=== PATIENT | female | born 1980 | race Caucasian/White ===

== ENCOUNTER → 2018-03-12 | Outpatient (CLI) | payer MEDICARE, MEDICAID ==
[~2018-03-12] MED LIST: ABILIFY; ACET-2222 PO; AGM875T PO; ALPR.5T PO; ALPR1T PO; ALPR1TAB21; ALPR1TAB72 PO; ALPR2TAB37 PO; ARPZ10T PO; AZIT-21 PO; BSP5T PO; BUSP10TA95 PO; BUTA-234; CARI250T PO; CEPH-38 PO; CEPH250C PO; CHANTIX; CHL25T PO; CLIN-62 PO; CLIN300C3 PO; CPR500T PO; DESV50TA PO; DIAZ-345 PO; DOXY-233 PO; DULO60CA6; DZPM2T PO; FLUO20CA25 PO; FLUO20CA42 PO; GBPN100C; GUAI120L27 PO; HYDR-34 PO; HYDR-3456 PO; HYDR-707 PO; HYDR-757 PO; HYDR118S10 PO; HYDR1TAB PO; HYDR1TAB75 PO; IBUP800T26 PO; LEVO500T69 PO; LNZ600T PO; METFORMIN; MTF500T PO; NAPR-243 PO; NEOM10DR9 OT; OXYC-465 PO; PREG25CA; PROZAC; PROZASIN; PROZASIN PO; REMERON; SULF-109 PO; SULF1TAB38 PO; TRAZ150T42; TRAZ150T42 PO; ZIPR60CA6; ZLP10T PO; ZLP5T PO; [UNRECOGNIZED DRUG - CODE] PO; [UNRECOGNIZED DRUG - OTHER]; [UNRECOGNIZED DRUG - OTHER] PO
--- NOTE | 2018-03-12 11:21 | Diagnostic Imaging Report ---
PROCEDURE: US Hepatic (Liver). TECHNIQUE: Multiple real-time grayscale images were obtained over the right upper quadrant in various projections. INDICATION: Hepatitis C. The liver is at the upper limits of normal in size at 18 cm. There is a circumscribed hyperechoic mass in the left lobe of the liver measuring 2.2 cm in diameter, This may represent a hemangioma. A dedicated CT abdomen utilizing hemangioma protocol would be useful however. No other liver masses are seen. Gallbladder is without stones or sludge. No wall thickening or biliary ductal dilatation is seen. The pancreas is poorly visualized due to bowel gas. Right kidney is unremarkable. IMPRESSION: Hyperechoic mass in the left lobe of the liver, suggestive of a hemangioma. CT abdomen utilizing hemangioma protocol would be useful for further evaluation. No other significant abnormality is detected. Dictated by: Dictated on workstation # [id number]
== END ==
LOC: RAD 09:26
PROVIDERS: ATTEND Pediatrics
DX: B18.2 Chronic viral hepatitis C (principal)
CPT/HCPCS: 76705

== ENCOUNTER → 2018-03-20 | Outpatient (CLI) | payer MEDICARE, MEDICAID ==
[~2018-03-20] MED LIST changes: +IOHEXOL 350 MG/ML 100 ML (OMNIPAQUE 350) VIAL IV ONE; +NS 250 ML (IVPB) BAG IV ONE
--- NOTE | 2018-03-20 09:51 | Diagnostic Imaging Report ---
PROCEDURE: CT abdomen with contrast only. TECHNIQUE: Multiple contiguous axial images were obtained through the abdomen after the administration of intravenous contrast. INDICATION: Liver mass. COMPARISON: Correlation is made with recent ultrasound from 03/12/[address] prior CT from 11/19/2008. FINDINGS: The lung bases are clear. The arterial phase images demonstrate a circumscribed low-density in left lobe of the liver measuring approximately 19 mm in size. This is better seen on the portal venous phase. No definite peripheral nodular enhancement is seen although delayed images do suggest some slight filling in of the lesion and is less well seen. No other liver masses are identified. The gallbladder is unremarkable. The pancreas and spleen are unremarkable. No adrenal mass is detected. Kidneys are unremarkable. Aorta is non-aneurysmal. No central retroperitoneal or mesenteric lymphadenopathy is identified. Bowel loops are normal caliber. There is no ascites. IMPRESSION: Circumscribed liver mass correlating with the ultrasound abnormality. CT enhancement characteristics are not classic for cavernous hemangioma however this remains a possibility, particularly with its hyperechoic appearance on ultrasound. Continued short interval followup with either CT or ultrasound is recommended with repeat study in approximately three months to confirm stability. Consideration could be given to performance of an MRI of the abdomen with and without contrast for further characterization as well. Dictated by: Dictated on workstation # [id number]
== END ==
LOC: RAD 07:36
PROVIDERS: ATTEND Pediatrics
DX: R16.0 Hepatomegaly, not elsewhere classified (principal)
CPT/HCPCS: 74160

== ENCOUNTER 2018-07-10 05:40 | Outpatient (CLI) | payer MEDICARE, MEDICAID ==
[~2018-07-10] VITALS: Ht 162.6 cm; Wt 86.2 kg
[~2018-07-10 05:40] MED LIST changes: -IOHEXOL 350 MG/ML 100 ML (OMNIPAQUE 350) VIAL IV ONE; -NS 250 ML (IVPB) BAG IV ONE
== END 2018-07-10 09:58 | disposition home or self-care (01) ==
LOC: PREOP 05:40
PROVIDERS: ATTEND Surgery
DX: Z01.818 Encounter for other preprocedural examination (principal)

== ENCOUNTER → 2018-07-11 | Outpatient (CLI) | payer MEDICARE, MEDICAID ==
--- NOTE | 2018-07-11 10:38 | Diagnostic Imaging Report ---
PROCEDURE: US Hepatic (Liver). TECHNIQUE: Multiple real-time grayscale images were obtained over the right upper quadrant in various projections. INDICATION: Liver mass noted on MRI. COMPARISON: Correlation is made with MRI abdomen study from 04/01/2018. FINDINGS: The liver is 18 cm in size. The left lobe liver lesion is again noted which is hyperechoic measuring 1.9 x 2.0 x 1.6 cm. This is fairly stable when compared with prior imaging. No new liver mass is detected. Gallbladder is without stones or sludge. No wall thickening or biliary ductal dilatation is seen. The pancreas and right kidney are unremarkable. There is no ascites. IMPRESSION: Stable hyperechoic mass in left lobe of the liver when compared with prior imaging. Continued followup is recommended to confirm stability. Dictated by: Dictated on workstation # [id number]
== END ==
LOC: RAD 08:48
PROVIDERS: ATTEND Pediatrics
DX: R16.0 Hepatomegaly, not elsewhere classified (principal)
CPT/HCPCS: 76705

== ENCOUNTER 2018-07-17 09:00 | Day surgery (SDC) | payer MEDICARE, MEDICAID ==
[~2018-07-17] VITALS: Ht 162.6 cm; Wt 86.2 kg
--- OUTSIDE RECORDS SUMMARY | 2018-07-17 09:09 | XMS REPORT ---
Author Author Soo Cai Organization [facility] Address [address] [place], [place] [address] Care Team Providers Care Coffee Grinder Name Role Phone Soo Cai PCP Unavailable Allergies and Adverse Reactions Name Reaction Notes PENICILLINS Betadine Plan of Treatment Not available. Medications Active Name Start Date Estimated Completion Date SIG Comments Zofran (as hydrochloride) 8 mg oral tablet 10/19/2016 10/24/2016 Take 1/2 - 1 tablet po q 8 hrs, PRN nausea and vomiting Problem List Not available. Vital Signs Date Time BP-Sys(mm[Hg] BP-Zoe(mm[Hg]) HR(bpm) RR(rpm) Temp WT HT HC BMI BSA BMI Percentile O2 Sat(%) 10/19/2016 4:57:00 PM 139 mmHg 77 mmHg 93 bpm 18 rpm 98.4 F 151 lbs 64 in 25.92 kg/m2 1.76 m2 98 % Social History Name Description Comments Tobacco Current every day smoker History of Procedures Not available. Results Summary Not available. History Of Immunizations Not available. History of Past Illness Name Date of Onset Comments Amputation of leg; left; below the knee Vomiting, unspecified Oct 19 2016 5:02PM Diarrhea, unspecified Oct 19 2016 5:02PM Payers Insurance Name Company Name Plan Name Plan Number Policy Number Policy Group Number Start Date Medicare RHC Medicare RHC [id number] [facility] Comm [id number] N/A Medicare Part A Medicare - Lab/Xray [id number] N/A History of Encounters Visit Date Visit Type Provider 10/19/2016 Office visit Soo Cai APRN
--- OUTSIDE RECORDS SUMMARY | 2018-07-17 09:09 | XMS REPORT ---
Author Author YAJAIRA HERNANDEZ Organization [facility] Address [address] [place] [address] Care Team Providers Care Radio Television Technical Director Name Role Phone YAJAIRA HERNANDEZ Unavailable PROBLEMS Type Condition ICD9-CM Code [id number] Code Onset Dates Condition Status SNOMED Code Problem Amphetamine and other psychostimulant dependence, unspecified abuse 304.40 Active Problem Lower limb amputation, below knee Z89.519 Active 001793120 Problem Hepatitis C antibody positive in blood R76.8 Active 994304790 Problem Chronic hepatitis C without hepatic coma B18.2 Active 989012845 Problem Hepatic hemangioma D18.03 Active 95620000 Problem Generalized anxiety disorder F41.1 Active 27711371 Problem Attention deficit disorder (ADD) in adult F98.8 Active 831437704 Problem Hep C w/o coma, chronic B18.2 Active 467770142 Problem History of left below knee amputation Z89.512 Active 893448813 ALLERGIES Substance Reaction Event Type Date Status Penicillin V Potassium as a child Drug Allergy May, Active Betadine blisters Drug Allergy May, Active ENCOUNTERS Encounter Location Date Diagnosis [facility] [id number] [address]2382- 9465 May, History of left below knee amputation Z89.512 and Tendon cysts M67.80 [facility] [address] [id number] [address] May, [facility] [id number] [facility] [place] [address] 37723- 3156 May, [facility] [address] [facility] [place] [address] 01611- 8207 May, History of left below knee amputation Z89.512 [facility] [id number] [place] [address] 80835- 2249 Apr, Chronic hepatitis C without hepatic coma B18.2 ; Hepatic hemangioma D18.03 and Encounter for immunization Z23 [facility] [id number] [place] [address] 50088- 3715 Apr, Liver mass R16.0 [facility] [id number] [place] [address] 83242- 8646 Mar, Liver mass R16.0 [facility] [address] [address] Mar, [facility] [id number] [place] [address] 54940- 9847 Mar, Generalized anxiety disorder F41.1 ; Lower limb amputation, below knee Z89.519 and Hep C w/o coma, chronic B18.2 [facility] [id number] [facility] [place] [address] 69727- 0680 Mar, Liver mass R16.0 [facility] [id number] [place] [address] 87591- 6957 Feb, Hep C w/o coma, chronic B18.2 and Weight gain R63.5 [facility] [id number] [place] [address] [id number] Feb, Hepatitis C antibody positive in blood R76.8 [facility] [id number] [place] [address] 21660- 1518 Jan, Hep C w/o coma, chronic B18.2 [facility] [id number] [place] [address] 72863- 5381 Jan, [facility] [id number] [place] [address] 19718- 8246 Jan, Hep C w/o coma, chronic B18.2 [facility] [id number] [place] [address] 43973- 9575 Jan, Chronic hepatitis C without hepatic coma B18.2 [facility] [address] [place] [address] 8[address] Jan, [facility] [id number] [place] [address] [id number] Jan, Hepatitis C antibody positive in blood R76.8 [facility] [id number] [place] [address] 42614- 5802 December, Chronic hepatitis C without hepatic coma B18.2 and Encounter for immunization Z23 [place] [id number] [facility] [place] [address] 63710- 4879 December, [facility] [id number] [place] [address] [id number] December, Hepatitis C antibody positive in blood R76.8 [place] [id number] [place] [address] 07269- 3995 December, Hepatitis C antibody positive in blood R76.8 [place] [id number] [place] [address] 39678- 4422 December, [facility] [address] [place] [address] [id number] December, History of left below knee amputation Z89.512 ; Other acute postprocedural pain G89.18 and Other complications of amputation stump T87.89 [place] [address] [facility] [place] [address] 27071- 0407 Nov, Generalized anxiety disorder F41.1 and Attention deficit disorder (ADD) in adult F98.8 [place] [address] [facility] [place] [address] 74788- 4766 Nov, History of hepatitis C Z86.19 ; History of methamphetamine abuse Z87.898 ; Lower limb amputation, below knee Z89.519 and Encounter to establish care Z76.89 [place] [address] [facility] [place] [address] 69828- 1244 Nov, [place] [id number] [place] [address] 59226- 9743 Nov, [facility] [id number] [phone] Jun, [facility] [address] [id number] [place] [address] Jun, [facility] [place] [facility] [address] [id number] [place] [address]- 2256 May, [facility] [place] [facility] [address] [id number] [place] [address] 9666 May, [facility] [address] [place] [place] [id number] Apr, [facility] [address] [id number] [place] [address] 4675 Apr, [facility] [address] [place] [id number] Mar, [facility] [place] [facility] [address] [id number] [place] [address] 3272 Mar, [facility] [place] [facility] [address] [id number] [place] [address] 9614 Mar, [facility] [address] [place] [id number] Mar, [facility] [place] [facility] [address] [id number] [place] [address]- 0871 Jan, [facility] [place] [facility] [address] [id number] [place] [address]- 1546 Oct, [facility] [place] [facility] [address] [id number] [place] [address]- 8065 Oct, [facility] [place] [facility] [address] [id number] [place] [address]- 8067 Sep, [facility] [place] [facility] [address] [id number] [place] [address]- 2142 Sep, [facility] [place] [facility] [address] [id number] [place] [address]- 3986 Aug, [facility] [place] [facility] [address] [id number] [place] [address]- 7687 Aug, [facility] [address] [id number] [address] 5786 Aug, [facility] [address] [address] 2969 Aug, [facility] [address], [place] [address] 9666 Jul, [facility] [address] [facility] [place] [address] 88342- 7645 Jul, [facility] [address] [address] 7417 Jun, [facility] [address] [facility] [place] [address] 09237- 6670 Jun, [facility] [address] [address] 74[address] Jun, [facility] [address], [place] [address] 7607 May, IMMUNIZATIONS No Known Immunizations SOCIAL HISTORY Never Assessed REASON FOR VISIT Injection / amputation f/u-HARVEY kim, pt states she is her for a cortizone injection and a pneumonia injection PLAN OF CARE Activity Details Follow Up prn Reason: VITAL SIGNS Height 64 in 2018-05-29 Weight 193.0 lbs 2018-05-29 Temperature 97.7 degrees Fahrenheit 2018-05-29 Heart Rate 66 bpm 2018-05-29 Respiratory Rate 18 2018-05-29 Oximetry on room air:97 % 2018-05-29 BMI 33.12 kg/m2 2018-05-29 Blood pressure systolic 110 mmHg 2018-05-29 Blood pressure diastolic 80 mmHg 2018-05-29 MEDICATIONS No Known Medications RESULTS No Results PROCEDURES Procedure Date Ordered Result Body Site [facility] VISIT ESTABLISHED PATIENT May 29, 2018 INSTRUCTIONS MEDICATIONS ADMINISTERED No Known Medications MEDICAL (GENERAL) HISTORY Type Description Date Medical History Hep C Medical History Left BKA Medical History Dermatophytosis of the body Medical History Bipolar disorder, unspecified Medical History Anxiety state, unspecified Medical History Cellulitis and abscess of leg, except foot Medical History Pain in soft tissues of limb Surgical History BKA 2013 Surgical History 1999 Surgical History 2001 Surgical History Total hysterectomy 2007 Hospitalization History Debridments 2012 Hospitalization History C-sections Hospitalization History Amputation 2014
--- OUTSIDE RECORDS SUMMARY | 2018-07-17 09:09 | XMS REPORT ---
Author Author ASHISH SEGOVIA Organization [facility] Address [address] [place] [address] Care Team Providers Care Whipped Topping Mixer Name Role Phone ASHISH SEGOVIA Unavailable PROBLEMS Type Condition ICD9-CM Code EYX26-GE Code Onset Dates Condition Status SNOMED Code Problem Amphetamine and other psychostimulant dependence, unspecified abuse 304.40 Active Problem Lower limb amputation, below knee Z89.519 Active 133954501 Problem Hepatitis C antibody positive in blood R76.8 Active 783998517 Problem Chronic hepatitis C without hepatic coma B18.2 Active 451040007 Problem Hepatic hemangioma D18.03 Active 59080766 Problem Generalized anxiety disorder F41.1 Active 18689257 Problem Attention deficit disorder (ADD) in adult F98.8 Active 557622031 Problem Hep C w/o coma, chronic B18.2 Active 041632159 Problem History of left below knee amputation Z89.512 Active 263359518 ALLERGIES No Information ENCOUNTERS Encounter Location Date Diagnosis [facility] [address] [place] [address] 71809- 8989 May, [facility] [id number] [place] [address] 36067- 0846 Apr, Chronic hepatitis C without hepatic coma B18.2 ; Hepatic hemangioma D18.03 and Encounter for immunization Z23 [facility] [address] [place] [address] 71066- 7296 Apr, Liver mass R16.0 [facility] [id number] [place] [address] 07156- 6724 Mar, Liver mass R16.0 [facility] [id number] [place] [address] 65738- 4151 Mar, [facility] [address] [place] [address]- 2490 Mar, Generalized anxiety disorder F41.1 ; Lower limb amputation, below knee Z89.519 and Hep C w/o coma, chronic B18.2 [facility] [address] [address]- 6098 Mar, Liver mass R16.0 [facility] [address] [address]41- [address]3 Feb, Hep C w/o coma, chronic B18.2 and Weight gain R63.5 [facility] [address] [id number] Feb, Hepatitis C antibody positive in blood R76.8 [facility] [address] 07297- 2799 Jan, Hep C w/o coma, chronic B18.2 [facility] [address] [address]08- 5381 Jan, [facility] [address] 98789- 3199 Jan, Hep C w/o coma, chronic B18.2 [facility] [address] 01986- 1701 Jan, Chronic hepatitis C without hepatic coma B18.2 [facility] [id number] [place] [address] 63185- 3603 Jan, [facility] [id number] [place] [address] [id number] Jan, Hepatitis C antibody positive in blood R76.8 [facility] [address] 35722- 7059 December, Chronic hepatitis C without hepatic coma B18.2 and Encounter for immunization Z23 [facility] [id number] [place] [address] 32005- 0836 December, [facility] [address] [id number] December, Hepatitis C antibody positive in blood R76.8 [facility] [address], [place] [address]- 0692 December, Hepatitis C antibody positive in blood R76.8 [facility] [address] [address] December, [facility] [id number] [place] [address] [id number] December, History of left below knee amputation Z89.512 ; Other acute postprocedural pain G89.18 and Other complications of amputation stump T87.89 [facility] [id number] [place] [address] 62855- 6367 Nov, Generalized anxiety disorder F41.1 and Attention deficit disorder (ADD) in adult F98.8 [facility] [address] [place] [address] 54654- 3598 Nov, History of hepatitis C Z86.19 ; History of methamphetamine abuse Z87.898 ; Lower limb amputation, below knee Z89.519 and Encounter to establish care Z76.89 [facility] [address] [place] [address] 05564- 4433 14 Nov, 2014 [facility] [address] [place] [address] 80502- 1333 13 Nov, 2014 [facility] [address] [id number] [id number] Jun, [facility] [address] [place] [address] 49801- 6114 Jun, [facility] [address] [place] [address] 08866- 2279 May, [facility] [address] [place] [address] 26538870- 5691 May, [facility] [address] [place] [id number] Apr, [facility] [id number] [place] [address], [place] [address]- 44[address] Apr, [facility] [address], [place] [id number] Mar, [facility] [place] [facility] [address] [id number] [place] [address]- 4277 Mar, [facility] [place] [facility] [address] [id number] [place] [address]- 7370 Mar, [facility] [address] [id number] Mar, [facility] [place] [facility] [address] [id number] [place] [address]- 3163 Jan, [facility] [place] [facility] [address] [id number] [place] [address]- 3987 Oct, [facility] [place] [facility] [address] [id number] [place] [address]- 9060 Oct, [facility] [place] [facility] [address] [id number] [place] [address]- 0352 Sep, [facility] [place] [facility] [address] [id number] [place] [address]- 7438 Sep, [facility] [place] [facility] [address] [id number] [place] [address]- 4410 Aug, [facility] [place] [facility] [address] [id number] [place] [address]- 9986 Aug, [facility] [place] [facility] [address] [id number] [place] [address]- 3301 Aug, [facility] [place] [facility] [address] [id number] [place] [address]- 6886 Aug, [facility] [place] [facility] [address] [id number] [place] [address]- 1058 Jul, [facility] [place] [facility] [address] [id number] [place] [address]- 1412 Jul, [facility] [place] [facility] [address] [id number] [place] [address]- 5721 Jun, [facility] [address] [facility] [id number] [place] [address]- 2546 Jun, [facility] [address] [facility] [id number] [place] [address]- 2546 Jun, [facility] [address] [facility] [id number] [place] [address]- 7756 May, IMMUNIZATIONS No Known Immunizations SOCIAL HISTORY Never Assessed REASON FOR VISIT Deferred order PLAN OF CARE VITAL SIGNS MEDICATIONS Unknown Medications RESULTS No Results PROCEDURES No Known procedures INSTRUCTIONS MEDICATIONS ADMINISTERED No Known Medications MEDICAL [...] Surgical History 2001 Surgical History Total hysterectomy 2006 Hospitalization History Debridments 2012 Hospitalization History C-sections Hospitalization History Amputation 2014
--- OUTSIDE RECORDS SUMMARY | 2018-07-17 09:09 | XMS REPORT ---
Author Author ASHISH SEGOVIA Organization [facility] Address [address] [place] [address] Care Team Providers Care Regional Agronomist Name Role Phone ASHISH SEGOVIA Unavailable PROBLEMS Type Condition ICD9-CM Code UIF10-CU Code Onset Dates Condition Status SNOMED Code Problem Amphetamine and other psychostimulant dependence, unspecified abuse 304.40 Active Problem Lower limb amputation, below knee Z89.519 Active 322561437 Problem Hepatitis C antibody positive in blood R76.8 Active 991079730 Problem Chronic hepatitis C without hepatic coma B18.2 Active 058522981 Problem Hepatic hemangioma D18.03 Active 84526288 Problem Generalized anxiety disorder F41.1 Active 62869551 Problem Attention deficit disorder (ADD) in adult F98.8 Active 041808105 Problem Hep C w/o coma, chronic B18.2 Active 377371294 Problem History of left below knee amputation Z89.512 Active 322472128 ALLERGIES Substance Reaction Event Type Date Status Penicillin V Potassium as a child Drug Allergy Apr, Active Betadine blisters Drug Allergy Apr, Active ENCOUNTERS Encounter Location Date Diagnosis [facility] [id number] [place] [address] 71226- 2305 May, [facility] [id number] [place] [address] 14712- 1286 May, History of left below knee amputation Z89.512 [facility] [id number] [place] [address] 68146- 9743 Apr, Chronic hepatitis C without hepatic coma B18.2 ; Hepatic hemangioma D18.03 and Encounter for immunization Z23 [facility] [address] [place] [address] 86241- 7840 Apr, Liver mass R16.0 [facility] [address] [place] [address]- 5481 Mar, Liver mass R16.0 [facility] [id number] [place] [address] 59917- 2907 Mar, [facility] [id number] [place] [address] 38461- 5793 Mar, Generalized anxiety disorder F41.1 ; Lower limb amputation, below knee Z89.519 and Hep C w/o coma, chronic B18.2 [facility] [id number] [place] [address] 20008- 6320 Mar, Liver mass R16.0 [facility] [id number] [place] [address] 49448- 5389 Feb, Hep C w/o coma, chronic B18.2 and Weight gain R63.5 [facility] [id number] [place] [address] [phone] Feb, Hepatitis C antibody positive in blood R76.8 [facility] [id number] [place] [address] 55225- 7001 Jan, Hep C w/o coma, chronic B18.2 [facility] [id number] [place] [address] 01669- 7662 Jan, [facility] [id number] [place] [address] 80651- 6617 Jan, Hep C w/o coma, chronic B18.2 [facility] [id number] [place] [address] 40024- 9537 Jan, Chronic hepatitis C without hepatic coma B18.2 [facility] [id number] [place] [address] 50333- 5614 Jan, [facility] [id number] [place] [address] [phone] Jan, Hepatitis C antibody positive in blood R76.8 [facility] [id number] [place] [address] 49813- 2866 December, Chronic hepatitis C without hepatic coma B18.2 and Encounter for immunization Z23 [place] [id number] [place] [address] 28745- 4199 December, [facility] [address] [place] [address] [phone] December, Hepatitis C antibody positive in blood R76.8 [place] [id number] [place] [address] 71265- 7960 December, Hepatitis C antibody positive in blood R76.8 [place] [id number] [place] [address] 16457- 4225 December, [place] [id number] [place] [address] [phone] December, History of left below knee amputation Z89.512 ; Other acute postprocedural pain G89.18 and Other complications of amputation stump T87.89 [place] [id number] [place] [address] 52523- 1611 Nov, Generalized anxiety disorder F41.1 and Attention deficit disorder (ADD) in adult F98.8 [place] [id number] [place] [address] 51593- 8923 Nov, History of hepatitis C Z86.19 ; History of methamphetamine abuse Z87.898 ; Lower limb amputation, below knee Z89.519 and Encounter to establish care Z76.89 [place] [id number] [place] [address] 17836- 8324 14 Nov, 2014 [place] [id number] [place] [address] 58832- 5657 Nov, [facility] [address] [place] [address] [phone] Jun, [place] [id number] [place] [address] 91423- 6541 Jun, [place] [id number] [place] [address] 67881- 8169 May, [facility] [address] [id number] [place] [address]- 3776 May, [facility] [address] [id number] Apr, [facility] [place] [facility] [address] [id number] [place] [address]- 5336 Apr, [facility] [address] [id number] Mar, [facility] [place] [facility] [address] [id number] [place] [address]- 6296 Mar, [facility] [place] [facility] [address] [id number] [place] [address]- 3256 Mar, [facility] [address] [id number] Mar, [facility] [place] [facility] [address] [id number] [address]- 3866 Jan, [facility] [place] [facility] [address] [id number] [place] [address]- 3547 Oct, [facility] [place] [facility] [address] [id number] [place] [address]- 6978 Oct, [facility] [place] [facility] [address] [id number] [place] [address] 18[address] Sep, [facility] [place] [facility] [address] [id number] [place] [address]- 2380 Sep, [facility] [place] [facility] [address] [id number] [place] [address]- 0995 Aug, [facility] [place] [facility] [address] [id number] [place] [address]- 5463 Aug, [facility] [place] [facility] [address] [id number] [place] [address]- 7796 Aug, [facility] [place] [facility] [address] [id number] [place] [address]- 1470 Aug, [facility] [place] [facility] [address] [id number] [place] [address]- 2546 Jul, [facility] [address] [facility] [id number] [place] [address]- 2546 Jul, [facility] [address] [facility] [id number] [place] [address]- 2546 Jun, [facility] [address] [facility] [id number] [place] [address]- 2546 Jun, [facility] [address] [facility] [id number] [place] [address] 55808- 2546 Jun, [facility] [address] [facility] [id number] [place] [address]- 2546 May, IMMUNIZATIONS Vaccine Route Administration Date Status FLULAVAL QUAD 0.5ML (6 MO & UP) 2018 IM Intramuscular Apr 28, 2018 Administered SOCIAL HISTORY Never Assessed REASON FOR VISIT Hep C week 12, pt would like a flu shot. pt would like to get a script for a shower chair and a handle for bath tub. Pt states she has a bump on the outside of her lft amputee leg that keeps geeting bigger. Cshepherd, Pt states she has only one pill left. PLAN OF CARE Activity Details Follow Up 3 Months for labs Reason: VITAL SIGNS Height 64 in 2018-04-28 Weight 190.7 lbs 2018-04-28 Temperature 96.8 degrees Fahrenheit 2018-04-28 Heart Rate 67 bpm 2018-04-28 Respiratory Rate 18 2018-04-28 Oximetry 97 % 2018-04-28 BMI 32.73 kg/m2 2018-04-28 Blood pressure systolic 118 mmHg 2018-04-28 Blood pressure diastolic 62 mmHg 2018-04-28 MEDICATIONS Medication Instructions Dosage Frequency Start Date End Date Duration Status Epclusa 400-100 MG Orally Once a day (12 weeks total regimen) 1 tablet Jan, 4 weeks Active RESULTS No Results PROCEDURES Procedure Date Ordered Result Body Site LAB NOT BILLED BY [facility] Apr 28, 2018 [facility] VISIT ESTABLISHED PATIENT Apr 28, 2018 FLULAVAL QUAD 0.5ML (6 MO AND UP) 2018 Apr 28, 2018 VENIPUNCT, ROUTINE* Apr 28, 2018 SINGLE IMMUNIZATION ADMIN Apr 28, 2018 INSTRUCTIONS MEDICATIONS ADMINISTERED No Known Medications [...]
--- OUTSIDE RECORDS SUMMARY | 2018-07-17 09:09 | XMS REPORT ---
Author Author ASHISH SEGOVIA Organization [facility] Address [address] [place] [address] Care Team Providers Care Seismograph Helper Name Role Phone ASHISH SEGOVIA Unavailable PROBLEMS Type Condition ICD9-CM Code SOL40-QS Code Onset Dates Condition Status SNOMED Code Problem Hepatitis C antibody positive in blood R76.8 Active 073917757 Problem Hep C w/o coma, chronic B18.2 Active 998153434 Problem History of left below knee amputation Z89.512 Active 177411990 Problem Lower limb amputation, below knee Z89.519 Active 043308202 Problem Amphetamine and other psychostimulant dependence, unspecified abuse 304.40 Active Problem Attention deficit disorder (ADD) in adult F98.8 Active 792513284 Problem Generalized anxiety disorder F41.1 Active 90608468 ALLERGIES No Information ENCOUNTERS Encounter Location Date Diagnosis [facility] [address] 81150- 0871 May, [facility] [address] 48664- 2819 Apr, [facility] [id number] [place] [address] 59672- 8240 Apr, Liver mass R16.0 [facility] [address] 04735- 6253 Mar, Liver mass R16.0 [facility] [id number] [place] [address] 44863- 5552 Mar, [facility] [address] 84435- 1567 Mar, Generalized anxiety disorder F41.1 ; Lower limb amputation, below knee Z89.519 and Hep C w/o coma, chronic B18.2 [facility] [id number] [place] [address] 02960- 5331 Mar, Liver mass R16.0 [facility] [id number] [place] [address] 66514- 1136 Feb, Hep C w/o coma, chronic B18.2 and Weight gain R63.5 [facility] [id number] [place] [address] [id number] Feb, Hepatitis C antibody positive in blood R76.8 [facility] [id number] [place] [address] 92945- 7602 Jan, Hep C w/o coma, chronic B18.2 [facility] [id number] [place] [address] 93912- 6429 Jan, [facility] [id number] [place] [address] 46813- 8197 Jan, Hep C w/o coma, chronic B18.2 [facility] [id number] [place] [address] 67555- 5268 Jan, Chronic hepatitis C without hepatic coma B18.2 [facility] [id number] [place] [address] 08826- 8204 Jan, [facility] [address] [place] [address] [id number] Jan, Hepatitis C antibody positive in blood R76.8 [facility] [id number] [place] [address] 54318- 1327 December, Chronic hepatitis C without hepatic coma B18.2 and Encounter for immunization Z23 [facility] [id number] [place] [address] 36689- 5900 December, [facility] [id number] [place] [address] [id number] December, Hepatitis C antibody positive in blood R76.8 [facility] [id number] [place] [address] 54298- 5798 December, Hepatitis C antibody positive in blood R76.8 [facility] [id number] [address]- 2224 December, [facility] [address] [id number] [id number] December, History of left below knee amputation Z89.512 ; Other acute postprocedural pain G89.18 and Other complications of amputation stump T87.89 [facility] [address] [address]- 3949 Nov, Generalized anxiety disorder F41.1 and Attention deficit disorder (ADD) in adult F98.8 [place] [address] [place] [address] 53471- 6169 Nov, History of hepatitis C Z86.19 ; History of methamphetamine abuse Z87.898 ; Lower limb amputation, below knee Z89.519 and Encounter to establish care Z76.89 [facility] [address], [place] [address]- 0817 14 Nov, 2014 [facility] [id number] [address]- 1777 13 Nov, 2014 [facility] [address] [id number] [place] [id number] Jun, [facility] [id number] [address]- 0168 Jun, [facility] [address] [id number] [address]- 9376 May, [facility] [address] [id number], [place] [address]- 7181 May, [facility] [address] [place] [id number] Apr, [facility] [address], [place] [address]- 1487 Apr, [facility] [address] [place] [id number] Mar, [facility] [address] [place] [address]- 5317 Mar, [facility] [address] [id number] [place] [address]- 2080 Mar, [facility] [address] [id number] Mar, [facility] [place] [facility] [address] [id number] [place] [address]- 4602 Jan, [facility] [place] [facility] [address] [id number] [place] [address]- 3524 Oct, [facility] [place] [facility] [address] [id number] [place] [address]- 3569 Oct, [facility] [place] [facility] [address] [id number] [place] [address]- 9842 Sep, [facility] [place] [facility] [address] [id number] [place] [address]- 7390 Sep, [facility] [place] [facility] [address] [id number] [place] [address]- 1947 Aug, [facility] [place] [facility] [address] [id number] [place] [address]- 6695 Aug, [facility] [place] [facility] [address] [id number] [place] [address]- 3136 Aug, [facility] [place] [facility] [address] [id number] [place] [address]- 9816 Aug, [facility] [place] [facility] [address] [id number] [place] [address]- 9323 Jul, [facility] [place] [facility] [address] [id number] [place] [address]- 8104 Jul, [facility] [place] [facility] [address] [id number] [place] [address]- 0368 Jun, [facility] [place] [facility] [address] [id number] [place] [address]- 9826 Jun, [facility] [place] [facility] [address] [facility] [id number] [place] [address]- 4756 Jun, [facility] [address] [facility] [id number] [place] [address]- 4625 May, IMMUNIZATIONS No Known Immunizations SOCIAL HISTORY Never Assessed REASON FOR VISIT Liver Mass / MRI Order PLAN OF CARE VITAL SIGNS MEDICATIONS Unknown Medications RESULTS Name Result Date Reference Range MRI : Abdomen w/o & w/ Contrast 2018-04-01 PROCEDURES No Known procedures INSTRUCTIONS MEDICATIONS ADMINISTERED [...]
--- OUTSIDE RECORDS SUMMARY | 2018-07-17 09:09 | XMS REPORT ---
Author Author Soo Cai Organization [facility] Address [address] [place], [place] [address] Care Team Providers Care Practicing Md Anesthesiologist Name Role Phone Soo Cai PCP Unavailable Allergies and Adverse Reactions Name Reaction Notes PENICILLINS Betadine Plan of Treatment Not available. Medications Name Start Date Expiration Date SIG Comments Zofran (as hydrochloride) 8 [...] Number Start Date Medicare RHC Medicare RHC [id number] N/A [facility] [id number] N/A Medicare Part A Medicare - Lab/Xray [id number] N/A History of Encounters Visit Date Visit Type Provider 10/19/2016 Office visit Soo Cai APRN
--- OUTSIDE RECORDS SUMMARY | 2018-07-17 09:10 | XMS REPORT ---
Author Author SABA HAZEL Organization [facility] Address [address] [place] [address] Care Team Providers Care Custom Ski Maker Name Role Phone SABA HAZEL Unavailable PROBLEMS Type Condition ICD9-CM Code LCG55-EP Code Onset Dates Condition Status SNOMED Code Problem Hepatitis C antibody positive in blood R76.8 Active 341905529 Problem Hep C w/o coma, chronic B18.2 Active 451912945 Problem History of left below knee amputation Z89.512 Active 581569456 Problem Lower limb amputation, below knee Z89.519 Active 635338195 Problem Amphetamine and other psychostimulant dependence, unspecified abuse 304.40 Active Problem Attention deficit disorder (ADD) in adult F98.8 Active 530464376 Problem Generalized anxiety disorder F41.1 Active 62240139 ALLERGIES No Information ENCOUNTERS Encounter Location Date Diagnosis [facility] [address] [address]- [address]11 May, [facility] [address] 69513- 8606 Apr, [facility] [id number] [place] [address] 41626- 4748 Apr, Liver mass R16.0 [facility] [id number] [place] [address] 68229- 3010 Mar, Liver mass R16.0 [facility] [id number] [place] [address] 62201- 4228 Mar, [facility] [address] 29283- 7676 Mar, Generalized anxiety disorder F41.1 ; Lower limb amputation, below knee Z89.519 and Hep C w/o coma, chronic B18.2 [facility] [address] [place] [address] 36704- 7179 Mar, Liver mass R16.0 [facility] [id number] [place] [address] 48550- 5068 Feb, Hep C w/o coma, chronic B18.2 and Weight gain R63.5 [facility] [id number] [place] [address] [id number] Feb, Hepatitis C antibody positive in blood R76.8 [facility] [id number] [place] [address] 68861- 6245 Jan, Hep C w/o coma, chronic B18.2 [facility] [id number] [place] [address] 05031- 9397 Jan, [facility] [id number] [place] [address] 95972- 2495 Jan, Hep C w/o coma, chronic B18.2 [facility] [id number] [place] [address] 22249- 5339 Jan, Chronic hepatitis C without hepatic coma B18.2 [facility] [id number] [place] [address] 85165- 8838 Jan, [facility] [address] [place] [address] [id number] Jan, Hepatitis C antibody positive in blood R76.8 [facility] [id number] [place] [address] 31034- 8303 December, Chronic hepatitis C without hepatic coma B18.2 and Encounter for immunization Z23 [facility] [id number] [place] [address] 91522- 0493 December, [facility] [id number] [place] [address] [id number] December, Hepatitis C antibody positive in blood R76.8 [facility] [id number] [place] [address] 26288- 2320 December, Hepatitis C antibody positive in blood R76.8 [facility] [address] [id number] [address]- 3013 December, [facility] [address] [id number] [id number] December, History of left below knee amputation Z89.512 ; Other acute postprocedural pain G89.18 and Other complications of amputation stump T87.89 [facility] [address] [address]- 6821 Nov, Generalized anxiety disorder F41.1 and Attention deficit disorder (ADD) in adult F98.8 [place] [address] [address]- 1661 Nov, History of hepatitis C Z86.19 ; History of methamphetamine abuse Z87.898 ; Lower limb amputation, below knee Z89.519 and Encounter to establish care Z76.89 [facility] [address] [address]- 4660 14 Nov, 2014 [facility] [address] [id number] [address]- 5198 Nov, [facility] [address] [id number] [id number] Jun, [facility] [address] [id number] [address]- 8734 Jun, [facility] [id number] 6345 May, [facility] [id number] 4725 May, [facility] [address] [place] [id number] Apr, [facility] [address] [id number] [address]- 7036 Apr, [facility] [address] [place] [id number] Mar, [facility] [address] [address]- 1502 Mar, [facility] [address] [facility] [id number] [place] [address]- 7801 Mar, [facility] [address] [id number] Mar, [facility] [place] [facility] [address] [facility] [id number] [place] [address]- 7051 Jan, [facility] [place] [facility] [address] [id number] [place] [address]- 5698 Oct, [facility] [place] [facility] [address] [id number] [place] [address]- 5989 Oct, [facility] [place] [facility] [address] [id number] [place] [address]- 8938 Sep, [facility] [place] [facility] [address] [id number] [place] [address]- 0451 Sep, [facility] [place] [facility] [address] [id number] [place] [address]- 4494 Aug, [facility] [place] [facility] [address] [id number] [place] [address]- 5012 Aug, [facility] [place] [facility] [address] [id number] [place] [address] Aug, [facility] [place] [facility] [address] [id number] [place] [address] Aug, [facility] [place] [facility] [address] [id number] [place] [address] Jul, [facility] [place] [facility] [address] [id number] [place] [address] Jul, [facility] [place] [facility] [address] [facility] [id number] [place] [address] Jun, [facility] [place] [facility] [address] [id number] [place] [address] Jun, [facility] [place] [facility] [address] [facility] [id number] [place] [address] Jun, [facility] [address] [facility] [id number] [place] [address] May, IMMUNIZATIONS No Known Immunizations SOCIAL HISTORY Never Assessed REASON FOR VISIT Requests return call PLAN OF CARE VITAL SIGNS MEDICATIONS Unknown [...]
--- OUTSIDE RECORDS SUMMARY | 2018-07-17 09:10 | XMS REPORT ---
Author Author HAZELSABA Elaine Organization [facility] Address [address] [place] [address] Care Team Providers Care Television Engineering Teacher Name Role Phone SABA HAZEL Unavailable PROBLEMS Type Condition ICD9-CM Code ONJ93-MI Code Onset Dates Condition Status SNOMED Code Problem Hepatitis C antibody positive in blood R76.8 Active 513859315 Problem Hep C w/o coma, chronic B18.2 Active 878939412 Problem History of left below knee amputation Z89.512 Active 067359098 Problem Lower limb amputation, below knee Z89.519 Active 540713966 Problem Amphetamine and other psychostimulant dependence, unspecified abuse 304.40 Active Problem Attention deficit disorder (ADD) in adult F98.8 Active 388587157 Problem Generalized anxiety disorder F41.1 Active 38221823 ALLERGIES Substance Reaction Event Type Date Status Penicillin V Potassium as a child Drug Allergy Mar, Active Betadine blisters Drug Allergy Mar, Active ENCOUNTERS Encounter Location Date Diagnosis [facility] [id number] [place] [address] 09091- 6565 May, [facility] [address] [address] Apr, [facility] [id number] [place] [address] 19766- 3258 Apr, Liver mass R16.0 [facility] [address], [place] [address] 2282 Mar, Liver mass R16.0 [facility] [id number] [place] [address] 24054- 7608 Mar, [facility] [address] [place] [address] 25111- 8872 Mar, Generalized anxiety disorder F41.1 ; Lower limb amputation, below knee Z89.519 and Hep C w/o coma, chronic B18.2 [facility] [address] [address]07- 9459 Mar, Liver mass R16.0 [facility] [id number] [place] [address] 06628- 6649 Feb, Hep C w/o coma, chronic B18.2 and Weight gain R63.5 [facility] [address] [id number] Feb, Hepatitis C antibody positive in blood R76.8 [facility] [address] [address]- 9107 Jan, Hep C w/o coma, chronic B18.2 [facility] [address] 16531- 5878 Jan, [facility] [address] 70373- 0790 Jan, Hep C w/o coma, chronic B18.2 [facility] [address] 91435- 5154 Jan, Chronic hepatitis C without hepatic coma B18.2 [facility] [id number] [place] [address] 88078- 7477 Jan, [facility] [id number] [place] [address] [id number] Jan, Hepatitis C antibody positive in blood R76.8 [facility] [id number] [place] [address] 06389- 9784 December, Chronic hepatitis C without hepatic coma B18.2 and Encounter for immunization Z23 [facility] [id number] [place] [address] 64347- 2127 December, [facility] [id number] [place] [address] [id number] December, Hepatitis C antibody positive in blood R76.8 [facility] [address] [id number] [address]- 5252 December, Hepatitis C antibody positive in blood R76.8 [facility] [address] [address] 2351 December, [facility] [address] [id number] [id number] December, History of left below knee amputation Z89.512 ; Other acute postprocedural pain G89.18 and Other complications of amputation stump T87.89 [facility] [address], [place] [address]- 9025 Nov, Generalized anxiety disorder F41.1 and Attention deficit disorder (ADD) in adult F98.8 [facility] [address] [address]- 4720 Nov, History of hepatitis C Z86.19 ; History of methamphetamine abuse Z87.898 ; Lower limb amputation, below knee Z89.519 and Encounter to establish care Z76.89 [facility] [address], [place] [address]- 6000 14 Nov, 2014 [facility] [address], [place] [address]- 9550 Nov, [facility] [address] [id number] [place] [id number] Jun, [facility] [address], [place] [address]- 7511 Jun, [facility] [address], [place] [address]- 1377 May, [facility] [address] [address]- 0960 May, [facility] [address] [place] [id number] Apr, [facility] [address], [place] [address]- 0801 Apr, [facility] [address] [id number] Mar, [facility] [place] [facility] [address] [id number] [place] [address]- 9451 Mar, [facility] [place] [facility] [address] [id number] [place] [address]- 6935 Mar, [facility] [address] [id number] Mar, [facility] [place] [facility] [address] [id number] [place] [address]- 6633 Jan, [facility] [place] [facility] [address] [id number] [place] [address]- 2222 Oct, [facility] [place] [facility] [address] [id number] [place] [address]- 6692 Oct, [facility] [place] [facility] [address] [id number] [place] [address]- 4858 Sep, [facility] [place] [facility] [address] [id number] [place] [address]- 0461 Sep, [facility] [place] [facility] [address] [id number] [place] [address]- 6903 Aug, [facility] [place] [facility] [address] [id number] [place] [address]- 4323 Aug, [facility] [place] [facility] [address] [id number], [place] [address]- 4394 Aug, [facility] [place] [facility] [address] [id number] [place] [address]- 7558 Aug, [facility] [place] [facility] [address] [id number] [place] [address]- 8106 Jul, [facility] [place] [facility] [address] [id number] [place] [address]- 8226 Jul, [facility] [place] [facility] [address] [id number] [place] [address]- 4812 Jun, [facility] [place] [facility] [address] [id number] [place] [address]- 3966 Jun, [facility] [address] [facility] [id number] [place] [address]- 5097 Jun, [facility] [address] [facility] [id number] [place] [address]- 7506 May, IMMUNIZATIONS No Known Immunizations SOCIAL HISTORY Never Assessed REASON FOR VISIT Anxiety fu -- ajit kimball PLAN OF CARE Activity Details Follow Up 6 Months, prn Reason:CHM/anxiety VITAL SIGNS Height 64 in 2018-03-20 Weight 190.0 lbs 2018-03-20 Temperature 97.4 degrees Fahrenheit 2018-03-20 Heart Rate 82 bpm 2018-03-20 Respiratory Rate 20 2018-03-20 BMI 32.61 kg/m2 2018-03-20 Blood pressure systolic 136 mmHg 2018-03-20 Blood pressure diastolic 86 mmHg 2018-03-20 MEDICATIONS Medication Instructions Dosage Frequency Start Date End Date Duration Status Epclusa 400-100 MG Orally Once a day (12 weeks total regimen) 1 tablet Jan, 4 weeks Active RESULTS No Results PROCEDURES Procedure Date Ordered Result Body Site [facility] VISIT ESTABLISHED PATIENT Mar 20, 2018 INSTRUCTIONS MEDICATIONS ADMINISTERED No Known Medications MEDICAL (GENERAL) HISTORY Type Description Date Medical History Hep C Medical History Left BKA Medical History Dermatophytosis of the body Medical History Bipolar disorder, unspecified Medical History Anxiety state, unspecified Medical History Cellulitis and abscess of leg, except foot Medical History Pain in soft tissues of limb Surgical History BKA 2014 Surgical History 1999 Surgical History 2001 Surgical History Total hysterectomy 2006 Hospitalization History Debridments 2012 Hospitalization History C-sections Hospitalization History Amputation 2014
--- OUTSIDE RECORDS SUMMARY | 2018-07-17 09:10 | XMS REPORT ---
Author Author ASHISH SEGOVIA Organization [facility] Address [address] [place] [address] Care Team Providers Care Phlebotomy Support Tech Name Role Phone ASHISH SEGOVIA Unavailable PROBLEMS Type Condition ICD9-CM Code HYS10-LC Code Onset Dates Condition Status SNOMED Code Problem Hepatitis C antibody positive in blood R76.8 Active 973207223 Problem Hep C w/o coma, chronic B18.2 Active 770545590 Problem History of left below knee amputation Z89.512 Active 210153847 Problem Lower limb amputation, below knee Z89.519 Active 085573664 Problem Amphetamine and other psychostimulant dependence, unspecified abuse 304.40 Active Problem Attention deficit disorder (ADD) in adult F98.8 Active 078283826 Problem Generalized anxiety disorder F41.1 Active 63320274 ALLERGIES No Information ENCOUNTERS Encounter Location Date Diagnosis [facility] [id number] [place] [address] 46819- 4435 Apr, [facility] [id number] [place] [address] 64214- 7997 Apr, Liver mass R16.0 [facility] [address] [place] [address] 56845- 4073 Mar, Liver mass R16.0 [facility] [id number] [place] [address] 30588- 1307 Mar, [facility] [id number] [place] [address] 70038- 8725 Mar, Generalized anxiety disorder F41.1 ; Lower limb amputation, below knee Z89.519 and Hep C w/o coma, chronic B18.2 [facility] [id number] [place] [address] 62282- 8112 Mar, Liver mass R16.0 [facility] [id number] [place] [address] 62941- 1370 Feb, Hep C w/o coma, chronic B18.2 and Weight gain R63.5 [facility] [id number] [place] [address] [id number] Feb, Hepatitis C antibody positive in blood R76.8 [facility] [id number] [place] [address] 93962- 8153 Jan, Hep C w/o coma, chronic B18.2 [facility] [id number] [place] [address] 46628- 7101 Jan, [facility] [id number] [place] [address] 66363- 9181 Jan, Hep C w/o coma, chronic B18.2 [facility] [id number] [place] [address] 48093- 9238 Jan, Chronic hepatitis C without hepatic coma B18.2 [facility] [id number] [place] [address] 63148- 0403 Jan, [facility] [id number] [place] [address] [id number] Jan, Hepatitis C antibody positive in blood R76.8 [facility] [id number] [place] [address] 66394- 3348 December, Chronic hepatitis C without hepatic coma B18.2 and Encounter for immunization Z23 [facility] [address] [place] [address] 33204- 9990 December, [facility] [address] [place] [address] [phone] December, Hepatitis C antibody positive in blood R76.8 [facility] [id number] [place] [address] 81068- 8512 December, Hepatitis C antibody positive in blood R76.8 [facility] [id number] [place] [address] 04833- 8676 December, [facility] [address] [facility] [id number] [id number] December, History of left below knee amputation Z89.512 ; Other acute postprocedural pain G89.18 and Other complications of amputation stump T87.89 [facility] [address], [place] [address]- 8630 Nov, Generalized anxiety disorder F41.1 and Attention deficit disorder (ADD) in adult F98.8 [facility] [address] [address]- 6036 Nov, 2018 History of hepatitis C Z86.19 ; History of methamphetamine abuse Z87.898 ; Lower limb amputation, below knee Z89.519 and Encounter to establish care Z76.89 [facility] [address] [address]- 2069 14 Nov, 2014 [facility] [address] [address]- 1571 13 Nov, 2014 [facility] [address] [facility] [id number] [id number] Jun, [facility] [address] [address]- 8499 Jun, [facility] [address] [id number] 1171 May, [facility] [address] 7161 May, [facility] [address] [place] [place] [id number] Apr, [facility] [address], [place] [address]- 9419 Apr, [facility] [address] [place] [place] [id number] Mar, [facility] [address], [place] [address]- 5646 Mar, [facility] [id number] [place] [address]- 9931 Mar, [facility] [address] [id number] Mar, [facility] [address] [id number] [place] [address]- 1411 Jan, [facility] [place] [facility] [address] [facility] [id number] [place] [address]- 4150 Oct, [facility] [place] [facility] [address] [id number] [place] [address]- 6152 Oct, [facility] [place] [facility] [address] [id number] [place] [address]- 6229 Sep, [facility] [place] [facility] [address] [facility] [id number] [place] [address]- 9809 Sep, [facility] [place] [facility] [address] [id number] [place] [address]- 2677 Aug, [facility] [place] [facility] [address] [id number] [place] [address]- 5999 Aug, [facility] [place] [facility] [address] [id number] [place] [address]- 7250 Aug, [facility] [place] [facility] [address] [facility] [id number] [place] [address]- 8281 Aug, [facility] [place] [facility] [address] [id number] [place] [address]- 8637 Jul, [facility] [place] [facility] [address] [id number] [place] [address]- 8627 Jul, [facility] [place] [facility] [address] [id number] [place] [address]- 0327 Jun, [facility] [place] [facility] [address] [facility] [id number] [place] [address]- 6226 Jun, [facility] [place] [facility] [address] [id number] [place] [address]- 8577 Jun, [facility] [place] [facility] [address] [facility] [id number] [place] [address] [address] May, IMMUNIZATIONS No Known Immunizations SOCIAL HISTORY [...]
--- OUTSIDE RECORDS SUMMARY | 2018-07-17 09:10 | XMS REPORT ---
Author Author HAZELSABA Elaine Organization [facility] Address [address] [place] [address] Care Team Providers Care Bench Worker Binding Name Role Phone SABA HAZEL Unavailable PROBLEMS Type Condition ICD9-CM Code VDS99-KU Code Onset Dates Condition Status SNOMED Code Problem Hepatitis C antibody positive in blood R76.8 Active 783152855 Problem Hep C w/o coma, chronic B18.2 Active 514322443 Problem History of left below knee amputation Z89.512 Active 695007517 Problem Lower limb amputation, below knee Z89.519 Active 544627957 Problem Amphetamine and other psychostimulant dependence, unspecified abuse 304.40 Active Problem Attention deficit disorder (ADD) in adult F98.8 Active 682921775 Problem Generalized anxiety disorder F41.1 Active 74173967 ALLERGIES No Information ENCOUNTERS Encounter Location Date Diagnosis [facility] [id number] [place] [address] 62422- 0337 Apr, [facility] [address] [address]- 5080 Mar, Liver mass R16.0 [facility] [id number] [place] [address] 13252- 5051 Mar, [facility] [id number] [place] [address] 49966- 4262 Mar, Generalized anxiety disorder F41.1 ; Lower limb amputation, below knee Z89.519 and Hep C w/o coma, chronic B18.2 [facility] [id number] [place] [address] 78330- 7582 Mar, Liver mass R16.0 [facility] [address] [place] [address] 04116- 6411 Feb, Hep C w/o coma, chronic B18.2 and Weight gain R63.5 [facility] [address] [place] [address] [id number] Feb, Hepatitis C antibody positive in blood R76.8 [facility] [id number] [place] [address] 74701- 8266 Jan, Hep C w/o coma, chronic B18.2 [facility] [id number] [place] [address] 74309- 6978 Jan, [facility] [id number] [place] [address] 79827- 7231 Jan, Hep C w/o coma, chronic B18.2 [facility] [id number] [place] [address] 27224- 1366 Jan, Chronic hepatitis C without hepatic coma B18.2 [facility] [id number] [place] [address] 94797- 2366 Jan, [facility] [id number] [place] [address] [id number] Jan, Hepatitis C antibody positive in blood R76.8 [facility] [id number] [place] [address] 02185- 0984 December, Chronic hepatitis C without hepatic coma B18.2 and Encounter for immunization Z23 [facility] [id number] [place] [address] 73055- 3974 December, [id number] [place] [address] [phone] December, Hepatitis C antibody positive in blood R76.8 [facility] [id number] [place] [address] 47292- 1504 December, Hepatitis C antibody positive in blood R76.8 [facility] [id number] [place] [address] 84510- 3135 December, [address] [place] [address] [phone] December, History of left below knee amputation Z89.512 ; Other acute postprocedural pain G89.18 and Other complications of amputation stump T87.89 [facility] [address], [place] [address]- 7462 Nov, Generalized anxiety disorder F41.1 and Attention deficit disorder (ADD) in adult F98.8 [facility] [address] [place] [address] 17143- 2592 Nov, 2018 History of hepatitis C Z86.19 ; History of methamphetamine abuse Z87.898 ; Lower limb amputation, below knee Z89.519 and Encounter to establish care Z76.89 [facility] [address] [place] [address] 33054- 0543 14 Nov, 2014 [facility] [address]005[address], [place] [address]- 2787 13 Nov, [id number] [place] [address] [id number] Jun, [facility] [address] [id number], [place] [address]- 2696 Jun, [facility] [address], [place] [address]- 4395 May, [facility] [address] [address] 6199 May, [facility] [address] [place] [id number] Apr, [facility] [address] [id number] 3387 Apr, [facility] [address] [place] [id number] Mar, [facility] [address], [place] [address]- 2816 Mar, [facility] [address] [id number], [place] [address]- 6694 Mar, [facility] [address] [place] [id number] Mar, [facility] [address] [facility] [id number] [address]- 8720 Jan, [facility] [address] [facility] [id number] [place] [address]262 Oct, [facility] [address] [facility] [id number] [address]- 4777 Oct, [facility] [address] [id number], [place] [address]- 5564 Sep, [facility] [address] [id number] [place] 2671 Sep, [facility] [address] [facility] [id number]- 3311 Aug, [facility] [address] [facility] [id number] [place] [address]- 7361 Aug, [facility] [address] [facility] [id number][place] [address]- 4980 Aug, [facility] [address] [facility] [id number], [place] [address]- 4398 Aug, [facility] [address] [facility] [id number][place] [address]- 9151 Jul, [facility] [address] [facility] [id number]- 9066 Jul, [facility] [address] [facility] [id number], [place] [address]- 9409 Jun, [facility] [address] [facility] [id number], [place] [address]- 5004 Jun, [facility] [address] [facility] [id number], [place] [address]- 6756 Jun, [facility] [address] [facility] [id number]- 6618 May, IMMUNIZATIONS No Known Immunizations SOCIAL HISTORY Never Assessed REASON FOR VISIT [facility] PLAN OF CARE VITAL SIGNS MEDICATIONS Unknown Medications RESULTS Name Result Date Reference Range URINE DRUG SCREEN (IN HOUSE) 2018-02-04 Lot # [id number] Exp date 09/2019 Control positive COCAINE neg AMPH neg MTD neg THC neg OPIATE neg BENZO neg PCP neg BAR neg OXY neg MAMP neg BUP neg MDMA neg TCA neg PROCEDURES Procedure Date Ordered Result Body Site DRUG TEST PRSMV DIR OPT OBS February 04, 2018 INSTRUCTIONS MEDICATIONS ADMINISTERED No Known Medications [...]
--- OUTSIDE RECORDS SUMMARY | 2018-07-17 09:10 | XMS REPORT ---
Author Author JOSÉ MANUEL MCKEON Organization [facility] Address [address] [place] [address] Care Team Providers Care Transport Technician Name Role Phone JOSÉ MANUEL MCKEON Unavailable PROBLEMS Type Condition ICD9-CM Code CBF20-ZQ Code Onset Dates Condition Status SNOMED Code Problem Hepatitis C antibody positive in blood R76.8 Active 261326232 Problem Hep C w/o coma, chronic B18.2 Active 696673267 Problem History of left below knee amputation Z89.512 Active 195425198 Problem Lower limb amputation, below knee Z89.519 Active 650585989 Problem Amphetamine and other psychostimulant dependence, unspecified abuse 304.40 Active Problem Attention deficit disorder (ADD) in adult F98.8 Active 510966034 Problem Generalized anxiety disorder F41.1 Active 55492353 ALLERGIES Substance Reaction Event Type Date Status Penicillin V Potassium as a child Drug Allergy December, Active Betadine blisters Drug Allergy December, Active ENCOUNTERS Encounter Location Date Diagnosis [facility] [address] [place] [address] 97078- 3158 May, [facility] [id number] [place] [address] 78946- 5118 Apr, [facility] [id number] [place] [address] 68544- 8822 Apr, Liver mass R16.0 [facility] [id number] [place] [address] 96283- 9527 Mar, Liver mass R16.0 [facility] [id number] [place] [address] 86133- 8753 Mar, [facility] [id number] [place] [address] 83882- 7038 Mar, Generalized anxiety disorder F41.1 ; Lower limb amputation, below knee Z89.519 and Hep C w/o coma, chronic B18.2 [facility] [id number] [place] [address] 61307- 5579 Mar, Liver mass R16.0 [facility] [id number] [place] [address] 63778- 9639 Feb, Hep C w/o coma, chronic B18.2 and Weight gain R63.5 [facility] [id number] [place] [address] [id number] Feb, Hepatitis C antibody positive in blood R76.8 [facility] [id number] [place] [address] 11247- 5835 Jan, Hep C w/o coma, chronic B18.2 [facility] [id number] [place] [address] 56449- 4408 Jan, [facility] [id number] [place] [address] 15150- 9620 Jan, Hep C w/o coma, chronic B18.2 [facility] [id number] [place] [address] 68629- 9120 Jan, Chronic hepatitis C without hepatic coma B18.2 [facility] [id number] [place] [address] 62157- 1475 Jan, [facility] [id number] [place] [address] [id number] Jan, Hepatitis C antibody positive in blood R76.8 [facility] [id number] [place] [address] 42697- 9553 December, Chronic hepatitis C without hepatic coma B18.2 and Encounter for immunization Z23 [facility] [address] [place] [address] 09859- 7615 December, [facility] [id number] [place] [address] [id number] December, Hepatitis C antibody positive in blood R76.8 [facility] [address] [id number], [place] [address]- 0337 December, Hepatitis C antibody positive in blood R76.8 [facility] [address] [id number], [place] [address]- 9796 December, [facility] [address] [id number] [id number] December, History of left below knee amputation Z89.512 ; Other acute postprocedural pain G89.18 and Other complications of amputation stump T87.89 [facility] [address], [place] [address]- 6368 Nov, Generalized anxiety disorder F41.1 and Attention deficit disorder (ADD) in adult F98.8 [facility] [address] [address]- 0457 Nov, History of hepatitis C Z86.19 ; History of methamphetamine abuse Z87.898 ; Lower limb amputation, below knee Z89.519 and Encounter to establish care Z76.89 [facility] [address]65[address], [place] [address] 1994 14 Nov, 2014 [facility] [address] [address]- 3629 13 Nov, 2014 [facility] [address] [id number] [id number] Jun, [facility] [address], [place] [address]- 3174 Jun, [facility] [address], [place] [address]- 8335 May, [facility] [address] [place] [address] 00349- 9722 May, [facility] [address] [place] [id number] Apr, [facility] [address], [place] [address]- 2338 Apr, [facility] [address] [id number] Mar, [facility] [place] [facility] [address] [id number] [place] [address]- 4025 Mar, [facility] [place] [facility] [address] [id number] [place] [address]- 9836 Mar, [facility] [address] [place] [id number] Mar, [facility] [place] [facility] [address] [id number] [place] [address]- 4552 Jan, [facility] [place] [facility] [address] [id number] [place] [address]- 9114 Oct, [facility] [place] [facility] [address] [id number] [place] [address]- 2800 Oct, [facility] [place] [facility] [address] [id number] [place] [address]- 4338 Sep, [facility] [place] [facility] [address] [id number] [place] [address]- 5362 Sep, [facility] [place] [facility] [address] [id number] [place] [address]- 8455 Aug, [facility] [place] [facility] [address] [id number] [place] [address]- 1431 Aug, [facility] [place] [facility] [address] [id number] [place] [address]- 1495 Aug, [facility] [place] [facility] [address] [id number] [place] [address]- 4195 Aug, [facility] [place] [facility] [address] [id number] [place] [address]- 8636 Jul, [facility] [place] [facility] [address] [id number] [place] [address]- 0236 Jul, [facility] [place] [facility] [address] [id number] [address]- 8998 Jun, [facility] [address] [facility] [id number] [place] [address]- 9246 Jun, [facility] [address] [facility] [id number], [place] [address]- 9508 Jun, [facility] [address] [facility] [id number], [place] [address]- 7719 May, IMMUNIZATIONS No Known Immunizations SOCIAL HISTORY Never Assessed REASON FOR VISIT requesting referal for prosthesis, just recently moved to [place] and will transition care Kennedy URIARTE PLAN OF CARE Activity Details Follow Up prn Reason: VITAL SIGNS Height 64 in 2017-12-03 Weight 186.2 lbs 2017-12-03 Temperature 97.7 degrees Fahrenheit 2017-12-03 Heart Rate 72 bpm 2017-12-03 Respiratory Rate 18 2017-12-03 BMI 31.96 kg/m2 2017-12-03 Blood pressure systolic 118 mmHg 2017-12-03 Blood pressure diastolic 78 mmHg 2017-12-03 MEDICATIONS Unknown Medications RESULTS No Results PROCEDURES [...]
--- OUTSIDE RECORDS SUMMARY | 2018-07-17 09:10 | XMS REPORT ---
Author Author ASHISH SEGOVIA Organization [facility] Address [address] [place] [address] Care Team Providers Care Back Maker Name Role Phone ASHISH SEGOVIA Unavailable PROBLEMS Type Condition ICD9-CM Code KVN16-WP Code Onset Dates Condition Status SNOMED Code Problem Hepatitis C antibody positive in blood R76.8 Active 415407733 Problem Hep C w/o coma, chronic B18.2 Active 298754909 Problem History of left below knee amputation Z89.512 Active 604300132 Problem Lower limb amputation, below knee Z89.519 Active 405036253 Problem Amphetamine and other psychostimulant dependence, unspecified abuse 304.40 Active Problem Attention deficit disorder (ADD) in adult F98.8 Active 450487043 Problem Generalized anxiety disorder F41.1 Active 89461502 ALLERGIES No Information ENCOUNTERS Encounter Location Date Diagnosis [facility] [id number] [place] [address] 44373- 0322 Apr, [facility] [id number] [place] [address] 61848- 2810 Apr, Liver mass R16.0 [facility] [address] [place] [address] 68114- 1418 Mar, Liver mass R16.0 [facility] [id number] [place] [address] 46373- 0340 Mar, [facility] [id number] [place] [address] 01940- 9386 Mar, Generalized anxiety disorder F41.1 ; Lower limb amputation, below knee Z89.519 and Hep C w/o coma, chronic B18.2 [facility] [id number] [place] [address] 87511- 2920 Mar, Liver mass R16.0 [facility] [id number] [place] [address] 50250- 5062 Feb, Hep C w/o coma, chronic B18.2 and Weight gain R63.5 [facility] [id number] [place] [address] [id number] Feb, Hepatitis C antibody positive in blood R76.8 [facility] [id number] [place] [address] 94716- 6767 Jan, Hep C w/o coma, chronic B18.2 [facility] [id number] [place] [address] 08857- 2760 Jan, [facility] [id number] [place] [address] 07646- 8175 Jan, Hep C w/o coma, chronic B18.2 [facility] [id number] [place] [address] 26470- 1150 Jan, Chronic hepatitis C without hepatic coma B18.2 [facility] [id number] [place] [address] 35332- 8280 Jan, [facility] [id number] [place] [address] [id number] Jan, Hepatitis C antibody positive in blood R76.8 [facility] [id number] [place] [address] 93795- 4405 December, Chronic hepatitis C without hepatic coma B18.2 and Encounter for immunization Z23 [facility] [address] [place] [address] 33052- 2171 December, [facility] [address] [place] [address] [id number] December, Hepatitis C antibody positive in blood R76.8 [facility] [id number] [place] [address] 83455- 9796 December, Hepatitis C antibody positive in blood R76.8 [facility] [id number] [place] [address] 07049- 5036 December, [facility] [address] [facility] [id number] [id number] December, History of left below knee amputation Z89.512 ; Other acute postprocedural pain G89.18 and Other complications of amputation stump T87.89 [facility] [address], [place] [address]- 7413 Nov, Generalized anxiety disorder F41.1 and Attention deficit disorder (ADD) in adult F98.8 [facility] [address], [place] [address]- 2912 Nov, 2018 History of hepatitis C Z86.19 ; History of methamphetamine abuse Z87.898 ; Lower limb amputation, below knee Z89.519 and Encounter to establish care Z76.89 [facility] [address], [place] [address]- 9450 14 Nov, 2014 [facility] [address], [place] [address]- 5328 13 Nov, 2014 [facility] [address] [facility] [id number] [id number] Jun, [facility] [address], [place] [address]- 0372 Jun, [facility] [id number]- 2018 May, [facility] [address] 0852 May, [facility] [address] [place] [id number] Apr, [facility] [address], [place] [address]- 6737 Apr, [facility] [address] [place] [id number] Mar, [facility] [address], [place] [address]- 1811 Mar, [facility] [id number] [place] [address]- 6491 Mar, [facility] [address] [id number] Mar, [facility] [address] [id number] [place] [address]- 5597 Jan, [facility] [place] [facility] [address] [facility] [id number] [place] [address]- 1805 Oct, [facility] [place] [facility] [address] [id number] [place] [address]- 8466 Oct, [facility] [place] [facility] [address] [id number] [place] [address]- 9713 Sep, [facility] [place] [facility] [address] [facility] [id number] [place] [address]- 4884 Sep, [facility] [place] [facility] [address] [id number] [place] [address]- 2130 Aug, [facility] [place] [facility] [address] [id number] [place] [address]- 8158 Aug, [facility] [place] [facility] [address] [id number] [place] [address]- 9897 Aug, [facility] [place] [facility] [address] [facility] [id number] [place] [address]- 8380 Aug, [facility] [place] [facility] [address] [id number] [place] [address]- 1591 Jul, [facility] [place] [facility] [address] [id number] [place] [address]- 9048 Jul, [facility] [place] [facility] [address] [id number] [place] [address]- 6153 Jun, [facility] [place] [facility] [address] [facility] [id number] [place] [address]- 2626 Jun, [facility] [place] [facility] [address] [id number] [place] [address]- 0867 Jun, [facility] [place] [facility] [address] [facility] [id number] [place] [address]- 3668 May, IMMUNIZATIONS No Known Immunizations SOCIAL HISTORY Never Assessed REASON FOR VISIT CT order changed PLAN OF CARE VITAL SIGNS MEDICATIONS Unknown Medications RESULTS Name Result Date Reference Range CT Scan : Abdomen w/ Contrast 2018-03-20 PROCEDURES No Known procedures INSTRUCTIONS MEDICATIONS ADMINISTERED [...]
--- OUTSIDE RECORDS SUMMARY | 2018-07-17 09:11 | XMS REPORT ---
Author Author ASHISH SEGOVIA Organization [facility] Address [address] [place] [address] Care Team Providers Care Steam Blocker Name Role Phone ASHISH SEGOVIA Unavailable PROBLEMS Type Condition ICD9-CM Code EEG36-OZ Code Onset Dates Condition Status SNOMED Code Problem Hepatitis C antibody positive in blood R76.8 Active 414468357 Problem Hep C w/o coma, chronic B18.2 Active 400344192 Problem History of left below knee amputation Z89.512 Active 310438813 Problem Lower limb amputation, below knee Z89.519 Active 981890880 Problem Amphetamine and other psychostimulant dependence, unspecified abuse 304.40 Active Problem Attention deficit disorder (ADD) in adult F98.8 Active 767985344 Problem Generalized anxiety disorder F41.1 Active 74297365 ALLERGIES Substance Reaction Event Type Date Status Penicillin V Potassium as a child Drug Allergy Feb, Active Betadine blisters Drug Allergy Feb, Active ENCOUNTERS Encounter Location Date Diagnosis [facility] [address] [place] [address] 44462- 5272 Apr, [facility] [address] [place] [address] 33700- 9199 Apr, Liver mass R16.0 [facility] [address] [place] [address] 45387- 7885 Mar, Liver mass R16.0 [facility] [address] [place] [address] 68768- 0370 Mar, [facility] [id number] [place] [address] 46395- 8696 Mar, Generalized anxiety disorder F41.1 ; Lower limb amputation, below knee Z89.519 and Hep C w/o coma, chronic B18.2 [facility] [id number] [place] [address] 97662- 1196 Mar, Liver mass R16.0 [facility] [id number] [place] [address] 56779- 2727 Feb, Hep C w/o coma, chronic B18.2 and Weight gain R63.5 [facility] [id number] [place] [address] [id number] Feb, Hepatitis C antibody positive in blood R76.8 [facility] [id number] [place] [address] 13394- 9366 Jan, Hep C w/o coma, chronic B18.2 [facility] [id number] [place] [address] 62861- 8151 Jan, [facility] [id number] [place] [address] 04508- 9274 Jan, Hep C w/o coma, chronic B18.2 [facility] [address] [place] [address] 94969- 6349 Jan, Chronic hepatitis C without hepatic coma B18.2 [facility] [address] [place] [address] 05014- 8824 Jan, [facility] [address] [place] [address] [id number] Jan, Hepatitis C antibody positive in blood R76.8 [facility] [address] [place] [address] 91570- 2520 December, Chronic hepatitis C without hepatic coma B18.2 and Encounter for immunization Z23 [facility] [address] [place] [address] 34131- 5498 December, [facility] [address] [place] [address] [id number] December, Hepatitis C antibody positive in blood R76.8 [facility] [address] [place] [address] 97729- 9071 December, Hepatitis C antibody positive in blood R76.8 [facility] [id number] 1402 December, [facility] [address] [id number] [id number] December, History of left below knee amputation Z89.512 ; Other acute postprocedural pain G89.18 and Other complications of amputation stump T87.89 [facility] [address]- 5761 Nov, Generalized anxiety disorder F41.1 and Attention deficit disorder (ADD) in adult F98.8 [facility] [address] [place] [address] 28506- 2881 Nov, History of hepatitis C Z86.19 ; History of methamphetamine abuse Z87.898 ; Lower limb amputation, below knee Z89.519 and Encounter to establish care Z76.89 [facility] [address], [place] [address]- 4110 14 Nov, 2014 [facility] [address] [address]- 8822 13 Nov, 2014 [facility] [id number] [id number] Jun, [facility] [id number] [address] 8011 Jun, [facility] [address], [place] [address]- 6216 May, [facility] [id number], [place] [address]- 7196 May, [facility] [address] [place] [id number] Apr, [facility] [address], [place] [address]- 6946 Apr, [facility] [address] [place] [id number] Mar, [facility] [address], [place] [address]- 5037 Mar, [facility] [address] [id number] [place] [address]- 6524 Mar, [facility] [address] [place] [id number] Mar, [facility] [place] [facility] [address] [id number] [place] [address]- 3292 Jan, [facility] [place] [facility] [address] [id number] [place] [address]- 4846 Oct, [facility] [place] [facility] [address] [id number] [place] [address]- 9404 Oct, [facility] [place] [facility] [address] [id number] [place] [address]- 1497 Sep, [facility] [place] [facility] [address] [id number] [place] [address]- 9059 Sep, [facility] [place] [facility] [address] [id number] [place] [address]- 9351 Aug, [facility] [place] [facility] [address] [id number] [place] [address]- 9897 Aug, [facility] [place] [facility] [address] [id number] [place] [address]- 2421 Aug, [facility] [place] [facility] [address] [id number] [place] [address]- 1690 Aug, [facility] [place] [facility] [address] [id number], [place] [address]- 8723 Jul, [facility] [place] [facility] [address] [id number] [place] [address]- 8304 Jul, [facility] [place] [facility] [address] [id number] [place] [address]- 9316 Jun, [facility] [place] [facility] [address] [id number] [place] [address]- 5661 Jun, [facility] [place] [facility] [address] [facility] [id number] [place] [address]- 2546 Jun, [facility] [address] [facility] [id number] [place] [address]- 2546 May, IMMUNIZATIONS No Known Immunizations SOCIAL HISTORY Never Assessed REASON FOR VISIT Hep C week 4---Bogdan, request thyroid checked if having lab drawn PLAN OF CARE Activity Details Follow Up as scheduled Reason: VITAL SIGNS Height 64 in 2018-03-03 Weight 190 lbs 2018-03-03 Temperature 98.2 degrees Fahrenheit 2018-03-03 Heart Rate 70 bpm 2018-03-03 Respiratory Rate 20 2018-03-03 BMI 32.61 kg/m2 2018-03-03 Blood pressure systolic 112 mmHg 2018-03-03 Blood pressure diastolic 70 mmHg 2018-03-03 MEDICATIONS Medication Instructions Dosage Frequency Start Date End Date Duration Status Epclusa 400-100 MG Orally Once a day (12 weeks total regimen) 1 tablet Jan, 4 weeks Active RESULTS No Results PROCEDURES Procedure Date Ordered Result Body Site LAB NOT BILLED BY [facility] March 03, 2018 [facility] VISIT ESTABLISHED PATIENT March 03, 2018 INSTRUCTIONS MEDICATIONS ADMINISTERED No Known Medications [...] 2012 Hospitalization History C-sections Hospitalization History Amputation 2013
--- OUTSIDE RECORDS SUMMARY | 2018-07-17 09:11 | XMS REPORT ---
Author Author ASHISH SEGOVIA Organization [facility] Address [address] [place] [address] Care Team Providers Care Per Diem Registered Nurse Name Role Phone ASHISH SEGOVIA Unavailable PROBLEMS Type Condition ICD9-CM Code ETB88-TC Code Onset Dates Condition Status SNOMED Code Problem Hepatitis C antibody positive in blood R76.8 Active 490818501 Problem Hep C w/o coma, chronic B18.2 Active 965386116 Problem History of left below knee amputation Z89.512 Active 430695441 Problem Lower limb amputation, below knee Z89.519 Active 773140573 Problem Amphetamine and other psychostimulant dependence, unspecified abuse 304.40 Active Problem Attention deficit disorder (ADD) in adult F98.8 Active 888835016 Problem Generalized anxiety disorder F41.1 Active 34979820 ALLERGIES No Information ENCOUNTERS Encounter Location Date Diagnosis [facility] [id number] [place] [address] 86714- 2883 Apr, [facility] [address] 8[address]70- 4718 Mar, Liver mass R16.0 [facility] [id number] [place] [address] 62193- 2810 Mar, [facility] [address] 21646- 3219 Mar, Generalized anxiety disorder F41.1 ; Lower limb amputation, below knee Z89.519 and Hep C w/o coma, chronic B18.2 [facility] [id number] [place] [address] 20602- 8084 Mar, Liver mass R16.0 [facility] [id number] [place] [address] 32206- 8979 Feb, Hep C w/o coma, chronic B18.2 and Weight gain R63.5 [facility] [address] [place] [address] [id number] Feb, Hepatitis C antibody positive in blood R76.8 [facility] [id number] [place] [address] 19057- 3228 Jan, Hep C w/o coma, chronic B18.2 [facility] [id number] [place] [address] 76786- 4942 Jan, [facility] [id number] [place] [address] 88882- 4269 Jan, Hep C w/o coma, chronic B18.2 [facility] [id number] [place] [address] 81291- 5017 Jan, Chronic hepatitis C without hepatic coma B18.2 [facility] [id number] [place] [address] 07538- 2532 Jan, [facility] [id number] [place] [address] [phone] Jan, Hepatitis C antibody positive in blood R76.8 [facility] [id number] [place] [address] 92427- 4971 December, Chronic hepatitis C without hepatic coma B18.2 and Encounter for immunization Z23 [facility] [address] [place] [address] 26731- 7899 December, [address] [place] [address] [id number] December, Hepatitis C antibody positive in blood R76.8 [facility] [id number] [place] [address] 87721- 2021 December, Hepatitis C antibody positive in blood R76.8 [facility] [address] [place] [address] [id number]- 7175 December, [address] [place] [address] [id number] December, History of left below knee amputation Z89.512 ; Other acute postprocedural pain G89.18 and Other complications of amputation stump T87.89 [facility] [address] [place] [address] 31892- 6620 Nov, Generalized anxiety disorder F41.1 and Attention deficit disorder (ADD) in adult F98.8 [facility] [address] [place] [address] 54034- 2213 Nov, 2018 History of hepatitis C Z86.19 ; History of methamphetamine abuse Z87.898 ; Lower limb amputation, below knee Z89.519 and Encounter to establish care Z76.89 [facility] [address] [place] [address] 27779- 7571 14 Nov, 2014 [facility] [address] [place] [address] 14804- 5476 13 Nov, 2014 [id number] [place] [address] [id number] Jun, [facility] [address] [address]- 2395 Jun, [facility] [address] [place] [address] 22932- 3199 May, [facility] [address], [place] [address]- 3350 May, [facility] [address] [place] [id number] Apr, [facility] [address] [address]- 9150 Apr, [facility] [address] [place] [id number] Mar, [facility] [address], [place] [address]- 0026 Mar, [facility] [address], [place] [address]- 3907 Mar, [facility] [address] [place] [id number] Mar, [facility] [address] [id number] [address]- 8325 Jan, [facility] [address] [id number] [place] [address]- 3877 Oct, [facility] [address] [id number] [place] [address]- 9541 Oct, [facility] [address] [id number] [place] [address]- 4984 Sep, [facility] [address] [id number] [place] [address]- 4308 Sep, [facility] [address] [id number] [place] [address]- 4663 Aug, [facility] [address] [id number] [place] [address]- 8843 Aug, [facility] [address] [id number], [place] [address]- 3874 Aug, [facility] [address] [id number], [place] [address]- 4391 Aug, [facility] [address] [id number], [place] [address]- 8422 Jul, [facility] [address] [id number], [place] [address]- 7655 Jul, [facility] [address] [id number], [place] [address]- 8354 Jun, [facility] [address] [id number], [place] [address]- 0290 Jun, [facility] [address] [id number], [place] [address]- 0132 Jun, [facility] [address] [id number][place] 7808 May, IMMUNIZATIONS No Known Immunizations SOCIAL HISTORY Never Assessed REASON FOR VISIT Hep C meds approved PLAN OF CARE VITAL SIGNS MEDICATIONS Medication Instructions Dosage Frequency Start Date End Date Duration Status Epclusa 400-100 MG Orally Once a day (12 weeks total regimen) 1 tablet Jan, 4 weeks Active RESULTS No Results PROCEDURES No Known procedures [...]
--- OUTSIDE RECORDS SUMMARY | 2018-07-17 09:11 | XMS REPORT ---
Author Author ASHISH SEGOVIA Organization [facility] Address [address] [place] [address] Care Team Providers Care Estimation Manager Name Role Phone ASHISH SEGOVIA Unavailable PROBLEMS Type Condition ICD9-CM Code OZK38-DQ Code Onset Dates Condition Status SNOMED Code Problem Hepatitis C antibody positive in blood R76.8 Active 691629337 Problem Hep C w/o coma, chronic B18.2 Active 221042819 Problem History of left below knee amputation Z89.512 Active 524680840 Problem Lower limb amputation, below knee Z89.519 Active 150693127 Problem Amphetamine and other psychostimulant dependence, unspecified abuse 304.40 Active Problem Attention deficit disorder (ADD) in adult F98.8 Active 602549879 Problem Generalized anxiety disorder F41.1 Active 63577890 ALLERGIES No Information ENCOUNTERS Encounter Location Date Diagnosis [facility] [id number] [place] [address] 75855- 6892 Apr, [facility] [address] [address]97- 5980 Mar, Liver mass R16.0 [facility] [id number] [place] [address] 17033- 8007 Mar, [facility] [address] 02065- 9201 Mar, Generalized anxiety disorder F41.1 ; Lower limb amputation, below knee Z89.519 and Hep C w/o coma, chronic B18.2 [facility] [id number] [place] [address] 96523- 3089 Mar, Liver mass R16.0 [facility] [id number] [place] [address] 00208- 3256 Feb, Hep C w/o coma, chronic B18.2 and Weight gain R63.5 [facility] [address] [place] [address] [id number] Feb, Hepatitis C antibody positive in blood R76.8 [facility] [id number] [place] [address] 27625- 8552 Jan, Hep C w/o coma, chronic B18.2 [facility] [id number] [place] [address] 43753- 7272 Jan, [facility] [id number] [place] [address] 74044- 1157 Jan, Hep C w/o coma, chronic B18.2 [facility] [id number] [place] [address] 37619- 6203 Jan, Chronic hepatitis C without hepatic coma B18.2 [facility] [id number] [place] [address] 32757- 6769 Jan, [facility] [id number] [place] [address] [phone] Jan, Hepatitis C antibody positive in blood R76.8 [facility] [id number] [place] [address] 65625- 5396 December, Chronic hepatitis C without hepatic coma B18.2 and Encounter for immunization Z23 [facility] [address] [place] [address] 47710- 8055 December, [address] [place] [address] [id number] December, Hepatitis C antibody positive in blood R76.8 [facility] [id number] [place] [address] 19419- 1853 December, Hepatitis C antibody positive in blood R76.8 [facility] [address] [place] [address] [id number]- 6372 December, [address] [place] [address] [phone] December, History of left below knee amputation Z89.512 ; Other acute postprocedural pain G89.18 and Other complications of amputation stump T87.89 [facility] [address] [place] [address] 33957- 0688 Nov, Generalized anxiety disorder F41.1 and Attention deficit disorder (ADD) in adult F98.8 [facility] [address] [place] [address] 78774- 1851 Nov, 2018 History of hepatitis C Z86.19 ; History of methamphetamine abuse Z87.898 ; Lower limb amputation, below knee Z89.519 and Encounter to establish care Z76.89 [facility] [address] [place] [address] 35559- 9637 14 Nov, 2014 [facility] [address] [place] [address] 63787- 3510 13 Nov, 2014 [address] [id number] [place] [address] [id number] Jun, [facility] [address] [address]- 9651 Jun, [facility] [address] [place] [address] 55915- 8511 May, [facility] [address] [address]- 5953 May, [facility] [address] [place] [id number] Apr, [facility] [address] [address]- 7785 Apr, [facility] [address] [place] [phone] Mar, [facility] [address], [place] [address]- 2846 Mar, [facility] [address], [place] [address]- 7313 Mar, [facility] [address] [place] [id number] Mar, [facility] [address] [facility] [id number] [address]- 7333 Jan, [facility] [address] [facility] [id number] [address]- 9009 Oct, [facility] [address] [facility] [id number], [place] [address]- 9641 Oct, [facility] [address] [facility] [id number], [place] [address]- 0096 Sep, [facility] [address] [facility] [id number] [place] 1129 Sep, [facility] [address] [facility] [id number][place] [address]- 2062 Aug, [facility] [address] [facility] [id number] [address]- 5253 Aug, [facility] [address] [id number] [address]- 2979 Aug, [facility] [address] [facility] [id number][place] [address]- 7031 Aug, [facility] [address] [id number] [address]- 2644 Jul, [facility] [address] [id number] [address]- 5168 Jul, [facility] [address] [id number] [address]- 6675 Jun, [facility] [address] [facility] [id number], [place] [address]- 1014 Jun, [facility] [address] [facility] [id number][place]- 0852 Jun, [facility] [address] [facility] [id number] [address] [address]24 May, IMMUNIZATIONS No Known Immunizations SOCIAL HISTORY Never Assessed REASON FOR VISIT Hep C med application PLAN OF CARE VITAL SIGNS MEDICATIONS Unknown [...]
--- OUTSIDE RECORDS SUMMARY | 2018-07-17 09:11 | XMS REPORT ---
Author Author ASHISH SEGOVIA Organization [facility] Address [address] [place] [address] Care Team Providers Care Information Technology Architect Name Role Phone ASHISH SEGOVIA Unavailable PROBLEMS Type Condition ICD9-CM Code EUJ55-PG Code Onset Dates Condition Status SNOMED Code Problem Hepatitis C antibody positive in blood R76.8 Active 853889247 Problem Hep C w/o coma, chronic B18.2 Active 598520045 Problem History of left below knee amputation Z89.512 Active 137502641 Problem Lower limb amputation, below knee Z89.519 Active 193201368 Problem Amphetamine and other psychostimulant dependence, unspecified abuse 304.40 Active Problem Attention deficit disorder (ADD) in adult F98.8 Active 776840986 Problem Generalized anxiety disorder F41.1 Active 47264307 ALLERGIES No Information ENCOUNTERS Encounter Location Date Diagnosis [facility] [id number] [place] [address] 36762- 2631 Apr, [facility] [id number] [place] [address] 06734- 6916 Apr, Liver mass R16.0 [facility] [address] [place] [address] 27765- 2236 Mar, Liver mass R16.0 [facility] [id number] [place] [address] 56007- 1793 Mar, [facility] [id number] [place] [address] 12513- 8175 Mar, Generalized anxiety disorder F41.1 ; Lower limb amputation, below knee Z89.519 and Hep C w/o coma, chronic B18.2 [facility] [id number] [place] [address] 40260- 4140 Mar, Liver mass R16.0 [facility] [id number] [place] [address] 37493- 1468 Feb, Hep C w/o coma, chronic B18.2 and Weight gain R63.5 [facility] [id number] [place] [address] [phone] Feb, Hepatitis C antibody positive in blood R76.8 [facility] [id number] [place] [address] 38205- 1582 Jan, Hep C w/o coma, chronic B18.2 [facility] [id number] [place] [address] 93401- 8775 Jan, [facility] [id number] [place] [address] 22986- 5425 Jan, Hep C w/o coma, chronic B18.2 [facility] [id number] [place] [address] 89978- 5627 Jan, Chronic hepatitis C without hepatic coma B18.2 [facility] [id number] [place] [address] 22645- 3594 Jan, [facility] [id number] [place] [address] [phone] Jan, Hepatitis C antibody positive in blood R76.8 [facility] [id number] [place] [address] 31966- 0407 December, Chronic hepatitis C without hepatic coma B18.2 and Encounter for immunization Z23 [facility] [address] [place] [address] 25271- 6083 December, [facility] [address] [place] [address] [id number] December, Hepatitis C antibody positive in blood R76.8 [facility] [id number] [place] [address] 86781- 7365 December, Hepatitis C antibody positive in blood R76.8 [facility] [id number] [place] [address] 02435- 5646 December, [facility] [address] [facility] [id number] [place] [id number] December, History of left below knee amputation Z89.512 ; Other acute postprocedural pain G89.18 and Other complications of amputation stump T87.89 [facility] [address]100[place], [place] [address]- 1430 Nov, Generalized anxiety disorder F41.1 and Attention deficit disorder (ADD) in adult F98.8 [facility] [address]100[place], [place] [address]- 8755 Nov, 2018 History of hepatitis C Z86.19 ; History of methamphetamine abuse Z87.898 ; Lower limb amputation, below knee Z89.519 and Encounter to establish care Z76.89 [facility] [address]100[place], [place] [address]- 3313 14 Nov, 2014 [facility] [address]100[place], [place] [address]- 9665 13 Nov, 2014 [facility] [address] [facility] [id number] [place] [id number] Jun, [facility] [address], [place] [address]- 6315 Jun, [facility] [address] [id number]- 5739 May, [facility] [address] 3431 May, [facility] [address] [place] [id number] Apr, [facility] [address]100[place], [place] [address]- 1941 Apr, [facility] [address] [place] [id number] Mar, [facility] [address], [place] [address]- 2947 Mar, [facility] [id number] [place] [address]- 7682 Mar, [facility] [address] [id number] Mar, [facility] [address] [id number] [place] [address]- 5030 Jan, [facility] [place] [facility] [address] [facility] [id number] [place] [address]- 7758 Oct, [facility] [place] [facility] [address] [id number] [place] [address]- 5891 Oct, [facility] [place] [facility] [address] [id number] [place] [address]- 3117 Sep, [facility] [place] [facility] [address] [facility] [id number] [place] [address]- 0056 Sep, [facility] [place] [facility] [address] [id number] [place] [address]- 8666 Aug, [facility] [place] [facility] [address] [id number] [place] [address]- 6956 Aug, [facility] [place] [facility] [address] [id number] [place] [address]- 2109 Aug, [facility] [place] [facility] [address] [facility] [id number] [place] [address]- 6571 Aug, [facility] [place] [facility] [address] [id number] [place] [address]- 9884 Jul, [facility] [place] [facility] [address] [id number] [place] [address]- 1977 Jul, [facility] [place] [facility] [address] [id number] [place] [address]- 0617 Jun, [facility] [place] [facility] [address] [facility] [id number] [place] [address]- 9123 Jun, [facility] [place] [facility] [address] [id number] [place] [address]- 9151 Jun, [facility] [place] [facility] [address] [facility] [id number] [place] [address]- 1068 May, IMMUNIZATIONS No Known Immunizations SOCIAL HISTORY Never Assessed REASON FOR VISIT Start Hep C meds PLAN OF CARE VITAL SIGNS MEDICATIONS Unknown [...]
--- OUTSIDE RECORDS SUMMARY | 2018-07-17 09:11 | XMS REPORT ---
Author Author ASHISH SEGOVIA Organization [facility] Address [address] [place] [address] Care Team Providers Care School Examiner Name Role Phone ASHISH SEGOVIA Unavailable PROBLEMS Type Condition ICD9-CM Code DGX14-CF Code Onset Dates Condition Status SNOMED Code Problem Hepatitis C antibody positive in blood R76.8 Active 685201204 Problem Hep C w/o coma, chronic B18.2 Active 422603295 Problem History of left below knee amputation Z89.512 Active 172023269 Problem Lower limb amputation, below knee Z89.519 Active 092690639 Problem Amphetamine and other psychostimulant dependence, unspecified abuse 304.40 Active Problem Attention deficit disorder (ADD) in adult F98.8 Active 412263773 Problem Generalized anxiety disorder F41.1 Active 91256158 ALLERGIES Substance Reaction Event Type Date Status Penicillin V Potassium as a child Drug Allergy December, Active Betadine blisters Drug Allergy December, Active ENCOUNTERS Encounter Location Date Diagnosis [facility] [id number] [place] [address] 19764- 9544 Apr, [facility] [address] [address] 0[address] Mar, Liver mass R16.0 [facility] [address] [place] [address] 86817- 2940 Mar, [facility] [address] [place] [address] 49822- 1844 Mar, Generalized anxiety disorder F41.1 ; Lower limb amputation, below knee Z89.519 and Hep C w/o coma, chronic B18.2 [facility] [id number] [address]- 2762 Mar, Liver mass R16.0 [facility] [id number] [place] [address] 71041- 5555 Feb, Hep C w/o coma, chronic B18.2 and Weight gain R63.5 [facility] [id number] [place] [address] [id number] Feb, Hepatitis C antibody positive in blood R76.8 [facility] [id number] [place] [address] 51741- 2948 Jan, Hep C w/o coma, chronic B18.2 [facility] [id number] [place] [address] 76069- 5485 Jan, [place] [id number] [place] [address] 55220- 8046 Jan, Hep C w/o coma, chronic B18.2 [facility] [id number] [place] [address] 61736- 2820 Jan, Chronic hepatitis C without hepatic coma B18.2 [place] [id number] [place] [address] 48860- 8066 Jan, [facility] [id number] [place] [address] [id number] Jan, Hepatitis C antibody positive in blood R76.8 [facility] [id number] [place] [address] 76160- 2377 December, Chronic hepatitis C without hepatic coma B18.2 and Encounter for immunization Z23 [facility] [address] [place] [address] 32369- 3536 December, [facility] [address] [place] [address] [phone] December, Hepatitis C antibody positive in blood R76.8 [facility] [id number] [place] [address] 18493- 8514 December, Hepatitis C antibody positive in blood R76.8 [facility] [id number] [place] [address] 31518- 2819 December, [facility] [address] [facility][1[facility] [id number] [id number] December, History of left below knee amputation Z89.512 ; Other acute postprocedural pain G89.18 and Other complications of amputation stump T87.89 [facility] [address] [address]- 8720 Nov, Generalized anxiety disorder F41.1 and Attention deficit disorder (ADD) in adult F98.8 [facility] [address] [address]- 7153 Nov, History of hepatitis C Z86.19 ; History of methamphetamine abuse Z87.898 ; Lower limb amputation, below knee Z89.519 and Encounter to establish care Z76.89 [facility] [address] [address]- 1766 14 Nov, 2014 [facility] [address] [address]- 6280 13 Nov, 2014 [facility] [address] [id number] [id number] Jun, [facility] [address] [address]- 6229 Jun, [facility] [address] 6[address] May, [facility] [address] [address]- 9152 May, [facility] [address] [id number] Apr, [facility] [address] [id number] [address]- 0921 Apr, [facility] [address] [id number] Mar, [facility] [address] [address]- 0014 Mar, [facility] [address] [address]- 1198 Mar, [facility] [address] [id number] Mar, [facility] [address] [id number] [place] [address]- 4449 Jan, [facility] [place] [facility] [address] [id number] [place] [address]- 1998 Oct, [facility] [place] [facility] [address] [id number] [place] [address]- 0056 Oct, [facility] [place] [facility] [address] [id number] [place] [address]- 8699 Sep, [facility] [place] [facility] [address] [id number] [place] [address]- 5513 Sep, [facility] [place] [facility] [address] [facility] [id number] [place] [address]- 4650 Aug, [facility] [place] [facility] [address] [id number] [place] [address]- 9002 Aug, [facility] [place] [facility] [address] [id number] [place] [address]- 6676 Aug, [facility] [place] [facility] [address] [facility] [id number] [place] [address]- 3521 Aug, [facility] [place] [facility] [address] [id number] [place] [address]- 0229 Jul, [facility] [place] [facility] [address] [id number] [place] [address]- 6003 Jul, [facility] [place] [facility] [address] [id number] [place] [address]- 5255 Jun, [facility] [place] [facility] [address] [id number] [place] [address]- 6467 Jun, [facility] [place] [facility] [address] [id number] [place] [address]- 2139 Jun, [facility] [place] [facility] [address] [id number] [place] [id number] [address] May, IMMUNIZATIONS Vaccine Route Administration Date Status PPSV23 (PNEUMOVAX) IM Intramuscular December 26, 2017 Administered SOCIAL HISTORY Never Assessed REASON FOR VISIT Hep C consult, PT states no additional concerns besides weight-[place], G=2, Q-61K, F=0. Will need to consider Mavyret as that is preferred by [facility]. Plan will deny based on staging and they will also uphold the denial upon appeal. Then we can apply for foundation. Mavyret is only meds that has foundation for denied insured patients currently. Pt motivated, good support system. Clean over 1.5 yrs --nael clay PLAN OF CARE Activity Details Follow Up we will call Reason: VITAL SIGNS Height 64 in 2017-12-26 Weight 190.7 lbs 2017-12-26 Temperature 97.8 degrees Fahrenheit 2017-12-26 Heart Rate 68 bpm 2017-12-26 Respiratory Rate 18 2017-12-26 BMI 32.73 kg/m2 2017-12-26 Blood pressure systolic 118 mmHg 2017-12-26 Blood pressure diastolic 78 mmHg 2017-12-26 MEDICATIONS Medication Instructions Dosage Frequency Start Date End Date Duration Status Mavyret 100-40 MG Orally Once a day 3 tablets 24h Jan, Mar, 8 weeks Active RESULTS No Results PROCEDURES Procedure Date Ordered Result Body Site PPSV23 (PNEUMOVAX) December 26, 2017 SINGLE IMMUNIZATION ADMIN December 26, 2017 ADMN PNEUMCOC VAC NO FEE DAY December 26, 2017 INSTRUCTIONS MEDICATIONS ADMINISTERED No Known Medications MEDICAL [...]
--- OUTSIDE RECORDS SUMMARY | 2018-07-17 09:12 | XMS REPORT ---
Author Author HAZELSABA Elaine Organization [facility] Address [address] [place] [address] Care Team Providers Care Tilt Tray Driver Name Role Phone SABA HAZEL Unavailable PROBLEMS Type Condition ICD9-CM Code UNT42-JT Code Onset Dates Condition Status SNOMED Code Problem Hepatitis C antibody positive in blood R76.8 Active 390885375 Problem Hep C w/o coma, chronic B18.2 Active 641024496 Problem History of left below knee amputation Z89.512 Active 994574421 Problem Lower limb amputation, below knee Z89.519 Active 600919788 Problem Amphetamine and other psychostimulant dependence, unspecified abuse 304.40 Active Problem Attention deficit disorder (ADD) in adult F98.8 Active 575487220 Problem Generalized anxiety disorder F41.1 Active 98043192 ALLERGIES No Information ENCOUNTERS Encounter Location Date Diagnosis [facility] [id number] [place] [address] 28345- 3719 Apr, [facility] [address] [address]- 1253 Mar, [facility] [id number] [place] [address] 16377- 8562 Mar, Liver mass R16.0 [facility] [id number] [place] [address] 03367- 0112 Feb, Hep C w/o coma, chronic B18.2 and Weight gain R63.5 [facility] [id number] [place] [address] [id number] Feb, Hepatitis C antibody positive in blood R76.8 [facility] [address] [place] [address] 71128- 4940 Jan, Hep C w/o coma, chronic B18.2 [facility] [address] [address]- 9644 Jan, [facility] [id number] [place] [address] 12780- 6092 Jan, Hep C w/o coma, chronic B18.2 [facility] [id number] [place] [address] 60944- 0916 Jan, Chronic hepatitis C without hepatic coma B18.2 [facility] [id number] [place] [address] 53835- 5663 Jan, [facility] [id number] [place] [address] [id number] Jan, Hepatitis C antibody positive in blood R76.8 [place] [id number] [place] [address] 92942- 3817 December, Chronic hepatitis C without hepatic coma B18.2 and Encounter for immunization Z23 [facility] [id number] [place] [address] 78160- 1074 December, [facility] [id number] [place] [address] [id number] December, Hepatitis C antibody positive in blood R76.8 [facility] [address] [place] [address] 32950- 2526 December, Hepatitis C antibody positive in blood R76.8 [place] [address] [place] [address] 32648- 2154 December, [facility] [id number] [place] [address] [id number] December, History of left below knee amputation Z89.512 ; Other acute postprocedural pain G89.18 and Other complications of amputation stump T87.89 [facility] [address] [place] [address] 56939- 4724 Nov, Generalized anxiety disorder F41.1 and Attention deficit disorder (ADD) in adult F98.8 [place] [id number] [address]- 4595 Nov, 2018 History of hepatitis C Z86.19 ; History of methamphetamine abuse Z87.898 ; Lower limb amputation, below knee Z89.519 and Encounter to establish care Z76.89 [facility] [address] [facility] [id number] [address]- 3151 14 Nov, 2014 [facility] [address] [id number] [address]- 3706 13 Nov, 2014 [address] [id number] [id number] Jun, [facility] [address], [place] [address]- 5850 Jun, [facility] [address]778 May, [facility] [address], [place] [address]- 7654 May, [facility] [address] [id number] Apr, [facility] [address] [id number] 5540 Apr, [facility] [address] [id number] Mar, [facility] [address] [id number], [place] [address]- 6614 Mar, [facility] [id number], [place] [address]- 1241 Mar, [facility] [address] [id number] Mar, [facility] [address] [id number], [place] [address]- 8626 Jan, [facility] [address] [id number], [place] [address]- 5606 Oct, [facility] [address] [id number], [place] [address]- 2188 Oct, [facility] [address] [address]- 5785 Sep, [facility] [address] 7882 Sep, [facility] [address] 3524 Aug, [facility] [address] [place] [address] 34767- 1568 Aug, [facility] [address]- 8335 Aug, [facility] [address]- 4201 Aug, [facility] [address]- 9125 Jul, [facility] [address]- 8600 Jul, [facility] [address] [address]- 2500 Jun, [facility] [address]- 1589 Jun, [facility] [address], [place] [address]- 7688 Jun, [facility] [address]- 8690 May, IMMUNIZATIONS No Known Immunizations SOCIAL HISTORY Never Assessed REASON FOR VISIT Hep C note PLAN OF CARE VITAL SIGNS MEDICATIONS Unknown [...] BKA 2013 Surgical History 1999 Surgical History 2002 Surgical History Total hysterectomy 2007 Hospitalization History Debridments 2013 Hospitalization History C-sections Hospitalization History Amputation 2014
--- OUTSIDE RECORDS SUMMARY | 2018-07-17 09:12 | XMS REPORT ---
Author Author HAZELSABA Elaine Organization [facility] Address [address] [place] [address] Care Team Providers Care Circus Train Supervisor Name Role Phone SABA HAZEL Unavailable PROBLEMS Type Condition ICD9-CM Code ERT72-BA Code Onset Dates Condition Status SNOMED Code Problem Hepatitis C antibody positive in blood R76.8 Active 867793628 Problem Hep C w/o coma, chronic B18.2 Active 123152115 Problem History of left below knee amputation Z89.512 Active 448821232 Problem Lower limb amputation, below knee Z89.519 Active 426809231 Problem Amphetamine and other psychostimulant dependence, unspecified abuse 304.40 Active Problem Attention deficit disorder (ADD) in adult F98.8 Active 782797026 Problem Generalized anxiety disorder F41.1 Active 82156055 ALLERGIES No Information ENCOUNTERS Encounter Location Date Diagnosis [facility] [id number] [place] [address] 09808- 1783 Apr, [facility] [address] 51108- 3695 Mar, [facility] [id number] [place] [address] 03671- 2593 Mar, Generalized anxiety disorder F41.1 ; Lower limb amputation, below knee Z89.519 and Hep C w/o coma, chronic B18.2 [facility] [address] [place] [address] 55920- 2570 Mar, Liver mass R16.0 [facility] [id number] [place] [address] 21361- 2702 Feb, Hep C w/o coma, chronic B18.2 and Weight gain R63.5 [facility] [id number] [place] [address] [id number] Feb, Hepatitis C antibody positive in blood R76.8 [facility] [address] [address]- 2455 Jan, Hep C w/o coma, chronic B18.2 [facility] [id number] [address]- 3361 Jan, [facility] [id number] [place] [address] 16664- 1965 Jan, Hep C w/o coma, chronic B18.2 [facility] [id number] [place] [address] 65435- 0716 Jan, Chronic hepatitis C without hepatic coma B18.2 [facility] [id number] [place] [address] 72705- 9697 Jan, [facility] [address] [place] [address] [id number] Jan, Hepatitis C antibody positive in blood R76.8 [facility] [address] [place] [address] 86958- 8992 December, Chronic hepatitis C without hepatic coma B18.2 and Encounter for immunization Z23 [facility] [address] [place] [address] 25625- 4140 December, [facility] [address] [id number] December, Hepatitis C antibody positive in blood R76.8 [facility] [address] [place] [address] 53036- 2496 December, Hepatitis C antibody positive in blood R76.8 [facility] [address] [place] [address] 59235- 3863 December, [facility] [address] [place] [address] [id number] December, History of left below knee amputation Z89.512 ; Other acute postprocedural pain G89.18 and Other complications of amputation stump T87.89 [place] [address] [address]- 1602 24 Nov, 2017 Generalized anxiety disorder F41.1 and Attention deficit disorder (ADD) in adult F98.8 [facility] [address] [address]- 3497 23 Nov, 2018 History of hepatitis C Z86.19 ; History of methamphetamine abuse Z87.898 ; Lower limb amputation, below knee Z89.519 and Encounter to establish care Z76.89 [facility] [address] [address]- 2341 14 Nov, 2014 [facility] [address] [address]- 7234 13 Nov, [address] [id number] Jun, [facility] [address] [address]- 9557 Jun, [facility] [address] [address]- 1256 May, [facility] [address] [address]- 7922 May, [facility] [address] [place] [id number] Apr, [facility] [address] [id number] [address]- 9930 Apr, [facility] [address] [place] [id number] Mar, [facility] [address] [id number] [address]- 2202 Mar, [facility] [address] [address]- 2173 Mar, [facility] [address] [place] [id number] Mar, [facility] [address] [id number] [address]- 4401 Jan, [facility] [address] [facility] [id number] [address]- 3638 Oct, [facility] [address] [facility] [id number] [place] 4809 Oct, [facility] [address] [facility] [id number] [place] [address]- 2470 Sep, [facility] [address] [facility] [id number] [place] [address]- 4231 Sep, [facility] [address] [facility] [id number] [place] [address]- 6297 Aug, [facility] [address] [address]- 6922 Aug, [facility] [address] [address]- 8062 Aug, [facility] [address]005[address] [address]- 5794 Aug, [facility] [address] [address]- 2505 Jul, [facility] [address] [address]- 6978 Jul, [facility] [address] [id number] [address]- 0767 Jun, [facility] [address] [id number] [address]- 9933 Jun, [facility] [address] [id number]- 1327 Jun, [facility] [address] [address]- 2597 May, IMMUNIZATIONS No Known Immunizations SOCIAL HISTORY Never Assessed REASON FOR VISIT Lab (walk-in) [facility] PLAN OF CARE VITAL SIGNS MEDICATIONS Unknown Medications RESULTS Name Result Date Reference Range URINE DRUG SCREEN (IN HOUSE) 2018-01-06 Lot # [id number] Exp date 06/2018 Control + COCAINE neg AMPH neg MTD neg THC neg OPIATE neg BENZO neg PCP neg BAR neg OXY neg MAMP neg BUP neg MDMA neg TCA neg PROCEDURES Procedure Date Ordered Result Body Site DRUG TEST PRSMV DIR OPT OBS January 06, 2018 INSTRUCTIONS MEDICATIONS ADMINISTERED No Known Medications [...]
--- OUTSIDE RECORDS SUMMARY | 2018-07-17 09:12 | XMS REPORT ---
Author Author ADOLPH KU [facility] Address [address] [place] [address] Care Team Providers Care Dance Master Name Role Phone ADOLPH KU Unavailable PROBLEMS Type Condition ICD9-CM Code TSU94-LS Code Onset Dates Condition Status SNOMED Code Problem Hepatitis C antibody positive in blood R76.8 Active 016014467 Problem Hep C w/o coma, chronic B18.2 Active 644611484 Problem History of left below knee amputation Z89.512 Active 324607232 Problem Lower limb amputation, below knee Z89.519 Active 367487108 Problem Amphetamine and other psychostimulant dependence, unspecified abuse 304.40 Active Problem Attention deficit disorder (ADD) in adult F98.8 Active 707009161 Problem Generalized anxiety disorder F41.1 Active 01710069 ALLERGIES No Information ENCOUNTERS Encounter Location Date Diagnosis [facility] [id number] [place] [address]19- [address]692 Apr, [facility] [id number] [place] [address] 48483- 9396 Mar, [facility] [id number] [place] [address]01- 9085 Feb, Hep C w/o coma, chronic B18.2 [facility] [address] [id number] [id number] Feb, Hepatitis C antibody positive in blood R76.8 [facility] [id number] [place] [address] 79778- 2735 Jan, Hep C w/o coma, chronic B18.2 [facility] [id number] [place] [address] 12085- 7794 Jan, [facility] [address] [place] [address]- 8663 Jan, Hep C w/o coma, chronic B18.2 [place] [address] [address]- 5452 Jan, Chronic hepatitis C without hepatic coma B18.2 [place] [address] 06855- 3900 Jan, [facility] [id number] [place] [address] [id number] Jan, Hepatitis C antibody positive in blood R76.8 [place] [address] [address]44- 4191 December, Chronic hepatitis C without hepatic coma B18.2 and Encounter for immunization Z23 [place] [id number] [place] [address] 16553- 6965 December, [facility] [id number] [place] [address] [id number] December, Hepatitis C antibody positive in blood R76.8 [place] [id number] [place] [address] 42248- 0903 December, Hepatitis C antibody positive in blood R76.8 [place] [id number] [place] [address] 36815- 3060 December, [facility] [address] [place] [address] [id number] December, History of left below knee amputation Z89.512 ; Other acute postprocedural pain G89.18 and Other complications of amputation stump T87.89 [place] [id number] [place] [address] 25256- 2352 Nov, Generalized anxiety disorder F41.1 and Attention deficit disorder (ADD) in adult F98.8 [place] [id number] [place] [address] 46082- 5518 Nov, History of hepatitis C Z86.19 ; History of methamphetamine abuse Z87.898 ; Lower limb amputation, below knee Z89.519 and Encounter to establish care Z76.89 [facility] [address] [id number] [place] [address] Nov, [facility] [address] [id number] [place] [address] 9966 Nov, [facility] [address] [id number] [place] [id number] Jun, [facility] [address] [id number], [place] [address] Jun, [facility] [address] [id number] [place] [address] May, [facility] [address] [id number], [place] [address] 7986 May, [facility] [address] [place] [id number] Apr, [facility] [address] [id number], [place] [address] 5697 Apr, [facility] [address] [place] [id number] Mar, [facility] [address] [id number], [place] [address] Mar, [facility] [address] [facility] [id number], [place] [address]- 5826 Mar, [facility] [address] [place] [id number] Mar, [facility] [address] [id number], [place] [address] Jan, [facility] [address] [id number] [address] Oct, [facility] [address] [id number] [address] Oct, [facility] [address] [id number], [place] [address] Sep, [facility] [address] [id number] [address] Sep, [facility] [address]005[address] Aug, [facility] [address]005[place], [place] [address] Aug, [facility] [address] [address] Aug, [facility] [address]005[place] [address] 2371 Aug, [facility] [address] Jul, [facility] [address]65[place] [address] Jul, [facility] [address]- [address] Jun, [facility] [address]00565100[place], [place] [address] Jun, [facility] [address]00565[place] [address] Jun, [facility] [address] [id number], [place] [address] 7337 May, IMMUNIZATIONS No Known Immunizations SOCIAL HISTORY Never Assessed REASON FOR VISIT intake PLAN OF CARE Activity Details Follow Up prn Reason: F/U VITAL SIGNS MEDICATIONS Unknown Medications RESULTS No Results PROCEDURES Procedure Date Ordered Result Body Site Psych diagnostic evaluation, established patient November 26, 2017 INSTRUCTIONS MEDICATIONS ADMINISTERED No Known [...]
--- OUTSIDE RECORDS SUMMARY | 2018-07-17 09:12 | XMS REPORT ---
Author Author HAZELSABA Elaine Organization [facility] [place] Address [address] [place] [address] Care Team Providers Care School Psychology Specialist Name Role Phone SABA HAZEL Unavailable PROBLEMS Type Condition ICD9-CM Code NDG41-AP Code Onset Dates Condition Status SNOMED Code Problem Hepatitis C antibody positive in blood R76.8 Active 499249374 Problem Hep C w/o coma, chronic B18.2 Active 660027008 Problem History of left below knee amputation Z89.512 Active 024999593 Problem Lower limb amputation, below knee Z89.519 Active 415678829 Problem Amphetamine and other psychostimulant dependence, unspecified abuse 304.40 Active Problem Attention deficit disorder (ADD) in adult F98.8 Active 742633764 Problem Generalized anxiety disorder F41.1 Active 14281577 ALLERGIES Substance Reaction Event Type Date Status Penicillin V Potassium as a child Drug Allergy December, Active Betadine blisters Drug Allergy December, Active ENCOUNTERS Encounter Location Date Diagnosis [facility] [place] [address] [id number], [place] [address] Apr, [facility] [place] [address] [id number], [place] [address] 8999 Mar, [facility] [place] [address] [place] [address] 75094- 9222 Feb, Hep C w/o coma, chronic B18.2 and Weight gain R63.5 [facility] [address] [id number] [id number] Feb, Hepatitis C antibody positive in blood R76.8 [facility] [place] [address] [id number], [place] [address]- 3585 Jan, Hep C w/o coma, chronic B18.2 [facility] [place] [address] [id number], [place] [address]- 7712 Jan, [facility] [place] [id number] [place] [address] 16285- 8635 Jan, Hep C w/o coma, chronic B18.2 [facility] [place] [id number] [place] [address] 52907- 5442 Jan, Chronic hepatitis C without hepatic coma B18.2 [place] [id number] [place] [address] 77886- 7825 Jan, [facility] [id number] [place] [address] [id number] Jan, Hepatitis C antibody positive in blood R76.8 [place] [id number] [place] [address] 74364- 3438 December, Chronic hepatitis C without hepatic coma B18.2 and Encounter for immunization Z23 [place] [id number] [place] [address] 71156- 7620 December, [facility] [id number] [place] [id number] December, Hepatitis C antibody positive in blood R76.8 [place] [id number] [place] [address] 31198- 8635 December, Hepatitis C antibody positive in blood R76.8 [place] [address] [place] [address] 64071- 7156 December, [facility] [id number] [place] [address] [id number] December, History of left below knee amputation Z89.512 ; Other acute postprocedural pain G89.18 and Other complications of amputation stump T87.89 [place] [id number] [place] [address] 14998- 7763 Nov, Generalized anxiety disorder F41.1 and Attention deficit disorder (ADD) in adult F98.8 [place] [id number] [place] [address] 56891- 7403 Nov, History of hepatitis C Z86.19 ; History of methamphetamine abuse Z87.898 ; Lower limb amputation, below knee Z89.519 and Encounter to establish care Z76.89 [facility] [place] [address] [facility] [id number], [place] [address]- 2563 14 Nov, 2014 [facility] [place] [address] [facility] [id number], [place] [address]- 8933 13 Nov, 2014 [place] [facility] [id number] [id number] Jun, [facility] [place] [address] [id number], [place] [address]- 4871 Jun, [facility] [place] [address], [place] [address]- 7382 May, [facility] [place] [address] [id number], [place] [address]- 3932 May, [facility] [address] [place] [id number] Apr, [facility] [place] [address] [id number], [place] [address]- 7371 Apr, [facility] [address] [place] [id number] Mar, [facility] [place] [address] [id number], [place] [address]- 3276 Mar, [facility] [place] [address] [id number], [place] [address]- 5396 Mar, [facility] [address] [place] [id number] Mar, [facility] [place] [address] [facility] [id number], [place] [address]- 3356 Jan, [facility] [place] [address] [facility] [id number], [place] [address]- 4706 Oct, [facility] [place] [address] [facility] [id number], [place] [address]- 3843 Oct, [facility] [place] [address]00565100[place], [place] [address]- 8659 Sep, [facility] [place] [address]00565100[place], [place] [address]- 1195 Sep, [facility] [place] [address]00565100[place], [place] [address]- 2333 Aug, [facility] [place] [address]00565100[place], [place] [address]- 9695 Aug, [facility] [place] [address]005[address]100[place], [place] [address]- 6298 Aug, [facility] [place] [address] [place] [address] 60587- 3853 Aug, [facility] [place] [address]65100[place], [place] [address]- 4855 Jul, [facility] [place] [address], [place] [address]- 1705 Jul, [facility] [place] [address]100[place], [place] [address]- 8237 Jun, [facility] [place] [address]65100[place], [place] [address]- 8021 Jun, [facility] [place] [address], [place] [address]- 5794 Jun, [facility] [place] [address] [id number], [place] [address]- 5333 May, IMMUNIZATIONS No Known Immunizations SOCIAL HISTORY Never Assessed REASON FOR VISIT Discuss lab results---DBennettRN PLAN OF CARE Activity Details Follow Up 3 Months, prn Reason:CHM/ VITAL SIGNS Height 64 in 2017-12-05 Weight 185 lbs 2017-12-05 Temperature 98.2 degrees Fahrenheit 2017-12-05 Heart Rate 70 bpm 2017-12-05 Respiratory Rate 20 2017-12-05 BMI 31.75 kg/m2 2017-12-05 Blood pressure systolic 114 mmHg 2017-12-05 Blood pressure diastolic 80 mmHg 2017-12-05 MEDICATIONS Unknown Medications RESULTS No Results PROCEDURES [...]
--- OUTSIDE RECORDS SUMMARY | 2018-07-17 09:12 | XMS REPORT ---
Author Author HAZELSABA Elaine Organization [facility] Address [address] [place] [address] Care Team Providers Care Pony Ride Attendant Name Role Phone SABA HAZEL Unavailable PROBLEMS Type Condition ICD9-CM Code TPP40-AV Code Onset Dates Condition Status SNOMED Code Problem Hepatitis C antibody positive in blood R76.8 Active 638095900 Problem Hep C w/o coma, chronic B18.2 Active 506047435 Problem History of left below knee amputation Z89.512 Active 854364222 Problem Lower limb amputation, below knee Z89.519 Active 065549477 Problem Amphetamine and other psychostimulant dependence, unspecified abuse 304.40 Active Problem Attention deficit disorder (ADD) in adult F98.8 Active 607138260 Problem Generalized anxiety disorder F41.1 Active 43376939 ALLERGIES No Information ENCOUNTERS Encounter Location Date Diagnosis [facility] [address] [place] [address] 54888- 9233 Apr, [facility] [address] [place] [address] 28687- 7561 Mar, [facility] [address] [place] [address] 80369- 8271 Feb, Hep C w/o coma, chronic B18.2 and Weight gain R63.5 [facility] [address] [facility] [id number] [id number] Feb, Hepatitis C antibody positive in blood R76.8 [facility] [address] [place] [address] 31971- 2972 Jan, Hep C w/o coma, chronic B18.2 [facility] [address]00565100[place] [address]- 8665 Jan, [facility] [address] [place] [address] 63047- 8163 Jan, Hep C w/o coma, chronic B18.2 [place] [id number] [place] [address] 91296- 9772 Jan, Chronic hepatitis C without hepatic coma B18.2 [place] [id number] [place] [address] 67696- 4269 Jan, [facility] [id number] [place] [address] [id number] Jan, Hepatitis C antibody positive in blood R76.8 [place] [id number] [place] [address] 33134- 3773 December, Chronic hepatitis C without hepatic coma B18.2 and Encounter for immunization Z23 [place] [id number] [place] [address] 24687- 6640 December, [facility] [id number] [place] [address] [id number] December, Hepatitis C antibody positive in blood R76.8 [place] [id number] [place] [address] 55551- 0182 December, Hepatitis C antibody positive in blood R76.8 [place] [id number] [place] [address] 13761- 8026 December, [facility] [address] [place] [address] [id number] December, History of left below knee amputation Z89.512 ; Other acute postprocedural pain G89.18 and Other complications of amputation stump T87.89 [place] [address] [place] [address] 82841- 5043 Nov, Generalized anxiety disorder F41.1 and Attention deficit disorder (ADD) in adult F98.8 [place] [address] [place] [address] 31090- 9427 Nov, History of hepatitis C Z86.19 ; History of methamphetamine abuse Z87.898 ; Lower limb amputation, below knee Z89.519 and Encounter to establish care Z76.89 [facility] [address] [id number], [place] [address]- 0245 Nov, [facility] [address] [id number] [address]- 8869 Nov, [facility] [address] [id number] [place] [id number] Jun, [facility] [address] [id number], [place] [address]- 8290 Jun, [facility] [address] [id number], [place] [address]- 0013 May, [facility] [address] [id number] [address]- 3667 May, [facility] [address] [place] [id number] Apr, [facility] [address] [id number], [place] [address]- 4827 Apr, [facility] [address] [place] [id number] Mar, [facility] [address] [id number], [place] [address]- 7059 Mar, [facility] [address] [id number] [address]- 9873 Mar, [facility] [address] [place] [id number] Mar, [facility] [address] [id number], [place] [address]- 7892 Jan, [facility] [address] [id number], [place] [address]- 2857 Oct, [facility] [address] [id number] [address]- 5184 Oct, [facility] [address] [id number] [address]- 9016 Sep, [facility] [address] [id number], [place] [address]- 1926 Sep, [facility] [address]100[place], [place] [address]- 9982 Aug, [facility] [address]100[place], [place] [address]- 5926 Aug, [facility] [address]100[place], [place] [address]- 2607 Aug, [facility] [address] 113[place]- 6930 Aug, [facility] [address]100[place], [place] [address]- 6106 Jul, [facility] [address]100[place], [place] [address]- 8536 Jul, [facility] [address]100[place], [place] [address]- 8175 Jun, [facility] [address]100[place]- 3658 Jun, [facility] [address], [place] [address]- 0709 Jun, [facility] [address] [id number], [place] [address]- 5032 May, IMMUNIZATIONS No Known Immunizations SOCIAL HISTORY Never Assessed REASON FOR VISIT [facility] PLAN OF CARE VITAL SIGNS MEDICATIONS Unknown Medications RESULTS No Results PROCEDURES Procedure Date Ordered Result Body Site ROUTINE VENIPUNCTURE 2017-12-09 N/A DRUG TEST PRSMV DIR OPT OBS December 09, 2017 LAB NOT BILLED BY [facility] December 09, 2017 PROTHROMBIN TIME December 09, 2017 ALANINE AMINO (ALT) (SGPT) December 09, 2017 IMMUNOASSAY,INFECTIOUS AGENT December 09, 2017 INSTRUCTIONS MEDICATIONS ADMINISTERED No Known Medications MEDICAL (GENERAL) HISTORY Type Description Date Medical History Hep C Medical History Left BKA Medical History Dermatophytosis of the body Medical History Bipolar disorder, unspecified Medical History Anxiety state, unspecified Medical History Cellulitis and abscess of leg, except foot Medical History Pain in soft tissues of limb Surgical History BKA 2014 Surgical History 2000 Surgical History 2001 Surgical History Total hysterectomy 2006 Hospitalization History Debridments 2012 Hospitalization History C-sections Hospitalization History Amputation 2014
--- OUTSIDE RECORDS SUMMARY | 2018-07-17 09:12 | XMS REPORT ---
Author Author HAZELSABA Elaine Organization [facility] Address [address] [place] [address] Care Team Providers Care Client Program Manager Name Role Phone SABA HAZEL Unavailable PROBLEMS Type Condition ICD9-CM Code [id number] Code Onset Dates Condition Status SNOMED Code Problem Hepatitis C antibody positive in blood R76.8 Active 653281460 Problem Hep C w/o coma, chronic B18.2 Active 717357601 Problem History of left below knee amputation Z89.512 Active 878416206 Problem Lower limb amputation, below knee Z89.519 Active 672037456 Problem Amphetamine and other psychostimulant dependence, unspecified abuse 304.40 Active Problem Attention deficit disorder (ADD) in adult F98.8 Active 204545414 Problem Generalized anxiety disorder F41.1 Active 11940223 ALLERGIES No Information ENCOUNTERS Encounter Location Date Diagnosis [facility] [id number] [place] [address] 17236- 1766 Apr, [facility] [address] [place] [address] 26419- 5255 Mar, [facility] [address] [place] [address] 00316- 6689 Feb, Hep C w/o coma, chronic B18.2 and Weight gain R63.5 [facility] [address] [facility] [id number] [id number] Feb, Hepatitis C antibody positive in blood R76.8 [facility] [address] [place] [address] 90285- 2947 Jan, Hep C w/o coma, chronic B18.2 [facility] [address], [place] [address] 18[address] Jan, [facility] [address] [place] [address] 64717- 7871 Jan, Hep C w/o coma, chronic B18.2 [facility] [id number] [place] [address] 49512- 8915 Jan, Chronic hepatitis C without hepatic coma B18.2 [facility] [id number] [place] [address] 07732- 7920 Jan, [facility] [id number] [place] [address] [id number] Jan, Hepatitis C antibody positive in blood R76.8 [facility] [id number] [place] [address] 29699- 5038 December, Chronic hepatitis C without hepatic coma B18.2 and Encounter for immunization Z23 [facility] [id number] [place] [address] 22627- 1976 December, [facility] [id number] [place] [address] [phone] December, Hepatitis C antibody positive in blood R76.8 [facility] [id number] [place] [address] 36634- 3899 December, Hepatitis C antibody positive in blood R76.8 [facility] [id number] [place] [address] 48530- 2376 December, [facility] [address] [place] [address] [phone] December, History of left below knee amputation Z89.512 ; Other acute postprocedural pain G89.18 and Other complications of amputation stump T87.89 [facility] [address] [place] [address] 87891- 4329 Nov, Generalized anxiety disorder F41.1 and Attention deficit disorder (ADD) in adult F98.8 [facility] [address] [place] [address] 03292- 3620 Nov, History of hepatitis C Z86.19 ; History of methamphetamine abuse Z87.898 ; Lower limb amputation, below knee Z89.519 and Encounter to establish care Z76.89 [facility] [address] [id number], [place] [address]65 Nov, [facility] [address] [id number], [place] [address]97 Nov, [facility] [address] [id number] [id number] Jun, [facility] [address] [id number], [place] [address] 50[address] Jun, [facility] [address] [id number], [place] [address] 8274 May, [facility] [address] [id number], [place] [address] 8[address] May, [facility] [address] [phone] Apr, [facility] [address] [id number], [place] [address]- 9431 Apr, [facility] [address] [id number] Mar, [facility] [address] [id number], [place] [address]- 2785 Mar, [facility] [address] [id number], [place] [address]- 9865 Mar, [facility] [address] [id number] Mar, [facility] [address] [id number], [place] [address] 0136 Jan, [facility] [address] [id number], [place] [address] 5995 Oct, [facility] [address] [id number], [place] [address]- 4623 Oct, [facility] [address] [id number], [place] [address]- 9866 Sep, [facility] [address] [id number], [place] [address]- 7616 Sep, [facility] [address] [id number], [place] [address] 3862 Aug, [facility] [address] [address] Aug, [facility] [address] [id number], [place] [address]- 6973 Aug, [facility] [address], [place] [address] 0848 Aug, [facility] [address], [place] [address]- 9788 Jul, [facility] [address], [place] [address]- 2542 Jul, [facility] [address] 4838 Jun, [facility] [address] [id number], [place] [address]- 6105 Jun, [facility] [id number], [place] [address]- 4320 Jun, [facility] [id number] 9608 May, IMMUNIZATIONS No Known Immunizations SOCIAL HISTORY Never Assessed REASON FOR VISIT lab results PLAN OF CARE VITAL SIGNS MEDICATIONS Unknown [...]
--- OUTSIDE RECORDS SUMMARY | 2018-07-17 09:13 | XMS REPORT | Continuity of Care Document ---
Author Author [facility] Organization [facility] Address Unknown Phone Unavailable Care Team Providers Care Mine Environmental Engineer Name Role Phone ROSETTE SOSA MD PP Insurance Providers Payer Name Policy Number Subscriber Name Relationship Medicaid [place] [id number] Denise Mitchell Self / Same As Patient Wps Medicare [id number] Denise Mitchell Self / Same As Patient Advance Directives Directive Response Recorded Date Advance Directives N 05/04/13 5:43pm Health Care Power of Head Cager N 05/04/13 5:43pm Organ Donor Y 05/04/13 5:43pm Problems No Known Problems or Medical conditions. Family History History Response Recorded Date/Time Hx Family Cancer Y skin cancer 05/04/13 6 :30am Hx Family Breast Cancer Y aunt 05/04/13 6 :30am Hx Family Lung Cancer Y grandfather 05/04 6:30am Hx Family Cardiac Disorders Y valve disorder 05/04/13 6:30am Hx Family Stroke Y grandmother 05/04/13 6 :30am Hx Family Hypertension Y 05/04/13 6:30am Social History History Response Recorded Date/Time Alcohol Use Rarely Uses 05/04/13 6:30am Recreational Drug Use Y 05/04/13 6:30am Recent Foreign Travel N 05/04/13 6:30am Recent Infectious Disease Exposure N 6:30am Hospitalization with Isolation Denies 09/17 1:04pm Sexually Transmitted Disease N 04/23/13 4 :57pm Allergies, Adverse Reactions, Alerts Allergen Type Severity Reaction Last Updated Penicillins Adverse Reaction Mild 12/01/12 povidone-iodine Allergy Mild 02/24/09 Medications Medication Dose Units Route Sig Qty Days Acetaminophen/Hydrocodone Bitart (Hydrocodone-Apap 7.5-325 Mg Tb) 1 Each PO 60 Hydrocodone Bit/Acetaminophen (Hydrocodon-Acetaminoph 7.5-325) 1 - 2 Tab PO Q4H PRN Hydrocodone Bit/Acetaminophen (Hope 5-325 Tablet) 1 Each PO Q4H PRN 10 Trimethoprim/Sulfamethoxazole (Bactrim Ds) 1 Ea PO BID 30 Levofloxacin (Levaquin 500 Mg) 1 Each PO DAILY 15 Trimethoprim/Sulfamethoxazole (Bactrim Ds) 1 Ea PO BID 20 Immunizations Name Given Type Date of Influenza Vaccine 05/05/13 H influenza, split (incl. purified surface antigen) 05/05/13 A pneumococcal polysaccharide PPV23 05/06/13 A Response Recorded Date/Time Status not known Unknown Results Test Date Result Interp. Ref. Range Acetaminophen Level May 10, 2011 6:35am < 10 UG/ML L 10.0-30.0 Acetaminophen Screen May 10, 2011 5:40am POSITIVE H - Activated Partial Thromboplast Time September 26, 2010 11: 00pm 27 SEC N 24-35 Alanine Aminotransferase (ALT/SGPT) April 23, 2013 5: 50pm 45 U/L N 30-65 Albumin April 23, 2013 5:50pm 3.5 G/ DL N 3.4-5.0 Alkaline Phosphatase April 23, 2013 5:50pm 104 U/L N 50-136 Anti-Nuclear Antibody Screen May 08, 2011 5:30am <1:80 - Aspartate Amino Transf (AST/SGOT) April 23, 2013 5:50pm 19 U/L N 15-37 BUN/Creatinine Ratio April 23, 2013 5:50pm 16 - Band Neutrophils December 01, 2012 5:08pm 1 % - Basophils # (Auto) April 23, 2013 5:50pm 0.1 10^3/uL N 0.0-0.1 Basophils % (Manual) December 01, 2012 5:08pm 0 % - Basophils (%) (Auto) April 23, 2013 5:50pm 1 % N 0-10 Blood Urea Nitrogen April 23, 2013 5:50pm 11 MG/DL N 7-18 C-Reactive Protein April 23, 2013 5:50pm < 0.2 MG/DL L 0.2-0.9 Calcium Level April 23, 2013 5:50pm 8.7 MG/DL N 8.5-10.1 Carbon Dioxide Level April 23, 2013 5:50pm 26 MMOL/L N 21-32 Chloride Level April 23, 2013 5:50pm 104 MMOL/L N 101-110 Creatinine April 23, 2013 5:50pm 0.7 MG/DL N 0.6-1.3 D-Dimer September 05, 2010 7:00pm 1.45 UG /ML H 0.00-0.49 Dohle Bodies September 05, 2010 7:00pm SLIGHT - Eosinophils # (Auto) April 23, 2013 5:50pm 0.3 10^3/uL N 0.0-0.3 Eosinophils % (Manual) December 01, 2012 5:08pm 0 % - Eosinophils (%) (Auto) April 23, 2013 5:50pm 3 % N 0-10 Erythrocyte Sedimentation Rate April 23, 2013 5:50pm 1 MM/HR N 0-20 Follicle Stimulating Hormone May 03, 2009 3:05pm 7.2 MIU/ML - Glucose Level April 23, 2013 5:50pm 81 MG/DL N 74-106 Group A Streptococcus Screen September 21, 2008 10:54pm Negative - HIV (1&2) Antibody December 03, 2012 6:00am NR - Hematocrit April 23, 2013 5:50pm 45 % N 35-52 Hemoglobin April 23, 2013 5:50pm 16.1 G/DL H 11.5-16.0 Hemoglobin A1c December 05, 2010 5:30am 5.5 % N 4.8-6.0 Hepatitis A IgM Antibody December 03, 2012 6:00am NR - Hepatitis B Core IgM Antibody December 03, 2012 6:00am NR - Hepatitis B Surface Antigen December 03, 2012 6:00am NR - Hepatitis C Antibody December 03, 2012 6:00am REACTIVE H - Hepatitis C Genotype December 05, 2012 2:45pm TYPE 3 H - Hepatitis C RNA (PCR) IUs/ml December 05, 2012 2:45pm [id number] H IU/ML - Hepatitis C RNA (PCR) log IUs/ml December 05, 2012 2:45pm 7.24 H LOGIU/ML - Lipase March 10, 2010 11:10pm 256 U/L N 114-286 Luteinizing Hormone May 03, 2009 3:05pm 4.0 MIU/ML - Lymphocytes # (Auto) April 23, 2013 5:50pm 3.3 X 10^3 N 1.0-4.0 Lymphocytes % (Manual) December 01, 2012 5:08pm 25 % - Lymphocytes (%) (Auto) April 23, 2013 5:50pm 33 % N 12-44 Mean Corpuscular Hemoglobin April 23, 2013 5:50pm 31 PG N 25-34 Mean Corpuscular Hemoglobin Concent April 23, 2013 5: 50pm 36 G/DL N 32-36 Mean Corpuscular Volume April 23, 2013 5:50pm 86 FL N 80-99 Mean Platelet Volume April 23, 2013 5:50pm 8.8 FL N 7.4-10.4 Methadone Level December 18, 2010 9:25am NEG - Monocytes # (Auto) April 23, 2013 5:50pm 0.6 X 10^3 N 0.0-1.0 Monocytes % (Manual) December 01, 2012 5:08pm 4 % - Monocytes (%) (Auto) April 23, 2013 5:50pm 6 % N 0-12 Neutrophils # (Auto) April 23, 2013 5:50pm 5.9 X 10^3 N 1.8-7.8 Neutrophils % (Manual) December 01, 2012 5:08pm 70 % - Neutrophils (%) (Auto) April 23, 2013 5:50pm 58 % N 42-75 Opiates Screen December 18, 2010 9:25am NEG - Platelet Count April 23, 2013 5:50pm 358 10^3/uL N 130-400 Potassium Level April 23, 2013 5:50pm 4.1 MMOL/L N 3.6-5.0 Prothromb Time International Ratio September 26, 2010 11: 00pm 0.9 N 0.8-1.4 Prothrombin Time September 26, 2010 11:00pm 12.5 SEC N 12.2-14.7 Reactive Lymphocytes September 05, 2010 7:00pm 2 % - Red Blood Count April 23, 2013 5:50pm 5.19 10^6/uL N 4.35-5.85 Red Cell Distribution Width April 23, 2013 5:50pm 12.4 % N 10.0-14.5 Rheumatoid Factor May 08, 2011 5:30am NEGATIVE - Serum Test, Qualitative April 23, 2013 5:50pm NEGATIVE - Sodium Level April 23, 2013 5:50pm 139 MMOL/L N 135-145 TSH [place] Testing November 18, 2008 5:18pm 0.74 UIU/ML N 0.34-5.60 Total Bilirubin April 23, 2013 5:50pm 0.3 MG/DL N 0.0-1.0 Total Protein April 23, 2013 5:50pm 7.2 G/DL N 6.4-8.2 Toxic Granulation September 05, 2010 7:00pm 1+ - Ur Tricyclic Antidepressants Screen December 01, 2012 5:40pm NEGATIVE - Uric Acid May 08, 2011 5:30am 3.9 MG /DL N 2.6-7.2 Urine Acetaminophen Level December 18, 2010 9:25am NEG - Urine Amorphous Sediment October 08, 2005 12:12am Few gwen urates H - Urine Amphetamines Screen December 01, 2012 5:40pm NEGATIVE - Urine Bacteria December 01, 2012 5:40pm FEW /HPF H - Urine Barbiturates Screen December 01, 2012 5:40pm NEGATIVE - Urine Benzodiazepines Screen December 01, 2012 5:40pm NEGATIVE - Urine Bilirubin December 01, 2012 5:40pm NEGATIVE - Urine Casts December 01, 2012 5:40pm NONE / LPF - Urine Clarity December 01, 2012 5:40pm CLEAR - Urine Cocaine Screen December 01, 2012 5:40pm NEGATIVE - Urine Color December 01, 2012 5:40pm YELLOW - Urine Crystals December 01, 2012 5:40pm NONE /LPF - Urine Culture Indicated December 01, 2012 5:40pm NO - Urine Drug Screen Other December 18, 2010 9:25am NEG - Urine Glucose (UA) December 01, 2012 5:40pm NEGATIVE - Urine Ketones December 01, 2012 5:40pm NEGATIVE - Urine Leukocyte Esterase December 01, 2012 5:40pm NEGATIVE - Urine Marijuana (THC) December 18, 2010 9:25am NEG - Urine Methamphetamines Screen December 01, 2012 5:40pm NEGATIVE - Urine Mucus December 01, 2012 5:40pm NEGATIVE /LPF - Urine Nitrate October 08, 2005 12:12am Negative - Urine Nitrite December 01, 2012 5:40pm NEGATIVE - Urine Opiates Screen December 01, 2012 5:40pm NEGATIVE - Urine Phencyclidine (PCP) Level December 18, 2010 9:25am NEG - Urine Phencyclidine Screen December 01, 2012 5:40pm NEGATIVE - Urine Test January 22, 2011 6:30am NEGATIVE - Urine Propoxyphene Screen December 01, 2012 5:40pm NEGATIVE - Urine Protein December 01, 2012 5:40pm NEGATIVE - Urine RBC December 01, 2012 5:40pm NONE / HPF - Urine Specific Kirby December 01, 2012 5:40pm 1.010 L - Urine Squamous Epithelial Cells December 01, 2012 5:40pm 5-10 /HPF - Urine Urobilinogen December 01, 2012 5:40pm NORMAL MG/DL - Urine WBC December 01, 2012 5:40pm RARE / HPF - Urine Yeast July 27, 2008 9:35pm Large H - Urine pH December 01, 2012 5:40pm 8 - Vancomycin Level Trough December 03, 2012 7:35pm 12 UG/ML L 15-20 White Blood Count April 23, 2013 5:50pm 10.1 10^3/uL N 4.3-11.0 Serum Alcohol May 07, 2011 11:40pm < 5 MG/DL -5 Glucometer May 11, 2011 10:46am 102 MG/DL N 70-110 Urine Creatinine (Tox) December 18, 2010 9:25am 43 MG/DL - Estimat Glomerular Filtration Rate April 23, 2013 5: 50pm > 60 - Urine Oxycodone Screen December 01, 2012 5:40pm NEGATIVE - Blood Morphology Comment December 01, 2012 5:08pm NORMAL - Urine Methadone Screen December 01, 2012 5:40pm NEGATIVE - Urine Ethyl Alcohol Screen December 18, 2010 9:25am NEG - Urine Salicylate Screen December 18, 2010 9:25am NEG - Urine Cannabinoids Screen December 01, 2012 5:40pm NEGATIVE - Urine Buprenorphine December 01, 2012 5:40pm NEGATIVE - Hepatitis C Antibody Index December 03, 2012 6:00am 6.05 H INDEX - Urine RBC (Auto) December 01, 2012 5:40pm NEGATIVE - Procedures Procedure Code Date EXC LES SOFT TISSUE NEC 83.39 09/09/10 OTHER SKIN & SUBQ I D 86.04 09/09/10 INSERT TUNNELED CV CATH 03602 09/27/10 VENOUS CATHETERIZATION NEC 38.93 WINTER BONE 20 SQ CM/< 48126 12/21/10 LOC EXC LES METATAR/TAR 77.68 01/22/11 METATARSAL/TARSAL BIOPSY 77.48 05/10/11 BONE BIOPSY NEC 77.49 05/04/13 Blood Culture 12/01/12 MRSA Screen 05/09/11 Urine Culture 03/10/10 Gram Stain 05/10/11 Encounters Encounter Location Date/Time Departed Emergency Room [facility] 4:46pm Discharged Inpatient [facility] 6:16am Pre-registered Emergency Room [facility] 12/21/10 9:50am
--- OUTSIDE RECORDS SUMMARY | 2018-07-17 09:13 | XMS REPORT ---
Author Author HAZELSABA Elaine Organization [facility] Address [address] [place] [address] Care Team Providers Care Paid Search Specialist Name Role Phone SABA HAZEL Unavailable PROBLEMS Type Condition ICD9-CM Code [id number] Code Onset Dates Condition Status SNOMED Code Problem Hepatitis C antibody positive in blood R76.8 Active 373864303 Problem Hep C w/o coma, chronic B18.2 Active 872619771 Problem History of left below knee amputation Z89.512 Active 131061578 Problem Lower limb amputation, below knee Z89.519 Active 848410643 Problem Amphetamine and other psychostimulant dependence, unspecified abuse 304.40 Active Problem Attention deficit disorder (ADD) in adult F98.8 Active 327993844 Problem Generalized anxiety disorder F41.1 Active 30899297 ALLERGIES Substance Reaction Event Type Date Status Betadine Unknown Drug Allergy Nov, Active Penicillins Unknown Non Drug Allergy Nov, Active ENCOUNTERS Encounter Location Date Diagnosis [facility] [address] [place] [address] 35260- 3012 Apr, [facility] [address] [place] [address] 66627- 1720 Mar, [facility] [address] [place] [address] 54922- 5566 Feb, Hep C w/o coma, chronic B18.2 [facility] [address] [facility] [id number] [id number] Feb, Hepatitis C antibody positive in blood R76.8 [facility] [id number] [place] [address] 76222- 6529 Jan, Hep C w/o coma, chronic B18.2 [facility] [address] [place] [address] 39864- 7615 Jan, [facility] [address] [place] [address] 92704- 9188 Jan, Hep C w/o coma, chronic B18.2 [facility] [id number] [place] [address] 88247- 2687 Jan, Chronic hepatitis C without hepatic coma B18.2 [place] [id number] [place] [address] 63114- 9597 Jan, [facility] [id number] [place] [address] [id number] Jan, Hepatitis C antibody positive in blood R76.8 [place] [id number] [place] [address] 28631- 4433 December, Chronic hepatitis C without hepatic coma B18.2 and Encounter for immunization Z23 [place] [id number] [place] [address] 17441- 6937 December, [facility] [id number] [place] [address] [phone] December, Hepatitis C antibody positive in blood R76.8 [place] [id number] [place] [address] 99565- 6012 December, Hepatitis C antibody positive in blood R76.8 [place] [id number] [place] [address] 03591- 6059 December, [facility] [id number] [place] [address] [id number] December, History of left below knee amputation Z89.512 ; Other acute postprocedural pain G89.18 and Other complications of amputation stump T87.89 [place] [id number] [place] [address] 82423- 9170 Nov, Generalized anxiety disorder F41.1 and Attention deficit disorder (ADD) in adult F98.8 [place] [id number] [place] [address] 46411- 1807 23 Apr, 2018 History of hepatitis C Z86.19 ; History of methamphetamine abuse Z87.898 ; Lower limb amputation, below knee Z89.519 and Encounter to establish care Z76.89 [facility] [address] [facility] [id number] [address] 14 Nov, 2014 [facility] [address] [facility] [id number] [place] [address]- 8872 13 Nov, 2014 [place] [address] [facility] [id number][place] [id number] Jun, [facility] [address] [facility] [id number] [place] [address] 1358 Jun, [facility] [address] [address] 65[address] May, [facility] [address] [address] 6[address] May, [facility] [address] [id number] Apr, [facility] [address] [address]- 6[address] Apr, [facility] [employer] [address], [place] [id number] Mar, [facility] [address] [address]- 6374 Mar, [facility] [address] [id number] [address] 1157 Mar, [facility] [address] [id number] Mar, [facility] [address] [facility] [id number] [place] [address] 2326 Jan, [facility] [address] [facility] [id number] [place] [address]- 8305 Oct, [facility] [address] [facility] [id number] [place] [address]- 6110 Oct, [facility] [address] [facility] [id number] [place] [address] 29[address] Sep, [facility] [address] [id number] [address]- 5652 Sep, [facility] [address] [id number] [address]- 8168 Aug, [facility] [address] [address]- 4897 Aug, [facility] [address] [facility] [id number] [place] [address]- 5932 Aug, [facility] [address] [facility] [id number] [place] [address]- 1678 Aug, [facility] [address] [address]- 2280 Jul, [facility] [address] [address]- 5386 Jul, [facility] [address] [address]- 5649 Jun, [facility] [address] [address]- 8693 Jun, [facility] [address] [address]- 6105 Jun, [facility] [address] [id number] [address]- 6319 May, IMMUNIZATIONS No Known Immunizations SOCIAL HISTORY Never Assessed REASON FOR VISIT Establish Care. KALANI Loving PLAN OF CARE Activity Details Follow Up 3mos Reason:Lab f/u VITAL SIGNS Height 64 in 2017-11-25 Weight 185.8 lbs 2017-11-25 Temperature 97.9 degrees Fahrenheit 2017-11-25 Heart Rate 81 bpm 2017-11-25 Respiratory Rate 20 2017-11-25 Oximetry 98 % 2017-11-25 BMI 31.89 kg/m2 2017-11-25 Blood pressure systolic 128 mmHg 2017-11-25 Blood pressure diastolic 76 mmHg 2017-11-25 MEDICATIONS Unknown Medications RESULTS No Results PROCEDURES Procedure Date Ordered Result Body Site [facility] November 25, 2017 VENIPUNCT, ROUTINE* November 25, 2017 INSTRUCTIONS MEDICATIONS ADMINISTERED No Known Medications [...]
--- OUTSIDE RECORDS SUMMARY | 2018-07-17 09:14 | XMS REPORT | Continuity of Care Document ---
Author Author [facility] Organization [facility] Address Unknown Phone Unavailable Care Team Providers Care Service Representative Name Role Phone NO, LOCAL PHYSICIAN PP Unavailable Insurance Providers Payer Name Policy Number Subscriber Name Relationship Medicaid [place] [id number] Denise Ceja 01 Self / Same As Patient Wps Medicare [id number] Denise Ceja Self / Same As Patient Advance Directives Directive Response Recorded Date Advance Directives N 12/01/12 7:45pm Health Care Power of Sericulture Teacher N 12/01/12 7:45pm Organ Donor Y 12/01/12 7:45pm Problems No Known Problems or Medical conditions. Family History History Response Recorded Date/Time Hx Family Cancer Y skin cancer 12/01/12 7 :45pm Hx Family Breast Cancer Y aunt 12/01/12 7 :45pm Hx Family Lung Cancer Y grandfather 12/01 7:45pm Social History History Response Recorded Date/Time Alcohol Use Denies Use 12/01/12 7:45pm Recreational Drug Use Y HX OF IV DRUG USE 12/01/12 7:45pm Recent Foreign Travel N 12/01/12 7:45pm Recent Infectious Disease Exposure N 7:45pm Hospitalization with Isolation Denies 10/15 4:31pm Allergies, Adverse Reactions, Alerts Allergen Type Severity Reaction Last Updated Penicillins Adverse Reaction Mild 12/01/12 povidone-iodine Allergy Mild 02/24/09 Medications Medication Dose Units Route Sig Qty Days Trimethoprim/Sulfamethoxazole (Bactrim Ds) 1 Ea PO BID 30 Levofloxacin (Levaquin 500 Mg) 1 Each PO DAILY 15 Trimethoprim/Sulfamethoxazole (Bactrim Ds) 1 Ea PO BID 20 Cephalexin Monohydrate (Keflex) 1 Each PO TID 7 Alprazolam 2 Mg PO QID [Prozasin] 40 Mg PO HS Desvenlafaxine Succinate (Pristiq) 50 Mg PO DAILY Acetaminophen/Hydrocodone Bitart (Vicodin Es 7.5 Mg/325 Mg) 1 Tab PO QID PRN Immunizations Name Given Type Date of Influenza Vaccine 05/05/11 H pneumococcal polysaccharide PPV23 12/02/12 A pneumococcal polysaccharide PPV23 12/02/12 A Response Recorded Date/Time Status not known Unknown Results Test Date Result Interp. Ref. Range Acetaminophen Level May 10, 2011 6:35am < 10 UG/ML L 10.0-30.0 Acetaminophen Screen May 10, 2011 5:40am POSITIVE H - Activated Partial Thromboplast Time September 26, 2010 11: 00pm 27 SEC N 24-35 Alanine Aminotransferase (ALT/SGPT) December 02, 2012 7:45am 867 U/L H 30-65 Albumin December 02, 2012 7:45am 2.8 G/DL L 3.4-5.0 Alkaline Phosphatase December 02, 2012 7:45am 156 U/L H 50-136 Anti-Nuclear Antibody Screen May 08, 2011 5:30am <1:80 - Aspartate Amino Transf (AST/SGOT) December 02, 2012 7:45am 626 U/L H 15-37 BUN/Creatinine Ratio December 02, 2012 7:45am 15 - Band Neutrophils December 01, 2012 5:08pm 1 % - Basophils # (Auto) December 01, 2012 5:08pm 0.0 10^3/uL N 0.0-0.1 Basophils % (Manual) December 01, 2012 5:08pm 0 % - Basophils (%) (Auto) December 01, 2012 5:08pm 0 % N 0-10 Blood Urea Nitrogen December 02, 2012 7:45am 15 MG/DL N 7-18 C-Reactive Protein December 02, 2012 7:45am 3.3 MG/DL H 0.2-0.9 Calcium Level December 02, 2012 7:45am 7.9 MG/DL L 8.5-10.1 Carbon Dioxide Level December 02, 2012 7:45am 27 MMOL/L N 21-32 Chloride Level December 02, 2012 7:45am 107 MMOL/L N 101-110 Creatinine December 02, 2012 7:45am 1.0 MG/ DL N 0.6-1.3 D-Dimer September 05, 2010 7:00pm 1.45 UG /ML H 0.00-0.49 Dohle Bodies September 05, 2010 7:00pm SLIGHT - Eosinophils # (Auto) December 01, 2012 5:08pm 0.2 10^3/uL N 0.0-0.3 Eosinophils % (Manual) December 01, 2012 5:08pm 0 % - Eosinophils (%) (Auto) December 01, 2012 5:08pm 1 % N 0-10 Erythrocyte Sedimentation Rate December 03, 2012 6:00am 6 MM/HR N 0-20 Follicle Stimulating Hormone May 03, 2009 3:05pm 7.2 MIU/ML - Glucose Level December 02, 2012 7:45am 132 MG/DL H 74-106 Group A Streptococcus Screen September 21, 2008 10:54pm Negative - HIV (1&2) Antibody December 03, 2012 6:00am NR - Hematocrit December 03, 2012 6:00am 37 % N 35-52 Hemoglobin December 03, 2012 6:00am 13.2 G/ DL N 11.5-16.0 Hemoglobin A1c December 05, 2010 5:30am 5.5 % N 4.8-6.0 Hepatitis A IgM Antibody December 03, 2012 6:00am NR - Hepatitis B Core IgM Antibody December 03, 2012 6:00am NR - Hepatitis B Surface Antigen December 03, 2012 6:00am NR - Hepatitis C Antibody December 03, 2012 6:00am REACTIVE H - Lipase March 10, 2010 11:10pm 256 U/L N 114-286 Luteinizing Hormone May 03, 2009 3:05pm 4.0 MIU/ML - Lymphocytes # (Auto) December 01, 2012 5:08pm 2.2 X 10^3 N 1.0-4.0 Lymphocytes % (Manual) December 01, 2012 5:08pm 25 % - Lymphocytes (%) (Auto) December 01, 2012 5:08pm 15 % N 12-44 Mean Corpuscular Hemoglobin December 03, 2012 6:00am 31 PG N 25-34 Mean Corpuscular Hemoglobin Concent December 03, 2012 6:00am 36 G/DL N 32-36 Mean Corpuscular Volume December 03, 2012 6:00am 86 FL N 80-99 Mean Platelet Volume December 03, 2012 6:00am 10.1 FL N 7.4-10.4 Methadone Level December 18, 2010 9:25am NEG - Monocytes # (Auto) December 01, 2012 5:08pm 0.8 X 10^3 N 0.0-1.0 Monocytes % (Manual) December 01, 2012 5:08pm 4 % - Monocytes (%) (Auto) December 01, 2012 5:08pm 6 % N 0-12 Neutrophils # (Auto) December 01, 2012 5:08pm 11.4 X 10^3 H 1.8-7.8 Neutrophils % (Manual) December 01, 2012 5:08pm 70 % - Neutrophils (%) (Auto) December 01, 2012 5:08pm 78 % H 42-75 Opiates Screen December 18, 2010 9:25am NEG - Platelet Count December 03, 2012 6:00am 262 10^3/uL N 130-400 Potassium Level December 02, 2012 7:45am 4.0 MMOL/L N 3.6-5.0 Prothromb Time International Ratio September 26, 2010 11: 00pm 0.9 N 0.8-1.4 Prothrombin Time September 26, 2010 11:00pm 12.5 SEC N 12.2-14.7 Reactive Lymphocytes September 05, 2010 7:00pm 2 % - Red Blood Count December 03, 2012 6:00am 4.30 10^6/uL L 4.35-5.85 Red Cell Distribution Width December 03, 2012 6:00am 12.8 % N 10.0-14.5 Rheumatoid Factor May 08, 2011 5:30am NEGATIVE - Sodium Level December 02, 2012 7:45am 141 MMOL/L N 135-145 TSH Basco Testing November 18, 2008 5:18pm 0.74 UIU/ML N 0.34-5.60 Total Bilirubin December 02, 2012 7:45am 0.6 MG/DL N 0.0-1.0 Total Protein December 02, 2012 7:45am 6.1 G/DL L 6.4-8.2 Toxic Granulation September 05, 2010 7:00pm [...] 5:40pm NONE / HPF - Urine Specific [place] December 01, 2012 5:40pm 1.010 L - [...] 12 UG/ML L 15-20 White Blood Count December 03, 2012 6:00am 11.5 10^3/uL H 4.3-11.0 Serum Alcohol May 07, 2011 11:40pm < 5 MG/DL -5 Glucometer May 11, 2011 10:46am 102 MG/DL N 70-110 Urine Creatinine (Tox) December 18, 2010 9:25am 43 MG/DL - Estimat Glomerular Filtration Rate December 01, 2012 5:08pm > 60 - Urine Oxycodone Screen December [...] D 86.04 09/09/10 INSERT TUNNELED CV CATH [id number] 09/27/10 VENOUS CATHETERIZATION NEC 38.93 WINTER BONE 20 SQ CM/< [id number] 12/21/10 LOC EXC LES METATAR/TAR 77.68 01/22/11 METATARSAL/TARSAL BIOPSY 77.48 05/10/11 Blood Culture 12/01/12 MRSA Screen 05/09/11 Urine Culture 03/10/10 Gram Stain 05/10/11 Encounters Encounter Location Date/Time Discharged Inpatient [facility] 7:06pm Departed Emergency Room [facility] 01/14 2:50pm Pre-registered Emergency Room [facility] 12/21/10 9:50am
--- OUTSIDE RECORDS SUMMARY | 2018-07-17 09:14 | XMS REPORT | Continuity of Care Document ---
Author Author [facility] Organization [facility] Address Unknown Phone Unavailable Care Team Providers Care Hand Hide Stretcher Name Role Phone ROSETTE SOSA MD PP Insurance Providers Payer Name Policy Number Subscriber Name Relationship Medicaid [place] [id number] Denise Mitchell Self / Same As Patient Wps Medicare [id number] Denise Mitchell Self / Same As Patient Advance Directives Directive Response Recorded Date Advance Directives N 04/23/13 4:57pm Health Care Power of Printing Mechanist N 04/23/13 4:57pm Organ Donor Y 04/23/13 4:57pm Problems No Known Problems or Medical conditions. Family History History Response Recorded Date/Time Hx Family Cancer Y skin cancer 12/01/12 7 :45pm Hx Family Breast Cancer Y aunt 12/01/12 7 :45pm Hx Family Lung Cancer Y grandfather 12/01 7:45pm Hx Family Cardiac Disorders Y valve disorder 12/01/12 7:45pm Hx Family Stroke Y grandmother 12/01/12 7 :45pm Hx Family Hypertension Y 12/01/12 7:45pm Social History History Response Recorded Date/Time Alcohol Use Denies Use 04/23/13 4:57pm Recreational Drug Use Y HX OF IV DRUG USE 04/23/13 4:57pm Recent Foreign Travel N 04/23/13 4:57pm Recent Infectious Disease Exposure N 4:57pm Hospitalization with Isolation Denies 4:57pm Sexually Transmitted Disease N 04/23/13 4 :57pm Allergies, Adverse Reactions, Alerts Allergen Type Severity Reaction Last Updated Penicillins Adverse Reaction Mild 12/01/12 povidone-iodine Allergy Mild 02/24/09 Medications Medication Dose Units Route Sig Qty Days Hydrocodone Bit/Acetaminophen ([place] 5-325 Tablet) 1 Each PO Q4H PRN 10 Hydrocodone Bit/Acetaminophen (Hydrocodon-Acetaminoph 7.5-325) 1 - 2 Tab PO Q4H PRN Trimethoprim/Sulfamethoxazole (Bactrim Ds) 1 Ea PO BID 30 Levofloxacin (Levaquin 500 Mg) 1 Each PO DAILY 15 Trimethoprim/Sulfamethoxazole (Bactrim Ds) 1 Ea PO BID 20 Immunizations Name Given Type Date of Influenza Vaccine 05/05/11 H Response Recorded Date/Time Status not known Unknown [...] RNA (PCR) IUs/ml December 05, 2012 2:45pm [id number] H IU/ML - Hepatitis C RNA (PCR) [...] 2012 7:45am 141 MMOL/L N 135-145 TSH Export Testing November 18, 2008 5:18pm 0.74 UIU/ML [...] 5:40pm NONE / HPF - Urine Specific [place] December 01, 2012 5:40pm 1.010 L - [...] D 86.04 09/09/10 INSERT TUNNELED CV CATH [id number] 09/27/10 VENOUS CATHETERIZATION NEC 38.93 WINTER BONE 20 SQ CM/< [id number] 12/21/10 LOC EXC LES METATAR/TAR 77.68 01/22/11 METATARSAL/TARSAL BIOPSY 77.48 05/10/11 Blood Culture 12/01/12 MRSA Screen 05/09/11 Urine Culture 03/10/10 Gram Stain 05/10/11 Encounters Encounter Location Date/Time Registered Emergency Room [facility] 04/23/13 4:46pm Discharged Inpatient [facility] 7:06pm Departed Emergency Room [facility] 01/14 2:50pm Pre-registered Emergency Room [facility] 12/21/10 9:50am
--- OUTSIDE RECORDS SUMMARY | 2018-07-17 09:15 | XMS REPORT | Continuity of Care Document ---
Author Author [facility] Address Unknown Phone Unavailable Allergies Active Description Code Type Severity Reaction Onset Reported/Identified Relationship to Patient Clinical Status Yes PENICILLIN Drug Allergy N/A Pt unsure of reaction Yes povidone-iodine [id number] Drug Allergy Mild N/A 02/24/2009 Yes Penicillins [id number] Drug Allergy Mild N/A 12/01/2012 Yes Penicillins Drug Allergy N/A N/A 03/23/2014 Yes Betadine Drug Allergy N/A N/A 06/16/2014 Yes povidone-iodine [id number] Drug Allergy Mild BLISTERS 07/10/2018 Medications Medication Packaging Start Date Stop Date Route Dosage Sig NEURONTIN 11 09/01/2015 ORAL [id number] MUCINEX 11 09/01/2015 ORAL [id number] Problems Date Dx Coded Attending Type Code Diagnosis Diagnosed By 04/09/2008 CORBIN MITCHELL MD 250.00 DIABETES II CONTROLLED 04/09/2008 CORBIN MITCHELL MD 296.90 UNSPECIFIED EPISODIC MOOD DISORDER 04/09/2008 JULIO HENLEY DDS 250.00 DIABETES II CONTROLLED 04/09/2008 JULIO HENLEY DDS 296.90 UNSPECIFIED EPISODIC MOOD DISORDER 04/09/2008 FLOR MCDONALD PHD 250.00 DIABETES II CONTROLLED 04/09/2008 FLOR MCDONALD PHD 296.90 UNSPECIFIED EPISODIC MOOD DISORDER 04/09/2008 TREMAINE DOUGLAS APRN 250.00 DIABETES II CONTROLLED 04/09/2008 TREMAINE DOUGLAS APRN 296.90 UNSPECIFIED EPISODIC MOOD DISORDER 04/09/2008 TREMAINE DOUGLAS APRN 250.00 DIABETES II CONTROLLED 04/09/2008 TREMAINE DOUGLAS APRN 296.90 UNSPECIFIED EPISODIC MOOD DISORDER 04/09/2008 TREMAINE DOUGLAS APRN 250.00 DIABETES II CONTROLLED 04/09/2008 TREMAINE DOUGLAS APRN 296.90 UNSPECIFIED EPISODIC MOOD DISORDER 04/09/2008 SHERIN REYEZ DO 250.00 DIABETES II CONTROLLED 04/09/2008 SHERIN REYEZ DO 296.90 UNSPECIFIED EPISODIC MOOD DISORDER 05/10/2008 CORBIN MITCHELL MD 780.52 INSOMNIA UNSPECIFIED 05/10/2008 CORBIN MITCHELL MD V58.69 MEDICATION HIGH RISK 05/10/2008 WHITE DDS, JULIO Skinner 780.52 INSOMNIA UNSPECIFIED 05/10/2008 WHITE DDS, JULIO Skinner V58.69 MEDICATION HIGH RISK 05/10/2008 TAMARA PHD, FLOR Skinner 780.52 INSOMNIA UNSPECIFIED 05/10/2008 TAMARA PHD, FLOR Skinner V58.69 MEDICATION HIGH RISK 05/10/2008 TREMAINE DOUGLAS APRN T 780.52 INSOMNIA UNSPECIFIED 05/10/2008 TREMAINE DOUGLAS APRN V58.69 MEDICATION HIGH RISK 05/10/2008 TREMAINE DOUGLAS APRN 780.52 INSOMNIA UNSPECIFIED 05/10/2008 TREMAINE DOUGLAS APRN V58.69 MEDICATION HIGH RISK 05/10/2008 TREMAINE DOUGLAS APRN 780.52 INSOMNIA UNSPECIFIED 05/10/2008 TREMAINE DOUGLAS APRN V58.69 MEDICATION HIGH RISK 05/10/2008 SHERIN REYEZ DO 780.52 INSOMNIA UNSPECIFIED 05/10/2008 SHERIN REYEZ DO V58.69 MEDICATION HIGH RISK 06/01/2008 CORBIN MITCHELL MD 300.21 AN PANIC DIS W AGORA 06/01/2008 JULIO HENLEY DDS 300.21 AN PANIC DIS W AGORA 06/01/2008 TAMARA QUIROZ, FLOR Skinner 300.21 AN PANIC DIS W AGORA 06/01/2008 TREMAINE DOUGLAS APRN 300.21 AN PANIC DIS W AGORA 06/01/2008 TREMAINE DOUGLAS APRN 300.21 AN PANIC DIS W AGORA 06/01/2008 TREMAINE DOUGLAS APRN 300.21 AN PANIC DIS W AGORA 06/01/2008 SHERIN REYEZ DO 300.21 AN PANIC DIS W AGORA 06/09/2008 CORBIN MITCHELL MD 307.47 SI DYSSOMNIA NOS 06/09/2008 CORBIN MITCHELL MD 316 PF PSYCHIC FACTORS MED COND 06/09/2008 CORBIN MITCHELL MD 346.90 MIGRAINE UNSPECIFIED WITHOUT INTRACTABLE MIGRAINE 06/09/2008 JULIO HENLEY DDS 307.47 SI DYSSOMNIA NOS 06/09/2008 JULIO HENLEY DDS 316 PF PSYCHIC FACTORS MED COND 06/09/2008 JULIO HENLEY DDS 346.90 MIGRAINE UNSPECIFIED WITHOUT INTRACTABLE MIGRAINE 06/09/2008 FLOR MCDONALD PHD 307.47 SI DYSSOMNIA NOS 06/09/2008 FLOR MCDONALD PHD 316 PF PSYCHIC FACTORS MED COND 06/09/2008 FLOR MCDONALD PHD 346.90 MIGRAINE UNSPECIFIED WITHOUT INTRACTABLE MIGRAINE 06/09/2008 TREMAINE DOUGLAS APRN 307.47 SI DYSSOMNIA NOS 06/09/2008 TREMAINE DOUGLAS APRN 316 PF PSYCHIC FACTORS MED COND 06/09/2008 TREMAINE DOUGLAS APRN 346.90 MIGRAINE UNSPECIFIED WITHOUT INTRACTABLE MIGRAINE 06/09/2008 TREMAINE DOUGLAS APRN 307.47 SI DYSSOMNIA NOS 06/09/2008 TREMAINE DOUGLAS APRN 316 PF PSYCHIC FACTORS MED COND 06/09/2008 TREMAINE DOUGLAS APRN 346.90 MIGRAINE UNSPECIFIED WITHOUT INTRACTABLE MIGRAINE 06/09/2008 TREMAINE DOUGLAS APRN 307.47 SI DYSSOMNIA NOS 06/09/2008 TREMAINE DOUGLAS APRN 316 PF PSYCHIC FACTORS MED COND 06/09/2008 TREMAINE DOUGLAS APRN 346.90 MIGRAINE UNSPECIFIED WITHOUT INTRACTABLE MIGRAINE 06/09/2008 MANJU REYEZ DOA K 307.47 SI DYSSOMNIA NOS 06/09/2008 AISSATOU NORRIS SHERIN K 316 PF PSYCHIC FACTORS MED COND 06/09/2008 MANJU REYEZ DOA K 346.90 MIGRAINE UNSPECIFIED WITHOUT INTRACTABLE MIGRAINE 01/22/2011 Ot 707.14 01/22/2011 Ot 730.17 12/05/2012 TREMAINE MATA DO Ot 070.51 ACUTE HEPATITIS C WITHOUT MENTION OF HEP 12/05/2012 TREMAINE MATA DO Ot 305.63 COCAINE ABUSE-IN REMISS 12/05/2012 TREMAINE MATA DO Ot 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-REMISS 12/05/2012 TREMAINE MATA DO Ot 682.6 CELLULITIS OF LEG 12/05/2012 TREMAINE MATA DO Ot 682.7 CELLULITIS OF FOOT 12/05/2012 TREMAINE MATA DO Ot 730.17 CHR OSTEOMYELIT-ANKLE 12/05/2012 TREMAINE MATA DO Ot V03.82 PROPHYLACTIC VACC AGAINST STREPTOCOCCUS 04/23/2013 PETE RM APRN Ot 250.00 DIAB ABHISHEK WO COMPL, TYPE II OR UNSPEC TY 04/23/2013 RM, PETER J SHIP WIRER Ot 729.5 PAIN IN LIMB 04/23/2013 PETE RM SHIP WIRER Ot V58.69 OTH MED,LT,CURRENT USE 05/06/2013 ROSETTE SOSA MD Ot 304.22 COCAINE DEPEND-EPISODIC 05/06/2013 ROSETTE SOSA MD Ot 304.42 AMPHETAMIN DEPEND-EPISOD 05/06/2013 ROSETTE SOSA MD Ot 730.27 OSTEOMYELITIS NOS-ANKLE 05/06/2013 ROSETTE SOSA MD Ot V04.81 ND FOR PROPHYLACTIC VACCIN AND INOCULATI 08/26/2013 TAMARA PHD, FLOR Skinner 296.80 MO BIPOLAR NOS 08/26/2013 TAMARA PHD, FLOR Skinner 300.00 AN ANXIETY UNSPEC 08/26/2013 FLOR MCDONALD PHD 304.40 AMPHETAMINE DEPENDENCE 08/26/2013 TREMAINE DOUGLAS APRN T 296.80 MO BIPOLAR NOS 08/26/2013 TREMAINE DOUGLAS APRN T 300.00 AN ANXIETY UNSPEC 08/26/2013 TREMAINE DOUGLAS APRN 304.40 AMPHETAMINE DEPENDENCE 08/26/2013 TREMAINE DOUGLAS APRN T 296.80 MO BIPOLAR NOS 08/26/2013 STELLA RAINES TERMAINE T 300.00 AN ANXIETY UNSPEC 08/26/2013 TREMAINE DOUGLAS APRN T 304.40 AMPHETAMINE DEPENDENCE 08/26/2013 STELLA RAINES TREMAINE T 296.80 MO BIPOLAR NOS 08/26/2013 STELLA RAINES TREMAINE T 300.00 AN ANXIETY UNSPEC 08/26/2013 STELLA RAINES TREMAINE T 304.40 AMPHETAMINE DEPENDENCE 08/26/2013 REYEZ DO SHERIN K 296.80 MO BIPOLAR NOS 08/26/2013 AISSATOU NORRIS SHERIN K 300.00 AN ANXIETY UNSPEC 08/26/2013 AISSATOU NORRIS SHERIN K 304.40 AMPHETAMINE DEPENDENCE 09/02/2013 ROSETTE SOSA MD Ot 304.43 AMPHETAMIN DEPEND-REMISS 09/02/2013 ROSETTE SOSA MD Ot 730.27 OSTEOMYELITIS NOS-ANKLE 09/12/2013 DAGO PEREZ MD Ot 729.5 PAIN IN LIMB 09/12/2013 DAGO PEREZ MD Ot V49.75 BELOW KNEE AMPUTATION STATUS 09/18/2013 FAHEEM MANZANO DO Ot 338.18 OTHER ACUTE POSTOPERATIVE PAIN 09/18/2013 FAHEEM MANZANO DO Ot 997.62 AMPUT STUMP COMP,INFECT CHRONIC 09/18/2013 FAHEEM MANZANO DO Ot V58.69 OT MED,LT,CURRENT USE 10/23/2013 PETE RM APRN Ot 079.99 VIRAL INFECTION NOS 10/23/2013 PETE RM APRN Ot 786.2 COUGH 03/23/2014 TREMAINE DOUGLAS APRN 682.6 CELLULITIS AND ABSCESS OF LEG EXCEPT FOOT 03/23/2014 TREMAINE DOUGLAS APRN V49.76 ABOVE KNEE AMPUTATION STATUS 03/23/2014 TREMAINE DOUGLAS APRN 682.6 CELLULITIS AND ABSCESS OF LEG EXCEPT FOOT 03/23/2014 TREMAINE DOUGLAS APRN V49.76 ABOVE KNEE AMPUTATION STATUS 03/23/2014 TREMAINE DOULGAS APRN 682.6 CELLULITIS AND ABSCESS OF LEG EXCEPT FOOT 03/23/2014 TREMAINE DOUGLAS APRN V49.76 ABOVE KNEE AMPUTATION STATUS 03/23/2014 SHERIN REYEZ DO 682.6 CELLULITIS AND ABSCESS OF LEG EXCEPT FOOT 03/23/2014 SHERIN REYEZ DO V49.76 ABOVE KNEE AMPUTATION STATUS 03/30/2014 TREMAINE DOUGLAS APRN 110.5 DERMATOPHYTOSIS OF THE BODY 03/30/2014 TREMAINE DOUGLAS APRN 110.5 DERMATOPHYTOSIS OF THE BODY 03/30/2014 SHERIN REYEZ DO 110.5 DERMATOPHYTOSIS OF THE BODY 06/16/2014 SHERIN REYEZ DO 729.5 PAIN IN LIMB 06/16/2014 SHERIN REYEZ DO 789.02 ABDOMINAL PAIN LEFT UPPER QUADRANT 06/16/2014 SHERIN REYEZ DO V04.81 FLU SHOT 01/13/2015 REVEAL ROSETTE BUSCH Ot 730.20 08/23/2015 AGUSTIN OLIVO DO M62.838 OTHER MUSCLE SPASM 08/23/2015 AGUSTIN OLIVO DO M79.605 PAIN IN LEFT LEG 03/03/2018 REVEAL ROSETTE BUSCH Ot 730.20 OSTEOMYELITIS NOS-UNSPEC 03/03/2018 REVEAL ROSETTE BUSCH Ot 730.20 OSTEOMYELITIS NOS-UNSPEC 03/03/2018 REVEAL ROSETTE BUSCH Ot 730.27 OSTEOMYELITIS NOS-ANKLE 03/03/2018 REVEAL ROSETTE BUSCH Ot V72.84 EXAM PRE-OPERATIVE NOS 03/03/2018 REVEAL ROSETTE BUSCH Ot 730.27 OSTEOMYELITIS NOS-ANKLE 03/03/2018 ROSETTE SOSA MD Ot V72.63 PRE-PROCEDURAL LABORATORY EXAMINATION 03/03/2018 ROSETTE SOSA MD Ot V74.8 SCREEN-BACTERIAL DIS NEC 03/03/2018 ROSETTE SOSA MD Ot 997.62 AMPUT STUMP COMP,INFECT CHRONIC 04/01/2018 ASHISH JAIME MD Ot B18.2 CHRONIC VIRAL HEPATITIS C 04/02/2018 ASHISH JAIME MD Ot K76.9 LIVER DISEASE, UNSPECIFIED 04/02/2018 ASHISH JAIME MD Ot R16.0 HEPATOMEGALY, NOT ELSEWHERE CLASSIFIED 04/04/2018 ASHISH JAIME MD Ot B18.2 CHRONIC VIRAL HEPATITIS C 04/08/2018 ASHISH JAIME MD Ot K76.9 LIVER DISEASE, UNSPECIFIED 04/08/2018 ASHISH JAIME MD Ot R16.0 HEPATOMEGALY, NOT ELSEWHERE CLASSIFIED 04/23/2018 Ot R16.0 HEPATOMEGALY , NOT ELSEWHERE CLASSIFIED 04/23/2018 ASHISH JAIME MD Ot K76.9 LIVER DISEASE, UNSPECIFIED 04/23/2018 ASHISH JAIME MD Ot R16.0 HEPATOMEGALY, NOT ELSEWHERE CLASSIFIED 04/29/2018 ASHISH JAIME MD Ot K76.9 LIVER DISEASE, UNSPECIFIED 04/29/2018 ASHISH JAIME MD Ot R16.0 HEPATOMEGALY, NOT ELSEWHERE CLASSIFIED 04/29/2018 Ot R16.0 HEPATOMEGALY , NOT ELSEWHERE CLASSIFIED 07/10/2018 JARED BUSCH, YUDI Ot Z01.818 ENCOUNTER FOR OTHER PREPROCEDURAL EXAMIN 07/11/2018 ROSETTE SOSA MD Ot 730.20 OSTEOMYELITIS NOS-UNSPEC 07/11/2018 ROSETTE SOSA MD Ot 730.20 OSTEOMYELITIS NOS-UNSPEC 07/11/2018 ROSETTE SOSA MD Ot 730.27 OSTEOMYELITIS NOS-ANKLE 07/11/2018 ROSETTE SOSA MD Ot V72.84 EXAM PRE-OPERATIVE NOS 07/11/2018 ROSETTE SOSA MD Ot 730.27 OSTEOMYELITIS NOS-ANKLE 07/11/2018 ROSETTE SOSA MD Ot V72.63 PRE-PROCEDURAL LABORATORY EXAMINATION 07/11/2018 ROSETTE SOSA MD Ot V74.8 SCREEN-BACTERIAL DIS NEC 07/11/2018 IAN BUSCH, ROSETTE Perez Ot 997.62 AMPUT STUMP COMP,INFECT CHRONIC 07/11/2018 ASHISH JAIME MD Ot B18.2 CHRONIC VIRAL HEPATITIS C 07/11/2018 Ot R16.0 HEPATOMEGALY , NOT ELSEWHERE CLASSIFIED 07/11/2018 ASHISH JAIME MD Ot K76.9 LIVER DISEASE, UNSPECIFIED 07/11/2018 ASHISH JAIME MD Ot R16.0 HEPATOMEGALY, NOT ELSEWHERE CLASSIFIED 07/14/2018 ASHISH JAIME MD Ot R16.0 HEPATOMEGALY, NOT ELSEWHERE CLASSIFIED Procedures Code Description Performed By Performed On 77.49 BONE BIOPSY NEC 05/04/2013 99.21 INJECT ANTIBIOTIC 05/04/2013 23540 PSYCH DIAGNOSTIC EVALUATION 08/26/2013 84.15 BELOW KNEE AMPUTAT NEC 08/31/2013 65149 XRAY HAND LEFT MIN 3 VIEWS 06/16/2014 87796 A1C (IN-HOUSE) 06/16/2014 Results Test Result Range HEP C, GENOTYPE-APPROVAL REQUIRED - 12/09/17 08:34 HEPATITIS C VIRAL RNA GENOTYPE, LIPA(R) 2 NRG HEP C, FIBROSURE (INSURED ONLY)-APPROVAL REQUIRED - 12/09/17 08:36 FIBROSIS SCORE 0.15 NRG FIBROSIS STAGE F0 NRG FIBROSIS INTERPRETATION SEE NOTE NRG NECROINFLAMMAT ACT SCORE 0.88 NRG NECROINFLAMMAT ACT GRADE A3 NRG NECROINFLAMMAT INTERP SEE NOTE NRG ALPHA 2 MACROGLOBULIN 236 mg/dL 106-279 HAPTOGLOBIN 106 mg/dL 43-212 APOLIPOPROTEIN A1 172 mg/dL 101-198 TOTAL BILIRUBIN 0.6 mg/dL 0.2-1.2 GGT 25 U/L 3-50 ALT 324 U/L 6-29 REFERENCE ID [id number] NRG FOOTNOTE SEE NOTE NRG HEP C PCR QUANT (Graph)-APPROVAL REQUIRED - 03/03/18 10:49 HCV RNA, QUANTITATIVE REAL TIME PCR <15 NOT DETECTED IU/mL NOT DETECTED HCV RNA, QUANTITATIVE REAL TIME PCR <1.18 NOT DETECTED Log IU/mL NOT DETECTED COMMENT NRG CBC - 04/28/18 11:51 WHITE BLOOD CELL COUNT 8.7 Thousand/uL 3.8-10.8 RED BLOOD CELL COUNT 5.19 Million/uL 3.80-5.10 HEMOGLOBIN 16.1 g/dL 11.7-15.5 HEMATOCRIT 45.9 % 35.0-45.0 MCV 88.4 fL 80.0-100.0 MCH 31.0 pg 27.0-33.0 MCHC 35.1 g/dL 32.0-36.0 RDW 12.5 % 11.0-15.0 PLATELET COUNT 407 Thousand/uL 140-400 MPV 9.1 fL 7.5-12.5 ABSOLUTE NEUTROPHILS 4994 cells/uL 6322-5320 ABSOLUTE LYMPHOCYTES 3106 cells/uL 850-3900 ABSOLUTE MONOCYTES 409 cells/uL 200-950 ABSOLUTE EOSINOPHILS 139 cells/uL 15-500 ABSOLUTE BASOPHILS 52 cells/uL 0-200 NEUTROPHILS 57.4 % NRG LYMPHOCYTES 35.7 % NRG MONOCYTES 4.7 % NRG EOSINOPHILS 1.6 % NRG BASOPHILS 0.6 % NRG HEP C PCR QUANT (Graph)-APPROVAL REQUIRED - 04/28/18 11:51 HCV RNA, QUANTITATIVE REAL TIME PCR <15 NOT DETECTED IU/mL NOT DETECTED HCV RNA, QUANTITATIVE REAL TIME PCR <1.18 NOT DETECTED Log IU/mL NOT DETECTED COMMENT NRG Encounters ACCT No. Visit Date/Time Discharge Status Pt. Type Provider Facility Loc./Unit Complaint [id number] 10/22/2016 10:55:32 10/22/2016 23:59:59 CLS Outpatient Soo Cain [facility] 07/10/2013 15:05:17 ACT Document Registration [id number] 08/23/2015 03:04:00 08/23/2015 04:00:00 DIS ER PALLAVI NORRIS, AGUSTIN [facility] ED [id number] 07/11/2018 08:48:00 07/11/2018 23:59:59 CLS Outpatient ASHISH JAIME MD [facility] RAD LIVER MASS [id number] 07/10/2018 05:40:00 07/10/2018 09:58:00 DIS Outpatient YUDI COLEMAN MD [facility] PREOP NEUROMA [id number] 04/01/2018 09:15:00 04/01/2018 23:59:59 CLS Outpatient ASHISH JAIME MD [facility] RAD LIVER MASS [id number] 02/27/2018 14:14:00 02/27/2018 23:59:59 CLS Outpatient ASHISH JAIME MD [facility] RAD HEP C W/O COMA,CHRONIC [id number] 10/23/2013 15:24:00 10/23/2013 16:56:00 DIS Emergency PETE RM APRN [facility] ER COUGH [id number] 09/21/2013 17:18:00 09/21/2013 23:59:59 CLS Outpatient REVEAL ROSETTE BUSCH [facility] LABNPT LOCAL INFECTION OF WOUND (L) LOWER STUMP [id number] 09/18/2013 01:04:00 09/18/2013 02:51:00 DIS Emergency FAHEEM MANZANO DO [facility] ER LEG PAIN [id number] 09/12/2013 04:05:00 09/12/2013 05:02:00 DIS Emergency DAGO PEREZ MD [facility] ER LEFT LEG PAIN [id number] 08/31/2013 06:19:00 09/02/2013 18:20:00 DIS Inpatient REVEAL ROSETTE BUSCH [facility] SURGICAL CHRONIC OSTEOMYLITIS ; LEFT OSCALCIS [id number] 08/25/2013 16:17:00 08/25/2013 23:59:59 CLS Outpatient REVEAL ROSETTE BUSCH [facility] PREOP CHRONIC OSTEOMYLITIS; LEFT KNEE OSCALCIS [id number] 05/04/2013 06:16:00 05/06/2013 11:00:00 DIS Inpatient REVEAL ROSETTE BUSCH [facility] SURGICAL CHRONIC INFECTION LEFT OSCALCIS [id number] 04/29/2013 07:15:00 04/29/2013 23:59:59 CLS Outpatient REVEAL ROSETTE BUSCH [facility] PREOP CHRONIC INFECTION OF LEFT OSCALCIS [id number] 04/23/2013 16:46:00 04/23/2013 18:56:00 DIS Emergency PETE RM APRN [facility] ER LEFT FOOT PAIN [id number] 2013 13:23:00 2013 23:59:59 CLS Outpatient REVEAL ROSETTE BUSCH [facility] RAD OSTEOMYELITIS [id number] 02/04/2013 10:07:00 02/04/2013 23:59:59 CLS Outpatient ROSETTE SOSA MD [facility] RAD OSTEOMYELITIS LT HEEL [id number] 12/01/2012 19:06:00 12/05/2012 15:35:00 DIS Inpatient ADOLFO NORRIS TREMAINE Olga [facility] 4TH CELLULITIS LEFT FOOT [id number] 07/17/2018 09:00:00 ACT Outpatient YUDI COLEMAN MD [facility] SDC NEUROMA [id number] 03/20/2018 07:36:00 Document Registration [id number] 01/22/2011 06:24:00 Document Registration [id number] 12/02/2014 12:59:00 12/02/2014 23:59:59 CLS Outpatient CHRISTIAN DOWNEY [id number] 03/03/2018 10:00:00 03/03/2018 23:59:59 CLS Outpatient HAZELSABA Elaine [facility] [id number] 04/28/2018 10:00:00 Document Registration [id number] 03/03/2018 10:00:00 Document Registration [id number] 12/09/2017 08:40:00 Document Registration [id number] 08/23/2015 03:01:00 08/23/2015 23:59:59 CLS [facility] ED [id number] 06/16/2014 10:36:00 06/16/2014 23:59:59 CLS Outpatient AISSATOU SHERIN NORRIS [id number] 04/20/2014 09:04:00 04/20/2014 23:59:59 CLS Outpatient TREMAINE DOUGLAS APRN [id number] 03/30/2014 09:11:00 03/30/2014 23:59:59 CLS Outpatient TREMAINE DOUGLAS APRN [id number] 03/23/2014 08:59:00 03/23/2014 23:59:59 CLS Outpatient TREMAINE DOUGLAS APRN [id number] 08/26/2013 08:37:00 08/26/2013 23:59:59 CLS Outpatient TAMARA QUIROZ, FLOR Skinner [id number] 08/19/2013 13:05:00 08/19/2013 23:59:59 CLS Outpatient JULIO HENLEY DDS [id number] 12/18/2010 15:10:00 12/18/2010 23:59:59 CLS Outpatient PAULA BUSCH CORBIN [id number] 03/21/2016 01:52:10 03/21/2016 01:52:10 Outpatient [id number] 10/21/2015 17:04:48 10/21/2015 17:04:48 DIS Outpatient [id number] 10/19/2015 10:48:40 10/19/2015 10:48:40 DIS Outpatient [id number] 10/19/2015 10:48:23 10/19/2015 10:48:23 DIS Outpatient [id number] 10/19/2015 10:41:39 10/19/2015 10:41:39 DIS Outpatient [id number] 10/19/2015 10:06:44 10/19/2015 10:06:45 DIS Outpatient [id number] 10/19/2015 10:06:08 10/19/2015 10:06:08 DIS Outpatient [id number] 10/18/2015 08:37:47 10/18/2015 08:37:47 DIS Outpatient [id number] 10/18/2015 08:37:43 10/18/2015 08:37:43 DIS Outpatient [id number] 10/18/2015 08:37:26 10/18/2015 08:37:26 DIS Outpatient [id number] 10/17/2015 16:09:01 10/17/2015 16:09:01 DIS Outpatient [id number] 10/03/2015 09:10:28 10/03/2015 09:10:28 DIS Outpatient [id number] 09/12/2015 17:26:24 09/12/2015 17:26:24 DIS Outpatient [id number] 09/05/2015 10:25:14 09/05/2015 10:25:15 DIS Outpatient [id number] 09/05/2015 10:25:09 09/05/2015 10:25:09 DIS Outpatient [id number] 09/02/2015 15:22:08 09/02/2015 15:22:08 DIS Outpatient [id number] 09/01/2015 14:07:27 09/01/2015 14:07:27 DIS Outpatient [id number] 09/01/2015 13:44:47 09/01/2015 13:44:47 DIS Outpatient [id number] 09/01/2015 13:22:30 09/01/2015 13:22:30 DIS Outpatient [id number] 09/01/2015 12:12:02 09/01/2015 12:12:03 DIS Outpatient [id number] 08/26/2015 15:14:17 08/26/2015 15:14:17 DIS Outpatient [id number] 07/12/2015 16:00:54 07/12/2015 16:00:54 Outpatient [id number] 07/12/2015 16:00:52 07/12/2015 16:00:52 Outpatient [id number] 07/12/2015 15:08:05 07/12/2015 15:08:05 Outpatient [id number] 05/04/2015 12:55:57 05/04/2015 12:55:57 DIS Outpatient [id number] 05/04/2015 12:53:00 05/04/2015 12:53:00 DIS Outpatient [id number] 05/04/2015 12:52:59 05/04/2015 12:52:59 DIS Outpatient [id number] 05/03/2015 10:00:03 05/03/2015 10:00:03 DIS Outpatient [id number] 05/03/2015 10:00:02 05/03/2015 10:00:02 DIS Outpatient [id number] 05/03/2015 10:00:01 05/03/2015 10:00:02 DIS Outpatient [id number] 05/03/2015 09:59:45 05/03/2015 09:59:45 DIS Outpatient [id number] 05/03/2015 09:59:44 05/03/2015 09:59:45 DIS Outpatient [id number] 05/03/2015 09:59:43 05/03/2015 09:59:43 DIS Outpatient [id number] 05/03/2015 09:59:10 05/03/2015 09:59:10 DIS Outpatient [id number] 05/02/2015 15:48:32 05/02/2015 15:48:32 DIS Outpatient [id number] 05/02/2015 15:30:24 05/02/2015 15:30:24 DIS Outpatient [id number] 05/02/2015 15:26:08 05/02/2015 15:26:08 DIS Outpatient [id number] 05/02/2015 12:51:22 05/02/2015 12:51:22 DIS Outpatient [id number] 05/02/2015 12:38:54 05/02/2015 12:38:54 DIS Outpatient [id number] 05/02/2015 12:25:21 05/02/2015 12:25:21 DIS Outpatient [id number] 04/26/2015 09:14:04 04/26/2015 09:14:04 DIS Outpatient [id number] 04/26/2015 09:13:50 04/26/2015 09:13:50 DIS Outpatient [id number] 04/25/2015 14:44:38 04/25/2015 14:44:38 DIS Outpatient [id number] 04/25/2015 14:44:37 04/25/2015 14:44:37 DIS Outpatient [id number] 10/19/2015 10:32:00 Document Registration [id number] 10/07/2015 14:09:30 Document Registration [id number] 10/07/2015 00:56:23 Document Registration [id number] 10/07/2015 00:56:19 Document Registration [id number] 10/07/2015 00:56:17 Document Registration [id number] 10/07/2015 00:56:14 Document Registration [id number] 10/07/2015 00:56:12 Document Registration [id number] 10/07/2015 00:56:10 Document Registration [id number] 10/07/2015 00:56:06 Document Registration [id number] 10/07/2015 00:56:04 Document Registration [id number] 10/03/2015 10:52:00 Document Registration [id number] 09/01/2015 13:48:00 Document Registration
[2018-07-17] MEDS ORDERED: ceFAZolin 2 GM IV Premixed 50 ML IV ONE (10:00)
[2018-07-17] MEDS ORDERED: BUP/EPI 0.5% 1:200,000 (SENSORCAINE) 30 ML VIAL ONE (10:00)
[2018-07-17] MEDS ORDERED: ANCEF 2 GM/50 ML PRE-MIXED IVPB IV ONE (10:00)
[2018-07-17 10:09] VITALS: BP 142/89
[2018-07-17] MEDS: LACTATED RINGERS 1,000 ML IV PRN ×2 (10:12→12:35)
--- NOTE | 2018-07-17 11:39 | Progress Note-Pre Operative ---
Pre-Operative Progress Note H&P Reviewed The H&P was reviewed, patient examined and no changes noted. Date Seen by Provider: Jul 17, 2018 Time Seen by Provider: 11:30 Date H&P Reviewed: Jul 17, 2018 Time H&P Reviewed: :30 Pre-Operative Diagnosis: symptomatic neuroma left AKA stump YUDI COLEMAN MD Jul 17, 2018 11:39
[2018-07-17] MEDS ORDERED: oxyCODONE/APAP 5/325MG (PERCOCET 5) TABLET PO PRN (11:45)
[2018-07-17] MEDS ORDERED: morphine INJ 10 MG/ML 1ML (SYR OR VIAL) IVP PRN (11:45)
[2018-07-17] MEDS ORDERED: ONDANSETRON 4 MG/2 ML (SDV) Z0FRAN IVP PRN (11:45)
[2018-07-17] MEDS ORDERED: ACETAMINOPHEN 325 MG TABLET PO PRN (11:45)
[2018-07-17] MEDS ORDERED: DEXAMETHASONE 10 MG/ML (DECADRON) 1 ML VIAL ONE (11:56)
[2018-07-17] MEDS ORDERED: proPOfol 200 MG/20 ML (DIPRIVAN) VIAL IV ONE (11:56)
[2018-07-17] MEDS ORDERED: ONDANSETRON 4 MG/2 ML (SDV) Z0FRAN ONE (11:56)
[2018-07-17] MEDS ORDERED: LIDOCAINE PF 2% 5 ML (XYLOCAINE) VIAL ONE (11:56)
[2018-07-17] MEDS ORDERED: SEVOFLURANE (ULTANE) 15 ML INHAL SOLN ONE (11:56)
[2018-07-17] MEDS ORDERED: fentaNYL INJECTION 100 MCG/2 ML AMP ONE (11:57)
[2018-07-17] MEDS ORDERED: MIDAZOLAM 2 MG/2 ML (VERSED) VIAL ONE (11:57)
--- NOTE | 2018-07-17 13:18 | Progress Note-Post Operative ---
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 Procedure & Operative Findings Date of Procedure 07/17/18 Procedure Performed/Findings excision neuroma and debridement left BKA stump Anesthesia Type general LMA Estimated Blood Loss Estimated blood loss (mL): minimal Specimens/Packing Specimens Removed neuroma/granuloma left AKA stump. YUDI COLEMAN MD Jul 17, 2018 13:18
[2018-07-17] MEDS ORDERED: HYDR-34 PO (13:24)
--- NOTE | 2018-07-17 13:25 | Discharge Inst-Surgical ---
D/C Lap Instructions-JARED New, Converted, or Re-Newed RX: RX on Chart Follow Up Appt in 2 weeks Activity as tolerated No driving for 24 hours No driving while on pain medications Regular Diet Symptoms to Report: Fever over 101 degree F, Nausea/Vomiting Infection Signs and Symptoms to report: Increased redness, Foul odor of wound, Increased drainage Bathing instructions: May shower Operative Area Clean/Dry; Keep incision clean/dry If any problems/questions: Contact your physician or go to Emergency Room YUDI COLEMAN MD Jul 17, 2018 13:25
--- NOTE | 2018-07-17 14:02 | Anesthesia-General Post-Op ---
General Patient Condition Mental Status/LOC: Same as Preop Cardiovascular: Satisfactory Nausea/Vomiting: Absent Respiratory: Satisfactory Pain: Controlled Complications: Absent Post Op Complications Complications None Follow Up Care/Instructions Patient Instructions None needed. Anesthesia/Patient Condition Patient Condition Patient is doing well, no complaints, stable vital signs, no apparent adverse anesthesia problems. No complications reported per nursing. DALLIN SQUIRES CRNA Jul 17, 2018 14:02
[2018-07-17 14:20] VITALS: BP 116/75
[2018-07-17 14:50] VITALS: BP 102/78
[2018-07-17] MEDS ORDERED: HYDROcodone/APAP 5 MG/325 MG (LORTAB) TAB ONE (14:59)
[2018-07-17] MEDS ORDERED: HYDROcodone/APAP 5 MG/325 MG (LORTAB) TAB PO ONE (15:00)
[2018-07-17 15:20] VITALS: BP 114/84
[2018-07-17 16:00] VITALS: BP 114/84
--- NOTE | 2018-07-17 20:38 | OPERATIVE REPORT ---
DATE OF SERVICE: 07/17/2018 ATTENDING PRIMARY CARE PHYSICIAN: Dr. Caldera. PREOPERATIVE DIAGNOSIS: Symptomatic neuroma lateral aspect of previous left below the knee amputation. POSTOPERATIVE DIAGNOSES: Symptomatic neuroma lateral aspect of previous left below the knee amputation versus chronic granulomatous tissue. PROCEDURE: Excision neuroma and granuloma left below the knee amputation stump. SURGEON: Yudi Lacey MD GRADER MARKER: Deep Anand APRN. ANESTHESIA: General laryngeal mask airway. ESTIMATED BLOOD LOSS: Minimal. FINDINGS: Chronic granulomatous tissue at the tip of the excised portion of the left fibula. DISPOSITION: The patient tolerated the procedure well. INDICATIONS: The patient is a 38-year-old female who we have seen before in the past. We had initially seen her in 2010 for persistent open wound of the left heel and osteomyelitis. At the time, she was honest in regulo and stated a significant history of IV drug abuse including methamphetamine as well as cocaine. During that timeframe, she has also admitted to noncompliance. On 12/11/2010, she underwent debridement of soft tissue of the left heel as well as bone debridement. She also had IV antibiotics given. Since that time, she had further complications of left lower extremity infection, most likely seeding from the IV drug abuse and noncompliance. She underwent a left below the knee amputation in 08/2013. She states that after this incident, she was incarcerated for approximately 6 months and released; however, relapsed with IV drug abuse and was again incarcerated for 1 year. Since being incarcerated, the second time she has been clean of any drugs for the past 18 months. She reports that she has found a spiritual micah and will never proceed with drug abuse again. CHIEF COMPLAINT: When seen in the office was a palpable lesion along the lateral aspect of the [id number]-[id number] amputation with a slightly solid component along the lateral aspect of the incision at the tip of the resected portion of the fibula. This was very tender to palpation. This may represent chronic granulomatous tissue versus neuroma. DESCRIPTION OF PROCEDURE: The patient was brought to the operating room, laid supine on the table. After adequate, IV pain and sedating medications and general laryngeal mask airway intubation, the left stump was prepped and draped in standard surgical fashion. A 0.5% Marcaine and epinephrine was used to anesthetize the previous incision line along the previous stump. The skin incision was made using a 15 blade. The subcutaneous tissue was then opened using electrocautery. There was a chronic granulomatous tissue and scar tissue along the tip of the resected portion of the fibula. This was completely excised and debrided with Dunn scissors as well as a 15 blade. Good hemostasis was observed. The tip of the fibula was palpated and was smooth with no sharp edges. The fascia of the lateral compartment of the muscle was then closed using interrupted 3-0 Vicryl sutures. Skin was closed using 4-0 Monocryl running subcuticular suture. Wound was then cleaned and covered with Dermabond. The patient tolerated the procedure well. We will recommend offloading pressure on the stump at least for the next 4 weeks and then to decrease pressure and the use of her prosthetic limb in a stepwise gradual fashion. We will have followup in the office in approximately 2 weeks. Job ID: [id number] DocumentID: [id number] Dictated Date: 07/17/2018 13:39:04 Emergency Medcl Emt Date: 07/17/2018 20:38:20 Dictated By: YUDI LACEY MD
--- NOTE | 2018-07-21 08:59 | Physician Query-Final Dx ---
JOSEP VIDAL 07/21/18 0859: Clinic Account Progress/Dx Physician Query: Please give the excised length of the lesion removed. thank you Date of Service Jul 17, 2018 at 09:00 YUDI COLEMAN MD 07/21/18 1716: Clinic Account Progress/Dx DIAGNOSIS: Diagnosis 2x2cm JOSEP VIDAL Jul 21, 2018 08:59 YUDI COLEMAN MD Jul 21, 2018 17:16
== END 2018-07-17 16:00 | disposition home or self-care (01) ==
LOC: SDC 09:00
PROVIDERS: ATTEND Surgery
DX: G57.92 Unspecified mononeuropathy of left lower limb (principal); L92.9 Granulomatous disorder of the skin and subcutaneous tissue, unspecified; B19.20 Unspecified viral hepatitis C without hepatic coma; F17.210 Nicotine dependence, cigarettes, uncomplicated; Z89.512 Acquired absence of left leg below knee
CPT/HCPCS: 87081; 88304

== ENCOUNTER → 2018-09-03 | Outpatient (CLI) | payer MEDICARE, MEDICAID | LOC: WOUNDCARE 09:22 | PROVIDERS: ATTEND Surgery | DX: L97.222 Non-pressure chronic ulcer of left calf with fat layer exposed (principal); I70.242 Atherosclerosis of native arteries of left leg with ulceration of calf; T81.31XA Disruption of external operation (surgical) wound, not elsewhere classified, initial encounter; T65.222A Toxic effect of tobacco cigarettes, intentional self-harm, initial encounter; F17.218 Nicotine dependence, cigarettes, with other nicotine-induced disorders | CPT/HCPCS: 11042; 87070; 87075; 87077; 87186; 87205 ==

== ENCOUNTER → 2018-09-10 | Outpatient (CLI) | payer MEDICARE, MEDICAID | LOC: WOUNDCARE 09:15 | PROVIDERS: ATTEND Surgery | DX: I70.242 Atherosclerosis of native arteries of left leg with ulceration of calf (principal); L97.222 Non-pressure chronic ulcer of left calf with fat layer exposed; T81.31XA Disruption of external operation (surgical) wound, not elsewhere classified, initial encounter; T65.222A Toxic effect of tobacco cigarettes, intentional self-harm, initial encounter; F17.218 Nicotine dependence, cigarettes, with other nicotine-induced disorders | CPT/HCPCS: 15271 ==

== ENCOUNTER → 2018-09-17 | Outpatient (CLI) | payer MEDICARE, MEDICAID | LOC: WOUNDCARE 09:24 | PROVIDERS: ATTEND Surgery | DX: T81.31XA Disruption of external operation (surgical) wound, not elsewhere classified, initial encounter (principal); I70.242 Atherosclerosis of native arteries of left leg with ulceration of calf; L97.222 Non-pressure chronic ulcer of left calf with fat layer exposed; T65.222A Toxic effect of tobacco cigarettes, intentional self-harm, initial encounter; F17.218 Nicotine dependence, cigarettes, with other nicotine-induced disorders | CPT/HCPCS: 15271 ==

== ENCOUNTER → 2018-09-24 | Outpatient (CLI) | payer MEDICARE, MEDICAID | LOC: WOUNDCARE 09:28 | PROVIDERS: ATTEND Surgery | DX: I70.242 Atherosclerosis of native arteries of left leg with ulceration of calf (principal); L97.222 Non-pressure chronic ulcer of left calf with fat layer exposed; T81.31XA Disruption of external operation (surgical) wound, not elsewhere classified, initial encounter; T65.222A Toxic effect of tobacco cigarettes, intentional self-harm, initial encounter; F17.218 Nicotine dependence, cigarettes, with other nicotine-induced disorders | CPT/HCPCS: 99212 ==

== ENCOUNTER 2019-09-18 15:49 | Emergency (ER) | payer MEDICARE, MEDICAID ==
[~2019-09-18] VITALS: Ht 162.6 cm; Wt 84.8 kg
[2019-09-18] MEDS ORDERED: TETANUS,DIPTH,PERTUSS P/F (BOOSTRIX) 0.5 ML VIAL IM ONE ×2 (16:42→17:00)
[2019-09-18] MEDS ORDERED: LIDOCAINE 1% INJ 20 ML 20 ML VIAL INJ ONE (16:45)
[2019-09-18] MEDS ORDERED: SODIUM BICARB 8.4% 50 MEQ/50 ML VIAL IV ONE (16:45)
--- NOTE | 2019-09-18 17:22 | ED Upper Extremity ---
General Chief Complaint: Laceration Stated Complaint: LACERATION ON FINGER Nursing Triage Note: PT AMBULATE TO [facility] WITH C/O LEFT FINGER LAC AFTER CUTTING THE STEMS ON HER PATEL'S DAY VILLATORO. Nursing Sepsis Screen: No Definite Risk Source: patient Exam Limitations: no limitations History of Present Illness Date Seen by Provider: Sep 18, 2019 Time Seen by Provider: 16:35 Initial Comments This 39 year old woman presents to the ER by private vehicle after incurring a flap laceration to the dorsum of her left index finger while cutting villatoro stems with a knife. She is not up-to-date on her tetanus immunizations. She retains flexion and extension of the finger. She has dorsal numbness distal to the injury. The incident happened around 13:00. Allergies and Home Medications Allergies Coded Allergies: povidone-iodine (Unverified Allergy, Mild, BLISTERS, 07/10/18) Penicillins (Verified Adverse Reaction, Mild, 12/01/12) Home Medications Hydrocodone Bit/Acetaminophen 1 Ea Tablet, 1 EACH PO Q4H PRN for PAIN-MODERATE Prescribed by: YUDI COLEMAN on 07/17/18 1324 Patient Home Medication List Home Medication List Reviewed: Yes Review of Systems Constitutional: no symptoms reported EENTM: no symptoms reported Respiratory: no symptoms reported Cardiovascular: no symptoms reported Gastrointestinal: no symptoms reported Genitourinary: no symptoms reported : No Musculoskeletal: no symptoms reported Skin: see HPI Psychiatric/Neurological: See HPI Past Oqqcmag-Bvlsyi-Hnqaui Hx Past Med/Social Hx: Reviewed Nursing Past Med/Soc Hx Patient Social History Alcohol Use: Denies Use Recreational Drug Use: Yes (HX OF IV DRUG USE, USED METH ON 04/24) Drug of Choice: HX METH USE-CLEAN 2 YEARS Smoking Status: Former Smoker Type Used: Cigarettes Former Smoker, Quit: Aug 18, 2019 2nd Hand Smoke Exposure: No Recent Foreign Travel: No Contact w/Someone Who Travel: No Recent Infectious Disease Expo: No Recent Hopitalizations: No Physical Abuse: No Sexual Abuse: No Mistreated: No Fear: No Immunizations Up To Date Tetanus Booster (TDap): More than 5yrs PED Vaccines UTD: Yes Date of Pneumonia Vaccine: May 09, 2015 Date of Influenza Vaccine: May 12, 2018 Seasonal Allergies Seasonal Allergies: No Past Medical History Surgeries: Yes (LEFT LEG X8, LT BKA, CS X2, ) Tonsillectomy Respiratory: No Asthma Cardiac: No Neurological: Yes TIA Reproductive Disorders: Yes Female 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 Sexually Transmitted Disease: No Gastrointestinal: Yes (HEP C) Abdominal Hernia, Hepatitis Musculoskeletal: Yes Amputee Endocrine: No Diabetes, Non-Insulin dep Loss of Vision: Denies Hearing Impairment: Denies Cancer: No Psychosocial: Yes (HX) Anxiety, Bipolar, Depression Integumentary: No Blood Disorders: No Adverse Reaction/Blood Tranf: No Family Medical History Cancer GRANDPARENTS Congestive heart failure 03 MOTHER Dementia GRANDPARENTS Family history: Cardiovascular disease 03 MOTHER Family history: Diabetes mellitus GRANDPARENTS Family history: Hypertension 03 MOTHER Myocardial infarction 03 MOTHER No Family History of: Abdominal aortic aneurysm Family history: Breast disease Family history: Gastrointestinal disease Family history: Thyroid disorder Hereditary disease History of - respiratory disease Parkinson's disease Stroke No Pertinent Family Hx Physical Exam Vital Signs Vital Signs - First Documented 09/18/19 09/18/19 16:14 17:27 Temp 36.8 Pulse 68 Resp 18 B/P (MAP) 115/77 (90) Pulse Ox 100 O2 Delivery Room Air Capillary Refill : Less Than 3 Seconds Height, Weight, BMI Height: 5'4.00" Weight: 190lbs. 0.0oz. [id number]; 32.00 BMI Method:Stated General Appearance: WD/WN, no apparent distress HEENT: normal ENT inspection Cardiovascular: regular rate, rhythm, no edema, no murmur Respiratory: lungs clear, normal breath sounds, no respiratory distress Wrist: Yes normal inspection, Yes no evidence of injury Hand: normal ROM, Left (flap laceration into the subcutaneous tissue on the dorsal aspect of the left index finger with mild bleeding. Laceration is about 1.5 cm. Distal sensation on the dorsal aspect of the finger is disrupted. Range of motion including flexion and extension of the finger are normal.) Neurologic/Psychiatric: night time nanny II-XII nml as tested, alert, normal mood/affect, oriented x 3, other (small area of sensory deficit distal to the laceration) Skin: normal color, warm/dry, other (see above) Procedures/Interventions Wound Location: Upper Extremities Other Wound Location Dorsum of the left index finger Wound Length (cm): 1.5 Wound's Depth, Shape: flap, sub Q Wound Explored: clean Irrigated w/ Saline (ccs): 500 Betadine Prep?: No (chlorhexidine was used. Patient allergic to Betadine) Anesthesia: 1% Lidocaine (buffered) Volume Anesthetic (ccs): 2 Suture: Prolene Suture Size: 5-0 Number of Sutures: 4 Sterile Dressing Applied?: Yes Progress/Results/Core Measures Results/Orders My Orders Orders - TODD ALLEN MD Lidocaine 1% Inj 20 Ml (Xylocaine 1% Inj (09/18/19 16:45) Sodium Bicarbonate 8.4% Vial (Sodium Bic (09/18/19 16:45) Dipht,Pertuss(Acell),Tet Adult (Boostrix (09/18/19 17:00) Dipht,Pertuss(Acell),Tet Adult (Boostrix (09/18/19 16:42) Medications Given in ED Vital Signs/I&O Blood Pressure Mean: 90 Progress Progress Note : Progress Note Tetanus booster was administered. Skin was cleaned with chlorhexidine. Wound was locally anesthetized with buffered lidocaine. Wound was then irrigated with normal saline, scrubbed with chlorhexidine soap, and then irrigated again. Skin was prepped with chlorhexidine as patient is allergic to Betadine. Wound was then repaired with 5-0 Prolene. She tolerated the procedure well. Range of motion intact after repair. Bleeding controlled. Departure Impression Primary Impression: Finger laceration Qualified Codes: S61.211A - Laceration without foreign body of left index finger without damage to nail, initial encounter Disposition: 01 HOME, SELF-CARE Condition: Improved Departure-Patient Inst. Decision time for Depature: 17:15 Referrals: ASHISH SEGOVIA MD (PCP/Family) Primary Care Physician Patient Instructions: Laceration Repair With Stitches (DC) Add. Discharge Instructions: You may take Tylenol and/or ibuprofen for pain. Keep the wound clean and dry except for normal handwashing and showering. Do not submerge until sutures are removed. Monitor the wound for signs of infection such as increasing redness, puslike drainage, increasing swelling, fever, etc. Return to care promptly if you notice these symptoms. Cover when active or in dirty environments to protect the stitches and wound. A simple Band-Aids should be sufficient for covering the wound. Expect some degree of blood oozing for the first 48 hours. If bleeding returns, apply pressure and elevate for about 20 minutes. Return in about 10 days to have the sutures removed. You may gradually and gently flex the finger to keep the finger from getting too stiff and to prevent the wound from breaking open after sutures are removed. All discharge instructions reviewed with patient and/or family. Voiced understanding. TODD ALLEN MD Sep 18, 2019 17:22
[2019-09-18 17:27] VITALS: BP 141/80
== END 2019-09-18 17:26 | disposition home or self-care (01) ==
LOC: EDUNIT# 15:49 → ER 15:50
DX: S61.211A Laceration without foreign body of left index finger without damage to nail, initial encounter (principal); Z88.0 Allergy status to penicillin; Z88.8 Allergy status to other drugs, medicaments and biological substances; Z87.891 Personal history of nicotine dependence; Z82.49 Family history of ischemic heart disease and other diseases of the circulatory system; Z23 Encounter for immunization; W26.0XXA Contact with knife, initial encounter
CPT/HCPCS: 12001; 90471; 90715; 96374

== ENCOUNTER 2019-09-27 19:46 | Emergency (ER) | payer MEDICARE, MEDICAID ==
[~2019-09-27] VITALS: Ht 162 cm; Wt 84.8 kg
[2019-09-27 21:29] VITALS: BP 131/78
--- NOTE | 2019-09-27 21:29 | NUR ---
4/4 SUTURES REMOVED. PT TOLERATED PROCEDURE WELL
== END 2019-09-27 21:38 | disposition home or self-care (01) ==
LOC: EDUNIT# 19:46 → ER 19:48
DX: S61.211D Laceration without foreign body of left index finger without damage to nail, subsequent encounter (principal); X58.XXXD Exposure to other specified factors, subsequent encounter

== ENCOUNTER 2019-10-08 18:55 | Emergency (ER) | payer MEDICARE, MEDICAID ==
[~2019-10-08] VITALS: Ht 162 cm; Wt 82.0 kg
[2019-10-08] MEDS ORDERED: LACTATED RINGERS 1,000 ML IV ONE ×2 (19:21→20:42)
[2019-10-08] MEDS ORDERED: ONDANSETRON 4 MG/2 ML (SDV) Z0FRAN IVP ONE (19:30)
--- NOTE | 2019-10-08 19:33 | ED GI ---
General Chief Complaint: Abdominal/GI Problems Stated Complaint: VOMITING, DIARRHEA Nursing Triage Note: PT STATES NVD SINCE 1500 TODAY, HEADACHE AND SHAKEY Sepsis Screen: No Definite Risk Source of Information: Patient History of Present Illness Date Seen by Provider: Oct 08, 2019 Time Seen by Provider: 19:20 Initial Comments PT ARRIVES VIA POV FROM HOME WITH MALE S.O. STATES SHE BEGAN GETTING SICK AROUND 1500 TODAY WITH NAUSEA/VOMITIN G/DIARRHEA/ABDOMINAL CRAMPING HAS NOT BEEN ABLE TO KEEP ANYTHING DOWN SINCE 1500, AND HAS NOT VOIDED SINCE SOMETIME BEFORE 1500 HAS VOMITED X 6-7, AND HAD DIARRHEA BETWEEN 10 AND 20 TIMES--WATERY STOOLS, NO BLACK/BLOODY/TARRY STOOLS NO FEVER HAS GENERALIZED ABDOMINAL CRAMPING OFF AND ON C/O HEADACHE, BODY ACHES AND FEELING SHAKEY NO COUGH OR URI SYMPTOMS NO KNOWN SICK CONTACTS STATES SHE STARTED A "KETO DIET" AND HAD A SLIM FAST DRINK THIS MORNING, WHICH SHE HAS HAD BEFORE. SHE ALSO HAD A "COLLAGEN DRINK" WITH IT, THAT SHE MIXED WITH MILK ( STATES IT IS NOT SUPPOSED TO BE MIXED WITH ANY DAIRY PRODUCTS--ONLY WATER--AND SHE HAS NOT HAD THIS "COLLAGEN DRINK" BEFORE NO HISTORY OF GI PROBLEMS PCP: DR. Melvina SEGOVIA AT [facility] SURGEON: DR. COLEMAN Allergies and Home Medications Allergies Coded Allergies: povidone-iodine (Unverified Allergy, Mild, BLISTERS, 07/10/18) Penicillins (Verified Adverse Reaction, Mild, 12/01/12) Home Medications Hydrocodone Bit/Acetaminophen 1 Ea Tablet, 1 EACH PO Q4H PRN for PAIN-MODERATE Prescribed by: YUDI COLEMAN on 07/17/18 1324 Ondansetron 4 Mg Tab.rapdis, 4 MG PO Q6H PRN for NAUSEA/VOMITING Prescribed by: FAHEEM MANZANO on 10/08/19 2134 Patient Home Medication List Home Medication List Reviewed: Yes Review of Systems Review of Systems Constitutional: no symptoms reported; No chills, No diaphoresis, No dizziness, No fever EENTM: No Symptoms Reported Respiratory: No Symptoms Reported Cardiovascular: No Symptoms Reported Gastrointestinal: See HPI, Diarrhea, Nausea, Vomiting Genitourinary: No Symptoms Reported Musculoskeletal: see HPI (BODY ACHES) Skin: no symptoms reported Psychiatric/Neurological: See HPI, Headache Endocrine: No Symptoms Reported Hematologic/Lymphatic: No Symptoms Reported Past Glubcfc-Ntyqwz-Imtxwm Hx Past Med/Social Hx: Reviewed and Corrections made Patient Social History Alcohol Use: Denies Use Recreational Drug Use: Yes (HX OF IV DRUG USE-METH + COCAINE) Drug of Choice: HX IV METH AND COCAINE USE Smoking Status: Current Everyday Smoker (1/2 PPD) Type Used: Cigarettes 2nd Hand Smoke Exposure: No Recent Foreign Travel: No Contact w/Someone Who Travel: No Recent Infectious Disease Expo: No Recent Hopitalizations: No Immunizations Up To Date Tetanus Booster (TDap): More than 5yrs PED Vaccines UTD: Yes Date of Pneumonia Vaccine: May 09, 2015 Date of Influenza Vaccine: Jun 10, 2019 Seasonal Allergies Seasonal Allergies: No Past Medical History Surgeries: Yes (LEFT LEG X8, LT BKA, CS X2, SEE BELOW) Amputation, Section, Hysterectomy, Oophorectomy, Orthopedic, Tonsillectomy Respiratory: Yes Asthma Cardiac: No Neurological: Yes TIA : No Reproductive Disorders: Yes Female Reproductive Disorders: 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 Sexually Transmitted Disease: No Genitourinary: No Gastrointestinal: Yes (HEPATITIS C-COMPLETED TREATMENT 2018) Abdominal Hernia, Hepatitis Musculoskeletal: Yes (LEFT BKA FOR CHRONIC OSTEOMYELITIS) Amputee Endocrine: Yes Diabetes, Non-Insulin dep HEENT: No Loss of Vision: Denies Hearing Impairment: Denies Cancer: No Psychosocial: Yes (SUBSTANCE ABUSE) Anxiety, Bipolar, Depression Integumentary: Yes (CHRONIC FOOT ULCER/LEG WOUNDS/CELLULITIS/OSTEOMYELITIS LEFT LEG) Blood Disorders: No Adverse Reaction/Blood Tranf: No Family Medical History Cancer GRANDPARENTS Congestive heart failure 03 MOTHER Dementia GRANDPARENTS Family history: Cardiovascular disease 03 MOTHER Family history: Diabetes mellitus GRANDPARENTS Family history: Hypertension 03 MOTHER Myocardial infarction 03 MOTHER No Family History of: Abdominal aortic aneurysm Family history: Breast disease Family history: Gastrointestinal disease Family history: Thyroid disorder Hereditary disease History of - respiratory disease Parkinson's disease Stroke No Pertinent Family Hx PSH: -MULTIPLE DEBRIDEMENTS OF LEFT LEG/FOOT DUE TO CHRONIC WOUNDS/CELLULITIS/OSTEOMYELITIS, WITH EVENTUAL LEFT BKA 08/31/[address] SOSA - X 2 -HYSTERECTOMY--OVARIES INTACT -REMOVAL OF NEUROMA OF LEFT LEG STUMP 07/17/[address] COLEMAN Physical Exam Vital Signs Vital Signs - First Documented 10/08/19 19:05 Temp 36.9 Pulse 92 Resp 20 B/P (MAP) 119/79 (92) Pulse Ox 98 O2 Delivery Room Air Capillary Refill : Less Than 3 Seconds Height/Weight/BMI Height: 5'4.00" Weight: 190lbs. 0.0oz. 86.181298iy; 31.00 BMI Method:Stated General Appearance: WD/WN, no apparent distress HEENT: PERRL/EOMI Respiratory: normal breath sounds, no respiratory distress, no accessory muscle use Cardiovascular: regular rate, rhythm, no edema, no JVD, no murmur Gastrointestinal: normal bowel sounds, soft, no organomegaly, no pulsatile mass; No distended, No guarding, No rebound; tenderness (MILD GENERALIZED TENDERNESS, WITH MORE TENDERNESS IN EPIGASTRIC AND RLQ AREAS. 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 nml as tested, no motor/sensory deficits, alert, normal mood/affect, oriented x 3 Skin: normal color, warm/dry, tattoos/piercings (EXTENSIVE TATTOOS), other (EXTENSIVE SCARRING TO AC SPACES, NO EVIDENCE OF RECENT IV STICKS/TRACK ASHLEY) Focused Exam Lactate Level 10/08/19 19:47: Lactic Acid Level 1.50 Lactic Acid Level Laboratory Tests Test 10/08/19 19:47 Lactic Acid Level 1.50 MMOL/L (0.50-2.00) Procedures/Interventions Suture Size: 5-0 Progress/Results/Core Measures Results/Orders Lab Results Laboratory Tests Test 10/08/19 19:47 10/08/19 20:10 10/08/19 21:26 Range/Units White Blood Count 17.0 H 4.3-11.0 10^3/uL Red Blood Count 5.55 4.35-5.85 10^6/uL Hemoglobin 17.1 H 11.5-16.0 G/DL Hematocrit 47 35-52 % Mean Corpuscular Volume 84 80-99 FL Mean Corpuscular Hemoglobin 31 25-34 PG Mean Corpuscular Hemoglobin Concent 37 H 32-36 G/DL Red Cell Distribution Width 12.7 10.0-14.5 % Platelet Count 421 H 130-400 10^3/uL Mean Platelet Volume 9.3 7.4-10.4 FL Neutrophils (%) (Auto) 88 H 42-75 % Lymphocytes (%) (Auto) 8 L 12-44 % Monocytes (%) (Auto) 4 0-12 % Eosinophils (%) (Auto) 1 0-10 % Basophils (%) (Auto) 0 0-10 % Neutrophils # (Auto) 15.0 H 1.8-7.8 X 10^3 Lymphocytes # (Auto) 1.3 1.0-4.0 X 10^3 Monocytes # (Auto) 0.6 0.0-1.0 X 10^3 Eosinophils # (Auto) 0.1 0.0-0.3 10^3/uL Basophils # (Auto) 0.0 0.0-0.1 10^3/uL Neutrophils % (Manual) 87 % Lymphocytes % (Manual) 5 % Monocytes % (Manual) 1 % Eosinophils % (Manual) 2 % Basophils % (Manual) 0 % Band Neutrophils 5 % Blood Morphology Comment NORMAL Prothrombin Time 13.7 12.2-14.7 SEC INR Comment 1.0 0.8-1.4 Activated Partial Thromboplast Time 28 24-35 SEC Sodium Level 140 135-145 MMOL/L Potassium Level 3.6 3.6-5.0 MMOL/L Chloride Level 101 98-107 MMOL/L Carbon Dioxide Level 25 21-32 MMOL/L Anion Gap 14 5-14 MMOL/L Blood Urea Nitrogen 22 H 7-18 MG/DL Creatinine 0.80 0.60-1.30 MG/DL Estimat Glomerular Filtration Rate > 60 BUN/Creatinine Ratio 28 Glucose Level 127 H 70-105 MG/DL Lactic Acid Level 1.50 0.50-2.00 MMOL/L Calcium Level 9.9 8.5-10.1 MG/DL Corrected Calcium 8.5-10.1 MG/DL Magnesium Level 2.1 1.6-2.4 MG/DL Total Bilirubin 0.7 0.1-1.0 MG/DL Aspartate Amino Transf (AST/SGOT) 12 5-34 U/L Alanine Aminotransferase (ALT/SGPT) 9 0-55 U/L Alkaline Phosphatase 69 40-136 U/L Total Protein 8.3 H 6.4-8.2 GM/DL Albumin 4.9 H 3.2-4.5 GM/DL Amylase Level 50 25-125 U/L Lipase 70 8-78 U/L Acetaminophen Level < 10 L 10-30 UG/ML Serum Alcohol < 10 <10 MG/DL Urine Opiates Screen NEGATIVE NEGATIVE Urine Oxycodone Screen NEGATIVE NEGATIVE Urine Methadone Screen NEGATIVE NEGATIVE Urine Propoxyphene Screen NEGATIVE NEGATIVE Urine Barbiturates Screen NEGATIVE NEGATIVE Ur Tricyclic Antidepressants Screen NEGATIVE NEGATIVE Urine Phencyclidine Screen NEGATIVE NEGATIVE Urine Amphetamines Screen NEGATIVE NEGATIVE Urine Methamphetamines Screen NEGATIVE NEGATIVE Urine Benzodiazepines Screen NEGATIVE NEGATIVE Urine Cocaine Screen NEGATIVE NEGATIVE Urine Cannabinoids Screen NEGATIVE NEGATIVE Urine Color YELLOW Urine Clarity CLEAR Urine pH 8.5 5-9 Urine Specific [place] 1.010 L 1.016-1.022 Urine Protein NEGATIVE NEGATIVE Urine Glucose (UA) NEGATIVE NEGATIVE Urine Ketones NEGATIVE NEGATIVE Urine Nitrite NEGATIVE NEGATIVE Urine Bilirubin NEGATIVE NEGATIVE Urine Urobilinogen 0.2 < = 1.0 MG/DL Urine Leukocyte Esterase NEGATIVE NEGATIVE Urine RBC (Auto) NEGATIVE NEGATIVE Urine RBC NONE /HPF Urine WBC NONE /HPF Urine Squamous Epithelial Cells 5-10 /HPF Urine Crystals NONE /LPF Urine Bacteria TRACE /HPF Urine Casts NONE /LPF Urine Mucus NEGATIVE /LPF Urine Culture Indicated NO Micro Results Microbiology 10/08/19 Blood Culture - Preliminary, Resulted No growth 10/08/19 Blood Culture - Preliminary, Resulted No growth My Orders Orders - FAHEEM MANZANO DO Ed Iv/Invasive Line Start (10/08/19 19:21) Urine Bedside (10/08/19 19:21) Monitor-Rhythm Ecg Trace Only (10/08/19 19:21) Orthostatic Vital Signs (Adult (10/08/19 19:21) Amylase (10/08/19 19:21) Cbc With Automated Diff (10/08/19 19:21) Comprehensive Metabolic Panel (10/08/19 19:21) Lipase (10/08/19 19:21) Magnesium (10/08/19 19:21) Ua Culture If Indicated (10/08/19 19:21) Ed Iv/Invasive Line Start (10/08/19 19:21) Lactated Ringers (Lr 1000 Ml Iv Solution (10/08/19 19:21) Ondansetron Injection (Zofran Injectio (10/08/19 19:30) Acetaminophen (10/08/19 19:27) Alcohol (10/08/19 19:27) Drug Screen Stat (Urine) (10/08/19 19:27) Lactic Acid Analyzer (10/08/19 19:27) Protime With Inr (10/08/19 19:27) Partial Thromboplastin Time (10/08/19 19:27) Blood Culture (10/08/19 19:49) Manual Differential (10/08/19 19:47) Ct Abdomen/Pelvis W (10/08/19 20:42) Acute Abd Series (10/08/19 20:42) Ed Iv/Invasive Line Start (10/08/19 20:42) Lactated Ringers (Lr 1000 Ml Iv Solution (10/08/19 20:42) Iohexol Injection (Omnipaque 350 Mg/Ml 1 (10/08/19 21:15) Received Contrast (Hold Metformin- Contr (10/08/19 21:15) Ns (Ivpb) (Sodium Chloride 0.9% Ivpb Bag (10/08/19 21:15) Rx-Ondansetron Po (Rx-Zofran Po) (10/08/19 21:35) Medications Given in ED Vital Signs/I&O 10/08/19 10/08/19 10/08/19 19:05 19:55 22:20 Temp 36.9 36.9 Pulse 92 91 90 91 106 Resp 20 19 B/P (MAP) 119/79 (92) 126/88 (101) 118/78 (103) 129/84 (99) 127/91 (103) Pulse Ox 98 98 O2 Delivery Room Air Blood Pressure Mean: 92 Progress Progress Note : Progress Note SYMPTOMS IMPROVED WITH ZOFRAN AND FLUIDS NO VOMITING OR DIARRHEA DURING ER STAY KEEPING WATER DOWN PRIOR TO DISMISSAL Diagnostic Imaging Comments ABDOMEN XRAYS--NO ACUTE PROCESS CT ABDOMEN/PELVIS--NO ACUTE PROCESS, LEFT OVARIAN CYST, STABLE CYSTIC MASS IN LIVER PER RADIOLOGIST REPORTS AT 2131 Reviewed: Reviewed by Me Departure Impression Primary Impression: Nausea, vomiting, and diarrhea Additional Impression: Dehydration Disposition: 01 HOME, SELF-CARE Condition: Improved Departure-Patient Inst. Referrals: ASHISH SEGOVIA MD (PCP/Family) Primary Care Physician Patient Instructions: Viral Gastroenteritis, Adult (DC), Dehydration, Adult (DC) Add. Discharge Instructions: CLEAR LIQUIDS--WATER, BROTH, JELLO, GATORADE TOMORROW IF YOU ARE BETTER, ADD BRATS DIET TO CLEAR LIQUIDS--BANANAS, RICE, APPLESAUCE, TOAST, SALTINES FOLLOW UP WITH [facility] IN 1-2 DAYS IF NO BETTER All discharge instructions reviewed with patient and/or family. Voiced understanding. Scripts Ondansetron (Ondansetron Odt) 4 Mg Tab.rapdis 4 MG PO Q6H PRN for NAUSEA/VOMITING, #10 TAB 0 Refills Prov: FAHEEM MANZANO DO 10/08/19 FAHEEM MANZANO DO Oct 08, 2019 19:33
[2019-10-08 19:55] VITALS: BP_SYST 126; BP_SYST 127; BP_SYST 129; BP_DIAS 84; BP_DIAS 88; BP_DIAS 91
[2019-10-08 19:59] LABS: BASOPHILS % (AUTO) 0 % (0-10); EOSINOPHILS # (AUTO) 0.1 10^3/uL (0.0-0.3); EOSINOPHILS % (AUTO) 1 % (0-10); HEMATOCRIT 47 % (35-52); HEMOGLOBIN 17.1 G/DL (11.5-16.0); LYMPHOCYTES # (AUTO) 1.3 X 10^3 (1.0-4.0); LYMPHOCYTES % (AUTO) 8 % (12-44); MEAN CORPUSCULAR HEMOGLOBIN 31 PG (25-34); MEAN CORPUSCULAR HGB CONC 37 G/DL (32-36); MEAN CORPUSCULAR VOLUME 84 FL (80-99); MEAN PLATELET VOLUME 9.3 FL (7.4-10.4); MONOCYTES # (AUTO) 0.6 X 10^3 (0.0-1.0); MONOCYTES % (AUTO) 4 % (0-12); NEUTROPHILS % (AUTO) 88 % (42-75); PLATELET COUNT 421 10^3/uL (130-400); RED CELL DISTRIBUTION WIDTH 12.7 % (10.0-14.5)
[2019-10-08 20:11] LABS: PROTHROMBIN TIME PATIENT 13.7 SEC (12.2-14.7)
[2019-10-08 20:24] LABS: ALANINE AMINOTRANSFERASE 9 U/L (0-55); ALBUMIN 4.9 GM/DL (3.2-4.5); ALKALINE PHOSPHATASE 69 U/L (40-136); AMYLASE 50 U/L (25-125); BILIRUBIN,TOTAL 0.7 MG/DL (0.1-1.0); BUN/CREATININE RATIO 28; CALCIUM 9.9 MG/DL (8.5-10.1); CARBON DIOXIDE 25 MMOL/L (21-32); CHLORIDE 101 MMOL/L (98-107); GFR ESTIMATED > 60; GLUCOSE 127 MG/DL (70-105); LIPASE 70 U/L (8-78); MAGNESIUM 2.1 MG/DL (1.6-2.4); POTASSIUM 3.6 MMOL/L (3.6-5.0); SODIUM 140 MMOL/L (135-145); TOTAL PROTEIN 8.3 GM/DL (6.4-8.2)
[2019-10-08 20:38] LABS: AMPHETAMINE SCREEN, URINE NEGATIVE (NEGATIVE); BARBITURATE SCREEN URINE NEGATIVE (NEGATIVE); BENZODIAZEPINES SCREEN URINE NEGATIVE (NEGATIVE); CANNABINOID SCREEN, URINE NEGATIVE (NEGATIVE); COCAINE SCREEN URINE NEGATIVE (NEGATIVE); METHADONE STAT NEGATIVE (NEGATIVE); METHAMPHETAMINE SCREEN URINE S NEGATIVE (NEGATIVE); OPIATE SCREEN URINE NEGATIVE (NEGATIVE); OXYCODONE STAT NEGATIVE (NEGATIVE); PROPOXYPHENE STAT NEGATIVE (NEGATIVE); TRICYCLIC ANTIDEPRESSANTS SCRE NEGATIVE (NEGATIVE)
[2019-10-08 20:44] LABS: ACETAMINOPHEN < 10 UG/ML (10-30)
[2019-10-08 20:49] LABS: BAND NEUTROPHILS 5 %; BASOPHILS % (MANUAL) 0 %; EOSINOPHILS % (MANUAL) 2 %; LYMPHOCYTES % (MANUAL) 5 %; MONOCYTES % (MANUAL) 1 %; NEUTROPHILS % (MANUAL) 87 %; RBC MORPH NORMAL
--- NOTE | 2019-10-08 21:14 | Diagnostic Imaging Report ---
INDICATION: Emesis and diarrhea. EXAMINATION: Supine and upright views of the abdomen were obtained with single view of the chest. COMPARISON: Study of 10/23/2013. FINDINGS: Lungs are clear, bilaterally. Overall bowel gas pattern is unremarkable. There is no evidence of transition point to indicate an obstruction. No pathologic abdominal calcification is seen. IMPRESSION: No acute abnormality. Dictated by: Dictated on workstation # [id number]
[2019-10-08] MEDS ORDERED: NS 100 ML (IVPB) BAG IV ONE (21:15)
[2019-10-08] MEDS ORDERED: HOLD METFORMIN - RECEIVED CONTRAST 20 ML VIAL IV SCH (21:15)
[2019-10-08] MEDS ORDERED: IOHEXOL 350 MG/ML 100 ML (OMNIPAQUE 350) VIAL IV ONE (21:15)
--- NOTE | 2019-10-08 21:28 | Diagnostic Imaging Report ---
CT abdomen/pelvis w/contrast. PROCEDURE: CT abdomen and pelvis with contrast. TECHNIQUE: Multiple contiguous axial images were obtained through the abdomen and pelvis after administration of intravenous contrast. INDICATION: Emesis and diarrhea. COMPARISON: 03/20/2018. FINDINGS: 1.8 cm lucent focus in the dome of the left lobe of the liver has not changed. This likely represents a cyst. Otherwise no focal hepatic or splenic abnormality is identified. There is no evidence of gallbladder, pancreatic or adrenal gland abnormality. Kidneys are also unremarkable, bilaterally. There is no evidence of free fluid or pathologic adenopathy. The appendix has a normal appearance. Cyst in the left ovary, measuring up to 2.2 cm in size. Partially opacified urinary bladder is unremarkable. IMPRESSION: No acute abnormality is identified. There does appear to be dominant cyst in the left ovary without other evidence of change compared to previous study. Dictated by: Dictated on workstation # [id number]
[2019-10-08] MEDS ORDERED: ONDA4TAB11 PO (21:34)
[2019-10-08] MEDS ORDERED: RX-ONDANSETRON 4 MG ODT (ZOFRAN) PPK #4 PO STA (21:35)
[2019-10-08 21:47] LABS: BILIRUBIN,URINE NEGATIVE (NEGATIVE); CLARITY,URINE CLEAR; COLOR,URINE YELLOW; GLUCOSE, URINE (UA) NEGATIVE (NEGATIVE); KETONES,URINE NEGATIVE (NEGATIVE); LEUKOCYTE ESTERASE ,URINE NEGATIVE (NEGATIVE); NITRITE,URINE NEGATIVE (NEGATIVE); PH,URINE 8.5 (5-9); PROTEIN,URINE NEGATIVE (NEGATIVE)
[2019-10-08 21:55] LABS: BACTERIA,URINE TRACE /HPF
[2019-10-08 22:20] VITALS: BP 118/78
--- OUTSIDE RECORDS SUMMARY | 2019-10-12 23:23 | XMS REPORT ---
Author Author Deandra Davies Doctor Organization [facility] Address Unknown Phone Unavailable Care Team Providers Care Body Man Name Role Phone Migration, Doctor Unavailable Unavailable PROBLEMS Type Condition ICD9-CM Code HXK10-EM Code Onset Dates Condition S tatus SNOMED Code Problem Hepatitis C antibody positive in blood R76.8 Active 207516225 Problem Attention deficit disorder (ADD) in adult F98.8 Active 503517290 Problem Lower limb amputation, below knee Z89.519 Active 399800257 Problem Hep C w/o coma, chronic B18.2 Active 165608112 Problem Hepatic hemangioma D18.03 Active 9 1766082 Problem Chronic hepatitis C without hepatic coma B18.2 Active 641318445 Problem RICK (generalized anxiety disorder) F41.1 Active 83927786 Problem History of left below knee amputation Z89.512 Active 331377994 Problem Mood disorder F39 Active 522561 05 Problem Generalized anxiety disorder F41.1 A ctive 03706047 Problem GERD (gastroesophageal reflux disease) K21.9 Active 886062310 Problem Test anxiety F41.8 Active 1508985 2 Problem Insomnia, unspecified type G47.00 Act negin 536017933 Problem Bipolar disorder F31.9 Active 137 34681 ALLERGIES No Information ENCOUNTERS Encounter Location Date Diagnosis [place] [id number] [place] [address] 17 Sep, 2019 [place] [address] [address] 03 Sep, 2019 [place] [address] [address] Aug, History of left below knee amputation Z8 9.512 and Bipolar disorder F31.9 [place] [address] [address] Jul, Candidiasis B37.9 and Lower limb amputat ion, below knee Z89.519 [place] [address] [facility] [place] [address] Jul, [facility] [address] [facility] [place] [address] Jun, [facility] [address] [facility] [place] [address] Jun, Ganglion cyst of dorsum of right wrist M 67.431 [facility] [address] [facility] [id number] [place] [address] Jun, Ganglion cyst M67.40 [facility] [address] [facility] [place] [address] May, RICK (generalized anxiety disorder) F41.1 and Bipolar disorder F31.9 [place] [address] [facility] [place] [address] May, [facility] [address] [facility] [id number] [place] [id number] May, Encounter for immunization Z23 [place] [address] [facility] [place] [address] Mar, Encounter for Medicare annual wellness e xam Z00.00 ; Mood disorder F39 ; Chronic hepatitis C without hepatic coma B18.2 ; Lower limb amputation, below knee Z89.519 ; Attention deficit disorder (ADD) in adult F98.8 ; Insomnia, unspecified type G47.00 ; Hepatic hemangioma D18.03 and Encounter for smoking cessation counseling Z71.6 [place] [address] [facility] [place] [address] Mar, [facility] [id number] [place] [address] Feb, [place] [address] [address] Feb, RICK (generalized anxiety disorder) F41.1 and Bipolar disorder F31.9 [place] [address] [facility] [place] [address] Feb, RICK (generalized anxiety disorder) F41.1 and Bipolar disorder F31.9 [facility] [address] [address] Jan, [facility] [address] [address] Jan, RICK (generalized anxiety disorder) F41.1 and Bipolar disorder F31.9 [facility] [address] [address] Jan, [facility] [address] [address] Jan, [facility] [address] [address] Jan, RICK (generalized anxiety disorder) F41.1 and Bipolar disorder F31.9 [place] [address] [address] December, [facility] [address] [address] December, [facility] [address] [address] December, RICK (generalized anxiety disorder) F41.1 and Bipolar disorder F31.9 [place] [address] [address] Nov, [facility] [address] [address] Nov, [facility] [address] [address] Nov, Mood disorder F39 ; RICK (generalized anx iety disorder) F41.1 and Bipolar disorder F31.9 [place] [address] [address] Oct, Routine gynecological examination Z01.41 9 ; Screening for STD (sexually transmitted disease) Z11.3 ; Hep C w/o coma, chronic B18.2 and Candidal vaginitis B37.3 [place] [address] [address] Oct, Test anxiety F41.8 and Insomnia, unspeci fied type G47.00 [place] [address] [address] Sep, Hep C w/o coma, chronic B18.2 [place] [id number] [place] [address] Sep, [place] [id number] [id number] Sep, [place] [address] [address] Sep, [facility] [address] [place] [address] Aug, GERD (gastroesophageal reflu x disease) K21.9 [place] [address] [address] Aug, [facility] [address] [place] [address] Aug, Surgical wound infection T81 .49XA [place] [address] [address] May, History of left below knee amputation Z8 9.512 and Tendon cysts M67.80 [place] [address] [address] May, [place] [address] [address] May, [place] [address] [address] May, History of left below knee amputation Z8 9.512 [place] [address] [address] Apr, Chronic hepatitis C without hepatic coma B18.2 ; Hepatic hemangioma D18.03 and Encounter for immunization Z23 [place] [address] [address] Apr, Liver mass R16.0 [facility] [address] [address] Mar, Liver mass R16.0 [facility] [address] [address] Mar, [facility] [address] [address] Mar, Generalized anxiety disorder F41.1 ; Low er limb amputation, below knee Z89.519 and Hep C w/o coma, chronic B18.2 [facility] [address] [address] Mar, Liver mass R16.0 [facility] [address] [address] Feb, Hep C w/o coma, chronic B18.2 and Weight gain R63.5 [facility] [id number] [id number] Feb, Hepatitis C antibody positive in blood R76.8 [facility] [address] [address] Jan, Hep C w/o coma, chronic B18.2 [facility] [address] [address] Jan, [facility] [address] [address] Jan, Hep C w/o coma, chronic B18.2 [facility] [address] [address] Jan, Chronic hepatitis C without hepatic coma B18.2 [facility] [address] [address] Jan, [facility] [address] [id number] [id number] Jan, Hepatitis C antibody positive in blood R76.8 [facility] [address] [address] December, Chronic hepatitis C without hepatic coma B18.2 and Encounter for immunization Z23 [address] [address] December, [facility] [address] [facility] [id number] December, Hepatitis C antibody positive in blood R76.8 [place] [address] [address] December, Hepatitis C antibody positive in blood R 76.[address] [address] December, [place] [id number] [place] [id number] December, History of left below knee amputation Z89.512 ; Other acute postprocedural pain G89.18 and Other complications of amputation stump T87.[address] [address] Nov, Generalized anxiety disorder F41.1 and A ttention deficit disorder (ADD) in adult F98.[address] [address] Nov, History of hepatitis C Z86.19 ; History of methamphetamine abuse Z87.898 ; Lower limb amputation, below knee Z89.519 and Encounter to establish care Z76.[address] [address] 14 Nov, [address] [address] Nov, [id number] [id number] Jun, [address] [address] Jun, [address] [address] May, [facility] [address] [facility] [place] [address] May, [facility] [address] [place] [id number] Apr, [facility] [address] [facility] [place] [address] Apr, [facility] [address] [place] [id number] Mar, [facility] [address] [facility] [place] [address] Mar, [facility] [address] [facility] [place] [address] Mar, [facility] [address] [place] [id number] 57 Mar, [facility] [address] [facility] [place] [address] Jan, [facility] [address] [facility] [place] [address] Oct, [facility] [address] [facility] [place] [address] Oct, [facility] [address] [facility] [place] [address] Sep, [facility] [address] [facility] [place] [address] Sep, [facility] [address] [id number] [place] [address] Aug, [facility] [address] [facility] [place] [address] Aug, [facility] [address] [id number] [place] [address] Aug, [facility] [address] [facility] [place] [address] Aug, [facility] [address] [facility] [place] [address] Jul, [facility] [address] [facility] [place] [address] Jul, [facility] [address] [facility] [place] [address] Jun, [facility] [address] [facility] [place] [address] Jun, [facility] [address] [facility] [place] [address] Jun, [facility] [address] [facility] [place] [address] May, IMMUNIZATIONS No Known Immunizations SOCIAL HISTORY Never Assessed REASON FOR VISIT PLAN OF CARE VITAL SIGNS MEDICATIONS Unknown Medications RESULTS No Results PROCEDURES No Known procedures INSTRUCTIONS MEDICATIONS ADMINISTERED No Known Medications MEDICAL (GENERAL) HISTORY Type Description Date Medical History Hep C - successfully treated in 2018 Medical History Left BKA Medical History Bipolar disorder, unspecified Medical History Anxiety state, unspecified Medical History hx seizure under the influence of substa nce Surgical History BKA 2013 Surgical History 1999 Surgical History 2001 Surgical History Hysterectomy- AUB 2006 Hospitalization History Debridments 2012 Hospitalization History C-sections Hospitalization History Amputation 2014
--- OUTSIDE RECORDS SUMMARY | 2019-10-12 23:24 | XMS REPORT | Continuity of Care Document ---
Author Organization Unknown Address Unknown Phone Unavailable Allergies Active Description Code Type Severity Reaction Onset Reported/Identified Relationship to Patient Clinical Status Yes povidone-iodine [id number] D rug Allergy Mild N/A 02/24/2009 Yes Penicillins [id number] Drug Aller gy Mild N/A 12/01/2012 Yes Penicillins Drug Allergy N/A N/A 03/23/2014 Yes Betadine Drug Allergy N/A N/A 06/16/2014 Yes povidone-iodine [id number] D rug Allergy Mild BLISTERS 07/10/2018 Medications There is no data. Problems Date Dx Coded Attending Type Code Diagnosis Diagnosed By 04/09/2008 CORBIN MITCHELL MD 250. 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 52 INSOMNIA UNSPECIFIED 05/10/2008 CORBIN MITCHELL MD V58. 69 MEDICATION HIGH RISK 05/10/2008 JULIO HENLEY DDS 780.52 INSOMNIA UNSPECIFIED 05/10/2008 WHITE DDS, JULIO Skinner V58.69 MEDICATION HIGH RISK 05/10/2008 TAMARA QUIROZ, FLOR Skinner 780.52 INSOMNIA UNSPECIFIED 05/10/2008 TAMARA QUIROZ, FLOR Skinner V58.69 MEDICATION HIGH RISK 05/10/2008 TREMAINE DOUGLAS APRN 780.52 INSOMNIA UNSPECIFIED 05/10/2008 TREMAINE DOUGLAS APRN V58.69 MEDICATION HIGH RISK 05/10/2008 TREMAINE DOUGLAS APRN T 780.52 INSOMNIA UNSPECIFIED 05/10/2008 TREMAINE DOUGLAS APRN T V58.69 MEDICATION HIGH RISK 05/10/2008 TREMAINE DOUGLAS APRN T 780.52 INSOMNIA UNSPECIFIED 05/10/2008 TREMAINE DOUGLAS APRN T V58.69 MEDICATION HIGH RISK 05/10/2008 REYEZ DO, SHERIN K 780.52 INSOMNIA UNSPECIFIED 05/10/2008 REYEZ DO, SHERIN K V58.69 MEDICATION HIGH RISK 06/01/2008 CORBIN MITCHELL MD 300. 21 AN PANIC DIS W AGORA 06/01/2008 KALE DDS, JULIO Skinner 300.21 AN PANIC DIS W AGORA 06/01/2008 FLOR MCDONALD PHD 300.21 AN PANIC DIS W AGORA 06/01/2008 TREMAINE DOUGLAS APRN 300.21 AN PANIC DIS W AGORA 06/01/2008 TREMAINE DOUGLAS APRN 300.21 AN PANIC DIS W AGORA 06/01/2008 TREMAINE DOUGLAS APRN 300.21 AN PANIC DIS W AGORA 06/01/2008 REYEZ DO, SHERIN K 300.21 AN PANIC DIS W AGORA 06/09/2008 CORBIN MITCHELL MD 307. 47 SI DYSSOMNIA NOS 06/09/2008 CORBIN MITCHELL MD 316 PF PSYCHIC FACTORS MED COND 06/09/2008 CORBIN MITCHELL MD 346. 90 MIGRAINE UNSPECIFIED WITHOUT INTRACTABLE MIGRAINE 06/09/2008 KALE RICHSJULIO 307.47 SI DYSSOMNIA NOS 06/09/2008 KALE RICHSJULIO 31 6 PF PSYCHIC FACTORS MED COND 06/09/2008 JULIO HENLEY DDS 346.90 MIGRAINE UNSPECIFIED WITHOUT INTRACTABLE MIGRAINE 06/09/2008 TAMARA QUIROZ, FLOR Skinner 307.47 SI DYSSOMNIA NOS 06/09/2008 TAMARA QUIROZ, FLOR Skinner 316 PF PSYCHIC FACTORS MED COND 06/09/2008 TAMARA QUIROZ, FLOR Skinner 346.90 MIGRAINE UNSPECIFIED WITHOUT INTRACTABLE MIGRAINE 06/09/2008 TREMAINE DOUGLAS APRN Markell 307.47 SI DYSSOMNIA NOS 06/09/2008 STELLA RAINES TREMAINE Guillaume 31 6 PF PSYCHIC FACTORS MED COND 06/09/2008 STELLA ROCHANTREMAINE 346.90 MIGRAINE UNSPECIFIED WITHOUT INTRACTABLE MIGRAINE 06/09/2008 STELLA YANNATREMAINE 307.47 SI DYSSOMNIA NOS 06/09/2008 STELLA RAINES TREMAINE Guillaume 31 6 PF PSYCHIC FACTORS MED COND 06/09/2008 STELLA RAINES TREMAINE Guillaume 346.90 MIGRAINE UNSPECIFIED WITHOUT INTRACTABLE MIGRAINE 06/09/2008 STELLA RAINESTREMAINE 307.47 SI DYSSOMNIA NOS 06/09/2008 STELLA RAINESTREMAINE 31 6 PF PSYCHIC FACTORS MED COND 06/09/2008 STELLA RAINESTREMAINE 346.90 MIGRAINE UNSPECIFIED WITHOUT INTRACTABLE MIGRAINE 06/09/2008 REYEZ DO SHERIN K 307.47 SI DYSSOMNIA NOS 06/09/2008 REYEZ DO, SHERIN K 316 PF PSYCHIC FACTORS MED COND 06/09/2008 REYEZ DO SHERIN K 346.90 MIGRAINE UNSPECIFIED WITHOUT INTRACTABLE MIGRAINE 01/22/2011 Ot 707.14 01/22/2011 Ot 730.17 12/05/2012 TREMAINE MATA DO Ot 070.51 ACUTE HEPATITIS C WITHOUT MENTION OF HEP 12/05/2012 TREMAINE MATA DO Ot 305.63 COCAINE ABUSE-IN REMISS 12/05/2012 TREMAINE MTAA DO Ot 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-REMISS 12/05/2012 TREMAINE MATA DO Ot 682.6 CELLULITIS OF LEG 12/05/2012 TREMAINE MATA DO Ot 682.7 CELLULITIS OF FOOT 12/05/2012 TREMAINE MATA DO Ot 730.17 CHR OSTEOMYELIT-ANKLE 12/05/2012 TREMAINE MATA DO Ot V03.82 PROPHYLACTIC VACC AGAINST STREPTOCOCCUS 04/23/2013 PETE RM APRN Ot 250.00 DIAB ABHISHEK WO COMPL, TYPE II OR UNSPEC TY 04/23/2013 PETE RM APRN Ot 729 .5 PAIN IN LIMB 04/23/2013 PETE RM APRN Ot V58.69 OT MED,LT,CURRENT USE 05/06/2013 ROSETTE SOSA MD Ot 304. 22 COCAINE DEPEND-EPISODIC 05/06/2013 ROSETTE SOSA MD Ot 304. 42 AMPHETAMIN DEPEND-EPISOD 05/06/2013 ROSETTE SOSA MD Ot 730. 27 OSTEOMYELITIS NOS-ANKLE 05/06/2013 ROSETTE SOSA MD Ot V04. 81 ND FOR PROPHYLACTIC VACCIN AND INOCULATI 08/26/2013 FLOR MCDONALD PHD 296.80 MO BIPOLAR NOS 08/26/2013 FLOR MCDONALD PHD 300.00 AN ANXIETY UNSPEC 08/26/2013 FLOR MCDONALD PHD 304.40 AMPHETAMINE DEPENDENCE 08/26/2013 TREMAINE DOUGLAS APRN 296.80 MO BIPOLAR NOS 08/26/2013 TREMAINE DOUGLAS APRN 300.00 AN ANXIETY UNSPEC 08/26/2013 TREMAINE DOUGLAS APRN 304.40 AMPHETAMINE DEPENDENCE 08/26/2013 TREMAINE DOUGLAS APRN T 296.80 MO BIPOLAR NOS 08/26/2013 TREMAINE DOUGLAS APRN T 300.00 AN ANXIETY UNSPEC 08/26/2013 TREMAINE DOUGLAS APRN 304.40 AMPHETAMINE DEPENDENCE 08/26/2013 TREMAINE DOUGLAS APRN T 296.80 MO BIPOLAR NOS 08/26/2013 TREMAINE DOUGLAS APRN T 300.00 AN ANXIETY UNSPEC 08/26/2013 TREMAINE DOUGLAS APRN T 304.40 AMPHETAMINE DEPENDENCE 08/26/2013 AISSATOU NORRIS SHERIN K 296.80 MO BIPOLAR NOS 08/26/2013 AISSATOU NORRIS SHERIN K 300.00 AN ANXIETY UNSPEC 08/26/2013 AISSATOU NORRIS SHERIN K 304.40 AMPHETAMINE DEPENDENCE 09/02/2013 ROSETTE SOSA MD Ot 304. 43 AMPHETAMIN DEPEND-REMISS 09/02/2013 ROSETTE SOSA MD Ot 730. 27 OSTEOMYELITIS NOS-ANKLE 09/12/2013 DAGO PEREZ MD Ot 729. 5 PAIN IN LIMB 09/12/2013 DAGO PEREZ MD Ot V49. 75 BELOW KNEE AMPUTATION STATUS 09/18/2013 FAHEEM MANZANO DO Ot 338.18 OTHER ACUTE POSTOPERATIVE PAIN 09/18/2013 FAHEEM MANZANO DO Ot 997.62 AMPUT STUMP COMP,INFECT CHRONIC 09/18/2013 FAHEEM MANZANO DO Ot V58.69 OTH MED,LT,CURRENT USE 10/23/2013 PETE RM CHILDREN'S PROGRAM COORDINATOR Ot 079.99 VIRAL INFECTION NOS 10/23/2013 PETE RM APRN Ot 786 .2 COUGH 03/23/2014 TREMAINE DOUGLAS APRN T 68 2.6 CELLULITIS AND ABSCESS OF LEG EXCEPT FOOT 03/23/2014 TREMAINE DOUGLAS APRN V49.76 ABOVE KNEE AMPUTATION STATUS 03/23/2014 TREMAINE DOUGLAS APRN T 68 2.6 CELLULITIS AND ABSCESS OF LEG EXCEPT FOOT 03/23/2014 TREMAINE DOUGLAS APRN V49.76 ABOVE KNEE AMPUTATION STATUS 03/23/2014 TREMAINE DOUGLAS APRN 68 2.6 CELLULITIS AND ABSCESS OF LEG EXCEPT FOOT 03/23/2014 TREMAINE DOUGLAS APRN V49.76 ABOVE KNEE AMPUTATION STATUS 03/23/2014 MANJU REYEZ DOA K 682.6 CELLULITIS AND ABSCESS OF LEG EXCEPT FOOT 03/23/2014 AISSATOU NORRIS SHERIN K V49.76 ABOVE KNEE AMPUTATION STATUS 03/30/2014 TREMAINE DOUGLAS APRN 11 0.5 DERMATOPHYTOSIS OF THE BODY 03/30/2014 TREMAINE DOUGLAS APRN 11 0.5 DERMATOPHYTOSIS OF THE BODY 03/30/2014 MANJU REYEZ DOA K 110.5 DERMATOPHYTOSIS OF THE BODY 06/16/2014 MANJU REYEZ DOA K 729.5 PAIN IN LIMB 06/16/2014 MANJU REYEZ DOA K 789.02 ABDOMINAL PAIN LEFT UPPER QUADRANT 06/16/2014 MANJU REYEZ DOA K V04.81 FLU SHOT 01/13/2015 REVEAL ROSETTE BUSCH Ot 730. 20 03/03/2018 REVEAL ROSETTE BUSCH Ot 730. 20 OSTEOMYELITIS NOS-UNSPEC 03/03/2018 REVEAL ROSETTE BUSCH Ot 730. 20 OSTEOMYELITIS NOS-UNSPEC 03/03/2018 REVEAL ROSETTE BUSCH Ot 730. 27 OSTEOMYELITIS NOS-ANKLE 03/03/2018 REVEAL ROSETTE BUSCH Ot V72. 84 EXAM PRE-OPERATIVE NOS 03/03/2018 REVEAL ROSETTE BUSCH Ot 730. 27 OSTEOMYELITIS NOS-ANKLE 03/03/2018 REVEAL ROSETTE BUSCH Ot V72. 63 PRE-PROCEDURAL LABORATORY EXAMINATION 03/03/2018 REVEAL ROSETTE BUSCH Ot V74. 8 SCREEN-BACTERIAL DIS NEC 03/03/2018 REVEAL ROSETTE BUSCH Ot 997. 62 AMPUT STUMP COMP,INFECT CHRONIC 04/01/2018 YENI BUSCHASHISH Ot B18 .2 CHRONIC VIRAL HEPATITIS C 04/02/2018 ASHISH JAIME MD, Ot K76 .9 LIVER DISEASE, UNSPECIFIED 04/02/2018 ASHISH JAIME MD Ot R16 .0 HEPATOMEGALY, NOT ELSEWHERE CLASSIFIED 04/04/2018 ASHISH JAIME MD, Ot B18 .2 CHRONIC VIRAL HEPATITIS C 04/08/2018 ASHISH JAIME MD Ot K76 .9 LIVER DISEASE, UNSPECIFIED 04/08/2018 ASHISH JAIME MD Ot R16 .0 HEPATOMEGALY, NOT ELSEWHERE CLASSIFIED 04/23/2018 Ot R16.0 HEPA TOMEGALY, NOT ELSEWHERE CLASSIFIED 04/23/2018 ASHISH JAIME MD Ot K76 .9 LIVER DISEASE, UNSPECIFIED 04/23/2018 ASHISH JAIME MD Ot R16 .0 HEPATOMEGALY, NOT ELSEWHERE CLASSIFIED 04/29/2018 ASHISH JAIME MD, Ot K76 .9 LIVER DISEASE, UNSPECIFIED 04/29/2018 ASHISH JAIME MD Ot R16 .0 HEPATOMEGALY, NOT ELSEWHERE CLASSIFIED 04/29/2018 Ot R16.0 HEPA TOMEGALY, NOT ELSEWHERE CLASSIFIED 07/10/2018 JARED BUSCH, YUDI Ot Z01.81 8 ENCOUNTER FOR OTHER PREPROCEDURAL EXAMIN 07/11/2018 ROSETTE SOSA MD Ot 730. 20 OSTEOMYELITIS NOS-UNSPEC 07/11/2018 ROSETTE SOSA MD Ot 730. 20 OSTEOMYELITIS NOS-UNSPEC 07/11/2018 ROSETTE SOSA MD Ot 730. 27 OSTEOMYELITIS NOS-ANKLE 07/11/2018 ROSETTE SOSA MD Ot V72. 84 EXAM PRE-OPERATIVE NOS 07/11/2018 ROSETTE SOSA MD Ot 730. 27 OSTEOMYELITIS NOS-ANKLE 07/11/2018 ROSETTE SOSA MD Ot V72. 63 PRE-PROCEDURAL LABORATORY EXAMINATION 07/11/2018 ROSETTE SOSA MD Ot V74. 8 SCREEN-BACTERIAL DIS NEC 07/11/2018 ROSETTE SOSA MD Ot 997. 62 AMPUT STUMP COMP,INFECT CHRONIC 07/11/2018 ASHISH JAIME MD Ot B18 .2 CHRONIC VIRAL HEPATITIS C 07/11/2018 Ot R16.0 HEPA TOMEGALY, NOT ELSEWHERE CLASSIFIED 07/11/2018 ASHISH JAIME MD Ot K76 .9 LIVER DISEASE, UNSPECIFIED 07/11/2018 ASHISH JAIME MD Ot R16 .0 HEPATOMEGALY, NOT ELSEWHERE CLASSIFIED 07/14/2018 ASHISH JAIME MD, Ot R16 .0 HEPATOMEGALY, NOT ELSEWHERE CLASSIFIED 07/17/2018 YUDI COLEMAN MD, Ot B19.20 UNSPECIFIED VIRAL HEPATITIS C WITHOUT HE 07/17/2018 YUDI COLEMAN MD Ot F17.21 0 NICOTINE DEPENDENCE, CIGARETTES, UNCOMPL 07/17/2018 YUDI COLEMAN MD, Ot G57.92 UNSPECIFIED MONONEUROPATHY OF LEFT LOWER 07/17/2018 YUDI COLEMAN MD, Ot L92.9 GRANULOMATOUS DISORDER OF THE SKIN, SUBC 07/17/2018 YUDI COLEMAN MD, Ot Z89.51 2 ACQUIRED ABSENCE OF LEFT LEG BELOW KNEE 07/23/2018 YUDI COLEMAN MD, Ot B19.20 UNSPECIFIED VIRAL HEPATITIS C WITHOUT HE 07/23/2018 YUDI COLEMAN MD, Ot F17.21 0 NICOTINE DEPENDENCE, CIGARETTES, UNCOMPL 07/23/2018 YUDI COLEMAN MD, Ot G57.92 UNSPECIFIED MONONEUROPATHY OF LEFT LOWER 07/23/2018 YUDI COLEMAN MD, Ot L92.9 GRANULOMATOUS DISORDER OF THE SKIN, SUBC 07/23/2018 YUDI COLEMAN MD, Ot Z89.51 2 ACQUIRED ABSENCE OF LEFT LEG BELOW KNEE 08/02/2018 ASHISH JAIME MD, Ot R16 .0 HEPATOMEGALY, NOT ELSEWHERE CLASSIFIED 09/05/2018 YAJAIRA SCHAFER MD, Ot F17.218 NICOTINE DEPENDENCE, CIGARETTES, W OTH D 09/05/2018 YAJAIRA SCHAFER MD, Ot 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 [facility] 09/05/2018 YAJAIRA SCHAFER MD, Ot L97.222 NON-PRESSURE CHRONIC ULCER OF LEFT CALF 09/05/2018 YAJAIRA SCHAFER MD Ot T65.222A TOXIC EFFECT OF TOBACCO CIGARETTES, SELF 09/05/2018 YAJAIRA SCHAFER MD Ot T81.31XA DISRUPTION OF EXTERNAL OPERATION (SURGIC 09/05/2018 YAJAIRA SCHAFER MD, Ot F17.218 NICOTINE DEPENDENCE, CIGARETTES, W OTH D 09/05/2018 YAJAIRA SCHAFER MD, Ot 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 UL 09/05/2018 YAJAIRA SCHAFER MD, Ot L97.222 NON-PRESSURE CHRONIC ULCER OF LEFT CALF 09/05/2018 YAJAIRA SCHAFER MD, Ot T65.222A TOXIC EFFECT OF TOBACCO CIGARETTES, SELF 09/05/2018 YAJAIRA SCHAFER MD, Ot T81.31XA DISRUPTION OF EXTERNAL OPERATION (SURGIC 09/09/2018 YAJAIRA SCHAFER MD, Ot F17.218 NICOTINE DEPENDENCE, CIGARETTES, W OTH D 09/09/2018 YAJAIRA SCHAFER MD, Ot 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 [facility] 09/09/2018 YAJAIRA SCHAFER MD, Ot L97.222 NON-PRESSURE CHRONIC ULCER OF LEFT CALF 09/09/2018 YAJAIRA SCHAFER MD, Ot T65.222A TOXIC EFFECT OF TOBACCO CIGARETTES, SELF 09/09/2018 YAJAIRA SCHAFER MD, Ot T81.31XA DISRUPTION OF EXTERNAL OPERATION (SURGIC 09/12/2018 YAJAIRA SCHAFER MD, Ot F17.218 NICOTINE DEPENDENCE, CIGARETTES, W OTH D 09/12/2018 YAJAIRA SCHAFER MD, Ot 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 [facility] 09/12/2018 YAJAIRA SCHAFER MD, Ot L97.222 NON-PRESSURE CHRONIC ULCER OF LEFT CALF 09/12/2018 YAJAIRA SCHAFER MD, Ot T65.222A TOXIC EFFECT OF TOBACCO CIGARETTES, SELF 09/12/2018 YAJAIRA SCHAFER MD, Ot T81.31XA DISRUPTION OF EXTERNAL OPERATION (SURGIC 09/18/2018 YAJAIRA SCHAFER MD, Ot F17.218 NICOTINE DEPENDENCE, CIGARETTES, W OTH D 09/18/2018 YAJAIRA SCHAFER MD, Ot 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 [facility] 09/18/2018 YAJAIRA SCHAFER MD, Ot L97.222 NON-PRESSURE CHRONIC ULCER OF LEFT CALF 09/18/2018 YAJAIRA SCHAFER MD, Ot T65.222A TOXIC EFFECT OF TOBACCO CIGARETTES, SELF 09/18/2018 YAJAIRA SCHAFER MD, Ot T81.31XA DISRUPTION OF EXTERNAL OPERATION (SURGIC 09/24/2018 YAJAIRA SCHAFER MD, Ot F17.218 NICOTINE DEPENDENCE, CIGARETTES, W OTH D 09/24/2018 YAJAIRA SCHAFER MD, Ot 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 [facility] 09/24/2018 YAJAIRA SCHAFER MD, Ot L97.222 NON-PRESSURE CHRONIC ULCER OF LEFT CALF 09/24/2018 YAJAIRA SCHAFER MD, Ot T65.222A TOXIC EFFECT OF TOBACCO CIGARETTES, SELF 09/24/2018 YAJAIRA SCHAFER MD, Ot T81.31XA DISRUPTION OF EXTERNAL OPERATION (SURGIC 10/01/2018 YAJAIRA SCHAFER MD, Ot F17.218 NICOTINE DEPENDENCE, CIGARETTES, W OTH D 10/01/2018 YAJAIRA SCHAFER MD, Ot 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 [facility] 10/01/2018 YAJAIRA SCHAFER MD, Ot L97.222 NON-PRESSURE CHRONIC ULCER OF LEFT CALF 10/01/2018 YAJAIRA SCHAFER MD, Ot T65.222A TOXIC EFFECT OF TOBACCO CIGARETTES, SELF 10/01/2018 YAJAIRA SCHAFER MD, Ot T81.31XA DISRUPTION OF EXTERNAL OPERATION (SURGIC 10/02/2018 YAJAIRA SCHAFER MD, Ot F17.218 NICOTINE DEPENDENCE, CIGARETTES, W OTH D 10/02/2018 YAJAIRA SCHAFER MD, Ot 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 [facility] 10/02/2018 YAJAIRA SCHAFER MD, Ot L97.222 NON-PRESSURE CHRONIC ULCER OF LEFT CALF 10/02/2018 YAJAIRA SCHAFER MD, Ot T65.222A TOXIC EFFECT OF TOBACCO CIGARETTES, SELF 10/02/2018 YAJAIRA SCHAFER MD, Ot T81.31XA DISRUPTION OF EXTERNAL OPERATION (SURGIC 10/07/2018 YAJAIRA SCHAFER MD, Ot F17.218 NICOTINE DEPENDENCE, CIGARETTES, W OTH D 10/07/2018 YAJAIRA SCHAFER MD, Ot 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 [facility] 10/07/2018 YAJAIRA SCHAFER MD, Ot L97.222 NON-PRESSURE CHRONIC ULCER OF LEFT CALF 10/07/2018 YAJAIRA SCHAFER MD, Ot T65.222A TOXIC EFFECT OF TOBACCO CIGARETTES, SELF 10/07/2018 YAJAIRA SCHAFER MD, Ot T81.31XA DISRUPTION OF EXTERNAL OPERATION (SURGIC 10/17/2018 YAJAIRA SCHAFER MD, Ot F17.218 NICOTINE DEPENDENCE, CIGARETTES, W OTH D 10/17/2018 YAJAIRA SCHAFER MD Ot 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 [facility] 10/17/2018 YAJAIRA SCHAFER MD, Ot L97.222 NON-PRESSURE CHRONIC ULCER OF LEFT CALF 10/17/2018 YAJAIRA SCHAFER MD, Ot T65.222A TOXIC EFFECT OF TOBACCO CIGARETTES, SELF 10/17/2018 YAJAIRA SCHAFER MD, Ot T81.31XA DISRUPTION OF EXTERNAL OPERATION (SURGIC 10/20/2018 YAJAIRA SCHAFER MD, Ot F17.218 NICOTINE DEPENDENCE, CIGARETTES, W OTH D 10/20/2018 YAJAIRA SCHAFER MD, Ot 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 [facility] 10/20/2018 YAJAIRA SCHAFER MD, Ot L97.222 NON-PRESSURE CHRONIC ULCER OF LEFT CALF 10/20/2018 YAJAIRA SCHAFER MD, Ot T65.222A TOXIC EFFECT OF TOBACCO CIGARETTES, SELF 10/20/2018 YAJAIRA SCHAFER MD, Ot T81.31XA DISRUPTION OF EXTERNAL OPERATION (SURGIC 09/25/2019 TODD ALLEN MD, Ot M79.645 PAIN IN LEFT FINGER(S) 09/25/2019 TODD ALLEN MD, Ot S61.211A LACERATION W/O FB OF L IDX FNGR W/O NUVIA 09/25/2019 TODD ALLEN MD, Ot W26.0XXA CONTACT WITH KNIFE, INITIAL ENCOUNTER 09/25/2019 TODD ALLEN MD, Ot Z23 ENCOUNTER FOR IMMUNIZATION 09/25/2019 TODD ALLEN MD, Ot Z82.49 FAMILY HX OF ISCHEM HEART DIS AND OTH DI 09/25/2019 TODD ALLEN MD, Ot Z87.891 PERSONAL HISTORY OF NICOTINE DEPENDENCE 09/25/2019 TODD ALLEN MD, Ot Z88.0 ALLERGY STATUS TO PENICILLIN 09/25/2019 TODD ALLEN MD, Ot Z88.8 ALLERGY STATUS TO OTH DRUG/MEDS/BIOL SUB 09/30/2019 TODD ALLEN MD, Ot M79.645 PAIN IN LEFT FINGER(S) 09/30/2019 TODD ALLEN MD, Ot S61.211A LACERATION W/O FB OF L IDX FNGR W/O NUVIA 09/30/2019 TODD ALLEN MD, Ot W26.0XXA CONTACT WITH KNIFE, INITIAL ENCOUNTER 09/30/2019 TIFFANY BUSCH, TODD Guillaume Ot Z23 ENCOUNTER FOR IMMUNIZATION 09/30/2019 TIFFANY BUSCH, TODD Guillaume Ot Z82.49 FAMILY HX OF ISCHEM HEART DIS AND OTH DI 09/30/2019 TIFFANY BUSCH, TODD Guillaume Ot Z87.891 PERSONAL HISTORY OF NICOTINE DEPENDENCE 09/30/2019 TIFFANY BUSCH, TODD Guillaume Ot Z88.0 ALLERGY STATUS TO PENICILLIN 09/30/2019 TIFFANY BUSCH, TODD Guillaume Ot Z88.8 ALLERGY STATUS TO OTH DRUG/MEDS/BIOL SUB 10/01/2019 MARIN BUSCH, PARKER Espinoza Ot S61.211D LACERATION W/O FB OF L IDX FNGR W/O NUVIA 10/01/2019 MARIN BUSCH, PARKER Espinoza Ot X58.XXXD EXPOSURE TO OTHER SPECIFIED FACTORS, SUB Procedures Code Description Performed By Per formed On 77.49 BONE BIOPSY NEC 05/04/[address] ANTIBIOTIC 05/04/2013 83082 PSYC H DIAGNOSTIC EVALUATION 08/26/2013 84.15 BELO W KNEE AMPUTAT NEC 08/31/2013 22838 XRAY HAND LEFT MIN 3 VIEWS 06/16/2014 17473 A1C (IN-HOUSE) 06/16/2014 Results Test Result Range HEP C, GENOTYPE-APPROVAL REQUIRED - 02/19 08:34 HEPATITIS C VIRAL RNA GENOTYPE, LIPA(R) [...] 3-50 ALT 324 U/L 6-29 REFERENCE ID [id number] NRG FOOTNOTE SEE NOTE NRG HEP C PCR QUANT (Graph)-APPROVAL REQUIRE D - 03/03/18 10:49 HCV RNA, QUANTITATIVE REAL TIME PCR <15 NOT DETECT ED IU/mL NOT DETECTED HCV RNA, QUANTITATIVE REAL TIME PCR <1.18 NO T DETECTED Log IU/mL NOT DETECTED COMMENT NRG CBC - 04/28/18 11:51 WHITE BLOOD CELL COUNT 8.7 Thousand/uL 3 .8-10.8 RED BLOOD CELL COUNT 5.19 Million/uL 3.8 0-5.10 HEMOGLOBIN 16.1 g/dL 11.7-15.5 HEMATOCRIT 45.9 % 35.0-45.0 MCV 88.4 fL 80.0-100.0 MCH 31.0 pg 27.0-33.0 MCHC 35.1 g/dL 32.0-36.0 RDW 12.5 % 11.0-15.0 PLATELET COUNT 407 Thousand/uL 140-400 MPV 9.1 fL 7.5-12.5 ABSOLUTE NEUTROPHILS 4994 cells/uL 1500- 7800 ABSOLUTE LYMPHOCYTES 3106 cells/uL 850-3 900 ABSOLUTE MONOCYTES 409 cells/uL 200-950 ABSOLUTE EOSINOPHILS 139 cells/uL 15-500 ABSOLUTE BASOPHILS 52 cells/uL 0-200 NEUTROPHILS 57.4 % NRG LYMPHOCYTES 35.7 % NRG MONOCYTES 4.7 % NRG EOSINOPHILS 1.6 % NRG BASOPHILS 0.6 % NRG HEP C PCR QUANT (Graph)-APPROVAL REQUIRE D - 04/28/18 11:51 HCV RNA, QUANTITATIVE REAL TIME PCR <15 NOT DETECT ED IU/mL NOT DETECTED HCV RNA, QUANTITATIVE REAL TIME PCR <1.18 NO T DETECTED Log IU/mL NOT DETECTED COMMENT NRG Methicillin resistant Staphylococcus aur eus (MRSA) screening culture - 07/17/18 09:25 Methicillin resistant Staphylococcus aureus (MRSA) scr eening culture NEG NRG Bacteria identification in isolate by an aerobe culture - 09/03/18 11:06 Bacteria identification in isolate by anaerobe culture NOANA NRG Gram stain microscopy - 09/03/18 11:06 Gram stain microscopy No bacteria seen NRG Bacteria identification in wound by cult ure - 09/03/18 11:06 Bacteria identification in wound by culture SEE CO MMEN NRG FREE TEXT EXTERNAL SUSCEPTIBILITY REPORTED 2-201 9, 1105. NRG QUANTITY OF GROWTH . NR RML Sensitivity Panel - 09/03/18 11:06 Oxacillin susceptibility test by minimum inhibitory co ncentration 1 NRG Clindamycin susceptibility test by minimum inhibitory concentration R NRG Erythromycin susceptibility test by minimum inhibitory concentration > NRG Vancomycin susceptibility test by minimum inhibitory c oncentration 1 NRG Levofloxacin susceptibility test by minimum inhibitory concentration <= NRG Rifampin susceptibility test by minimum inhibitory con centration <= NRG Cefazolin susceptibility test by minimum inhibitory co ncentration R NRG Linezolid susceptibility test by minimum inhibitory co ncentration 2 NRG Penicillin G susceptibility test by minimum inhibitory concentration > NRG Moxifloxacin susceptibility test by minimum inhibitory concentration S NRG Minocycline susc AKILA <= NRG GC/CHLAMYDIA (SWAB OR URINE)-RAPID - 09:53 CHLAMYDIA TRACHOMATIS RNA, TMA NOT DETECTED NOT DETECTED NEISSERIA GONORRHOEAE RNA, TMA NOT DETECTED NOT DETECTED COMMENT NRG HEP C PCR QUANT (Graph)-APPROVAL REQUIRE D - 10/28/18 10:51 HCV RNA, QUANTITATIVE REAL TIME PCR <15 NOT DETECT ED IU/mL NOT DETECTED HCV RNA, QUANTITATIVE REAL TIME PCR <1.18 NO T DETECTED Log IU/mL NOT DETECTED LIPID PANEL - 12/02/18 09:46 CHOLESTEROL, TOTAL 153 mg/dL <200 HDL CHOLESTEROL 63 mg/dL >50 TRIGLYCERIDES 105 mg/dL <150 LDL-CHOLESTEROL 71 mg/dL (calc) NRG CHOL/HDLC RATIO 2.4 (calc) <5.0 NON HDL CHOLESTEROL 90 mg/dL (calc) <130 TSH - 12/02/18 09:46 TSH 1.26 mIU/L NRG Complete blood count (CBC) with automate d white blood cell (WBC) differential - 10/08/19 19:47 Blood leukocytes automated count (number/volume) 17.0 10*3/uL 4.3-11.0 Blood erythrocytes automated count (number/volume) 5.55 10*6/uL 4.35-5.85 Venous blood hemoglobin measurement (mass/volume) 17.1 g/dL 11.5-16.0 Blood hematocrit (volume fraction) 47 % 35-52 Automated erythrocyte mean corpuscular volume 84 [ foz_us] 80-99 Automated erythrocyte mean corpuscular h emoglobin (mass per erythrocyte) 31 pg 25-34 Automated erythrocyte mean corpuscular h emoglobin concentration measurement (mass/volume) 37 g/dL 32-36 Automated erythrocyte distribution width ratio 12. 7 % 10.0- 14.5 Automated blood platelet count (count/volume) 421 10*3/uL 130-400 Automated blood platelet mean volume measurement 9.3 [foz_us] 7.4-10.4 Automated blood neutrophils/100 leukocytes 88 % 42-75 Automated blood lymphocytes/100 leukocytes 8 % 12-44 Blood monocytes/100 leukocytes 4 % 0-12 Automated blood eosinophils/100 leukocytes 1 % 0-10 Automated blood basophils/100 leukocytes 0 % 0-10 Blood neutrophils automated count (number/volume) 15.0 10*3 1.8-7.8 Blood lymphocytes automated count (number/volume) 1.3 10*3 1.0-4.0 Blood monocytes automated count (number/volume) 0. 6 10*3 0.0-1.0 Automated eosinophil count 0.1 10*3/uL 0 .0-0.3 Automated blood basophil count (count/volume) 0.0 10*3/uL 0.0-0.1 PT panel in platelet poor plasma by coag ulation assay - 10/08/19 19:47 Prothrombin time (PT) in platelet poor plasma by coagu lation assay 13.7 s 12.2-14.7 INR in platelet poor plasma or blood by coagulation as say 1.0 0.8-1.4 Activated partial thromboplastin time (a PTT) in platelet poor plasma bycoagulation assay - 10/08/19 19:47 Activated partial thromboplastin time (a PTT) in platelet poor plasma bycoagulation assay 28 s 24-35 Blood lactic acid measurement (moles/vol ume) - 10/08/19 19:47 Blood lactic acid measurement (moles/volume) 1.50 mmol/L 0.50-2.00 Comprehensive metabolic panel - 10/08/19 19:47 Serum or plasma sodium measurement (moles/volume) 140 mmol/L 135-145 Serum or plasma potassium measurement (moles/volume) 3.6 mmol/L 3.6-5.0 Serum or plasma chloride measurement (moles/volume) 101 mmol/L 98-107 Carbon dioxide 25 mmol/L 21-32 Serum or plasma anion gap determination (moles/volume) 14 mmol/L 5-14 Serum or plasma urea nitrogen measurement (mass/volume ) 22 mg/dL 7-18 Serum or plasma creatinine measurement (mass/volume) 0.80 mg/dL 0.60-1.30 Serum or plasma urea nitrogen/creatinine mass ratio 28 NRG Serum or plasma creatinine measurement w ith calculation of estimated glomerular filtration rate > NRG Serum or plasma glucose measurement (mass/volume) 127 mg/dL 70-105 Serum or plasma calcium measurement (mass/volume) 9.9 mg/dL 8.5-10.1 Serum or plasma total bilirubin measurement (mass/volu me) 0.7 mg/dL 0.1-1.0 Serum or plasma alkaline phosphatase jerrica surement (enzymatic activity/volume) 69 U/L 40-136 Serum or plasma aspartate aminotransfera se measurement (enzymatic activity/volume) 12 U/L 5-34 Serum or plasma alanine aminotransferase measurement (enzymatic activity/volume) 9 U/L 0-55 Serum or plasma protein measurement (mass/volume) 8.3 g/dL 6.4-8.2 Serum or plasma albumin measurement (mass/volume) 4.9 g/dL 3.2-4.5 Magnesium - 10/08/19 19:47 Magnesium 2.1 mg/dL 1.6-2.4 Serum or plasma amylase measurement (enz ymatic activity/volume) - 10/08/19 19:47 Serum or plasma amylase measurement (enzymatic activit y/volume) 50 U/L 25-125 Lipase - 10/08/19 19:47 Lipase 70 U/L 8-78 Serum or plasma acetaminophen measuremen t (mass/volume) - 10/08/19 19:47 Serum or plasma acetaminophen measurement (mass/volume ) < ug/mL 10-30 Serum or plasma ethanol measurement (mas s/volume) - 10/08/19 19:47 Serum or plasma ethanol measurement (mass/volume) < mg/dL <10 Manual absolute plasma cell count - 12/22 19:47 Blood monocytes/100 leukocytes 1 % NRG Manual blood segmented neutrophils/100 leukocytes 87 % NRG Blood band neutrophils/100 leukocytes 5 % NRG Manual blood lymphocytes/100 leukocytes 5 % NRG Manual eosinophils/100 leukocytes in nose 2 % NRG Manual blood basophils/100 leukocytes 0 % NRG Blood erythrocyte morphology finding identification NORMAL NRG Bacterial blood culture - 10/08/19 19:47 Bacterial blood culture NG NRG Urine drug screening test - 10/08/19 20: 10 Urine phencyclidine detection by screening method NEGATIVE NEGATIVE Urine benzodiazepines detection by screening method NEGATIVE NEGATIVE Urine cocaine detection NEGATIVE NEGATI VE Urine amphetamines detection by screening method N EGATIVE NEGATIVE Urine methamphetamine detection by screening method NEGATIVE NEGATIVE Urine cannabinoids detection by screening method N EGATIVE NEGATIVE Urine opiates detection by screening method NEGATI VE NEGATIVE Urine barbiturates detection NEGATIVE N EGATIVE Screening urine tricyclic antidepressants detection NEGATIVE NEGATIVE Urine methadone detection by screening method NEGA TIVE NEGATIVE Urine oxycodone detection NEGATIVE NEGA TIVE Urine propoxyphene detection NEGATIVE N EGATIVE Bacterial blood culture - 10/08/19 20:10 Bacterial blood culture NG NRG Complete urinalysis with reflex to cultu re - 10/08/19 21:26 Urine color determination YELLOW NRG Urine clarity determination CLEAR NR G Urine pH measurement by test strip 8.5 5-9 Specific gravity of urine by test strip 1.010 1.016-1.022 Urine protein assay by test strip, semi-quantitative NEGATIVE NEGATIVE Urine glucose detection by automated test strip NE GATIVE NEGATIVE Erythrocytes detection in urine sediment by light micr oscopy NEGATIVE NEGATIVE Urine ketones detection by automated test strip NE GATIVE NEGATIVE Urine nitrite detection by test strip NEGATIVE NEGATIVE Urine total bilirubin detection by test strip NEGA TIVE NEGATIVE Urine urobilinogen measurement by automated test strip (mass/volume) 0.2 mg/dL < = 1.0 Urine leukocyte esterase detection by dipstick NEG ATIVE NEGATIVE Automated urine sediment erythrocyte cou nt by microscopy (number/high power field) NONE NRG Automated urine sediment leukocyte count by microscopy (number/high power field) NONE NRG Bacteria detection in urine sediment by light microsco py TRACE NRG Squamous epithelial cells detection in u rine sediment by light microscopy 5-10 NRG Crystals detection in urine sediment by light microsco py NONE NRG Casts detection in urine sediment by light microscopy NONE NRG Mucus detection in urine sediment by light microscopy NEGATIVE NRG Complete urinalysis with reflex to culture NO NRG Encounters ACCT No. Visit Date/Time Discharge Status Pt. Type Provider Facility Loc./Unit Complaint [id number] 08/17/2019 08:00:00 08/17/2019 23:59:5 9 CLS Outpatient ASHISH JAIME MD [facility] [place] [id number] 12/02/2018 08:20:00 Document Registration [id number] 10/28/2018 09:00:00 Document Registration [id number] 04/28/2018 10:00:00 Document Registration [id number] 03/03/2018 10:00:00 Document Registration [id number] 12/09/2017 08:40:00 Document Registration [id number] 10/08/2019 18:56:00 22:20:00 DIS Emergency NATACHA NORRIS, FAHEEM Ye [facility] ER VOMITING, DIARRHEA [id number] 09/27/2019 19:48:00 21:38:00 DIS Outpatient PARKER FUNES MD [facility] ER L POINTER FINGER STITCH REMOVAL [id number] 09/18/2019 15:50:00 17:26:00 DIS Outpatient TIFFANY BUSCH, TODD Guillaume [facility] ER LACERATION ON F RODY [id number] 09/24/2018 09:28:00 23:59:59 CLS Outpatient YAJAIRA SCHAFER MD [facility] WOUNDCARE [id number] 09/17/2018 09:24:00 23:59:59 CLS Outpatient YAJAIRA SCHAFER MD [facility] WOUNDCARE [id number] 09/10/2018 09:15:00 23:59:59 CLS Outpatient YAJAIRA SCHAFER MD [facility] WOUNDCARE [id number] 09/03/2018 09:22:00 23:59:59 CLS Outpatient YAJAIRA SCHAFER MD [facility] WOUNDCARE [id number] 07/17/2018 09:00:00 16:00:00 DIS Outpatient YUDI COLEMAN MD [facility] SDC NEUROMA [id number] 07/11/2018 08:48:00 23:59:59 CLS Outpatient ASHISH JAIME MD [facility] RAD LIVER MASS [id number] 07/10/2018 05:40:00 09:58:00 DIS Outpatient YUDI COLEMAN MD [facility] PREOP NEUROMA [id number] 04/01/2018 09:15:00 08/28/2 018 23:59:59 CLS Outpatient ASHISH JAIME MD [facility] RAD LIVER MASS [id number] 02/27/2018 14:14:00 018 23:59:59 CLS Outpatient ASHISH JAIME MD [facility] RAD HEP C W/O COMA,CHRONIC [id number] 10/23/2013 15:24:00 014 16:56:00 DIS Emergency PETE RM APRN [facility] ER COUGH [id number] 09/21/2013 17:18:00 014 23:59:59 CLS Outpatient REVEAL ROSETTE BUSCH [facility] LABNPT LOCAL INFECTION OF WOUN D (L) LOWER STUMP [id number] 09/18/2013 01:04:00 014 02:51:00 DIS Emergency FAHEEM MANZANO DO [facility] ER LEG PAIN [id number] 09/12/2013 04:05:00 014 05:02:00 DIS Emergency DAGO PEREZ MD [facility] ER LEFT LEG PAIN [id number] 08/31/2013 06:19:00 014 18:20:00 DIS Inpatient REVEAL ROSETET BUSCH [facility] SURGICAL CHRONIC OSTEOMYLITIS; L EFT OSCALCIS [id number] 08/25/2013 16:17:00 014 23:59:59 CLS Outpatient REVEAL ROSETTE BUSCH [facility] PREOP CHRONIC OSTEOMYLITIS; L EFT KNEE OSCALCIS [id number] 05/04/2013 06:16:00 013 11:00:00 DIS Inpatient REVEAL ROSETTE BUSCH [facility] SURGICAL CHRONIC INFECTION LEFT OSCALCIS [id number] 04/29/2013 07:15:00 23:59:59 CLS Outpatient REVEAL ROSETTE BUSCH [facility] PREOP CHRONIC INFECTION OF LE FT OSCALCIS [id number] 04/23/2013 16:46:00 18:56:00 DIS Emergency RMPETE APRN [facility] ER LEFT FOOT PAIN [id number] 2013 13:23:00 23:59:59 CLS Outpatient ROSETTE SOSA MD [facility] RAD OSTEOMYELITIS [id number] 02/04/2013 10:07:00 23:59:59 CLS Outpatient ROSETTE SOSA MD [facility] RAD OSTEOMYELITIS LT HEEL [id number] 12/01/2012 19:06:00 15:35:00 DIS Inpatient ADOLFO NORRISTREMAINE Olga [facility] 4TH CELLULITIS LEFT FOOT [id number] 03/20/2018 07:36:00 Document Registration [id number] 01/22/2011 06:24:00 Document Registration [id number] 12/02/2014 12:59:00 12/02/2014 23:59:5 9 CLS Outpatient CHRISTIAN DOWNEY [id number] 06/16/2014 10:36:00 06/16/2014 23:59: 59 CLS Outpatient AISSATOU SHERIN Stacey [id number] 04/20/2014 09:04:00 04/20/2014 23:59: 59 CLS Outpatient TREMAINE DOUGLAS APRN [id number] 03/30/2014 09:11:00 03/30/2014 23:59: 59 CLS Outpatient TREMAINE DOUGLAS APRN [id number] 03/23/2014 08:59:00 03/23/2014 23:59: 59 CLS Outpatient TREMAINE DOUGLAS APRN [id number] 08/26/2013 08:37:00 08/26/2013 23:59: 59 CLS Outpatient FLOR MCDONALD PHD [id number] 08/19/2013 13:05:00 08/19/2013 23:59: 59 CLS Outpatient JULIO HENLEY DDS [id number] 12/18/2010 15:10:00 12/18/2010 23:59: 59 CLS Outpatient CORBIN MITCHELL MD [id number] 10/22/2016 10:55:32 10/22/2016 23:59: 59 CLS Outpatient Soo Cai
== END 2019-10-08 22:20 | disposition home or self-care (01) ==
LOC: EDUNIT# 18:55 → ER 18:56
DX: R19.7 Diarrhea, unspecified (principal); E86.0 Dehydration; E11.9 Type 2 diabetes mellitus without complications; F17.210 Nicotine dependence, cigarettes, uncomplicated; Z86.73 Personal history of transient ischemic attack (TIA), and cerebral infarction without residual deficits; Z88.8 Allergy status to other drugs, medicaments and biological substances; Z88.0 Allergy status to penicillin; Z89.512 Acquired absence of left leg below knee; Z82.49 Family history of ischemic heart disease and other diseases of the circulatory system
CPT/HCPCS: 36415; 74022; 74177; 80053; 80306; 80320; 80329; 81000; 82150; 83605; 83690; 83735; 84703; 85007; 85027; 85610; 85730; 87040; 93041

== ENCOUNTER 2020-01-17 13:08 | Emergency (ER) | payer MEDICARE, MEDICAID ==
[~2020-01-17] VITALS: Ht 162 cm; Wt 82.0 kg
[~2020-01-17 13:08] MED LIST changes: +ONDA4TAB11 PO
--- OUTSIDE RECORDS SUMMARY | 2020-01-17 13:13 | XMS REPORT ---
Author Author Deandra DOUGLAS Organization [facility] Address [address] [place] [address] Care Team Providers Care Dependency Director Name Role Phone TREMAINE DOUGLAS Unavailable PROBLEMS Type Condition ICD9-CM Code FLG64-RF Code Onset Dates Condition S tatus SNOMED Code Problem Hepatitis C antibody positive in blood R76.8 Active 299415717 Problem Attention deficit disorder (ADD) in adult F98.8 Active 448373809 Problem Lower limb amputation, below knee Z89.519 Active 084109649 Problem Chronic hepatitis C without hepatic coma B18.2 Resolved 387329330 Problem Hepatic hemangioma D18.03 Active 9 1801846 Problem GERD (gastroesophageal reflux disease) K21.9 Active 115891707 Problem Mood disorder F39 Active 795171 05 Problem History of left below knee amputation Z89.512 Active 468198823 Problem Hepatitis C virus infection resolved after antiv iral drug therapy Z86.19 Active 643146052 Problem Generalized anxiety disorder F41.1 A ctive 28745768 Problem Test anxiety F41.8 Active 1228544 2 Problem Insomnia, unspecified type G47.00 Act negin 342163479 Problem Bipolar disorder F31.9 Active 137 29726 Problem RICK (generalized anxiety disorder) F41.1 Active 35811496 ALLERGIES No Information ENCOUNTERS Encounter Location Date Diagnosis [facility] [address] [facility] [id number] [address] [place] [phone] Oct, Bipolar disorder F31.9 ; Gen eralized anxiety disorder F41.1 and Tobacco abuse Z72.0 [facility] [id number] [place] [phone] Oct, [facility] [address] [id number] [address] Oct, [facility] [address] [facility] [id number] [address] [place] [phone] Oct, [facility] [address] [facility] [id number] [address] [place] [phone] Oct, [facility] [address] [facility] [id number] [address] [place] [phone] Oct, [facility] [address] [facility] [id number] [address] [place] [phone] Sep, [facility] [address] [facility] [id number] [address] [place] [phone] Sep, [facility] [address] [facility] [id number] [address] [place] [phone] Aug, History of left below knee a mputation Z89.512 and Bipolar disorder F31.9 [place] [address] [facility] [id number] [address] [place] [phone] Jul, Candidiasis B37.9 and Lower limb amputation, below knee Z89.519 [facility] [address] [facility] [id number] [address] [place] [phone] Jul, [facility] [address] [facility] [id number] [address] [place] [phone] Jun, [facility] [address] [facility] [id number] [address] [place] [phone] Jun, Ganglion cyst of dorsum of r ight wrist M67.431 [facility] [address] [facility] [id number] [address] [place] [phone] Jun, Ganglion cyst M67.40 [facility] [address] [facility] [id number] [address] [place] [phone] May, RICK (generalized anxiety dis order) F41.1 and Bipolar disorder F31.9 [facility] [address] [facility] [id number] [address] [place] [phone] May, [facility] [address] [id number] [place] [id number] May, Encounter for immunization Z23 [facility] [address] [id number] [address] [place] [phone] 06 Mar, 2019 Encounter for Medicare annua l wellness exam Z00.00 ; Mood disorder F39 ; Chronic hepatitis C without hepatic coma B18.2 ; Lower limb amputation, below knee Z89.519 ; Attention deficit disorder (ADD) in adult F98.8 ; Insomnia, unspecified type G47.00 ; Hepatic hemangioma D18.03 and Encounter for smoking cessation counseling Z71.6 [facility] [address] [id number] [address] [place] [phone] Mar, [facility] [address] [id number] [address] [place] [phone] Feb, [facility] [address] [id number] [address] [place] [phone] Feb, RICK (generalized anxiety dis order) F41.1 and Bipolar disorder F31.9 [facility] [address] [id number] [address] [place] [phone] Feb, RICK (generalized anxiety dis order) F41.1 and Bipolar disorder F31.9 [facility] [address] [id number] [address] [place] [phone] Jan, [facility] [address] [id number] [address] [place] [phone] Jan, RICK (generalized anxiety dis order) F41.1 and Bipolar disorder F31.9 [facility] [address] [id number] [address] [place] [phone] Jan, [facility] [address] [id number] [address] [place] [phone] Jan, [facility] [address] [id number] [address] [place] [phone] Jan, RICK (generalized anxiety dis order) F41.1 and Bipolar disorder F31.9 [facility] [address] [id number] [address] [place] [phone] December, [facility] [address] [facility] [id number] [address] [place] [phone] December, [facility] [address] [id number] [address] [place] [phone] December, RICK (generalized anxiety dis order) F41.1 and Bipolar disorder F31.9 [facility] [address] [id number] [address] [place] [phone] Nov, [facility] [address] [id number] [address] [place] [phone] Nov, [facility] [address] [phone] Nov, Mood disorder F39 ; RICK (gen eralized anxiety disorder) F41.1 and Bipolar disorder F31.9 [place] [id number] [place] [phone] Oct, Routine gynecological examin ation Z01.419 ; Screening for STD (sexually transmitted disease) Z11.3 ; Hep C w/o coma, chronic B18.2 and Candidal vaginitis B37.3 [place] [address] [address] [id number] [address] [place] [phone] Oct, Test anxiety F41.8 and Insom keshawn, unspecified type G47.00 [facility] [address] [id number] [address] [place] [phone] Sep, Hep C w/o coma, chronic B18. 2 [facility] [address] [facility] [id number] [address] [place] [phone] Sep, [facility] [address] [place] [address] [id number] [place] [id number] Sep, [facility] [address] [facility] [id number] [address] [place] [phone] Sep, [facility] [address] [id number] [address] [place] [phone] Aug, GERD (gastroesophageal reflu x disease) K21.9 [facility] [address] [facility] [id number] [address] [place] [phone] Aug, [facility] [address] [facility] [id number] [address] [place] [phone] Aug, Surgical wound infection T81 .49XA [facility] [address] [facility] [id number] [address] [place] [phone] May, History of left below knee a mputation Z89.512 and Tendon cysts M67.80 [facility] [address] [facility] [id number] [address] [place] [phone] May, [facility] [address] [facility] [id number] [address] [place] [phone] May, [facility] [address] [facility] [id number] [address] [place] [phone] May, History of left below knee a mputation Z89.512 [facility] [address] [facility] [id number] [address] [place] [phone] Apr, Chronic hepatitis C without hepatic coma B18.2 ; Hepatic hemangioma D18.03 and Encounter for immunization Z23 [facility] [address] [facility] [id number] [address] [place] [phone] Apr, Liver mass R16.0 [facility] [address] [facility] [id number] [address] [place] [phone] Mar, Liver mass R16.0 [facility] [address] [facility] [id number] [address] [place] [phone] Mar, [facility] [address] [facility] [id number] [address] [place] [phone] Mar, Generalized anxiety disorder F41.1 ; Lower limb amputation, below knee Z89.519 and Hep C w/o coma, chronic B18.2 [facility] [address] [facility] [id number] [address] [place] [phone] Mar, Liver mass R16.0 [facility] [address] [facility] [id number] [address] [place] [phone] Feb, Hep C w/o coma, chronic B18. 2 and Weight gain R63.5 [facility] [address] [facility] [id number] [place] [id number] Feb, Hepatitis C antibody positive in blood R 76.8 [facility] [address] [facility] [id number] [address] [place] [phone] Jan, Hep C w/o coma, chronic B18. 2 [facility] [address] [facility] [id number] [address] [place] [phone] Jan, [facility] [address] [facility] [id number] [address] [place] [phone] Jan, Hep C w/o coma, chronic B18. 2 [facility] [address] [facility] [id number] [address] [place] [phone] Jan, Chronic hepatitis C without hepatic coma B18.2 [facility] [address] [facility] [id number] [address] [place] [phone] Jan, [facility] [address] [facility] [id number] [place] [id number] Jan, Hepatitis C antibody positive in blood R 76.8 [facility] [address] [facility] [id number] [address] [place] [phone] December, Chronic hepatitis C without hepatic coma B18.2 and Encounter for immunization Z23 [facility] [address] [facility] [id number] [address] [place] [phone] December, [facility] [address] [facility] [id number] [place] [id number] December, Hepatitis C antibody positive in blood R 76.8 [facility] [address] [facility] [id number] [address] [place] [phone] December, Hepatitis C antibody positiv e in blood R76.8 [facility] [address] [facility] [id number] [address] [place] [phone] December, [facility] [address] [facility] [id number] [place] [id number] December, History of left below knee amputation Z8 9.512 ; Other acute postprocedural pain G89.18 and Other complications of amputation stump T87.89 [facility] [address] [facility] [id number] [address] [place] [phone] Nov, Generalized anxiety disorder F41.1 and Attention deficit disorder (ADD) in adult F98.8 [place] [address] [facility] [id number] [address] [place] [phone] Nov, History of hepatitis C Z86.1 9 ; History of methamphetamine abuse Z87.898 ; Lower limb amputation, below knee Z89.519 and Encounter to establish care Z76.89 [place] [address] [facility] [id number] [address] [place] [phone] 14 Nov, 2014 [place] [address] [facility] [id number] [address] [place] [phone] 13 Nov, 2014 [facility] [address] [facility] [id number] [place], [place] [id number] Jun, [place] [address] [facility] [id number] [address] [place] [phone] Jun, [place] [address] [facility] [id number] [address] [place] [phone] May, [place] [address] [facility] [id number] [address] [place] [phone] May, [facility] [address] [place], [place] [id number] 57 Apr, [place] [address] [facility] [id number] [address] [place] [phone] Apr, [facility] [address] [place], [place] [id number] 57 Mar, [place] [address] [facility] [id number] [address] [place] [phone] Mar, [facility] [address] [id number] [address] [place] [address], [place] [address] Mar, [facility] [address] [place] [place] [id number] 57 Mar, [facility] [address] [id number] [address] [place] [address], [place] [address] Jan, [facility] [address] [id number] [address] [place] [address], [place] [address] Oct, [facility] [address] [id number] [address] [place] [address], [place] [address] Oct, [facility] [address] [id number] [address] [place] [address], [place] [address] Sep, [facility] [address] [id number] [address] [place] [address], [place] [address] Sep, [facility] [address] [id number] [address] [place] [address], [place] [address] Aug, [facility] [address] [id number] [address] [place] [address], [place] [address] Aug, [facility] [address] [id number] [address] [place] [address], [place] [address] Aug, [facility] [address] [id number] [address] [place] [address], [place] [address] Aug, [facility] [address] [id number] [address] [place] [phone] Jul, [facility] [address] [id number] [address] [place] [address], [place] [address] Jul, [facility] [address] [id number] [address] [place] [address], [place] [address] Jun, [facility] [address] [id number] [address] [place] [address], [place] [address] Jun, [facility] [address] [id number] [address] [place] [phone] Jun, [facility] [address] [facility] [id number] [address] [place] [phone] May, IMMUNIZATIONS No Known Immunizations SOCIAL HISTORY Never Assessed REASON FOR VISIT PLAN OF CARE VITAL SIGNS Height 64 in 2014-04-20 Weight 156 lbs 2014-04-20 Temperature 97.8 degrees Fahrenheit 2014-04-20 Heart Rate 70 bpm 2014-04-20 Respiratory Rate 16 2014-04-20 Blood pressure systolic 118 mmHg 2014-04-20 Blood pressure diastolic 50 mmHg 2014-04-20 MEDICATIONS No Known Medications RESULTS No Results PROCEDURES No Known procedures INSTRUCTIONS MEDICATIONS ADMINISTERED No Known Medications MEDICAL (GENERAL) HISTORY Type Description Date Medical History Hep C - successfully treated in 2018 Medical History Left BKA Medical History Bipolar disorder, unspecified Medical History Anxiety state, unspecified Medical History hx seizure under the influence of substa nce Medical History Chronic hepatitis C without hepatic coma (resolved 10/14/2019) Surgical History BKA 2013 Surgical History 1999 Surgical History 2001 Surgical History Hysterectomy- AUB 2006 Hospitalization History Debridments 2012 Hospitalization History C-sections Hospitalization History Amputation 2014
--- OUTSIDE RECORDS SUMMARY | 2020-01-17 13:14 | XMS REPORT ---
Author Author Deandra MCDONALD Organization [facility] Address [address] [place] [address] Care Team Providers Care Director Of Therapy Services Name Role Phone FLOR MCDONALD Unavailable PROBLEMS Type Condition ICD9-CM Code [id number] Code Onset Dates Condition S tatus SNOMED Code Problem Hepatitis C antibody positive in blood R76.8 Active 762358084 Problem Attention deficit disorder (ADD) in adult F98.8 Active 146334872 Problem Lower limb amputation, below knee Z89.519 Active 224821103 Problem Hepatic hemangioma D18.03 Active 9 3096338 Problem Chronic hepatitis C without hepatic coma B18.2 Resolved 188755021 Problem GERD (gastroesophageal reflux disease) K21.9 Active 969358421 Problem Mood disorder F39 Active 885458 05 Problem History of left below knee amputation Z89.512 Active 500783792 Problem Hepatitis C virus infection resolved after antiv iral drug therapy Z86.19 Active 421124432 Problem Generalized anxiety disorder F41.1 A ctive 37789276 Problem Test anxiety F41.8 Active 8345137 2 Problem Insomnia, unspecified type G47.00 Act negin 213807110 Problem Bipolar disorder F31.9 Active 137 49851 Problem RICK (generalized anxiety disorder) F41.1 Active 38341146 ALLERGIES No Information ENCOUNTERS Encounter Location Date Diagnosis [facility] [id number] [place] [address] Oct, [facility] [address] [id number] [address] Oct, [facility] [address] [address] Oct, [facility] [id number] [place] [address] Oct, [facility] [address] [address] Oct, [facility] [id number] [place] [address] Oct, [place] [address] [address] Sep, [facility] [address] [address] Sep, [place] [address] [address] Aug, History of left below knee amputation Z8 9.512 and Bipolar disorder F31.9 [place] [address] [address] Jul, Candidiasis B37.9 and Lower limb amputat ion, below knee Z89.519 [place] [address] [address] Jul, [place] [address] [address] Jun, [place] [address] [address] Jun, Ganglion cyst of dorsum of right wrist M 67.431 [facility] [address] [facility] [id number] [address] [place] [address] Jun, Ganglion cyst M67.40 [place] [address] [address] May, RICK (generalized anxiety disorder) F41.1 and Bipolar disorder F31.9 [place] [address] [facility] [place] [address] May, [facility] [address] [facility] [place] [id number] May, Encounter for immunization Z23 [place] [id number] [place] [address] Mar, Encounter for Medicare annual wellness e xam Z00.00 ; Mood disorder F39 ; Chronic hepatitis C without hepatic coma B18.2 ; Lower limb amputation, below knee Z89.519 ; Attention deficit disorder (ADD) in adult F98.8 ; Insomnia, unspecified type G47.00 ; Hepatic hemangioma D18.03 and Encounter for smoking cessation counseling Z71.6 [facility] [address] [address] Mar, [facility] [address] [address] Feb, [place] [address] [address] Feb, RICK (generalized anxiety disorder) F41.1 and Bipolar disorder F31.9 [place] [address] [address] Feb, RICK (generalized anxiety disorder) F41.1 and Bipolar disorder F31.9 [place] [address] [address] Jan, [place] [address] [address] Jan, RICK (generalized anxiety disorder) F41.1 and Bipolar disorder F31.9 [place] [address] [address] Jan, [place] [address] [address] Jan, [place] [address] [address] Jan, RICK (generalized anxiety disorder) F41.1 and Bipolar disorder F31.9 [facility] [address] [address] December, [place] [address] [address] December, [facility] [address] [address] December, RICK (generalized anxiety disorder) F41.1 and Bipolar disorder F31.9 [place] [address] [address] Nov, [place] [address] [id number] Nov, [place] [address] [address] Nov, Mood disorder F39 ; RICK (generalized anx iety disorder) F41.1 and Bipolar disorder F31.9 [place] [address] [address] Oct, Routine gynecological examination Z01.41 9 ; Screening for STD (sexually transmitted disease) Z11.3 ; Hep C w/o coma, chronic B18.2 and Candidal vaginitis B37.[address] [address] Oct, Test anxiety F41.8 and Insomnia, unspeci fied type G47.[address] [address] Sep, Hep C w/o coma, chronic B18.[address] [address] Sep, [address] [facility] [id number] Sep, [address] [address] Sep, [facility] [address] [place] [id number] [address] [place] [address] Aug, GERD (gastroesophageal reflu x disease) K21.[address] [address] Aug, [facility] [address] [place] [id number] [place] [address] Aug, Surgical wound infection T81 .49XA [place] [address] [address] May, History of left below knee amputation Z8 9.512 and Tendon cysts M67.80 [facility] [address] [address] May, [facility] [address] [address] May, [facility] [address] [address] May, History of left below knee amputation Z8 9.512 [place] [address] [address] Apr, Chronic hepatitis C without hepatic coma B18.2 ; Hepatic hemangioma D18.03 and Encounter for immunization Z23 [place] [address] [address] Apr, Liver mass R16.0 [place] [address] [address] Mar, Liver mass R16.0 [place] [address] [address] Mar, [place] [address] [address] Mar, Generalized anxiety disorder F41.1 ; Low er limb amputation, below knee Z89.519 and Hep C w/o coma, chronic B18.2 [place] [id number] [place] [address] Mar, Liver mass R16.0 [place] [address] [address] Feb, Hep C w/o coma, chronic B18.2 and Weight gain R63.5 [facility] [address] [facility] [place] [id number] Feb, Hepatitis C antibody positive in blood R76.8 [place] [address] [address] Jan, Hep C w/o coma, chronic B18.2 [facility] [id number] [place] [address] Jan, [facility] [address] [address] Jan, Hep C w/o coma, chronic B18.2 [facility] [address] [address] Jan, Chronic hepatitis C without hepatic coma B18.2 [facility] [address] [address] Jan, [facility] [address] [place] [address] Jan, Hepatitis C antibody positive in blood R76.8 [place] [address] [address] December, Chronic hepatitis C without hepatic coma B18.2 and Encounter for immunization Z23 [place] [id number] [place] [address] December, [facility] [address] [id number] [id number] December, Hepatitis C antibody positive in blood R76.8 [place] [id number] [place] [address] December, Hepatitis C antibody positive in blood R 76.8 [place] [id number] [place] [address] December, [facility] [address] [id number] [id number] December, History of left below knee amputation Z89.512 ; Other acute postprocedural pain G89.18 and Other complications of amputation stump T87.89 [facility] [id number] [place] [address] Nov, Generalized anxiety disorder F41.1 and A ttention deficit disorder (ADD) in adult F98.8 [place] [id number] [place] [address] 23 Nov, 2017 History of hepatitis C Z86.19 ; History of methamphetamine abuse Z87.898 ; Lower limb amputation, below knee Z89.519 and Encounter to establish care Z76.89 [facility] [address] [facility] [place] [address] 14 Nov, 2014 [facility] [address] [facility] [place] [address] Nov, [place] [address] [facility] [place] [id number] Jun, [facility] [id number] [place] [address] Jun, [facility] [id number] [place] [address] May, [facility] [address] [facility] [place] [address] May, [facility] [address] [place] [id number] 57 Apr, [facility] [id number] [place] [address] Apr, [facility] [address] [place] [address] 57 Mar, [facility] [id number] [place] [address] Mar, [facility] [id number] [place] [address] Mar, [facility] [address] [place] [id number] 57 Mar, [facility] [id number] [place] [address] Jan, [facility] [id number] [place] [address] Oct, [facility] [id number] [place] [address] Oct, [facility] [id number] [place] [address] Sep, [facility] [address] [facility] [place] [address] Sep, [facility] [id number] [place] [address] Aug, [facility] [address] [facility] [place] [address] Aug, [facility] [id number] [place] [address] Aug, [facility] [id number] [place] [address] Aug, [facility] [id number] [place] [address] Jul, [facility] [id number] [place] [address] Jul, [facility] [id number] [place] [address] Jun, [facility] [id number] [place] [address] Jun, [facility] [id number] [place] [address] Jun, [facility] [address] [facility] [place] [address] May, IMMUNIZATIONS No Known Immunizations SOCIAL HISTORY [...]
--- OUTSIDE RECORDS SUMMARY | 2020-01-17 13:14 | XMS REPORT ---
Author Author Deandra MCDONALD Organization [facility] Address [address] [place] [address] Care Team Providers Care Recruiter Specialist Name Role Phone FLOR MCDONALD Unavailable PROBLEMS Type Condition ICD9-CM Code QOU15-KR Code Onset Dates Condition S tatus SNOMED Code Problem Hepatitis C antibody positive in blood R76.8 Active 784668653 Problem Generalized anxiety disorder F41.1 A ctive 18124666 Problem Lower limb amputation, below knee Z89.519 Active 519087441 Problem Hepatic hemangioma D18.03 Active 9 7457807 Problem Chronic hepatitis C without hepatic coma B18.2 Resolved 617753347 Problem GERD (gastroesophageal reflux disease) K21.9 Active 656016518 Problem Mood disorder F39 Active 099946 05 Problem History of left below knee amputation Z89.512 Active 383910120 Problem Hepatitis C virus infection resolved after antiv iral drug therapy Z86.19 Active 065047811 Problem Attention deficit disorder (ADD) in adult F98.8 Active 297919913 Problem Test anxiety F41.8 Active 4484446 2 Problem Insomnia, unspecified type G47.00 Act negin 412361425 Problem Bipolar disorder F31.9 Active 137 37662 Problem RICK (generalized anxiety disorder) F41.1 Active 92914248 ALLERGIES No Information ENCOUNTERS Encounter Location Date Diagnosis [facility] [id number] [place] [address] Oct, [facility] [address] [id number] [address] Oct, [facility] [address] [address] Oct, [facility] [address] [address] Oct, [facility] [address] [address] Oct, [facility] [id number] [place] [address] Oct, [place] [address] [address] Sep, [facility] [address] [address] Sep, [place] [address] [address] Aug, History of left below knee amputation Z8 9.512 and Bipolar disorder F31.9 [place] [address] [address] Jul, Candidiasis B37.9 and Lower limb amputat ion, below knee Z89.519 [place] [address] [address] Jul, [place] [address] [address] Jun, [place] [address] [address] Jun, Ganglion cyst of dorsum of right wrist M 67.431 [facility] [address] [facility] [id number] [address] [place] [address] Jun, Ganglion cyst M67.40 [place] [address] [address] May, RICK (generalized anxiety disorder) F41.1 and Bipolar disorder F31.9 [place] [address] [facility] [place] [address] May, [facility] [address] [facility] [place] [id number] May, Encounter for immunization Z23 [place] [id number] [place] [address] Mar, Encounter for Medicare annual wellness e xam Z00.00 ; Mood disorder F39 ; Chronic hepatitis C without hepatic coma B18.2 ; Lower limb amputation, below knee Z89.519 ; Attention deficit disorder (ADD) in adult F98.8 ; Insomnia, unspecified type G47.00 ; Hepatic hemangioma D18.03 and Encounter for smoking cessation counseling Z71.6 [facility] [address] [address] Mar, [facility] [address] [address] Feb, [place] [address] [address] Feb, RICK (generalized anxiety disorder) F41.1 and Bipolar disorder F31.9 [place] [address] [address] Feb, RICK (generalized anxiety disorder) F41.1 and Bipolar disorder F31.9 [place] [address] [address] Jan, [place] [address] [address] Jan, RICK (generalized anxiety disorder) F41.1 and Bipolar disorder F31.9 [place] [address] [address] Jan, [place] [address] [address] Jan, [place] [address] [address] Jan, RICK (generalized anxiety disorder) F41.1 and Bipolar disorder F31.9 [facility] [address] [address] December, [place] [address] [address] December, [facility] [address] [address] December, RIKC (generalized anxiety disorder) F41.1 and Bipolar disorder F31.9 [address] [address] [address] Nov, [place] [address] [id number] Nov, [place] [address] [address] Nov, Mood disorder F39 ; RICK (generalized anx iety disorder) F41.1 and Bipolar disorder F31.9 [place] [address] [address] Oct, Routine gynecological examination Z01.41 9 ; Screening for STD (sexually transmitted disease) Z11.3 ; Hep C w/o coma, chronic B18.2 and Candidal vaginitis B37.[address] [address] Oct, Test anxiety F41.8 and Insomnia, unspeci fied type G47.[address] [address] Sep, Hep C w/o coma, chronic B18.[address] [address] Sep, [address] [facility] [address] Sep, [address] [address] Sep, [facility] [address] [place] [id number] [address] [place] [address] Aug, GERD (gastroesophageal reflu x disease) K21.[address] [address] Aug, [facility] [address] [place] [id number] [place] [address] Aug, Surgical wound infection T81 .49XA [place] [address] [address] May, History of left below knee amputation Z8 9.512 and Tendon cysts M67.80 [facility] [address] [address] May, [facility] [address] [address] May, [facility] [address] [address] May, History of left below knee amputation Z8 9.512 [place] [address] [address] Apr, Chronic hepatitis C without hepatic coma B18.2 ; Hepatic hemangioma D18.03 and Encounter for immunization Z23 [place] [address] [address] Apr, Liver mass R16.0 [place] [address] [address] Mar, Liver mass R16.0 [place] [address] [address] Mar, [place] [address] [address] Mar, Generalized anxiety disorder F41.1 ; Low er limb amputation, below knee Z89.519 and Hep C w/o coma, chronic B18.2 [place] [id number] [place] [address] Mar, Liver mass R16.0 [place] [address] [address] Feb, Hep C w/o coma, chronic B18.2 and Weight gain R63.5 [facility] [address] [facility] [place] [address] Feb, Hepatitis C antibody positive in blood R76.8 [place] [address] [address] Jan, Hep C w/o coma, chronic B18.2 [facility] [id number] [place] [address] Jan, [facility] [address] [address] Jan, Hep C w/o coma, chronic B18.2 [facility] [address] [address] Jan, Chronic hepatitis C without hepatic coma B18.2 [facility] [address] [address] Jan, [facility] [address] [place] [address] Jan, Hepatitis C antibody positive in blood R76.8 [place] [address] [address] December, Chronic hepatitis C without hepatic coma B18.2 and Encounter for immunization Z23 [place] [id number] [place] [address] December, [facility] [address] [id number] [address] December, Hepatitis C antibody positive in blood R76.8 [place] [id number] [place] [address] December, Hepatitis C antibody positive in blood R 76.8 [place] [id number] [place] [address] December, [facility] [address] [id number] [address] December, History of left below knee amputation Z89.512 ; Other acute postprocedural pain G89.18 and Other complications of amputation stump T87.89 [facility] [id number] [place] [address] Nov, Generalized anxiety disorder F41.1 and A ttention deficit disorder (ADD) in adult F98.8 [place] [id number] [place] [address] 23 Nov, 2017 History of hepatitis C Z86.19 ; History of methamphetamine abuse Z87.898 ; Lower limb amputation, below knee Z89.519 and Encounter to establish care Z76.89 [facility] [address] [facility] [place] [address] 14 Nov, 2014 [facility] [address] [facility] [place] [address] Nov, [place] [address] [facility] [place] [id number] Jun, [facility] [id number] [place] [address] Jun, [facility] [id number] [place] [address] May, [facility] [address] [facility] [place] [address] May, [facility] [address] [place], [place] [address] 57 Apr, [facility] [id number] [place] [address] Apr, [facility] [address] [place], [place] [address] 57 Mar, [facility] [id number] [place] [address] Mar, [facility] [id number] [place] [address] Mar, [facility] [address] [place] [address] 57 Mar, [facility] [id number] [place] [address] Jan, [facility] [id number] [place] [address] Oct, [facility] [id number] [place] [address] Oct, [facility] [id number] [place] [address] Sep, [facility] [address] [id number] [place] [address] Sep, [facility] [id number] [place] [address] Aug, [facility] [id number] [place] [address] Aug, [facility] [id number] [place] [address] Aug, [facility] [id number] [place] [address] Aug, [facility] [id number] [place] [address] Jul, [facility] [id number] [place] [address] Jul, [facility] [id number] [place] [address] Jun, [facility] [id number] [place] [address] Jun, [facility] [id number] [place] [address] Jun, [facility] [id number] [place] [address] May, IMMUNIZATIONS No Known Immunizations SOCIAL HISTORY Never Assessed REASON FOR VISIT PLAN OF CARE VITAL SIGNS MEDICATIONS Unknown Medications RESULTS No Results PROCEDURES Procedure Date Ordered Result Body Site PSYCH DIAGNOSTIC EVALUATION Aug 26, 2013 INSTRUCTIONS MEDICATIONS ADMINISTERED No Known Medications MEDICAL [...]
--- OUTSIDE RECORDS SUMMARY | 2020-01-17 13:14 | XMS REPORT ---
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 Name Role Phone Migration, Doctor Unavailable Unavailable PROBLEMS Type Condition ICD9-CM Code WXU19-SG Code Onset Dates Condition S tatus SNOMED Code Problem Hepatitis C antibody positive in blood R76.8 Active 054646841 Problem Attention deficit disorder (ADD) in adult F98.8 Active 544820767 Problem Lower limb amputation, below knee Z89.519 Active 364606844 Problem Chronic hepatitis C without hepatic coma B18.2 Resolved 516741646 Problem Hepatic hemangioma D18.03 Active 9 1232713 Problem GERD (gastroesophageal reflux disease) K21.9 Active 061613682 Problem Mood disorder F39 Active 099191 05 Problem History of left below knee amputation Z89.512 Active 553470673 Problem Hepatitis C virus infection resolved after antiv iral drug therapy Z86.19 Active 096955283 Problem Generalized anxiety disorder F41.1 A ctive 94461973 Problem Test anxiety F41.8 Active 5115840 2 Problem Insomnia, unspecified type G47.00 Act negin 385473317 Problem Bipolar disorder F31.9 Active 137 06902 Problem RICK (generalized anxiety disorder) F41.1 Active 51781678 ALLERGIES No Information ENCOUNTERS Encounter Location Date Diagnosis [facility] [address] [id number] [address] [place] [phone] Oct, Bipolar disorder F31.9 ; Gen eralized anxiety disorder F41.1 and Tobacco abuse Z72.0 [facility] [address] [facility] [id number] [place] [address] Oct, [facility] [address] [facility] [id number] [place] [address] Oct, [facility] [address] [facility] [id number] [address] [place] [address] Oct, [facility] [id number] [place] [phone] 09 Oct, 2019 [facility] [id number] [address] [place] [phone] Oct, [facility] [address] [address] Sep, [place] [address] [address] Sep, [facility] [address] [address] Aug, History of left below knee a mputation Z89.512 and Bipolar disorder F31.9 [place] [address] [address] Jul, Candidiasis B37.9 and Lower limb amputation, below knee Z89.519 [place] [address] [address] Jul, [place] [address] [address] Jun, [place] [address] [address] Jun, Ganglion cyst of dorsum of r ight wrist M67.431 [facility] [address] [address] Jun, Ganglion cyst M67.40 [place] [address] [address] May, RICK (generalized anxiety dis order) F41.1 and Bipolar disorder F31.9 [place] [address] [address] May, [place] [address] [id number] [place] [id number] May, Encounter for immunization Z23 [place] [address] [address] Mar, Encounter for Medicare annua l wellness exam Z00.00 ; Mood disorder F39 ; Chronic hepatitis C without hepatic coma B18.2 ; Lower limb amputation, below knee Z89.519 ; Attention deficit disorder (ADD) in adult F98.8 ; Insomnia, unspecified type G47.00 ; Hepatic hemangioma D18.03 and Encounter for smoking cessation counseling Z71.6 [facility] [address] [id number] [address] [place] [address] Mar, [facility] [address] [id number] [address] [place] [phone] Feb, [facility] [address] [id number] [address] [place] [phone] Feb, RICK (generalized anxiety dis order) F41.1 and Bipolar disorder F31.9 [facility] [address] [id number] [address] [place] [address] Feb, RICK (generalized anxiety dis order) F41.1 and Bipolar disorder F31.9 [facility] [address] [id number] [address] [place] [phone] Jan, [facility] [address] [id number] [address] [place] [address] Jan, RICK (generalized anxiety dis order) F41.1 and Bipolar disorder F31.9 [facility] [address] [id number] [address] [place] [phone] Jan, [facility] [address] [id number] [address] [place] [phone] Jan, [facility] [address] [id number] [address] [place] [phone] Jan, RICK (generalized anxiety dis order) F41.1 and Bipolar disorder F31.9 [facility] [address] [id number] [address] [place] [phone] December, [facility] [address] [id number] [address] [place] [phone] December, [facility] [address] [facility] [id number] [address] [place] [phone] December, RICK (generalized anxiety dis order) F41.1 and Bipolar disorder F31.9 [facility] [address] [facility] [id number] [address] [place] [phone] Nov, [facility] [id number] [place] [address] Nov, [facility] [address] [id number] [address] [place] [phone] Nov, Mood disorder F39 ; RICK (gen eralized anxiety disorder) F41.1 and Bipolar disorder F31.9 [place] [address] [place] [id number] [place] [address] Oct, Routine gynecological examin ation Z01.419 ; Screening for STD (sexually transmitted disease) Z11.3 ; Hep C w/o coma, chronic B18.2 and Candidal vaginitis B37.3 [facility] [address] [place] [id number] [address] [place] [address] Oct, Test anxiety F41.8 and Insom keshawn, unspecified type G47.00 [facility] [address] [id number] [place] [address] Sep, Hep C w/o coma, chronic B18. 2 [facility] [address] [facility] [id number] [address] [place] [phone] Sep, [facility] [id number] [place] [id number] Sep, [facility] [address] [id number] [address] [place] [phone] Sep, [facility] [address] [facility] [id number] [address] [place] [phone] Aug, GERD (gastroesophageal reflu x disease) K21.9 [facility] [address] [facility] [id number] [address] [place] [address] Aug, [facility] [address] [facility] [id number] [address] [place] [address] Aug, Surgical wound infection T81 .49XA [facility] [address] [facility] [id number] [address] [place] [address] May, History of left below knee a mputation Z89.512 and Tendon cysts M67.80 [facility] [address] [facility] [id number] [address] [place] [phone] May, [facility] [address] [facility] [id number] [address] [place] [address] May, [facility] [address] [facility] [id number] [address] [place] [address] May, History of left below knee a mputation Z89.512 [facility] [address] [facility] [id number] [address] [place] [address] Apr, Chronic hepatitis C without hepatic coma B18.2 ; Hepatic hemangioma D18.03 and Encounter for immunization Z23 [facility] [address] [facility] [id number] [address] [place] [address] Apr, Liver mass R16.0 [facility] [address] [facility] [id number] [address] [place] [address] Mar, Liver mass R16.0 [facility] [address] [facility] [id number] [address] [place] [phone] Mar, [facility] [address] [facility] [id number] [address] [place] [phone] Mar, Generalized anxiety disorder F41.1 ; Lower limb amputation, below knee Z89.519 and Hep C w/o coma, chronic B18.2 [facility] [address] [facility] [id number] [address] [place] [address] Mar, Liver mass R16.0 [facility] [address] [facility] [id number] [address] [place] [phone] Feb, Hep C w/o coma, chronic B18. 2 and Weight gain R63.5 [facility] [address] [facility] [id number] [place] [id number] Feb, Hepatitis C antibody positive in blood R 76.8 [facility] [address] [facility] [id number] [address] [place] [phone] Jan, Hep C w/o coma, chronic B18. 2 [facility] [address] [facility] [id number] [address] [place] [phone] Jan, [facility] [address] [facility] [id number] [address] [place] [phone] Jan, Hep C w/o coma, chronic B18. 2 [facility] [address] [facility] [id number] [address] [place] [address] Jan, Chronic hepatitis C without hepatic coma B18.2 [facility] [address] [facility] [id number] [address] [place] [phone] Jan, [facility] [address] [facility] [id number] [place] [id number] Jan, Hepatitis C antibody positive in blood R 76.8 [facility] [address] [facility] [id number] [address] [place] [phone] December, Chronic hepatitis C without hepatic coma B18.2 and Encounter for immunization Z23 [facility] [address] [facility] [id number] [address] [place] [phone] December, [facility] [address] [facility] [id number] [place] [id number] December, Hepatitis C antibody positive in blood R 76.8 [facility] [address] [facility] [id number] [address] [place] [phone] December, Hepatitis C antibody positiv e in blood R76.8 [facility] [address] [facility] [id number] [address] [place] [phone] December, [facility] [address] [id number] [place] [id number] December, History of left below knee amputation Z8 9.512 ; Other acute postprocedural pain G89.18 and Other complications of amputation stump T87.89 [facility] [address] [id number] [address] [place] [phone] Nov, Generalized anxiety disorder F41.1 and Attention deficit disorder (ADD) in adult F98.8 [facility] [address] [id number] [address] [place] [address] Nov, 2018 History of hepatitis C Z86.1 9 ; History of methamphetamine abuse Z87.898 ; Lower limb amputation, below knee Z89.519 and Encounter to establish care Z76.89 [facility] [address] [id number] [address] [place] [phone] 14 Nov, 2014 [facility] [address] [id number] [address] [place] [phone] 13 Nov, 2014 [facility] [address] [id number] [place] [id number] Jun, [facility] [address] [id number] [address] [place] [phone] Jun, [facility] [address] [id number] [address] [place] [phone] May, [facility] [address] [id number] [address] [place] [phone] May, [facility] [address] [place] [id number] Apr, [facility] [address] [id number] [address] [place] [phone] Apr, [facility] [address] [place] [id number] Mar, [facility] [address] [id number] [address] [place] [phone] Mar, [facility] [address] [id number] [address] [place] [address], [place] [address] Mar, [facility] [address] [place] [place] [id number] Mar, [facility] [address] [id number] [address] [place] [address], [place] [address] Jan, [facility] [address] [id number] [address] [place] [address], [place] [address] Oct, [facility] [address] [id number] [address] [place] [address], [place] [address] Oct, [facility] [address] [id number] [address] [place] [address], [place] [address] Sep, [facility] [address] [id number] [address] [place] [address], [place] [address] Sep, [facility] [address] [id number] [address] [place] [address], [place] [address] Aug, [facility] [address] [id number] [address] [place] [address], [place] [address] Aug, [facility] [address] [id number] [address] [place] [address], [place] [address] Aug, [facility] [address] [id number] [address] [place] [address], [place] [address] Aug, [facility] [address] [id number] [address] [place] [address], [place] [address] Jul, [facility] [address] [id number] [address] [place] [address], [place] [address] Jul, [facility] [address] [id number] [address] [place] [address], [place] [address] Jun, [facility] [address] [id number] [address] [place] [address], [place] [address] Jun, [facility] [address] [id number] [address] [place] [address], [place] [address] Jun, [facility] [address] [facility] [id number] [address] [place] [address] May, IMMUNIZATIONS No Known Immunizations SOCIAL HISTORY Never Assessed REASON FOR VISIT PLAN OF CARE VITAL SIGNS MEDICATIONS No Known Medications RESULTS No Results [...]
--- OUTSIDE RECORDS SUMMARY | 2020-01-17 13:16 | XMS REPORT | Continuity of Care Document ---
Author Organization Unknown Address Unknown Phone Unavailable Allergies Active Description Code Type Severity Reaction Onset Reported/Identified Relationship to Patient Clinical Status Yes povidone-iodine [id number] D rug Allergy Mild N/A 02/24/2009 Yes Penicillins [id number] Drug Aller gy Mild N/A 12/01/2012 Yes Penicillins Drug Allergy N/A N/A 03/23/2014 Yes Betadine Drug Allergy N/A N/A 06/16/2014 Yes povidone-iodine [id number] D rug Allergy Mild BLISTERS 07/10/2018 Medications [...] STELLA RAINESTREMAINE 307.47 SI DYSSOMNIA NOS 06/09/2008 SETLLA RAINESTREMAINE 31 6 PF PSYCHIC FACTORS MED [...] V58.69 OTH MED,LT,CURRENT USE 10/23/2013 PETE RM PIECE JOBBER Ot 079.99 VIRAL INFECTION NOS 10/23/2013 PETE RM APRN Ot 786 .2 COUGH 03/23/2014 TREMAINE DOUGLAS APRN 68 2.6 CELLULITIS [...] APRN 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 20 08/23/2015 AGUSTIN OLIVO DO M62.838 OTHER MUSCLE SPASM 08/23/2015 AGUSTIN OLIVO DO M79.605 PAIN IN LEFT LEG 03/03/2018 REVEAL ROSETTE BUSCH Ot 730. 20 OSTEOMYELITIS NOS-UNSPEC 03/03/2018 REVEAL ROSETTE BUSCH Ot 730. 20 OSTEOMYELITIS NOS-UNSPEC 03/03/2018 REVEAL ROSETET BUSCH Ot 730. 27 OSTEOMYELITIS NOS-ANKLE 03/03/2018 REVEAL ROSETTE BUSCH Ot V72. 84 EXAM PRE-OPERATIVE NOS 03/03/2018 REVEAL ROSETTE BUSCH Ot 730. 27 OSTEOMYELITIS NOS-ANKLE 03/03/2018 REVEAL ROSETTE BUSCH Ot V72. 63 PRE-PROCEDURAL LABORATORY EXAMINATION 03/03/2018 REVEAL ROSETTE BUSCH Ot V74. 8 SCREEN-BACTERIAL DIS NEC 03/03/2018 ROSETTE SOSA MD Ot 997. 62 AMPUT STUMP COMP,INFECT CHRONIC 04/01/2018 ASHISH JAIME MD, Ot B18 .2 CHRONIC VIRAL HEPATITIS C 04/02/2018 ASHISH JAIME MD, Ot K76 .9 LIVER DISEASE, UNSPECIFIED 04/02/2018 ASHISH JAIME MD Ot R16 .0 HEPATOMEGALY, NOT ELSEWHERE CLASSIFIED 04/04/2018 ASHISH JAIME MD, Ot B18 .2 CHRONIC VIRAL HEPATITIS C 04/08/2018 ASHISH JAIME MD, Ot K76 .9 LIVER DISEASE, UNSPECIFIED 04/08/2018 ASHISH JAIME MD Ot R16 .0 HEPATOMEGALY, NOT ELSEWHERE CLASSIFIED 04/23/2018 Ot R16.0 HEPA TOMEGALY, NOT ELSEWHERE CLASSIFIED 04/23/2018 ASHISH JAIME MD, Ot K76 .9 LIVER DISEASE, UNSPECIFIED 04/23/2018 ASHISH JAIME MD Ot R16 .0 HEPATOMEGALY, NOT ELSEWHERE CLASSIFIED 04/29/2018 ASHISH JAIME MD Ot K76 .9 LIVER DISEASE, UNSPECIFIED 04/29/2018 [...] 997. 62 AMPUT STUMP COMP,INFECT CHRONIC 07/11/2018 YENI MD, ASHISH A Ot B18 .2 CHRONIC VIRAL HEPATITIS C 07/11/2018 Ot R16.0 HEPA TOMEGALY, NOT ELSEWHERE CLASSIFIED 07/11/2018 ASHISH JAIME MD, Ot K76 .9 LIVER DISEASE, UNSPECIFIED 07/11/2018 ASHISH JAIME MD, Ot R16 .0 HEPATOMEGALY, NOT ELSEWHERE CLASSIFIED 07/14/2018 ASHISH JAIME MD, Ot R16 .0 HEPATOMEGALY, NOT ELSEWHERE CLASSIFIED 07/17/2018 YUDI COLEMAN MD, Ot B19.20 UNSPECIFIED VIRAL HEPATITIS C WITHOUT HE 07/17/2018 YUDI COLEMAN MD, Ot F17.21 0 NICOTINE [...] ABSENCE OF LEFT LEG BELOW KNEE 08/02/2018 SAHISH JAIME MD, Ot R16 .0 HEPATOMEGALY, NOT ELSEWHERE CLASSIFIED 09/05/2018 YAJAIRA SCHAFER MD, Ot F17.218 NICOTINE DEPENDENCE, CIGARETTES, W OTH D 09/05/2018 YAJAIRA SCHAFER MD, Ot I70.242 ATHSCL ELIM IRA ARTERIES OF LEFT LEG W ULC 09/05/2018 YAJAIRA SCHAFER MD, Ot L97.222 NON-PRESSURE CHRONIC ULCER OF LEFT CALF 09/05/2018 YAJAIRA SCHAFER MD, Ot T65.222A TOXIC EFFECT OF TOBACCO CIGARETTES, SELF 09/05/2018 YAJAIRA SCHAEFR MD, Ot T81.31XA DISRUPTION OF EXTERNAL OPERATION (SURGIC 09/05/2018 YAJAIRA SCHAFER MD, Ot F17.218 NICOTINE DEPENDENCE, CIGARETTES, W OTH D 09/05/2018 YAJAIRA SCHAFER MD Ot I70.242 ATHSCL ELIM IRA ARTERIES OF LEFT LEG W [facility] 09/05/2018 YAJAIRA SCHAFER MD, Ot L97.222 NON-PRESSURE CHRONIC ULCER OF LEFT CALF 09/05/2018 YAJAIRA SCHAFER MD Ot T65.222A TOXIC EFFECT OF TOBACCO CIGARETTES, SELF 09/05/2018 YAJAIRA SCHAFER MD, Ot T81.31XA DISRUPTION OF EXTERNAL OPERATION (SURGIC 09/09/2018 YAJAIRA SCHAFER MD, Ot F17.218 NICOTINE DEPENDENCE, CIGARETTES, W OTH D 09/09/2018 YAJAIRA SCHAFER MD, Ot I70.242 ATHSCL ELIM IRA ARTERIES OF LEFT LEG W [facility] 09/09/2018 YAJAIRA SCHAFER MD, Ot L97.222 NON-PRESSURE CHRONIC ULCER OF LEFT CALF 09/09/2018 YAJAIRA SCHAFER MD, Ot T65.222A TOXIC EFFECT OF TOBACCO CIGARETTES, SELF 09/09/2018 YAJAIRA SCHAFER MD, Ot T81.31XA DISRUPTION OF EXTERNAL OPERATION (SURGIC 09/12/2018 YAJAIRA SCHAFER MD, Ot F17.218 NICOTINE DEPENDENCE, CIGARETTES, W OTH D 09/12/2018 YAJAIRA SCHAFER MD, Ot I70.242 ATHSCL ELIM IRA ARTERIES OF LEFT LEG W [facility] 09/12/2018 YAJAIRA SCHAFER MD, Ot L97.222 NON-PRESSURE CHRONIC ULCER OF LEFT CALF 09/12/2018 YAJAIRA SCHAFER MD, Ot T65.222A TOXIC EFFECT OF TOBACCO CIGARETTES, SELF 09/12/2018 YAJAIRA SCHAFER MD, Ot T81.31XA DISRUPTION OF EXTERNAL OPERATION (SURGIC 09/18/2018 YAJAIRA SCHAFER MD, Ot F17.218 NICOTINE DEPENDENCE, CIGARETTES, W OTH D 09/18/2018 YAJAIRA SCHAFER MD, Ot I70.242 ATHSCL ELIM IRA ARTERIES OF LEFT LEG W [facility] 09/18/2018 YAJAIRA SCHAFER MD, Ot L97.222 NON-PRESSURE CHRONIC ULCER OF LEFT CALF 09/18/2018 YAJAIRA SCHAFER MD, Ot T65.222A TOXIC EFFECT OF TOBACCO CIGARETTES, SELF 09/18/2018 YAJAIRA SCHAFER MD, Ot T81.31XA DISRUPTION OF EXTERNAL OPERATION (SURGIC 09/24/2018 YAJAIRA SCHAFER MD, Ot F17.218 NICOTINE DEPENDENCE, CIGARETTES, W OTH D 09/24/2018 YAJAIRA SCHAFER MD, Ot I70.242 ATHSCL ELIM IRA ARTERIES OF LEFT LEG W [facility] 09/24/2018 YAJAIRA SCHAFER MD, Ot L97.222 NON-PRESSURE CHRONIC ULCER OF LEFT CALF 09/24/2018 YAJAIRA SCHAFER MD, Ot T65.222A TOXIC EFFECT OF TOBACCO CIGARETTES, SELF 09/24/2018 YAJAIRA SCHAFER MD, Ot T81.31XA DISRUPTION OF EXTERNAL OPERATION (SURGIC 10/01/2018 YAJAIRA SCHAFER MD, Ot F17.218 NICOTINE DEPENDENCE, CIGARETTES, W OTH D 10/01/2018 YAJAIRA SCHAFER MD, Ot I70.242 ATHSCL ELIM IRA ARTERIES OF LEFT LEG W [facility] 10/01/2018 YAJAIRA SCHAFER MD, Ot L97.222 NON-PRESSURE CHRONIC ULCER OF LEFT CALF 10/01/2018 YAJAIRA SCHAFER MD, Ot T65.222A TOXIC EFFECT OF TOBACCO CIGARETTES, SELF 10/01/2018 YAJAIRA SCHAFER MD, Ot T81.31XA DISRUPTION OF EXTERNAL OPERATION (SURGIC 10/02/2018 YAJAIRA SCHAFER MD, Ot F17.218 NICOTINE DEPENDENCE, CIGARETTES, W OTH D 10/02/2018 YAJAIRA SCHAFER MD, Ot I70.242 ATHSCL ELIM IRA ARTERIES OF LEFT LEG W [facility] 10/02/2018 YAJAIRA SCHAFER MD, Ot L97.222 NON-PRESSURE CHRONIC ULCER OF LEFT CALF 10/02/2018 YAJAIRA SCHAFER MD, Ot T65.222A TOXIC EFFECT OF TOBACCO CIGARETTES, SELF 10/02/2018 YAJAIRA SCHAFER MD, Ot T81.31XA DISRUPTION OF EXTERNAL OPERATION (SURGIC 10/07/2018 YAJAIRA SCHAFER MD, Ot F17.218 NICOTINE DEPENDENCE, CIGARETTES, W OTH D 10/07/2018 YAJAIRA SCHAFER MD, Ot I70.242 ATHSCL ELIM IRA ARTERIES OF LEFT LEG W [facility] 10/07/2018 YAJAIRA SCHAFER MD, Ot L97.222 NON-PRESSURE CHRONIC ULCER OF LEFT CALF 10/07/2018 YAJAIRA SCHAFER MD, Ot T65.222A TOXIC EFFECT OF TOBACCO CIGARETTES, SELF 10/07/2018 YAJAIRA SCHAFER MD, Ot T81.31XA DISRUPTION OF EXTERNAL OPERATION (SURGIC 10/17/2018 YAJAIRA SCHAFER MD, Ot F17.218 NICOTINE DEPENDENCE, CIGARETTES, W OTH D 10/17/2018 YAJAIRA SCHAFER MD, Ot I70.242 ATHSCL ELIM IRA ARTERIES OF LEFT LEG W ULC 10/17/2018 YAJAIRA SCHAFER MD, Ot L97.222 NON-PRESSURE CHRONIC ULCER OF LEFT CALF 10/17/2018 YAJAIRA SCHAFER MD, Ot T65.222A TOXIC EFFECT OF TOBACCO CIGARETTES, SELF 10/17/2018 YAJAIRA SCHAFER MD, Ot T81.31XA DISRUPTION OF EXTERNAL OPERATION (SURGIC 10/20/2018 YAJAIRA SCHAFER MD, Ot F17.218 NICOTINE DEPENDENCE, CIGARETTES, W OTH D 10/20/2018 YAJAIRA SCHAFER MD, Ot I70.242 ATHSCL ELIM IRA ARTERIES OF LEFT LEG W ULC 10/20/2018 YAJAIRA SCHAFER MD, Ot L97.222 NON-PRESSURE CHRONIC ULCER OF LEFT CALF 10/20/2018 YAJAIRA SCHAFER MD, Ot T65.222A TOXIC EFFECT OF TOBACCO CIGARETTES, SELF 10/20/2018 YAJAIRA SCHAFER MD, Ot T81.31XA DISRUPTION OF EXTERNAL OPERATION (SURGIC 09/18/2019 TODD ALLEN MD, Ot M79.645 PAIN IN LEFT FINGER(S) 09/18/2019 TODD ALLEN MD, Ot S61.211A LACERATION W/O FB OF L IDX FNGR W/O NUVIA 09/18/2019 TODD ALLEN MD, Ot W26.0XXA CONTACT WITH KNIFE, INITIAL ENCOUNTER 09/18/2019 TODD ALLEN MD, Ot Z23 ENCOUNTER FOR IMMUNIZATION 09/18/2019 TODD ALLEN MD, Ot Z82.49 FAMILY HX OF ISCHEM HEART DIS AND OTH DI 09/18/2019 TODD ALLEN MD, Ot Z87.891 PERSONAL HISTORY OF NICOTINE DEPENDENCE 09/18/2019 TODD ALLEN MD, Ot Z88.0 ALLERGY STATUS TO PENICILLIN 09/18/2019 TODD ALLEN MD, Ot Z88.8 ALLERGY STATUS TO OT DRUG/MEDS/BIOL SUB 09/25/2019 TODD ALLEN MD, Ot M79.645 PAIN IN LEFT FINGER(S) 09/25/2019 BRUEGGEMANN MD, TODD T Ot S61.211A LACERATION W/O FB OF L IDX FNGR W/O NUVIA 09/25/2019 TODD ALLEN MD Ot W26.0XXA CONTACT WITH KNIFE, INITIAL ENCOUNTER 09/25/2019 TODD ALLEN MD Ot Z23 ENCOUNTER FOR IMMUNIZATION 09/25/2019 TODD ALLEN MD Ot Z82.49 FAMILY HX OF ISCHEM HEART DIS AND OTH DI 09/25/2019 TODD ALLEN MD Ot Z87.891 PERSONAL HISTORY OF NICOTINE DEPENDENCE 09/25/2019 TODD ALLEN MD Ot Z88.0 ALLERGY STATUS TO PENICILLIN 09/25/2019 TODD ALLEN MD Ot Z88.8 ALLERGY STATUS TO OTH DRUG/MEDS/BIOL SUB 09/27/2019 MARIN BUSCH, PARKER Espinoza Ot S61.211D LACERATION W/O FB OF L IDX FNGR W/O NUVIA 09/27/2019 MARIN BUSCH, PARKER J Ot X58.XXXD EXPOSURE TO OTHER SPECIFIED FACTORS, SUB 09/30/2019 TIFFANY BUSCH, TODD Guillaume Ot M79.645 PAIN IN LEFT FINGER(S) 09/30/2019 TODD ALLEN MD Ot S61.211A LACERATION W/O FB OF L IDX FNGR W/O NUVIA 09/30/2019 TODD ALLEN MD Ot W26.0XXA CONTACT WITH KNIFE, INITIAL ENCOUNTER 09/30/2019 TODD ALLEN MD Ot Z23 ENCOUNTER FOR IMMUNIZATION 09/30/2019 TODD ALLEN MD Ot Z82.49 FAMILY HX OF ISCHEM HEART DIS AND OTH DI 09/30/2019 TODD ALLEN MD Ot Z87.891 PERSONAL HISTORY OF NICOTINE DEPENDENCE 09/30/2019 TODD ALLEN MD Ot Z88.0 ALLERGY STATUS TO PENICILLIN 09/30/2019 TODD ALLEN MD Ot Z88.8 ALLERGY STATUS TO OTH DRUG/MEDS/BIOL SUB 10/01/2019 MARIN BUSCH, PARKER J Ot S61.211D LACERATION W/O FB OF L IDX FNGR W/O NUVIA 10/01/2019 MARIN BUSCH, PARKER Espinoza Ot X58.XXXD EXPOSURE TO OTHER SPECIFIED FACTORS, SUB 10/08/2019 NATACHA DO, FAHEEM K Ot E11.9 TYPE 2 DIABETES MELLITUS WITHOUT COMPLIC 10/08/2019 NATACHA DO, FAHEEM K Ot E86.0 DEHYDRATION 10/08/2019 NATACHA DO, FAHEEM K Ot F17.210 NICOTINE DEPENDENCE, CIGARETTES, UNCOMPL 10/08/2019 NATACHA DO, FAHEEM K Ot R11.2 NAUSEA WITH VOMITING, UNSPECIFIED 10/08/2019 NATACHA DO, FAHEEM K Ot R19.7 DIARRHEA, UNSPECIFIED 10/08/2019 NATACHA DO, FAHEEM K Ot Z82.49 FAMILY HX OF ISCHEM HEART DIS AND OTH DI 10/08/2019 NATACHA DO, FAHEEM K Ot Z86.73 PRSNL HX OF TIA (TIA), AND CEREB INFRC W 10/08/2019 NATACHA DO, FAHEEM K Ot Z88.0 ALLERGY STATUS TO PENICILLIN 10/08/2019 NATACHA DO, FAHEEM K Ot Z88.8 ALLERGY STATUS TO OTH DRUG/MEDS/BIOL SUB 10/08/2019 NATACHA DO, FAHEEM K Ot Z89.512 ACQUIRED ABSENCE OF LEFT LEG BELOW KNEE 10/14/2019 NATACHA DO, FAHEEM K Ot E11.9 TYPE 2 DIABETES MELLITUS WITHOUT COMPLIC 10/14/2019 NATACHA DO, FAHEEM K Ot E86.0 DEHYDRATION 10/14/2019 NATACHA DO, FAHEEM K Ot F17.210 NICOTINE DEPENDENCE, CIGARETTES, UNCOMPL 10/14/2019 NATACHA DO, FAHEEM K Ot R11.2 NAUSEA WITH VOMITING, UNSPECIFIED 10/14/2019 NATACHA DO, FAHEEM K Ot R19.7 DIARRHEA, UNSPECIFIED 10/14/2019 NATACHA DO, FAHEME K Ot Z82.49 FAMILY HX OF ISCHEM HEART DIS AND OTH DI 10/14/2019 NATACHA DO, FAHEEM K Ot Z86.73 PRSNL HX OF TIA (TIA), AND CEREB INFRC W 10/14/2019 NATACHA DO, FAHEEM K Ot Z88.0 ALLERGY STATUS TO PENICILLIN 10/14/2019 NATACHA DO, FAHEEM K Ot Z88.8 ALLERGY STATUS TO OTH DRUG/MEDS/BIOL SUB 10/14/2019 NATACHA DO, FAHEEM Ibarra Ot Z89.512 ACQUIRED ABSENCE OF LEFT LEG BELOW KNEE 10/21/2019 [place] DO, FAHEEM Ibarra Ot E11.9 TYPE 2 DIABETES MELLITUS WITHOUT COMPLIC 10/21/2019 [place] DO, FAHEEM Ibarra Ot E86.0 DEHYDRATION 10/21/2019 NATACHA DO, FAHEEM Ibarra Ot F17.210 NICOTINE DEPENDENCE, CIGARETTES, UNCOMPL 10/21/2019 [place] DO FAHEEM Ibarra Ot R11.2 NAUSEA WITH VOMITING, UNSPECIFIED 10/21/2019 NATACHA DO, FAHEEM K Ot R19.7 DIARRHEA, UNSPECIFIED 10/21/2019 NATACHA DO, FAHEEM Ibarra Ot Z82.49 FAMILY HX OF ISCHEM HEART DIS AND OTH DI 10/21/2019 [facility], FAHEEM Ibarra Ot Z86.73 PRSNL HX OF TIA (TIA), AND CEREB INFRC W 10/21/2019 [facility], FAHEEM Ibarra Ot Z88.0 ALLERGY STATUS TO PENICILLIN 10/21/2019 [facility], FAHEEM Ibarra Ot Z88.8 ALLERGY STATUS TO OTH DRUG/MEDS/BIOL SUB 10/21/2019 [facility], FAHEEM Ibarra Ot Z89.512 ACQUIRED ABSENCE OF LEFT LEG BELOW KNEE 01/04/2020 YAJAIRA SCHAFER MD Ot F17.218 NICOTINE DEPENDENCE, CIGARETTES, W OTH D 01/04/2020 YAJAIRA SCHAFER MD Ot I70.242 ATHSCL ELIM IRA ARTERIES OF LEFT LEG W ULC 01/04/2020 YAJAIRA SCHAFER MD Ot L97.222 NON-PRESSURE CHRONIC ULCER OF LEFT CALF 01/04/2020 YAJAIRA SCHAFER MD Ot T65.222A TOXIC EFFECT OF TOBACCO CIGARETTES, SELF 01/04/2020 YAJAIRA SCHAFER MD Ot T81.31XA DISRUPTION OF EXTERNAL OPERATION (SURGIC 01/15/2020 ASHISH JAIME MD Ot B18 .2 CHRONIC VIRAL HEPATITIS C 01/15/2020 Ot R16.0 HEPA TOMEGALY, NOT ELSEWHERE CLASSIFIED 01/15/2020 ASHISH JAIME MD Ot K76 .9 LIVER DISEASE, UNSPECIFIED 01/15/2020 ASHISH JAIME MD, Ot R16 .0 HEPATOMEGALY, NOT ELSEWHERE CLASSIFIED 01/15/2020 ASHISH JAIME MD, Ot R16 .0 HEPATOMEGALY, NOT ELSEWHERE CLASSIFIED 01/15/2020 YAJAIRA SCHAFER MD, Ot F17.218 NICOTINE DEPENDENCE, CIGARETTES, W OTH D 01/15/2020 YAJAIRA SCHAFER MD Ot I70.242 ATHSCL ELIM IRA ARTERIES OF LEFT LEG W [facility] 01/15/2020 YAJAIRA SCHAFER MD, Ot L97.222 NON-PRESSURE CHRONIC ULCER OF LEFT CALF 01/15/2020 YAJAIRA SCHAFER MD, Ot T65.222A TOXIC EFFECT OF TOBACCO CIGARETTES, SELF 01/15/2020 YAJAIRA SCHAFER MD, Ot T81.31XA DISRUPTION OF EXTERNAL OPERATION (SURGIC 01/15/2020 YAJAIRA SCHAFER MD, Ot F17.218 NICOTINE DEPENDENCE, CIGARETTES, W OTH D 01/15/2020 YAJAIRA SCHAFER MD, Ot I70.242 ATHSCL ELIM IRA ARTERIES OF LEFT LEG W [facility] 01/15/2020 YAJAIRA SCHAFER MD, Ot L97.222 NON-PRESSURE CHRONIC ULCER OF LEFT CALF 01/15/2020 YAJAIRA SCHAFER MD, Ot T65.222A TOXIC EFFECT OF TOBACCO CIGARETTES, SELF 01/15/2020 YAJAIRA SCHAFER MD, Ot T81.31XA DISRUPTION OF EXTERNAL OPERATION (SURGIC 01/15/2020 YAJAIRA SCHAFER MD, Ot F17.218 NICOTINE DEPENDENCE, CIGARETTES, W OTH D 01/15/2020 YAJAIRA SCHAFER MD, Ot I70.242 ATHSCL ELIM IRA ARTERIES OF LEFT LEG W [facility] 01/15/2020 YAJAIRA SCHAFER MD, Ot L97.222 NON-PRESSURE CHRONIC ULCER OF LEFT CALF 01/15/2020 YAJAIRA SCHAFER MD, Ot T65.222A TOXIC EFFECT OF TOBACCO CIGARETTES, SELF 01/15/2020 YAJAIRA SCHAFER MD, Ot T81.31XA DISRUPTION OF EXTERNAL OPERATION (SURGIC 01/15/2020 YAJAIRA SCHAFER MD Ot F17.218 NICOTINE DEPENDENCE, CIGARETTES, W OTH D 01/15/2020 YAJAIRA SCHAFER MD Ot I70.242 ATHSCL ELIM IRA ARTERIES OF LEFT LEG W [facility] 01/15/2020 YAJAIRA SCHAFER MD, Ot L97.222 NON-PRESSURE CHRONIC ULCER OF LEFT CALF 01/15/2020 YAJAIRA SCHAFER MD, Ot T65.222A TOXIC EFFECT OF TOBACCO CIGARETTES, SELF 01/15/2020 YAJAIRA SCHAFER MD, Ot T81.31XA DISRUPTION OF EXTERNAL OPERATION (SURGIC Procedures Code Description Performed By Per eugene On 77.49 BONE BIOPSY NEC 05/04/[address] ANTIBIOTIC 05/04/2013 10484 PSYC H DIAGNOSTIC EVALUATION 08/26/2013 84.15 KRYSTYNAO W KNEE AMPUTAT NEC 08/31/2013 13155 XRAY HAND LEFT MIN 3 VIEWS 06/16/2014 31626 A1C (IN-HOUSE) 06/16/2014 Results Test Result Range [...] 3-50 ALT 324 U/L 6-29 REFERENCE ID [id number] NRG FOOTNOTE SEE NOTE NRG HEP C [...] MMEN NRG FREE TEXT EXTERNAL SUSCEPTIBILITY REPORTED 9, 1105. NRG QUANTITY OF GROWTH . NRG RML Sensitivity Panel - 09/03/18 11:06 Oxacillin [...] Log IU/mL NOT DETECTED LIPID PANEL - 04/30/19 09:46 CHOLESTEROL, TOTAL 153 mg/dL <200 HDL [...] Status Pt. Type Provider Facility Loc./Unit Complaint [id number] 08/17/2019 08:00:00 08/17/2019 23:59:5 9 [facility] Outpatient YENI BUSCH, ASHISH Patel [facility] [id number] 12/02/2018 08:20:00 Document Registration [id number] 10/28/2018 09:00:00 Document Registration [id number] 04/28/2018 10:00:00 Document Registration [id number] 03/03/2018 10:00:00 Document Registration [id number] 12/09/2017 08:40:00 Document Registration [email or web address] 07/10/2013 15:05:17 ACT Document Registration [id number] 08/23/2015 03:04:00 04:00:00 DIS ER AGUSTIN OLIVO DO [facility] ED [id number] 10/08/2019 18:56:00 22:20:00 DIS Emergency FAHEEM MANZANO DO [facility] ER VOMITING, DIARRHEA [id number] 09/27/2019 19:48:00 21:38:00 DIS Emergency MARIN BUSCH, PARKER Espinoza [facility] ER L POINTER FINGER STITCH REMOVAL [id number] 09/18/2019 15:50:00 17:26:00 DIS Emergency TIFFANY BUSCH, TODD Guillaume [facility] ER LACERATION ON F RODY [id number] 09/24/2018 09:28:00 019 23:59:59 CLS Outpatient YAJAIRA SCHAFER MD [facility] WOUNDCARE [id number] 09/17/2018 09:24:00 019 23:59:59 CLS Outpatient YAJAIRA SCHAFER MD [facility] WOUNDCARE [id number] 09/10/2018 09:15:00 019 23:59:59 CLS Outpatient YAJAIRA SCHAFER MD [facility] WOUNDCARE [id number] 09/03/2018 09:22:00 23:59:59 CLS Outpatient YAJAIRA SCHAFER MD [facility] WOUNDCARE [id number] 07/17/2018 09:00:00 018 16:00:00 DIS Outpatient YUDI COLEMAN MD [facility] SDC NEUROMA [id number] 07/11/2018 08:48:00 018 23:59:59 CLS Outpatient ASHISH JAIME MD [facility] RAD LIVER MASS [id number] 07/10/2018 05:40:00 018 09:58:00 DIS Outpatient YUDI COLEMAN MD [facility] PREOP NEUROMA [id number] 04/01/2018 09:15:00 018 23:59:59 CLS Outpatient ASHISH JAIME MD [facility] RAD LIVER MASS [id number] 02/27/2018 14:14:00 018 23:59:59 CLS Outpatient ASHISH JAIME MD [facility] RAD HEP C W/O COMA,CHRONIC [id number] 10/23/2013 15:24:00 014 16:56:00 DIS Emergency PETE RM APRN [facility] ER COUGH [id number] 09/21/2013 17:18:00 014 23:59:59 CLS Outpatient ROSETTE SOSA MD [facility] LABNPT LOCAL INFECTION OF WOUN D (L) LOWER STUMP [id number] 09/18/2013 01:04:00 014 02:51:00 DIS Emergency MELANY MANZANO DOA Stacey patel [facility] ER LEG PAIN [id number] 09/12/2013 04:05:00 014 05:02:00 DIS Emergency DAGO PEREZ MD [facility] ER LEFT LEG PAIN [id number] 08/31/2013 06:19:00 014 18:20:00 DIS Inpatient REVEAL ROSETTE BUSCH [facility] SURGICAL CHRONIC OSTEOMYLITIS; L EFT OSCALCIS [id number] 08/25/2013 16:17:00 23:59:59 CLS Outpatient REVEAL ROSETTE BUSCH [facility] PREOP CHRONIC OSTEOMYLITIS; L EFT KNEE OSCALCIS [id number] 05/04/2013 06:16:00 013 11:00:00 DIS Inpatient REVEAL ROSETTE BUSCH [facility] SURGICAL CHRONIC INFECTION LEFT OSCALCIS [id number] 04/29/2013 07:15:00 23:59:59 CLS Outpatient REVEAL ROSETTE BUSCH [facility] PREOP CHRONIC INFECTION OF LE FT OSCALCIS [id number] 04/23/2013 16:46:00 18:56:00 DIS Emergency PETE RM APRN [facility] ER LEFT FOOT PAIN [id number] 2013 13:23:00 23:59:59 CLS Outpatient REVEAL ROSETTE BUSCH [facility] RAD OSTEOMYELITIS [id number] 02/04/2013 10:07:00 23:59:59 CLS Outpatient REVEAL ROSETTE BUSCH [facility] RAD OSTEOMYELITIS LT HEEL [id number] 12/01/2012 19:06:00 15:35:00 DIS Inpatient TREMAINE MATA DO [facility] 4TH CELLULITIS LEFT FOOT [id number] 03/20/2018 07:36:00 Document Registration [id number] 01/22/2011 06:24:00 Document Registration [id number] 12/02/2014 12:59:00 12/02/2014 23:59:5 9 CLS Outpatient MARIANNE BONILLA CHRISTIAN [id number] 10/22/2016 10:55:32 10/22/2016 23:59: 59 CLS Outpatient Soo Cai [id number] 06/16/2014 10:36:00 06/16/2014 23:59: 59 CLS Outpatient SHERIN REYEZ DO [id number] 04/20/2014 09:04:00 04/20/2014 23:59: 59 CLS Outpatient TREMAINE DOUGLAS APRN [id number] 03/30/2014 09:11:00 03/30/2014 23:59: 59 CLS Outpatient TREMAINE DOUGLAS APRN [id number] 03/23/2014 08:59:00 03/23/2014 23:59: 59 CLS Outpatient TREMAINE DOUGLAS APRN [id number] 08/26/2013 08:37:00 08/26/2013 23:59: 59 CLS Outpatient TAMARA QUIROZ, FLOR Skinner [id number] 08/19/2013 13:05:00 08/19/2013 23:59: 59 CLS Outpatient JULIO HENLEY DDS [id number] 12/18/2010 15:10:00 12/18/2010 23:59: 59 CLS Outpatient CORBIN MITCHELL MD [id number] 08/23/2015 03:01:00 016 23:59:59 CLS Preadmit [facility] ED
--- NOTE | 2020-01-17 13:28 | ED Lower Extremity ---
General Chief Complaint: Abdominal/GI Problems Stated Complaint: L LEG PAIN/AMPUTEE Source: patient Exam Limitations: no limitations History of Present Illness Date Seen by Provider: Jan 17, 2020 Time Seen by Provider: 13:27 Initial Comments To ER with left leg pain since yesterday, no known injury. She has a left queek-uzp-doti amputation secondary to osteomyelitis in the remote past. No known injury no fever no chills, believes it may be from wearing her prosthetic. Onset: yesterday Severity: moderate Pain/Injury Location: left leg, left knee Method of Injury: fell Modifying Factors: Worse With Movement Allergies and Home Medications Allergies Coded Allergies: povidone-iodine (Unverified Allergy, Mild, BLISTERS, 07/10/18) Penicillins (Verified Adverse Reaction, Mild, 12/01/12) Home Medications Hydrocodone Bit/Acetaminophen 1 Ea Tablet, 1 EACH PO Q4H PRN for PAIN-MODERATE Prescribed by: YUDI COLEMAN on 07/17/18 1324 Hydrocodone/Acetaminophen 1 Each Tablet, 1 EACH PO Q4-6HR PRN for PAIN-MODERATE Prescribed by: PETE RM on 01/17/20 1330 Ondansetron 4 Mg Tab.rapdis, 4 MG PO Q6H PRN for NAUSEA/VOMITING Prescribed by: FAHEEM MANZANO on 10/08/19 2134 Patient Home Medication List Home Medication List Reviewed: Yes Review of Systems Constitutional: see HPI; No chills, No fever EENTM: see HPI Respiratory: no symptoms reported Cardiovascular: no symptoms reported Genitourinary: no symptoms reported Musculoskeletal: see HPI Skin: no symptoms reported Psychiatric/Neurological: No Symptoms Reported Past Ggmmsix-Lpjjhj-Xyoxju Hx Patient Social History Alcohol Use: Denies Use Recreational Drug Use: Yes (HX OF IV DRUG USE, USED METH ON 04/24) Drug of Choice: HX IV METH AND COCAINE USE Type Used: Cigarettes Former Smoker, Quit: Aug 18, 2019 2nd Hand Smoke Exposure: No Recent Foreign Travel: No Contact w/Someone Who Travel: No Recent Hopitalizations: No Physical Abuse: No Sexual Abuse: No Mistreated: No Fear: No Immunizations Up To Date Tetanus Booster (TDap): More than 5yrs PED Vaccines UTD: Yes Date of Pneumonia Vaccine: May 09, 2015 Date of Influenza Vaccine: Jun 10, 2019 Seasonal Allergies Seasonal Allergies: No Past Medical History Surgeries: Yes (LEFT LEG X8, LT BKA, CS X2, SEE BELOW) Amputation, Section, Hysterectomy, Oophorectomy, Orthopedic, Tonsillectomy Respiratory: Yes Asthma Cardiac: No Neurological: Yes TIA Reproductive Disorders: Yes Female Reproductive Disorders: Menstrual 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 Sexually Transmitted Disease: No Genitourinary: No Gastrointestinal: Yes (HEPATITIS C-COMPLETED TREATMENT 2018) Abdominal Hernia, Hepatitis Musculoskeletal: Yes (LEFT BKA FOR CHRONIC OSTEOMYELITIS) Amputee Endocrine: Yes Diabetes, Non-Insulin dep HEENT: No Loss of Vision: Denies Hearing Impairment: Denies Cancer: No Psychosocial: Yes (SUBSTANCE ABUSE) Anxiety, Bipolar, Depression Integumentary: Yes (CHRONIC FOOT ULCER/LEG WOUNDS/CELLULITIS/OSTEOMYELITIS LEFT LEG) Blood Disorders: No Adverse Reaction/Blood Tranf: No Family Medical History Cancer GRANDPARENTS Congestive heart failure 03 MOTHER Dementia GRANDPARENTS Family history: Cardiovascular disease 03 MOTHER Family history: Diabetes mellitus GRANDPARENTS Family history: Hypertension 03 MOTHER Myocardial infarction 03 MOTHER No Family History of: Abdominal aortic aneurysm Family history: Breast disease Family history: Gastrointestinal disease Family history: Thyroid disorder Hereditary disease History of - respiratory disease Parkinson's disease Stroke No Pertinent Family Hx PSH: -MULTIPLE DEBRIDEMENTS OF LEFT LEG/FOOT DUE TO CHRONIC WOUNDS/CELLULITIS/OSTEOMYELITIS, WITH EVENTUAL LEFT BKA 08/31/[address] SOSA - X 2 -HYSTERECTOMY--OVARIES INTACT -REMOVAL OF NEUROMA OF LEFT LEG STUMP 07/17/[address] COLEMAN Physical Exam Vital Signs Vital Signs - First Documented 01/17/20 13:18 Temp 36.7 Pulse 86 Resp 18 B/P (MAP) 116/76 (89) Pulse Ox 97 O2 Delivery Room Air Capillary Refill : Height, Weight, BMI Height: 5'4.00" Weight: 190lbs. 0.0oz. 86.926539su; 31.00 BMI Method:Stated General Appearance: WD/WN, no apparent distress Respiratory: no respiratory distress, no accessory muscle use Hips: bilateral hip non-tender, bilateral hip normal inspection, bilateral hip normal range of motion Legs: bilateral leg non-tender, bilateral leg normal inspection, bilateral leg normal range of motion; left leg other (left bvdbj-wkt-qkjk amputation is normal in appearance, no cellulitis or open wounds, no ecchymosis or erythema.) Knees: bilateral knee non-tender, bilateral knee normal inspection, bilateral knee normal range of motion Ankles: bilateral ankle non-tender, bilateral ankle normal inspection, bilate ral ankle normal range of motion Feet: bilateral foot non-tender, bilateral foot normal inspection, bilateral foot normal range of motion Neurologic/Psychiatric: alert, normal mood/affect Skin: normal color, warm/dry Procedures/Interventions Suture Size: 5-0 Progress/Results/Core Measures Results/Orders Lab Results Laboratory Tests Test 01/17/20 14:06 Range/Units White Blood Count 10.5 4.3-11.0 10^3/uL Red Blood Count 4.93 4.35-5.85 10^6/uL Hemoglobin 15.0 11.5-16.0 G/DL Hematocrit 42 35-52 % Mean Corpuscular Volume 85 80-99 FL Mean Corpuscular Hemoglobin 30 25-34 PG Mean Corpuscular Hemoglobin Concent 36 32-36 G/DL Red Cell Distribution Width 12.8 10.0-14.5 % Platelet Count 423 H 130-400 10^3/uL Mean Platelet Volume 8.9 7.4-10.4 FL Neutrophils (%) (Auto) 62 42-75 % Lymphocytes (%) (Auto) 31 12-44 % Monocytes (%) (Auto) 4 0-12 % Eosinophils (%) (Auto) 2 0-10 % Basophils (%) (Auto) 0 0-10 % Neutrophils # (Auto) 6.5 1.8-7.8 X 10^3 Lymphocytes # (Auto) 3.3 1.0-4.0 X 10^3 Monocytes # (Auto) 0.5 0.0-1.0 X 10^3 Eosinophils # (Auto) 0.2 0.0-0.3 10^3/uL Basophils # (Auto) 0.0 0.0-0.1 10^3/uL My Orders Orders - PETE RM ENGRAVER COPPERPLATE Cbc With Automated Diff (01/17/20 13:25) Tibia/Fibula, Left, 2 Views (01/17/20 13:25) Hydrocodone/Apap 5/325 Tablet (Lortab 5 (01/17/20 13:30) Medications Given in ED Current Medications Medications Dose Ordered Sig/Yoon Route Start Time Stop Time Status Last Admin Dose Admin Acetaminophen/ Hydrocodone Bitart 1 tab ONCE ONCE PO 01/17/20 13:30 01/17/20 13:31 DC 01/17/20 13:30 1 TAB Vital Signs/I&O 01/17/20 01/17/20 13:18 14:16 Temp 36.7 Pulse 86 78 Resp 18 16 B/P (MAP) 116/76 (89) 116/78 Pulse Ox 97 96 O2 Delivery Room Air Room Air Departure Impression Primary Impression: left BKA stump pain Disposition: HOME, SELF-CARE Condition: Stable Departure-Patient Inst. Decision time for Depature: 13:28 Referrals: ASHISH SEGOVIA MD (PCP/Family) Primary Care Physician Patient Instructions: NO INSTRUCTIONS GIVEN Add. Discharge Instructions: 1. REturn to er for any concerns 2. Follow up with your doctor this week for recheck All discharge instructions reviewed with patient and/or family. Voiced understanding. Scripts Hydrocodone/Acetaminophen (Lorcet 5-325 mg Tablet) 1 Each Tablet 1 EACH PO Q4-6HR PRN for PAIN-MODERATE MDD 10 for 7 Days, #5 TAB Prov: PETE RM APRN 01/17/20 PETE RM APRN Jan 17, 2020 13:27
[2020-01-17] MEDS ORDERED: HYDR-3870 PO (13:29)
[2020-01-17] MEDS ORDERED: HYDROcodone/APAP 5 MG/325 MG (LORTAB) TAB PO ONE (13:30)
--- NOTE | 2020-01-17 13:49 | Diagnostic Imaging Report ---
Indication: Left below-knee amputation with shooting pain in the left leg. Time of Exam: 1:47 PM Postoperative changes of left below-knee dictation are noted. The resection margins appear smooth. Overlying soft tissues of the stump are unremarkable. No soft tissue gas is identified. No bony destructive changes are seen. There are no fractures. IMPRESSION: 1. Postoperative changes. No acute feature is identified. Dictated by: Dictated on workstation # [id number]
[2020-01-17 14:10] LABS: BASOPHILS % (AUTO) 0 % (0-10); EOSINOPHILS # (AUTO) 0.2 10^3/uL (0.0-0.3); EOSINOPHILS % (AUTO) 2 % (0-10); HEMATOCRIT 42 % (35-52); LYMPHOCYTES # (AUTO) 3.3 X 10^3 (1.0-4.0); LYMPHOCYTES % (AUTO) 31 % (12-44); MEAN CORPUSCULAR HEMOGLOBIN 30 PG (25-34); MEAN CORPUSCULAR HGB CONC 36 G/DL (32-36); MEAN CORPUSCULAR VOLUME 85 FL (80-99); MEAN PLATELET VOLUME 8.9 FL (7.4-10.4); MONOCYTES # (AUTO) 0.5 X 10^3 (0.0-1.0); MONOCYTES % (AUTO) 4 % (0-12); NEUTROPHILS # (AUTO) 6.5 X 10^3 (1.8-7.8); NEUTROPHILS % (AUTO) 62 % (42-75); PLATELET COUNT 423 10^3/uL (130-400); RED CELL DISTRIBUTION WIDTH 12.8 % (10.0-14.5); WHITE BLOOD COUNT 10.5 10^3/uL (4.3-11.0)
[2020-01-17 14:16] VITALS: BP 116/78
== END 2020-01-17 14:20 | disposition home or self-care (01) ==
LOC: EDUNIT# 13:08 → ER 13:09
DX: T87.89 Other complications of amputation stump (principal); M79.605 Pain in left leg; Z88.0 Allergy status to penicillin; Z88.8 Allergy status to other drugs, medicaments and biological substances; Z87.891 Personal history of nicotine dependence; Z86.73 Personal history of transient ischemic attack (TIA), and cerebral infarction without residual deficits; Z82.49 Family history of ischemic heart disease and other diseases of the circulatory system
CPT/HCPCS: 36415; 73590; 85025

== ENCOUNTER → 2020-04-05 | Outpatient (CLI) | payer MEDICARE, MEDICAID ==
[~2020-04-05] MED LIST changes: +HYDR-3870 PO
--- NOTE | 2020-04-05 20:01 | Diagnostic Imaging Report ---
INDICATION: Screening. The current study was also evaluated with a Computer Aided Detection (CAD) system. 3-D Tomographic imaging was also performed. COMPARISON: No prior examinations are available for comparison. This is a baseline exam. FINDINGS: There are scattered fibroglandular densities bilaterally. There is no dominant mass, spiculated lesion or suspicious calcification identified. The skin, nipples and axilla are unremarkable. IMPRESSION: Category 1 negative. ACR BI-RADS Category 1: Negative. Result letter will be mailed to the patient. Note: At least 10% of breast cancer is not imaged by mammography. Dictated by: Dictated on workstation # [id number]
== END ==
LOC: RAD 15:25
PROVIDERS: ATTEND Physician Assistant
DX: Z12.31 Encounter for screening mammogram for malignant neoplasm of breast (principal)
CPT/HCPCS: 77063; 77067

== ENCOUNTER 2020-05-30 05:35 | Outpatient (RCR) | payer MEDICARE, MEDICAID ==
[~2020-05-30] VITALS: Ht 162.6 cm; Wt 81.8 kg
[~2020-05-30 05:35] MED LIST changes: +GABA300C PO; +LURA80TA3 PO; +PARO40TA3 PO
== END 2020-05-30 09:54 | disposition home or self-care (01) ==
LOC: PREOP 05:35
PROVIDERS: ATTEND Surgery
DX: Z01.812 Encounter for preprocedural laboratory examination (principal); Z20.828 Contact with and (suspected) exposure to other viral communicable diseases
CPT/HCPCS: 87635

== ENCOUNTER 2020-06-02 09:00 | Inpatient (IN) | payer MEDICARE, MEDICAID ==
[2020-06-02] VITALS (8 sets, daily range): BP systolic 116–150; BP diastolic 68–92
[~2020-06-02] VITALS: Ht 162.6 cm; Wt 86.9 kg
[2020-06-02] MEDS: LACTATED RINGERS 1,000 ML IV PRN ×2 (12:25→16:40)
--- NOTE | 2020-06-02 13:11 | Progress Note-Pre Operative ---
Pre-Operative Progress Note H&P Reviewed The H&P was reviewed, patient examined and no changes noted. Date Seen by Provider: Jun 02, 2020 Time Seen by Provider: 13:00 Date H&P Reviewed: Jun 02, 2020 Time H&P Reviewed: 13:00 Pre-Operative Diagnosis: chronic left BKA stump pain YUDI COLEMAN MD Jun 02, 2020 13:10
[2020-06-02] MEDS ORDERED: HYDR-3817 PO (13:15)
[2020-06-02] MEDS ORDERED: ACETAMINOPHEN 325 MG TABLET PO PRN (13:15)
[2020-06-02] MEDS ORDERED: morphine INJ 10 MG/ML 1ML (SYR OR VIAL) IVP PRN (13:15)
--- NOTE | 2020-06-02 13:15 | Discharge Inst-Surgical ---
D/C Lap Instructions-JARED New, Converted, or Re-Newed RX: RX on Chart Follow Up Appt in 2 weeks Activity as tolerated No driving for 24 hours No driving while on pain medications Incentive Spirometry use every 2 hours while awake Regular Diet Symptoms to Report: Fever over 101 degree F, Nausea/Vomiting Infection Signs and Symptoms to report: Increased redness, Foul odor of wound, Increased drainage Bathing instructions: May shower Operative Area Clean/Dry; Keep incision clean/dry If any problems/questions: Contact your physician or go to Emergency Room YUDI COLEMAN MD Jun 02, 2020 13:15
[2020-06-02] MEDS ORDERED: ONDANSETRON 4 MG/2 ML (SDV) Z0FRAN ONE (13:27)
[2020-06-02] MEDS ORDERED: proPOfol 200 MG/20 ML (DIPRIVAN) VIAL IV ONE (13:27)
[2020-06-02] MEDS ORDERED: LIDOCAINE PF 2% 5 ML (XYLOCAINE) VIAL ONE (13:27)
[2020-06-02] MEDS ORDERED: fentaNYL INJECTION 100 MCG/2 ML AMP ONE (13:27)
[2020-06-02] MEDS ORDERED: MIDAZOLAM 2 MG/2 ML (VERSED) VIAL ONE (13:28)
[2020-06-02] MEDS ORDERED: CLINDAMYCIN 600 MG/50 ML IVPB 50 ML IV ONE ×2 (13:37→14:00)
[2020-06-02] MEDS ORDERED: SEVOFLURANE (ULTANE) 15 ML INHAL SOLN ONE ×7 (13:43→17:04)
[2020-06-02] MEDS ORDERED: LIDOCAINE/EPI 1%-1:200,000 (XYLOCAINE) 30 ML VIAL ONE (15:33)
[2020-06-02] MEDS ORDERED: HYDROmorphone 2 MG/ML VIAL (DILAUDID) ONE (15:58)
--- NOTE | 2020-06-02 16:57 | Progress Note-Post Operative ---
Post-Operative Progess Note Surgeon (s)/Lean Process Deployment Consultant (s) Surgeon YUDI COLEMAN MD Lean Process Deployment Consultant: angelica persaud Pre-Operative Diagnosis chronic left BKA stump pain Post-Operative Diagnosis same Procedure & Operative Findings Date of Procedure 06/02/20 Procedure Performed/Findings proximal left stump below the knee amputation. Anesthesia Type general lma Estimated Blood Loss Estimated blood loss (mL): minimal Specimens/Packing Specimens Removed left lower extremity stump YUDI COLEMAN MD Jun 02, 2020 16:57
[2020-06-02] MEDS ORDERED: morphine INJ 10 MG/ML 1ML (SYR OR VIAL) IVP ONE (17:45)
[2020-06-02] MEDS ORDERED: ONDANSETRON 4 MG/2 ML (SDV) Z0FRAN IVP PRN (17:45)
--- NOTE | 2020-06-02 18:10 | NUR ---
REC'D PER BED FROM PAR. SEE ASSESSMENT.
[2020-06-02] MEDS: oxyCODONE/APAP 5/325MG (PERCOCET 5) TABLET PO PRN (19:56)
[2020-06-02] MEDS: ONDANSETRON 4 MG/2 ML (SDV) Z0FRAN IVP PRN (19:57)
[2020-06-02] MEDS ORDERED: ceFAZolin INJECTION 1,000 MG ONE (20:10)
[2020-06-02] MEDS ORDERED: WATER (STERILE) FOR INJECTION 10 ML ONE (20:10)
[2020-06-02] MEDS: morphine INJ 10 MG/ML 1ML (SYR OR VIAL) IVP PRN (23:16)
[2020-06-03] VITALS: BP 116/64
[2020-06-03] MEDS: oxyCODONE/APAP 5/325MG (PERCOCET 5) TABLET PO PRN ×2 (01:03→06:44)
[2020-06-03] MEDS: ONDANSETRON 4 MG/2 ML (SDV) Z0FRAN IVP PRN ×2 (01:07→06:44)
--- NOTE | 2020-06-03 03:07 | OPERATIVE REPORT ---
DATE OF SERVICE: 06/02/2020 ATTENDING PRIMARY CARE PHYSICIAN: Dr. Mateusz Caldera. PREOPERATIVE DIAGNOSIS: Chronic left below the knee amputation stump pain. POSTOPERATIVE DIAGNOSIS: Chronic left below the knee amputation stump pain. PROCEDURE: Redol left lower extremity lvgjo-fwk-bffg amputation. SURGEON: Lencho Coleman MD PLANER OPERATOR: Deep Anand APRN ANESTHESIA: General laryngeal mask airway with local. ESTIMATED BLOOD LOSS: 150 mL. FINDINGS: A long tibia with angulation at the most inferior portion. DISPOSITION: The patient tolerated the procedure well. INDICATIONS: The patient is a 39-year-old female seen in the past. We had initially seen her in 2010 for persistent open wound and osteomyelitis of the foot. She was honest and reported a significant history of IV drug abuse including methamphetamine and cocaine. She underwent multiple debridements and IV antibiotics and did have some improvement; however, was noncompliant and underwent below the knee amputation in 08/2013. Since that time, she did go to senior living and has reformed and does not do any drugs and has had issues with chronic pain. She underwent compression of the left stump and a fitting of prosthetic; however, due to her long tibial bone from ziqtq-pib-jrpx amputation and angulation of the bone, she had chronic pain. There was a neuroma identified, which was excised; however, she continued to have pain along the left lateral portion of the stump. DESCRIPTION OF PROCEDURE: The patient was brought to the operating room, laid supine on the table. After adequate IV pain and sedative medications and general laryngeal mask airway intubation, the left stump was prepped and draped in standard surgical fashion. The posterior flap design was then measured out as well as a much shorter below the knee amputation stump approximately 5 cm below the anterior tibial notch. The skin was then anesthetized using 0.5% Marcaine with epinephrine and an anterior skin incision was made using a #10 blade. The subcutaneous tissue and fascia was then opened using electrocautery. The posterior flap was then dissected out similarly. We then proceeded with proximal dissection of the attachments to the tibia and fibula superiorly and both bones were cleanly cut using bone saw with visualization of good hemostasis. A bone rasp were used at the end of the bone and then bone wax applied to the marrow. Good hemostasis was observed. The posterior flap was then attached to the anterior incision line connecting the fascia using interrupted 0 Vicryl sutures. This was done in 2 layers and the subcutaneous layer was then reapproximated using 4-0 Vicryl interrupted sutures. The skin was then stapled using skin rupert. The wound was then cleaned and covered with 4 x 4 gauze followed by Kerlix wrap followed by 4-inch Ortho-Glass followed by 4-inch Kristofer wrap and 6-inch Kristofer wrap to the high thigh. The patient tolerated the procedure well. We will start IV normal pain medication as well as a regular diet. We will have her continue the dressing for the next several days and then removed and then to apply dressing followed by gauze, followed by Kerlix wrap, followed by Ortho-Glass and a 4-inch and 6-inch Kristofer wrap on a daily basis. We will have her continue with placement of the Orthoglass to prevent development of any contractures. Job ID: [id number] DocumentID: [id number] Dictated Date: 06/02/2020 17:04:25 Uncrater Date: 06/03/2020 03:07:03 Dictated By: LENCHO COLEMAN MD MTDD
[2020-06-03 03:57] VITALS: BP 117/83
--- NOTE | 2020-06-03 06:47 | Anesthesia-General Post-Op ---
General Patient Condition Mental Status/LOC: Same as Preop Cardiovascular: Satisfactory Nausea/Vomiting: Absent Respiratory: Satisfactory Pain: Controlled Complications: Absent Post Op Complications Complications None Follow Up Care/Instructions Patient Instructions None needed. Anesthesia/Patient Condition Patient Condition Patient is doing well, no complaints, stable vital signs, no apparent adverse anesthesia problems. No complications reported per nursing. D/[place] home [place] [facility] [place]: JUJU Packer CRNA Jun 03, 2020 06:47
[2020-06-03 08:19] VITALS: BP 111/70
[2020-06-03] MEDS: morphine INJ 10 MG/ML 1ML (SYR OR VIAL) IVP PRN (08:51)
[2020-06-03] MEDS ORDERED: NICOTINE 21 MG (NICODERM) PATCH TD SCH (09:00)
[2020-06-03] MEDS ORDERED: ENOXAPARIN 40 MG/0.4 ML (LOVENOX) SYR SC SCH (09:00)
--- NOTE | 2020-06-03 09:28 | Progress Note ---
Subjective Date Seen by a Provider: Jun 03, 2020 Time Seen by a Provider: 09:00 Subjective/Events-last exam doing well. pain controlled. tolerating diet. ambulating well with crutches. Objective Exam Vital Signs Date Time Temp Pulse Resp B/P (MAP) Pulse Ox O2 Delivery O2 Flow Rate FiO2 06/03/20 08:19 36.6 92 20 111/70 (84) 94 Nasal Cannula 2.00 06/03/20 03:57 36.2 84 16 117/83 (94) 95 Nasal Cannula 2.00 06/03/20 00:00 35.8 90 18 116/64 (81) 97 Nasal Cannula 2.00 2.00 06/02/20 21:00 93 Nasal Cannula 2.00 06/02/20 19:36 Nasal Cannula 06/02/20 18:00 Nasal Cannula 2 06/02/20 17:55 36.4 18 127/92 (104) 93 Nasal Cannula 2 06/02/20 17:50 18 127/77 (94) 92 Nasal Cannula 2 06/02/20 17:50 Nasal Cannula 2 06/02/20 17:40 OxyMask 2 06/02/20 17:40 18 122/74 (90) 92 Nasal Cannula 2 06/02/20 17:30 OxyMask 4 06/02/20 17:30 20 143/88 (106) 93 OxyMask 2 06/02/20 17:20 20 143/77 (99) 97 OxyMask 4 06/02/20 17:20 OxyMask 6 06/02/20 17:13 18 150/68 (95) 95 OxyMask 6 06/02/20 17:09 OxyMask 8 06/02/20 17:09 36.9 20 134/83 (100) 93 OxyMask 8 06/02/20 12:45 97 Room Air 06/02/20 12:45 36.0 82 16 116/81 97 Room Air I & O 06/03/20 07:00 Intake Total 2020 ml Balance 2020 ml Capillary Refill : Less Than 3 SecondsLess Than 3 Seconds General Appearance: No Apparent Distress HEENT: PERRL/EOMI Neck: Full Range of Motion Respiratory: Chest Non Tender, Lungs Clear, Normal Breath Sounds Gastrointestinal: normal bowel sounds, non tender, soft Extremity: Normal Capillary Refill, Other (wound dressed/dry) Neurologic/Psychiatric: Alert, Oriented x3 Skin: Normal Color Lymphatic: No Adenopathy Assessment/Plan Assessment/Plan Assess & Plan/Chief Complaint s/p redo left BKA. doing well. keep dressing on until saturday. then redress with orthoglass 2weeks. Clinical Quality Measures DVT/VTE Risk/Contraindication: Risk Factor Score Per Nursin RFS Level Per Nursing on Admit: 4+=Very High YUDI COLEMAN MD Jun 03, 2020 09:28
== END 2020-06-03 09:50 | disposition home or self-care (01) | DRG 476 ==
LOC: EDSTATUS 09:00 → 4TH 11:46 → SURG 11:47 → 4TH 18:05
PROVIDERS: ADMIT Surgery; ATTEND Surgery
PROC: 0Y6H0Z1 Detachment at Right Lower Leg, High, Open Approach (ICD-10-PCS; principal; 2020-06-02 15:10)
DX: T87.89 Other complications of amputation stump (principal)
CPT/HCPCS: 87081

== ENCOUNTER 2021-06-20 19:46 | Emergency (ER) | payer MEDICARE, MEDICAID ==
[~2021-06-20] VITALS: Ht 162 cm; Wt 95.0 kg
[~2021-06-20 19:46] MED LIST changes: +HYDR-3817 PO
[2021-06-20] MEDS ORDERED: KETOROLAC 30 MG/ML VIAL IM ONE (20:30)
[2021-06-20] MEDS ORDERED: HYDROcodone/APAP 5 MG/325 MG (LORTAB) TAB PO ONE (20:30)
[2021-06-20] MEDS ORDERED: ORPHENADRINE 60 MG/2 ML (NORFLEX) AMP (ED ONLY) IM ONE (20:30)
--- NOTE | 2021-06-20 20:30 | ED Lower Extremity ---
General Chief Complaint: Lower Extremity Stated Complaint: L LEG PAIN Nursing Triage Note: Patient presents tonight with left leg pain that began two days ago. 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 Patient states she has experienced pain like this previously but never this severe. Rates pain at a 9/10 and advises severe cramping. Source: patient Exam Limitations: no limitations (DANIEL DAVID) History of Present Illness Date Seen by Provider: Jun 20, 2021 Time Seen by Provider: 20:22 Initial Comments Patient is a 41-year-old female presents ED with left leg cramping. Patient with a partial amputation of her left lower leg. Patient suffered a bone infection in 2013. She denies any redness, swelling, bruising. Denies of any trauma. She describes as more cramping versus phantom type pain. She states the pain is diffuse and not localized.. Patient had a revision of her left lower leg last year. Patient has been taken naproxen at home without much improvement. Patient is requesting pain medication at this time. She states she is having difficulty sleeping. Denies chest pain, shortness of breath, nausea, vomiting, diarrhea. (DANIEL DAVID) Allergies and Home Medications Allergies Coded Allergies: povidone-iodine (Verified Allergy, Mild, BLISTERS, 06/02/20) Penicillins (Verified Adverse Reaction, Mild, 06/02/20) Patient Home Medication List Home Medication List Reviewed: Yes (DANIEL DAVID) Cyclobenzaprine HCl (Cyclobenzaprine HCl) 10 Mg Tablet, 10 MG PO TID Prescribed by: CHAD ORDOÑEZ on 06/20/212037 Gabapentin (Neurontin) 300 Mg Capsule, 300 MG PO HS, (Reported) Entered as Reported by: CASSIE JACKSON on 05/26/20 1255 Hydrocodone/Acetaminophen (Hydrocodone-Acetamin 7.5-325) 1 Each Tablet, 1 EACH PO Q4H Prescribed by: YUDI COLEMAN on 06/02/20 1315 Hydrocodone/Acetaminophen (Hydrocodone-Acetamin 5-325 mg) 1 Each Tablet, 1 TAB PO Q4H PRN for PAIN-MODERATE (5-7) Prescribed by: CHAD ORDOÑEZ on 06/20/212038 Lurasidone HCl (Latuda) 80 Mg Tablet, 80 MG PO HS, (Reported) Entered as Reported by: CASSIE JACKSON on 05/26/20 125 Paroxetine HCl (Paroxetine HCl) 40 Mg Tablet, 40 MG PO HS, (Reported) Entered as Reported by: CASSIE JACKSON on 05/26/20 125 Rivaroxaban (Xarelto) 10 Mg Tablet, 10 MG PO DAILY Prescribed by: CHAD ORDOÑEZ on 06/20/212037 Review of Systems Constitutional: No chills, No diaphoresis, No dizziness, No fever EENTM: No ear discharge, No hearing loss, No ear pain Respiratory: No cough, No dyspnea on exertion, No hemoptysis, No orthopnea Gastrointestinal: see HPI; No abdominal pain, No constipation, No diarrhea Genitourinary: No decreased output, No discharge, No dysuria, No frequency Musculoskeletal: see HPI, back pain, gout; No joint swelling; muscle pain, muscle cramps; No muscle twitching Skin: No change in color, No change in hair/nails, No dryness, No hx of skin cancer (DANIEL DAVID) Past Huypaqb-Dnwieg-Yoaymx Hx Patient Social History Tobacco Use?: Yes Tobacco type used: Cigarettes Smoking Status: Current Everyday Smoker Substance use?: No Alcohol Use?: No (DANIEL DAVID) Immunizations Up To Date Tetanus Booster (TDap): More than 5yrs PED Vaccines UTD: Yes (DANIEL DAVID) Seasonal Allergies Seasonal Allergies: No (DANIEL DAVID) Past Medical History Surgeries: Yes (LEFT LEG X8, LT BKA, CS X2, SEE BELOW) Amputation, Section, Hysterectomy, Oophorectomy, Orthopedic, Tonsillectomy Respiratory: Yes Asthma Currently Using CPAP: No Currently Using BIPAP: No Cardiac: No Neurological: Yes TIA Reproductive Disorders: Yes Female Reproductive Disorders: 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 Sexually Transmitted Disease: No Genitourinary: No Gastrointestinal: Yes (HEPATITIS C-COMPLETED TREATMENT 2019) Abdominal Hernia, Hepatitis Musculoskeletal: Yes (LEFT BKA FOR CHRONIC OSTEOMYELITIS) Amputee Endocrine: No Diabetes, Non-Insulin dep HEENT: No Loss of Vision: Denies Hearing Impairment: Denies Cancer: No Psychosocial: Yes (SUBSTANCE ABUSE) Anxiety, Bipolar, Depression Integumentary: Yes (CHRONIC FOOT ULCER/LEG WOUNDS/CELLULITIS/OSTEOMYELITIS LEFT LEG) Blood Disorders: No Adverse Reaction/Blood Tranf: No (DANIEL DAVID) Family Medical History Cancer GRANDPARENTS Congestive heart failure 03 MOTHER Dementia GRANDPARENTS Family history: Cardiovascular disease 03 MOTHER Family history: Diabetes mellitus GRANDPARENTS Family history: Hypertension 03 MOTHER Myocardial infarction 03 MOTHER No Family History of: Abdominal aortic aneurysm Family history: Breast disease Family history: Gastrointestinal disease Family history: Thyroid disorder Hereditary disease History of - respiratory disease Parkinson's disease Stroke No Pertinent Family Hx PSH: -MULTIPLE DEBRIDEMENTS OF LEFT LEG/FOOT DUE TO CHRONIC WOUNDS/CELLULITIS/OSTEOMYELITIS, WITH EVENTUAL LEFT BKA 08/31/[address] SOSA - X 2 -HYSTERECTOMY--OVARIES INTACT -REMOVAL OF NEUROMA OF LEFT LEG STUMP 07/17/[address] COLEMAN (DANIEL DAVID) Physical Exam Vital Signs Vital Signs - First Documented 06/20/21 20:05 Pulse 106 Resp 18 B/P (MAP) 126/100 (109) Pulse Ox 97 O2 Delivery Room Air (NATACHA,FAHEEM K DO) Vital Signs Capillary Refill : Less Than 3 Seconds (DANIEL DAVID) Height, Weight, BMI Height: 5'4.00" Weight: 190lbs. 0.0oz. 86.093942op; 36.00 BMI Method:Stated General Appearance: WD/WN, no apparent distress HEENT: PERRL/EOMI, normal ENT inspection, TMs normal, pharynx normal Neck: non-tender, full range of motion, supple Cardiovascular: normal peripheral pulses, regular rate, rhythm, no edema, no gallop, no JVD Respiratory: chest non-tender, lungs clear, normal breath sounds Gastrointestinal: normal bowel sounds, non tender, soft Legs: bilateral leg non-tender, bilateral leg normal inspection, bilateral leg normal range of motion, bilateral leg no evidence of injury, bilateral leg abrasions, bilateral leg bone tenderness, bilateral leg soft tissue tenderness, bilateral leg swelling, bilateral leg other (Left below the knee amputation. No swelling erythema or ecchymosis. No leg tenderness on palpation.) Skin: normal color, warm/dry (DANIEL DAVID) Procedures/Interventions Suture Size: 5-0 (DANIEL DAVID) Progress/Results/Core Measures Results/Orders Medications Given in ED Current Medications Medications Dose Ordered Sig/Yoon Route Start Time Stop Time Status Last Admin Dose Admin Acetaminophen/ Hydrocodone Bitart 1 ea ONCE ONCE PO 06/20/21 20:30 06/20/21 20:31 DC 06/20/21 20:30 1 EA Ketorolac Tromethamine 30 mg ONCE ONCE IM 06/20/21 20:30 06/20/21 20:31 DC 06/20/21 20:30 30 MG Orphenadrine Citrate 60 mg ONCE ONCE IM 06/20/21 20:30 06/20/21 20:31 DC 06/20/21 20:30 60 MG (FAHEEM MANZANO DO) Vital Signs/I&O 06/20/21 06/20/21 20:05 20:55 Pulse 106 Resp 18 B/P (MAP) 126/100 (109) 127/84 Pulse Ox 97 O2 Delivery Room Air (FAHEEM MANZANO DO) Blood Pressure Mean: 109 Departure Communication (Admissions) Patient with left leg cramping. No swelling, erythema or ecchymosis. Amputee below left knee. No evidence of lesion. No tenderness to palpate. Concerning for phantom pain however recommend rule out DVT. No recent travels or surgeries are currently on blood thinners. Ultrasound was ordered for outpatient leg. Will discharge with Xarelto prophylactically for DVT. This appears to be more muscle spasming/phantom pain. Will discharge with a few days worth of pain medication muscle relaxers. She was given a dose here in the ED with improvement. If any worsening symptoms strongly recommend return back to ED for further evaluation. If ultrasound is positive recommend contacting your PCP or returning back to ED. (DANIEL DAVID) Impression Primary Impression: Leg cramps Disposition: HOME, SELF-CARE Condition: Improved (ERASED) Departure-Patient Inst. Decision time for Depature: 20:33 (DANIEL DAVID) Referrals: [facility] (PCP) Primary Care Physician YESSICA LICEA (Family) Primary Care Physician Patient Instructions: Muscle Spasm ED Add. Discharge Instructions: Take Xarelto prophylactically. Follow-up with ultrasound. Once negative ultrasound may stop taking blood thinner. All discharge instructions reviewed with patient and/or family. Voiced understanding. Scripts Cyclobenzaprine HCl (Cyclobenzaprine HCl) 10 Mg Tablet 10 MG PO TID for 5 Days, #14 TAB Prov: DANIEL DAVID 06/20/21 Hydrocodone/Acetaminophen (Hydrocodone-Acetamin 5-325 mg) 1 Each Tablet 1 TAB PO Q4H PRN for PAIN-MODERATE (5-7) for 3 Days, #8 TAB Prov: DANIEL DAVID 06/20/21 Rivaroxaban (Xarelto) 10 Mg Tablet 10 MG PO DAILY for 3 Days, #3 TAB Prov: DANIEL DAVID 06/20/21 ATTENDING PHYSICIAN NOTE: I WAS PHYSICALLY PRESENT ER PHYSICIAN WHEN THIS PATIENT WAS IN ER, BUT I WAS NOT INVOLVED IN ANY DECISION MAKING OR ANY CARE OF THIS PATIENT. (FAHEEM MANZANO DO) DANIEL DAVID Jun 20, 2021 20:30 FAHEEM MANZANO DO Jun 21, 2021 05:43
[2021-06-20] MEDS ORDERED: CYCL10TA9 PO (20:38)
[2021-06-20] MEDS ORDERED: ACHD5005 PO (20:38)
[2021-06-20] MEDS ORDERED: RIVA10TA PO (20:38)
[2021-06-20 20:55] VITALS: BP 127/84
== END 2021-06-20 20:54 | disposition home or self-care (01) ==
LOC: EDUNIT# 19:46 → ER 19:47
DX: R25.2 Cramp and spasm (principal); J45.909 Unspecified asthma, uncomplicated; F41.9 Anxiety disorder, unspecified; F32.9 Major depressive disorder, single episode, unspecified; E11.9 Type 2 diabetes mellitus without complications; F17.210 Nicotine dependence, cigarettes, uncomplicated; Z86.73 Personal history of transient ischemic attack (TIA), and cerebral infarction without residual deficits; Z79.899 Other long term (current) drug therapy
CPT/HCPCS: 99284

== ENCOUNTER 2022-06-10 06:23 | Emergency (ER) | payer MEDICARE, MEDICAID ==
[~2022-06-10] VITALS: Ht 162.5 cm; Wt 99.0 kg
[~2022-06-10 06:23] MED LIST changes: +ACHD5005 PO; +CYCL10TA25 PO; +RIVA10TA PO
[2022-06-10 06:30] VITALS: BP 125/81
[2022-06-10] MEDS ORDERED: RX-CYCLOBENZAPRINE 10 MG (FLEXERIL) TAB PPK#3 PO STA (06:52)
[2022-06-10] MEDS ORDERED: KETO10TA PO (06:57)
[2022-06-10] MEDS ORDERED: CYCL10TA25 PO (06:57)
--- NOTE | 2022-06-10 06:57 | ED Lower Extremity ---
General Chief Complaint: Lower Extremity Stated Complaint: SEVERE L LEG CRAMPING Nursing Triage Note: Pt presents with c/o leg spasms and cramping that started at approx 0200 today. She states she has had this before and had to get a shot, unsure of what kind. She attempted to use a warm pack to relieve the pain/cramps without success. Pt is a L leg BKA. Source: patient History of Present Illness Date Seen by Provider: Jun 10, 2022 Time Seen by Provider: 06:45 Initial Comments PT ARRIVES VIA POV FROM HOME--DROVE HERSELF HERE PT C/O MUSCLE SPASMS/CRAMPING IN LEFT LEG--WOKE HER UP AT 0200. PT HAS HAD A PRIOR LEFT BKA FOR CHRONIC OSTEOMYELITIS OF THE LEG. SHE HAS HAD THIS BEFORE AND HAS GOTTEN A SHOT OF UNKNOWN MEDICATION AND IT HELPED. ( HERE 06/2021 FOR THIS COMPLAINT AND RECEIVED NORFLEX AND TORADOL SHOTS) SHE HAS NOT HAD ANY SWELLING OR REDNESS TO THE LEG, AND NO FEVER NO INJURY. NO NEW PARESTHESIAS OR MOTOR DEFICITS THERE IS NO BURNING OR "NERVE" TYPE PAIN SHE DID GET A NEW PROSTHESIS 2 WEEKS AGO, AND IS CURRENTLY USING A "TRIAL" SLEEVE SHE WAS ON HER FEET ALOT MORE THAN NORMAL YESTERDAY--SHE WORKS AT [employer] SHE HAS NOT TAKEN ANYTHING FOR THE PAIN PCP: [facility] [place] Allergies and Home Medications Allergies Coded Allergies: povidone-iodine (Verified Allergy, Mild, BLISTERS, 06/02/20) Penicillins (Verified Adverse Reaction, Mild, 06/02/20) Patient Home Medication List Home Medication List Reviewed: Yes Cyclobenzaprine HCl (Cyclobenzaprine HCl) 10 Mg Tablet, 10 MG PO TID Prescribed by: CHAD ORDOÑEZ on 06/20/212037 Cyclobenzaprine HCl (Cyclobenzaprine HCl) 10 Mg Tablet, 10 MG PO Q8H PRN for SPASMS Prescribed by: FAHEEM MANZANO on 06/10/22 0657 Gabapentin (Neurontin) 300 Mg Capsule, 300 MG PO HS, (Reported) Entered as Reported by: CASSIE JACKSON on 05/26/20 1255 Hydrocodone/Acetaminophen (Hydrocodone-Acetamin 7.5-325) 1 Each Tablet, 1 EACH PO Q4H Prescribed by: YUDI COLEMAN on 06/02/20 1315 Hydrocodone/Acetaminophen (Hydrocodone-Acetamin 5-325 mg) 1 Each Tablet, 1 TAB PO Q4H PRN for PAIN-MODERATE (5-7) Prescribed by: CHAD ORDOÑEZ on 06/20/212038 Ketorolac Tromethamine (Ketorolac Tromethamine) 10 Mg Tablet, 10 MG PO Q6H Prescribed by: FAHEEM MANZANO on 06/10/22 0657 Lurasidone HCl (Latuda) 80 Mg Tablet, 80 MG PO HS, (Reported) Entered as Reported by: CASSIE JACKSON on 05/26/20 1255 Paroxetine HCl (Paroxetine HCl) 40 Mg Tablet, 40 MG PO HS, (Reported) Entered as Reported by: CASSIE JACKSON on 05/26/20 125 Rivaroxaban (Xarelto) 10 Mg Tablet, 10 MG PO DAILY Prescribed by: CHAD ORDOÑEZ on 06/20/212037 Review of Systems Constitutional: no symptoms reported Cardiovascular: no symptoms reported Gastrointestinal: no symptoms reported Musculoskeletal: see HPI Skin: no symptoms reported Psychiatric/Neurological: No Symptoms Reported Past Kvmerco-Etsnqp-Zuafns Hx Patient Social History Tobacco Use?: Yes Immunizations Up To Date Tetanus Booster (TDap): More than 5yrs PED Vaccines UTD: Yes Seasonal Allergies Seasonal Allergies: No Past Medical History Surgeries: Yes (LEFT LEG X8, LT BKA, CS X2, SEE BELOW) Amputation, Section, Hysterectomy, Oophorectomy, Orthopedic, Tonsillectomy Respiratory: Yes Asthma Currently Using CPAP: No Currently Using BIPAP: No Cardiac: No Neurological: Yes TIA Reproductive Disorders: Yes Female Reproductive 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 Sexually Transmitted Disease: No Genitourinary: No Gastrointestinal: Yes (HEPATITIS C-COMPLETED TREATMENT 2019) Abdominal Hernia, Hepatitis Musculoskeletal: Yes (LEFT BKA FOR CHRONIC OSTEOMYELITIS) Amputee Endocrine: No Diabetes, Non-Insulin dep HEENT: No Loss of Vision: Denies Hearing Impairment: Denies Cancer: No Psychosocial: Yes (SUBSTANCE ABUSE) Anxiety, Bipolar, Depression Integumentary: Yes (CHRONIC FOOT ULCER/LEG WOUNDS/CELLULITIS/OSTEOMYELITIS LEFT LEG) Blood Disorders: No Adverse Reaction/Blood Tranf: No Family Medical History Cancer GRANDPARENTS Congestive heart failure 03 MOTHER Dementia GRANDPARENTS Family history: Cardiovascular disease 03 MOTHER Family history: Diabetes mellitus GRANDPARENTS Family history: Hypertension 03 MOTHER Myocardial infarction 03 MOTHER No Family History of: Abdominal aortic aneurysm Family history: Breast disease Family history: Gastrointestinal disease Family history: Thyroid disorder Hereditary disease History of - respiratory disease Parkinson's disease Stroke No Pertinent Family Hx PSH: -MULTIPLE DEBRIDEMENTS OF LEFT LEG/FOOT DUE TO CHRONIC WOUNDS/CELLULITIS/OSTEOMYELITIS, WITH EVENTUAL LEFT BKA 08/31/[address] SOSA - X 2 -HYSTERECTOMY--OVARIES INTACT -REMOVAL OF NEUROMA OF LEFT LEG STUMP 07/17/[address] COLEMAN Physical Exam Vital Signs Vital Signs - First Documented 06/10/22 06:30 Temp 37.3 Pulse 85 Resp 18 B/P (MAP) 125/81 (96) Capillary Refill : Less Than 3 Seconds Height, Weight, BMI Height: 5'4.00" Weight: 190lbs. 0.0oz. 86.793428gd; 37.00 BMI Method:Stated General Appearance: WD/WN, no apparent distress Legs: left leg other (LEFT LEG AND STUMP WITH NORMAL APPEARANCE, AND NO SIGNS OF RECENT INJURY OR INFECTION. NO SORES/WOUNDS, ETC. THERE IS VISIBLE MUSCLE SPASMS OF THIGH MUSCLES AND THE MUSCLE REMNANTS BELOW THE KNEE. AREA IS NOT TENDER. SENSORY/VASCULAR INTACT. ) Procedures/Interventions Suture Size: 5-0 Progress/Results/Core Measures Results/Orders My Orders Orders - FAHEEM MANZANO DO Rx-Cyclobenzaprine Tablet (Rx-Flexeril T (06/10/22 06:52) Ketorolac Injection (Toradol Injection) (06/10/22 07:00) Medications Given in ED Current Medications Medications Dose Ordered Sig/Yoon Route Start Time Stop Time Status Last Admin Dose Admin Ketorolac Tromethamine 60 mg ONCE ONCE IM 06/10/22 07:00 06/10/22 07:01 DC 06/10/22 07:01 60 MG Vital Signs/I&O 06/10/22 06:30 Temp 37.3 Pulse 85 Resp 18 B/P (MAP) 125/81 (96) Blood Pressure Mean: 96 Progress Progress Note : Progress Note GIVEN TORADOL IM, AND SENT HOME WITH TAKE HOME PACK OF FLEXERIL, PT DROVE HERSELF. ADVISED HER NOT TO TAKE THE FLEXERIL UNTIL SHE GOT HOME. Departure Impression Primary Impression: Leg cramps Additional Impression: MUSCLE SPASMS OF LEFT LEG STUMP Disposition: HOME, SELF-CARE Condition: Stable Departure-Patient Inst. Decision time for Depature: 06:53 Referrals: [facility] (PCP) Primary Care Physician YESSICA LICEA (Family) Primary Care Physician Patient Instructions: Muscle Spasms (DC) Add. Discharge Instructions: MOIST HEAT TO AREA AT 20 MINUTE INTERVALS REST MUCH POSSIBLE TODAY FOLLOW UP WITH YOUR DR IN 2-3 DAYS IF NO BETTER All discharge instructions reviewed with patient and/or family. Voiced understanding. Scripts Ketorolac Tromethamine (Ketorolac Tromethamine) 10 Mg Tablet 10 MG PO Q6H for Pain, #15 TAB Prov: FAHEEM MANZANO DO 06/10/22 Cyclobenzaprine HCl (Cyclobenzaprine HCl) 10 Mg Tablet 10 MG PO Q8H PRN for SPASMS, #15 TAB 0 Refills Prov: FAHEEM MANZANO DO 06/10/22 FAHEEM MANZANO DO Jun 10, 2022 06:57
[2022-06-10] MEDS ORDERED: KETOROLAC 60 MG/2 ML VIAL IM ONE (07:00)
== END 2022-06-10 07:10 | disposition home or self-care (01) ==
LOC: EDUNIT# 06:23 → ER 06:25
DX: M62.831 Muscle spasm of calf (principal); Z98.890 Other specified postprocedural states
CPT/HCPCS: 99284

== ENCOUNTER 2022-11-26 07:16 | Emergency (ER) | payer MEDICARE, MEDICAID ==
[~2022-11-26] VITALS: Ht 162.5 cm; Wt 92.1 kg
[~2022-11-26 07:16] MED LIST changes: +KETO10TA PO
[2022-11-26 07:22] VITALS: BP 115/84
--- NOTE | 2022-11-26 07:28 | ED GI ---
General Chief Complaint: Abdominal/GI Problems Stated Complaint: CONSTIPATION Source of Information: Patient Exam Limitations: No Limitations History of Present Illness Date Seen by Provider: Nov 26, 2022 Time Seen by Provider: 07:24 Initial Comments 42-year-old female presents to the emergency department today for decreased frequency of bowel movements. She initially tells me she has not had a bowel movement in 3 weeks. She later tells me she is passing very small brandi of stool but has trouble going. She is passing gas. She has intermittent nausea with vomiting which she has had since she has been on Ozempic. She vomits about every other day, nonbloody and nonbilious. No feculent material. She has bi lateral lower abdominal cramping without any focal tenderness. She describes this is mild. Normal urination. Had a section but no other abdominal surgeries. She has used MiraLAX without much relief. All other systems reviewed and negative except documented per HPI. Voice recognition software was used to help create this chart Allergies and Home Medications Allergies Coded Allergies: povidone-iodine (Verified Allergy, Mild, BLISTERS, 06/02/20) Penicillins (Verified Adverse Reaction, Mild, 06/02/20) Patient Home Medication List Home Medication List Reviewed: Yes Cyclobenzaprine HCl (Cyclobenzaprine HCl) 10 Mg Tablet, 10 MG PO TID Prescribed by: CHAD ORDOÑEZ on 06/20/212037 Cyclobenzaprine HCl (Cyclobenzaprine HCl) 10 Mg Tablet, 10 MG PO Q8H PRN for SPASMS Prescribed by: FAHEEM MANZANO on 06/10/22 0657 Gabapentin (Neurontin) 300 Mg Capsule, 300 MG PO HS, (Reported) Entered as Reported by: CASSIE JACKSON on 05/26/20 1255 Hydrocodone/Acetaminophen (Hydrocodone-Acetamin 7.5-325) 1 Each Tablet, 1 EACH PO Q4H Prescribed by: YUDI COLEMAN on 06/02/20 1315 Hydrocodone/Acetaminophen (Hydrocodone-Acetamin 5-325 mg) 1 Each Tablet, 1 TAB PO Q4H PRN for PAIN-MODERATE (5-7) Prescribed by: CHAD ORDOÑEZ on 06/20/212038 Ketorolac Tromethamine (Ketorolac Tromethamine) 10 Mg Tablet, 10 MG PO Q6H Prescribed by: FAHEEM MANZANO on 06/10/22 0657 Lurasidone HCl (Latuda) 80 Mg Tablet, 80 MG PO HS, (Reported) Entered as Reported by: CASSIE JACKSON on 05/26/20 1255 Paroxetine HCl (Paroxetine HCl) 40 Mg Tablet, 40 MG PO HS, (Reported) Entered as Reported by: CASSIE JACKSON on 05/26/20 1255 Rivaroxaban (Xarelto) 10 Mg Tablet, 10 MG PO DAILY Prescribed by: CHAD ORDOÑEZ on 06/20/212037 Review of Systems Review of Systems Constitutional: see HPI Past Ffifthj-Hywqyz-Nkkcxp Hx Patient Social History Tobacco Use?: No Use of E-Cig and/or Vaping dev: No Substance use?: No Alcohol Use?: No Immunizations Up To Date Tetanus Booster (TDap): More than 5yrs PED Vaccines UTD: Yes Seasonal Allergies Seasonal Allergies: No Past Medical History Surgeries: Yes (LEFT LEG X8, LT BKA, CS X2, SEE BELOW) Amputation, Section, Hysterectomy, Oophorectomy, Orthopedic, Tonsillectomy Respiratory: Yes Asthma Currently Using CPAP: No Currently Using BIPAP: No Cardiac: No Neurological: Yes TIA Reproductive Disorders: Yes 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 Sexually Transmitted Disease: No Genitourinary: No Gastrointestinal: Yes (HEPATITIS C-COMPLETED TREATMENT 2018) Abdominal Hernia, Hepatitis Musculoskeletal: Yes (LEFT BKA FOR CHRONIC OSTEOMYELITIS) Amputee Endocrine: No Diabetes, Non-Insulin dep HEENT: No Loss of Vision: Denies Hearing Impairment: Denies Cancer: No Psychosocial: Yes (SUBSTANCE ABUSE) Anxiety, Bipolar, Depression Integumentary: Yes (CHRONIC FOOT ULCER/LEG WOUNDS/CELLULITIS/OSTEOMYELITIS LEFT LEG) Blood Disorders: No Adverse Reaction/Blood Tranf: No Family Medical History Reviewed Nursing Family Hx Cancer GRANDPARENTS Congestive heart failure 03 MOTHER Dementia GRANDPARENTS Family history: Cardiovascular disease 03 MOTHER Family history: Diabetes mellitus GRANDPARENTS Family history: Hypertension 03 MOTHER Myocardial infarction 03 MOTHER No Family History of: Abdominal aortic aneurysm Family history: Breast disease Family history: Gastrointestinal disease Family history: Thyroid disorder Hereditary disease History of - respiratory disease Parkinson's disease Stroke No Pertinent Family Hx PSH: -MULTIPLE DEBRIDEMENTS OF LEFT LEG/FOOT DUE TO CHRONIC WOUNDS/CELLULITIS/OSTEOMYELITIS, WITH EVENTUAL LEFT BKA 08/31/[address] SOSA - X 2 -HYSTERECTOMY--OVARIES INTACT -REMOVAL OF NEUROMA OF LEFT LEG STUMP 07/17/[address] COLEMAN Physical Exam Vital Signs Capillary Refill : Height/Weight/BMI Height: 5'4.00" Weight: 190lbs. 0.0oz. 86.699012rt; 37.00 BMI Method:Stated General Appearance: WD/WN, no apparent distress HEENT: normal ENT inspection, pharynx normal Neck: non-tender, full range of motion, supple, normal inspection Respiratory: chest non-tender, lungs clear, normal breath sounds, no resp iratory distress, no accessory muscle use Cardiovascular: regular rate, rhythm, no murmur Gastrointestinal: normal bowel sounds, non tender, soft, no organomegaly, other (I am unable to elicit any tenderness on exam though she points to her lower abdomen as a source of her pain. She has normal bowel sounds. Abdomen is nondistended, soft.) Extremities: normal range of motion, non-tender, normal inspection, no pedal edema, no calf tenderness, normal capillary refill Neurologic/Psychiatric: alert, normal mood/affect, oriented x 3 Skin: normal color, warm/dry Procedures/Interventions Suture Size: 5-0 Departure Communication (Admissions) Patient is hemodynamically stable. She has a nonsurgical abdominal exam and her abdomen is completely soft, nondistended and I am unable to elicit any tenderness on exam today. She is afebrile and nontoxic. She has normal bowel sounds on exam. I do not think there is any indication for imaging at this time as there is no evidence for obstruction. She has had symptoms for 3 weeks and she is not having any vomiting, tolerating p.o. outside of her normal every other day nausea with some intermittent vomiting. No feculent material. She will be discharged home with recommendations for conservative care and close primary care follow-up. Impression Primary Impression: Decreased frequency of bowel movements Disposition: 01 HOME, SELF-CARE Condition: Stable Departure-Patient Inst. Referrals: [facility] (PCP/Family) Primary Care Physician Patient Instructions: Constipation, Adult (DC) Add. Discharge Instructions: As discussed I recommend you add Colace to your current bowel regimen. Likely cause of abdominal cramping. If this does not work I recommend you try an [id number] suppository or enema. Return to the emergency department if you develop vomiting of stools light material, inability to tolerate any food or fluids, severe abdominal pain, or if your symptoms change in any way concerning to you. All discharge instructions reviewed with patient and/or family. Voiced understan ding. TOBI NOYOLA DO Nov 26, 2022 07:28
== END 2022-11-26 07:45 | disposition home or self-care (01) ==
LOC: EDUNIT# 07:16 → ER 07:18
DX: R19.4 Change in bowel habit (principal); E11.9 Type 2 diabetes mellitus without complications; Z79.84 Long term (current) use of oral hypoglycemic drugs; Z90.710 Acquired absence of both cervix and uterus
CPT/HCPCS: 99281

== ENCOUNTER 2022-12-03 23:38 | Emergency (ER) | payer MEDICARE, MEDICAID | END 2022-12-04 00:46 | disposition left against medical advice (07) | LOC: EDUNIT# 23:38 → ER 23:40 | DX: Z53.21 Procedure and treatment not carried out due to patient leaving prior to being seen by health care provider (principal) ==

== ENCOUNTER 2022-12-04 22:46 | Emergency (ER) | payer MEDICARE, MEDICAID ==
--- NOTE | 2022-12-04 23:57 | ED Lower Extremity ---
General Chief Complaint: Lower Extremity Stated Complaint: PAIN IN AMPUTATED LEG Nursing Triage Note: PT AMB TO RM 5 WITH CC OF NERVE PAIN IN L AMPUTATED LEG SINCE YESTERDAY. PT STATES PAIN COMES AND GOES. DENIES PAIN MEDS AT THIS TIME. Source: patient History of Present Illness Date Seen by Provider: December 04, 2022 Time Seen by Provider: 23:12 Initial Comments Patient is a 42-year-old female who presents to the emergency room with a chief complaint of pain in the stump of her left leg where she has had a below the knee amputation many years ago. Patient states she has not taken anything for the pain. She frequently has to come to the emergency room in order to "get a shot" to manage the pain. She denies injury or trauma to the area this evening. No open wounds, no drainage. No recent fevers or chills. She has not taken anything this evening to alleviate the symptoms. No Tylenol, ibuprofen, Aleve. No other complaints of recent illness or injury. Onset: this evening Severity: moderate Pain/Injury Location: left thigh Allergies and Home Medications Allergies Coded Allergies: povidone-iodine (Verified Allergy, Mild, BLISTERS, 06/02/20) Penicillins (Verified Adverse Reaction, Mild, 06/02/20) Patient Home Medication List Home Medication List Reviewed: Yes Cyclobenzaprine HCl (Cyclobenzaprine HCl) 10 Mg Tablet, 10 MG PO TID Prescribed by: CHAD ORDOÑEZ on 06/20/212037 Cyclobenzaprine HCl (Cyclobenzaprine HCl) 10 Mg Tablet, 10 MG PO Q8H PRN for SPASMS Prescribed by: FAHEEM MANZANO on 06/10/22 0657 Gabapentin (Neurontin) 300 Mg Capsule, 300 MG PO HS, (Reported) Entered as Reported by: CASSIE JACKSON on 05/26/20 1255 Hydrocodone/Acetaminophen (Hydrocodone-Acetamin 7.5-325) 1 Each Tablet, 1 EACH PO Q4H Prescribed by: YUDI COLEMAN on 06/02/20 1315 Hydrocodone/Acetaminophen (Hydrocodone-Acetamin 5-325 mg) 1 Each Tablet, 1 TAB PO Q4H PRN for PAIN-MODERATE (5-7) Prescribed by: CHAD ORDOÑEZ on 06/20/212038 Ketorolac Tromethamine (Ketorolac Tromethamine) 10 Mg Tablet, 10 MG PO Q6H Prescribed by: FAHEEM MANZANO on 06/10/22 0657 Lurasidone HCl (Latuda) 80 Mg Tablet, 80 MG PO HS, (Reported) Entered as Reported by: CASSIE JACKSON on 05/26/20 1255 Paroxetine HCl (Paroxetine HCl) 40 Mg Tablet, 40 MG PO HS, (Reported) Entered as Reported by: CASSIE JACKSON on 05/26/20 1255 Rivaroxaban (Xarelto) 10 Mg Tablet, 10 MG PO DAILY Prescribed by: CHAD ORDOÑEZ on 06/20/212037 Review of Systems Constitutional: see HPI Respiratory: no symptoms reported Cardiovascular: no symptoms reported Gastrointestinal: no symptoms reported Genitourinary: no symptoms reported Musculoskeletal: muscle pain (left thigh and prox lower leg (above amputation)), muscle cramps Past Hlfloky-Attyun-Qrgedr Hx Patient Social History Use of E-Cig and/or Vaping dev: Yes E-Cig or Vaping type used: Nicotine Substance use?: No Alcohol Use?: No Pt feels they are or have been: No Immunizations Up To Date Tetanus Booster (TDap): More than 5yrs PED Vaccines UTD: Yes Seasonal Allergies Seasonal Allergies: No Past Medical History Surgery/Hospitalization HX: PRE-DM Surgeries: Yes (LEFT LEG X8, LT BKA, CS X2, SEE BELOW) Amputation, Section, Hysterectomy, Oophorectomy, Orthopedic, Tonsillectomy Respiratory: Yes Asthma Currently Using CPAP: No Currently Using BIPAP: No Cardiac: No Neurological: Yes TIA Reproductive Disorders: Yes Female Reproductive Disorders: Menstrual Problems 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 Sexually Transmitted Disease: No Genitourinary: No Gastrointestinal: Yes (HEPATITIS C-COMPLETED TREATMENT 2019) Abdominal Hernia, Hepatitis Musculoskeletal: Yes (LEFT BKA FOR CHRONIC OSTEOMYELITIS) Amputee Endocrine: No Diabetes, Non-Insulin dep HEENT: No Loss of Vision: Denies Hearing Impairment: Denies Cancer: No Psychosocial: Yes (SUBSTANCE ABUSE) Anxiety, Bipolar, Depression Integumentary: Yes (CHRONIC FOOT ULCER/LEG WOUNDS/CELLULITIS/OSTEOMYELITIS LEFT LEG) Blood Disorders: No Adverse Reaction/Blood Tranf: No Family Medical History Cancer GRANDPARENTS Congestive heart failure 03 MOTHER Dementia GRANDPARENTS Family history: Cardiovascular disease 03 MOTHER Family history: Diabetes mellitus GRANDPARENTS Family history: Hypertension 03 MOTHER Myocardial infarction 03 MOTHER No Family History of: Abdominal aortic aneurysm Family history: Breast disease Family history: Gastrointestinal disease Family history: Thyroid disorder Hereditary disease History of - respiratory disease Parkinson's disease Stroke No Pertinent Family Hx PSH: -MULTIPLE DEBRIDEMENTS OF LEFT LEG/FOOT DUE TO CHRONIC WOUNDS/CELLULITIS/OSTEOMYELITIS, WITH EVENTUAL LEFT BKA 08/31/[address] SOSA - X 2 -HYSTERECTOMY--OVARIES INTACT -REMOVAL OF NEUROMA OF LEFT LEG STUMP 07/17/[address] COLEMAN Physical Exam Vital Signs Vital Signs - First Documented 12/04/22 23:03 Pulse 77 Resp 18 B/P (MAP) 117/78 (91) Pulse Ox 96 O2 Delivery Room Air Capillary Refill : Less Than 3 Seconds Height, Weight, BMI Height: 5'4.00" Weight: 190lbs. 0.0oz. 86.912389ww; 34.00 BMI Method:Stated General Appearance: WD/WN, no apparent distress Cardiovascular: regular rate, rhythm Respiratory: lungs clear, normal breath sounds, no respiratory distress, no accessory muscle use Hips: bilateral hip normal range of motion Legs: left leg other (s/p amputation below the knee. 'stump' is pink warm and dry. no rashes. no open wounds. no erythema. no induration, skin thickening. supple) Knees: bilateral knee non-tender, bilateral knee normal inspection, bilateral knee normal range of motion, bilateral knee no evidence of injury Neurologic/Psychiatric: alert, normal mood/affect, oriented x 3 Skin: normal color, warm/dry Procedures/Interventions Suture Size: 5-0 Progress/Results/Core Measures Results/Orders My Orders Orders - NATHAN SANTANA MD Ketorolac Injection (Toradol Injection) (12/05/22 00:00) Orphenadrine Inj (Ed Only) (Norflex Inje (12/05/22 00:00) Vital Signs/I&O 12/04/22 12/05/22 23:03 00:12 Pulse 77 78 Resp 18 18 B/P (MAP) 117/78 (91) 107/72 Pulse Ox 96 96 O2 Delivery Room Air Room Air Blood Pressure Mean: 91 Progress Progress Note : Progress Note Per review of the medical record the patient has presented in the past to the emergency room for pain management. She has received Norflex and Toradol with relief of symptoms. This was administered tonight. Patient was encouraged to follow-up with her primary care physician for further pain management for home. She was advised she could use oaxn-xgt-[id number] Biofreeze, diclofenac gel as well as oral medications. No indications for labs, and imaging at this time due to no history of trauma or infection. Departure Impression Primary Impression: Amputation stump pain Disposition: HOME, SELF-CARE Condition: Improved Departure-Patient Inst. Decision time for Depature: 23:55 Referrals: [facility] (PCP/Family) Primary Care Physician Patient Instructions: Acute Pain, Adult Add. Discharge Instructions: you can get over the counter "Diclofenac" gel (this is a generic) and apply it as directed on packaging, this may help your pain. Alternate warm and cool packs. [facility]. Return to the ER for any new, emergent or concerning symptoms. Copy Copies To 1: SHERIN REYEZ KATHRYN M MD December 04, 2022 23:57
[2022-12-05] MEDS ORDERED: KETOROLAC 30 MG/ML VIAL IM ONE
[2022-12-05] MEDS ORDERED: ORPHENADRINE 60 MG/2 ML (NORFLEX) AMP (ED ONLY) IM ONE
[2022-12-05 00:12] VITALS: BP 107/72
== END 2022-12-05 00:13 | disposition home or self-care (01) ==
LOC: EDUNIT# 22:46 → ER 22:48
DX: T87.89 Other complications of amputation stump (principal); F17.290 Nicotine dependence, other tobacco product, uncomplicated; Z89.512 Acquired absence of left leg below knee
CPT/HCPCS: 99284

== ENCOUNTER 2023-04-18 03:34 | Emergency (ER) | payer MEDICARE, MEDICAID ==
[~2023-04-18] VITALS: Ht 162.6 cm; Wt 90.7 kg
[2023-04-18 03:40] VITALS: BP 123/89
[2023-04-18] MEDS ORDERED: diphenhydrAMINE INJ 50 MG/ML VIAL IM ONE (03:45)
[2023-04-18] MEDS ORDERED: KETOROLAC INJ 60 MG/2 ML VIAL IM ONE (03:45)
[2023-04-18] MEDS ORDERED: ORPHENADRINE 60 MG/2 ML AMP (ED ONLY) IM ONE (03:45)
--- NOTE | 2023-04-18 03:50 | ED Lower Extremity ---
General Stated Complaint: LEFT AMPUTATED LEG PAIN Source: patient, old records History of Present Illness Date Seen by Provider: Apr 18, 2023 Time Seen by Provider: 03:44 Initial Comments PT ARRIVES VIA POV FROM HOME WITH PT HAS HAD PRIOR LEFT BKA DUE TO OSTEOMYELITIS--PT STATES SHE WAS A FORMER IV DRUG USER AND GOT INFECTION IN HER BONE THE SURGERY WAS A FEW YEARS AGO, BUT SHE HAS CHRONIC PAIN AND MUSCLE SPASMS TO THE STUMP--FROM THE KNEE DOWN TO THE END OF THE STUMP NO RELIEF WITH TYLENOL AND MOTRIN AND BIOFREEZE STATES SHE USUALLY GETS 2 SHOTS AND IT HELPS ( PT HAS RECEIVED TORADOL AND NORFLEX ON PRIOR ER VISITS) THERE ARE NO WOUNDS OR INFECTION TO THE AREA PT IS WEARING A PROSTHESIS, AND HAS HAD THE SAME ONE FOR AWHILE AND IT FITS FINE. PT STATES NO ONE HAS EVER TALKED TO HER ABOUT CLERICAL ADJUSTER PAIN MANAGEMENT FOR THIS PROBLEM Allergies and Home Medications Allergies Coded Allergies: povidone-iodine (Verified Allergy, Mild, BLISTERS, 06/02/20) Penicillins (Verified Adverse Reaction, Mild, 06/02/20) Patient Home Medication List Home Medication List Reviewed: Yes Cyclobenzaprine HCl (Cyclobenzaprine HCl) 10 Mg Tablet, 10 MG PO TID Prescribed by: CHAD ORDOÑEZ on 06/20/212037 Cyclobenzaprine HCl (Cyclobenzaprine HCl) 10 Mg Tablet, 10 MG PO Q8H PRN for SPASMS Prescribed by: FAHEEM MANZANO on 06/10/22656 Gabapentin (Neurontin) 300 Mg Capsule, 300 MG PO HS, (Reported) Entered as Reported by: CASSIE JACKSON on 05/26/20 1255 Hydrocodone/Acetaminophen (Hydrocodone-Acetamin 7.5-325) 1 Each Tablet, 1 EACH PO Q4H Prescribed by: YUDI COLEMAN on 06/02/20 1315 Hydrocodone/Acetaminophen (Hydrocodone-Acetamin 5-325 mg) 1 Each Tablet, 1 TAB PO Q4H PRN for PAIN-MODERATE (5-7) Prescribed by: CHAD ORDOÑEZ on 06/20/212038 Ketorolac Tromethamine (Ketorolac Tromethamine) 10 Mg Tablet, 10 MG PO Q6H Prescribed by: FAHEEM MANZANO on 06/10/22656 Ketorolac Tromethamine (Ketorolac Tromethamine) 10 Mg Tablet, 10 MG PO Q6H Prescribed by: FAHEEM MANZANO on 04/18/23 035 Lurasidone HCl (Latuda) 80 Mg Tablet, 80 MG PO HS, (Reported) Entered as Reported by: CASSIE JACKSON on 05/26/20 1255 Paroxetine HCl (Paroxetine HCl) 40 Mg Tablet, 40 MG PO HS, (Reported) Entered as Reported by: CASSIE JACKSON on 05/26/20 1255 Rivaroxaban (Xarelto) 10 Mg Tablet, 10 MG PO DAILY Prescribed by: CHAD ORDOÑEZ on 06/20/212037 Tizanidine HCl (Zanaflex) 4 Mg Capsule, 4 MG PO TID Prescribed by: FAHEEM MANZANO on 04/18/23356 Review of Systems Constitutional: no symptoms reported Musculoskeletal: see HPI Past Yjrzezv-Uqgctl-Pqoevb Hx Patient Social History Tobacco Use?: Yes Tobacco type used: Cigarettes Smoking Status: Current Everyday Smoker Substance use?: Yes Substance type: Methamphetamine Additional substance use comme: FORMER IV DRUG USER Alcohol Use?: No Immunizations Up To Date Tetanus Booster (TDap): More than 5yrs PED Vaccines UTD: Yes Seasonal Allergies Seasonal Allergies: No Past Medical History Surgery/Hospitalization HX: PRE-DM Surgeries: Yes (LEFT LEG X8, LT BKA, CS X2, SEE BELOW) Amputation, Section, Hysterectomy, Oophorectomy, Orthopedic, Tonsillectomy Respiratory: Yes Asthma Currently Using CPAP: No Currently Using BIPAP: No Cardiac: No Neurological: Yes TIA Reproductive Disorders: Yes Female Reproductive Disorders: Menstrual Problems 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 Sexually Transmitted Disease: No Genitourinary: No Gastrointestinal: Yes (HEPATITIS C-COMPLETED TREATMENT 2019) Abdominal Hernia, Hepatitis Musculoskeletal: Yes (LEFT BKA FOR CHRONIC OSTEOMYELITIS) Amputee Endocrine: No Diabetes, Non-Insulin dep HEENT: No Loss of Vision: Denies Hearing Impairment: Denies Cancer: No Psychosocial: Yes (SUBSTANCE ABUSE) Anxiety, Bipolar, Depression Integumentary: Yes (CHRONIC FOOT ULCER/LEG WOUNDS/CELLULITIS/OSTEOMYELITIS LEFT LEG) Blood Disorders: No Adverse Reaction/Blood Tranf: No Family Medical History Cancer GRANDPARENTS Congestive heart failure 03 MOTHER Dementia GRANDPARENTS Family history: Cardiovascular disease 03 MOTHER Family history: Diabetes mellitus GRANDPARENTS Family history: Hypertension 03 MOTHER Myocardial infarction 03 MOTHER No Family History of: Abdominal aortic aneurysm Family history: Breast disease Family history: Gastrointestinal disease Family history: Thyroid disorder Hereditary disease History of - respiratory disease Parkinson's disease Stroke No Pertinent Family Hx SOCIAL HISTORY: -SMOKES 1/2 PPD -ETOH --DENIES USE -DRUGS--HX OF IV METHAMPHETAMINE USE PAST SURGICAL HISTORY: -MULTIPLE DEBRIDEMENTS OF LEFT LEG/FOOT DUE TO CHRONIC WOUNDS/CELLULITIS/OSTEOMYELITIS, WITH EVENTUAL LEFT BKA 08/31/[address] SOSA - X 2 -HYSTERECTOMY--OVARIES INTACT -REMOVAL OF NEUROMA OF LEFT LEG STUMP 07/17/[address] COLEMAN Physical Exam Vital Signs Vital Signs - First Documented 04/18/23 03:40 Temp 36.0 Pulse 73 Resp 18 B/P (MAP) 123/89 (100) Pulse Ox 97 O2 Delivery Room Air Capillary Refill : Height, Weight, BMI Height: 5'4.00" Weight: 190lbs. 0.0oz. 86.418511bg; 34.00 BMI Method:Stated General Appearance: WD/WN, no apparent distress Legs: left leg other (LEFT LEG STUMP FROM KNEE DOWN WITH OBVIOUS MUSCLE SPASMS. THERE IS NO SIGNS OF INFECTION, THERE ARE NO OPEN WOUNDS. THE AREA IS NOT TENDER TO PALPATION, THERE IS NO SWELLING OR INDURATION ) Procedures/Interventions Suture Size: 5-0 Progress/Results/Core Measures Results/Orders My Orders Orders - FAHEEM MANZANO DO Ketorolac Injection (Ketorolac Injection (04/18/23 03:45) Orphenadrine Inj (Ed Only) (Orphenadrine (04/18/23 03:45) Diphenhydramine Injection (Diphenhydram (04/18/23 03:45) Medications Given in ED Current Medications Medications Dose Ordered Sig/Yoon Route Start Time Stop Time Status Last Admin Dose Admin Diphenhydramine HCl 50 mg ONCE ONCE IM 04/18/23 03:45 04/18/23 03:46 DC 04/18/23 03:55 50 MG Ketorolac Tromethamine 60 mg ONCE ONCE IM 04/18/23 03:45 04/18/23 03:46 DC 04/18/23 03:55 60 MG Orphenadrine Citrate 60 mg ONCE ONCE IM 04/18/23 03:45 04/18/23 03:46 DC 04/18/23 03:55 60 MG Vital Signs/I&O 04/18/23 03:40 Temp 36.0 Pulse 73 Resp 18 B/P (MAP) 123/89 (100) Pulse Ox 97 O2 Delivery Room Air Progress Progress Note : Progress Note GIVEN: -TORADOL -NORFLEX -BENADRYL REVIEWED PRIOR RECORDS INCLUDING ER VISITS, ADMITS/H&P'S/CONSULTS/DISCHARGE SUMMARIES, TESTS/PROCEDURES DISCUSSED ANTICIPATED COURSE, SYMPTOMATIC TREATMENT, MEDICATIONS, NEED FOR FOLLOW UP AND RETURN PRECAUTIONS ADVISED PT TO CONTACT [facility] FOR MANAGEMENT OF THIS CHRONIC PROBLEM Departure Impression Primary Impression: CHRONIC PAIN AND MUSCLE SPASMS TO LEFT LEG STUMP Disposition: HOME, SELF-CARE Condition: Stable Departure-Patient Inst. Decision time for Depature: 03:55 Referrals: [facility] (PCP/Family) Primary Care Physician Patient Instructions: CHRONIC PAIN Add. Discharge Instructions: FOLLOW UP WITH [facility] FOR FURTHER CARE Scripts Tizanidine HCl (Zanaflex) 4 Mg Capsule 4 MG PO TID for Spasms, #15 CAP Prov: FAHEEM MANZANO DO 04/18/23 Ketorolac Tromethamine (Ketorolac Tromethamine) 10 Mg Tablet 10 MG PO Q6H for Pain, #15 TAB Prov: FAHEEM MANZANO DO 04/18/23 FAHEEM MANZANO DO Apr 18, 2023 03:50
[2023-04-18] MEDS ORDERED: KETO10TA PO (03:57)
[2023-04-18] MEDS ORDERED: TIZA4CAP PO (03:57)
== END 2023-04-18 04:05 | disposition home or self-care (01) ==
LOC: EDUNIT# 03:34 → ER 03:36
DX: M62.838 Other muscle spasm (principal); G89.29 Other chronic pain; F17.210 Nicotine dependence, cigarettes, uncomplicated
CPT/HCPCS: 99284

== ENCOUNTER 2023-05-08 12:28 | Day surgery (SDC) | payer MEDICARE, MEDICAID ==
[~2023-05-08] VITALS: Ht 162.5 cm; Wt 94.4 kg
[~2023-05-08 12:28] MED LIST changes: +LURA120T PO; +MIRT-122 PO; +MIRT45TA3 PO; +PREG50CA2 PO; +TIZA4CAP PO
[2023-05-08] MEDS ORDERED: LACTATED RINGERS 1,000 ML 1,000 ML IV STA (12:36)
[2023-05-08] MEDS ORDERED: HURRICAINE EXT TUBE (BENZOCAINE) XX PRN (12:45)
[2023-05-08] MEDS ORDERED: LIDOCAINE JELLY 2% 6 ML SYRINGE MM PRN (12:45)
[2023-05-08 12:56] VITALS: BP 127/84
[2023-05-08] MEDS ORDERED: LIDOCAINE JELLY 2% 6 ML SYRINGE ONE (13:10)
--- NOTE | 2023-05-08 13:24 | Progress Note-Pre Operative ---
Pre-Operative Progress Note Date of Available H&P: May 08, 2023 Date H&P Reviewed: May 08, 2023 Time H&P Reviewed: 13:00 History & Physical: No changes noted Pre-Operative Diagnosis: GERD, dysphagia YUDI COLEMAN MD May 08, 2023 13:24
[2023-05-08] MEDS ORDERED: PANT40TA2 PO (13:25)
--- NOTE | 2023-05-08 13:25 | Discharge Inst-Surgical ---
D/C Lap Instructions-KIDO New, Converted, or Re-Newed RX: RX on Chart Follow Up Activity as tolerated High Fiber Diet 25g or more per day Avoid Alcohol, Caffeine, Spicy [place] and Acid foods. Drink 64 fluid oz or more of fluids per day. Symptoms to Report: Fever over 101 degree F, Nausea/Vomiting If any problems/questions: Contact your physician or go to Emergency Room YUDI COLEMAN MD May 08, 2023 13:25
[2023-05-08] MEDS ORDERED: ONDANSETRON INJECTION 4 MG/2 ML (SDV) IVP PRN (13:30)
[2023-05-08] MEDS ORDERED: ONDANSETRON 4 MG ORAL DISSOLVE TABLET PO PRN (13:30)
[2023-05-08 15:30] VITALS: BP 93/50
[2023-05-08 15:40] VITALS: BP 93/50
[2023-05-08 16:00] VITALS: BP 93/50
--- NOTE | 2023-05-08 16:27 | Anesthesia-General Post-Op ---
MAC Patient Condition Mental Status/LOC: Same as Preop Cardiovascular: Satisfactory Nausea/Vomiting: Absent Respiratory: Satisfactory Pain: Controlled Complications: Absent Post Op Complications Complications None Follow Up Care/Instructions Patient Instructions None needed. Anesthesiology Discharge Order Discharge Order Patient is doing well, no complaints, stable vital signs, no apparent adverse anesthesia problems. No complications reported per nursing. MASON DUBOSE CRNA May 08, 2023 16:27
--- NOTE | 2023-05-09 01:25 | OPERATIVE REPORT ---
DATE OF SERVICE: 05/08/2023 ATTENDING PRIMARY CARE PHYSICIAN: Dr. Mateusz Caldera. PREOPERATIVE DIAGNOSES: Dysphagia, gastroesophageal reflux disease. POSTOPERATIVE DIAGNOSES: Reflux esophagitis [place] grade C, mild distal esophageal stricture, small to moderate size hiatal hernia 2.5 cm in size, mild gastritis, no distal obstructions. PROCEDURE: EGD with biopsy and balloon dilatation. SURGEON: Yudi Coleman MD ANESTHESIA: Monitored anesthesia care. ESTIMATED BLOOD LOSS: Minimal. FINDINGS: Reflux esophagitis [place] grade C, mild distal esophageal stricture, small to moderate size hiatal hernia 2.5 cm in size, mild gastritis, no distal obstructions. DISPOSITION: The patient tolerated the procedure well. INDICATIONS: The patient is a 43-year-old female known to us. We had initially seen her in 2010 for a persistent open wound and osteomyelitis of the left foot. At that time, she did have a history of IV drug abuse and ultimately underwent a below-knee amputation in 08/2013 and since that time has done really well and does have a left lower extremity prosthesis, which works well. She reports that for the past 2 months, she has had issues with heartburn, reflux with epigastric burning sensation and crampy pain and also does have intermittent episodes of nausea and vomiting. She also does report radiation of pain towards the right side as well as towards the back. She also does report some dysphagia at times and feels that some foods get stuck in the substernal region and then eventually reduced on their own. She is currently on omeprazole 40 mg daily. DESCRIPTION OF PROCEDURE: The patient was brought to the endoscopy suite and laid in the left lateral decubitus position. After adequate IV pain and sedative medications and monitored anesthesia care, the mouthpiece was applied. The endoscope was placed in the mouth, visualized the pharynx and hypopharyngeal region. Vocal cords, epiglottis and vallecula identified and appeared to be normal. The endoscope was then gently intubated into the esophageal opening and esophagus insufflated. The endoscope was then advanced through the first, second, third portions of esophagus, at the level of GE junction, a reflux esophagitis, [place] grade C identified. There was a mild distal esophageal stricture. A biopsy was taken of the GE junction with forceps with visualization of good hemostasis. The endoscope was then advanced in the stomach and endoscope retroflexed visualizing a small to moderate size hernia, 2.5 cm in size. There was a [id number] gastritis. No formal ulcerations, polyps or any neoplasms. A biopsy was taken of the antrum to rule out H. pylori with visualization of good hemostasis. The endoscope was then advanced to the pylorus and the first and second portion of the duodenum, which appeared normal with no distal obstructions. The balloon was then placed in the stomach and pulled back to the area of the stricture. We then proceeded with graded dilatation from 2 4, then eventually 6 atmospheres of pressure with 60 seconds in between each level and once we had 6 atmospheres of pressure, we did encountered moderate resistance and this equated to approximately 20 mm in luminal diameter. We left this in place for 120 seconds. The balloon was desufflated and removed with visualization of good hemostasis as well as no mucosal tears. The endoscope was then slowly withdrawn while taking a second look and suctioning of residual air with no additional findings. The patient tolerated the procedure well. We will recommend the necessary lifestyle and dietary accommodation including small and more frequent meals, avoidance of eating at night as well as head elevation while lying supine. She also needs to avoid caffeinated beverages, spicy, greasy and acidic foods and continue with her omeprazole 40 mg daily; however, we will also add Protonix 40 mg daily to be taken at a separate time during the day for a trial of 3 months. Job ID: [id number] DocumentID: [id number] Dictated Date: 05/08/2023 15:42:01 Battery Mechanic Date: 05/09/2023 01:23:00 Dictated By: YUDI COLEMAN MD
== END 2023-05-08 16:03 | disposition home or self-care (01) ==
LOC: ENDO 12:28
PROVIDERS: ATTEND Surgery
DX: K21.00 Gastro-esophageal reflux disease with esophagitis, without bleeding (principal); K22.2 Esophageal obstruction; K44.9 Diaphragmatic hernia without obstruction or gangrene; K29.50 Unspecified chronic gastritis without bleeding; B96.81 Helicobacter pylori [H. pylori] as the cause of diseases classified elsewhere; F17.290 Nicotine dependence, other tobacco product, uncomplicated; E66.9 Obesity, unspecified; Z68.35 Body mass index [BMI] 35.0-35.9, adult; Z89.512 Acquired absence of left leg below knee

== ENCOUNTER → 2023-05-20 | Outpatient (CLI) | payer MEDICARE ==
[~2023-05-20] MED LIST changes: +PANT40TA2 PO
--- NOTE | 2023-05-20 12:52 | Diagnostic Imaging Report ---
PROCEDURE: US Gallbladder. TECHNIQUE: Multiple real-time grayscale images were obtained over the right upper quadrant in various projections. INDICATION: Right upper quadrant pain with nausea and vomiting. FINDINGS: Liver measures 19.7 cm and demonstrates an increased echogenicity. There is hepatopetal flow in the main portal vein. Common bile duct measures 6 mm. There is cholelithiasis. Mild gallbladder wall thickening up to 3 to 4 mm. There is no pericholecystic fluid. Pancreas is not well-seen due to bowel gas. Aorta is nonaneurysmal. IVC is not seen due to bowel gas. Right kidney is normal. No ascites. IMPRESSION: Cholelithiasis and mild gallbladder wall thickening. If clinical decision about acute cholecystitis persists further evaluation with nuclear medicine hepatobiliary scan should be considered Dictated by: Dictated on workstation # [id number]
== END ==
LOC: CARD 09:49
PROVIDERS: ATTEND Surgery
DX: K80.20 Calculus of gallbladder without cholecystitis without obstruction (principal)
CPT/HCPCS: 76705

== ENCOUNTER 2023-05-28 05:33 | Outpatient (CLI) | payer MEDICARE ==
[~2023-05-28] VITALS: Ht 162.6 cm; Wt 95.5 kg
[2023-05-28] MEDS ORDERED: LURA40TA4 PO (10:34)
[2023-05-28] MEDS ORDERED: ONDA4TAB11 SL (10:34)
== END 2023-05-28 10:53 | disposition home or self-care (01) ==
LOC: PREOP 05:33
PROVIDERS: ATTEND Surgery
DX: Z01.818 Encounter for other preprocedural examination (principal)

== ENCOUNTER 2023-05-30 12:20 | Day surgery (SDC) | payer MEDICARE ==
[~2023-05-30] VITALS: Ht 162.6 cm; Wt 95.5 kg
[2023-05-30] VITALS (11 sets, daily range): BP systolic 125–153; BP diastolic 69–94
[~2023-05-30 12:20] MED LIST changes: +LURA40TA4 PO; +ONDA4TAB11 SL
[2023-05-30] MEDS ORDERED: ceFAZolin INJECTION 2,000 MG ONE (12:49)
[2023-05-30] MEDS ORDERED: NS (IVPB) 50 ML 50 ML ONE (12:49)
[2023-05-30] MEDS ORDERED: LIDOCAINE 2% w/EPI 1:100,000 20 ML VIAL ONE (13:28)
[2023-05-30] MEDS ORDERED: ceFAZolin INJECTION 2,000 MG in NS (IVPB) 50 ML 50 ML IV ONE (13:30)
[2023-05-30] MEDS ORDERED: LACTATED RINGERS 1,000 ML 1,000 ML IV PRN (13:30)
--- NOTE | 2023-05-30 13:38 | Progress Note-Pre Operative ---
Pre-Operative Progress Note Date H&P Reviewed: May 30, 2023 Time H&P Reviewed: 13:35 History & Physical: H&P Reviewed, Patient Examed, No changes noted Pre-Operative Diagnosis: Chronic calculous cholecystitis ANDREW BOBBY APRN May 30, 2023 13:38
[2023-05-30] MEDS ORDERED: ACHD5005 PO (13:41)
--- NOTE | 2023-05-30 13:41 | Discharge Inst-Surgical ---
D/C Lap Instructions-KIDO Reconcile Patient Problems Problems Reviewed?: Yes New, Converted, or Re-Newed RX: RX on Chart Follow Up Appt in 2 weeks Activity as tolerated No driving for 24 hours No driving while on pain medications Incentive Spirometry use every 2 hours while awake Regular Diet Symptoms to Report: Fever over 101 degree F, Nausea/Vomiting Infection Signs and Symptoms to report: Increased redness, Foul odor of wound, Increased drainage Bathing instructions: May shower Operative Area Clean/Dry; Keep incision clean/dry If any problems/questions: Contact your physician or go to Emergency Room ANDREW BOBBY APRN May 30, 2023 13:41
[2023-05-30] MEDS ORDERED: ACETAMINOPHEN 325 MG TABLET PO PRN (13:45)
[2023-05-30] MEDS ORDERED: ONDANSETRON INJECTION 4 MG/2 ML (SDV) IVP PRN (13:45)
[2023-05-30] MEDS ORDERED: HYDROcodone/ACETAMINOPHEN 5 MG/325 MG TABLET PO ONE (13:45)
[2023-05-30] MEDS ORDERED: fentaNYL INJECTION 100 MCG/2 ML VIAL IVP PRN (13:45)
[2023-05-30] MEDS ORDERED: proPOfol INJECTION 200 MG/20 ML VIAL IV ONE (13:54)
[2023-05-30] MEDS ORDERED: MIDAZOLAM INJ 2 MG/2 ML VIAL ONE (13:54)
[2023-05-30] MEDS ORDERED: fentaNYL INJECTION 100 MCG/2 ML VIAL ONE ×2 (13:54→14:28)
[2023-05-30] MEDS ORDERED: SEVOFLURANE (ULTANE) 15 ML INHAL SOLN ONE ×3 (13:54→15:00)
[2023-05-30] MEDS ORDERED: LIDOCAINE PF 2% 5 ML VIAL ONE (13:54)
[2023-05-30] MEDS ORDERED: ONDANSETRON INJECTION 4 MG/2 ML (SDV) ONE (13:54)
[2023-05-30] MEDS ORDERED: LIDOCAINE 2% w/EPI 1:100,000 20 ML VIAL INJ ONE (14:36)
[2023-05-30] MEDS ORDERED: LABETALOL 5 mg/ml 4 ML SINGLE DOSE SYRINGE ONE (14:38)
[2023-05-30] MEDS ORDERED: ROCURONIUM 50 MG/5 ML VIAL IV ONE (14:48)
[2023-05-30] MEDS ORDERED: GLYCOPYRROLATE INJ 0.2 MG/ML 2 ML VIAL ONE (14:57)
[2023-05-30] MEDS ORDERED: NEOSTIGMINE 1 MG/1ML 10 ML VIAL ONE (14:57)
--- NOTE | 2023-05-30 15:00 | Progress Note-Post Operative ---
Post-Operative Progess Note Surgeon (s)/Offset Press Operator Apprentice (s) Surgeon YUDI COLEMAN MD Offset Press Operator Apprentice: angelica persaud [facility] OB Pre-Operative Diagnosis Chronic calculous cholecystitis Post-Operative Diagnosis same Procedure & Operative Findings Date of Procedure 05/30/23 Procedure Performed/Findings laparoscopic cholecystectomy Anesthesia Type get Estimated Blood Loss Estimated blood loss (mL): minimal Specimens/Packing Specimens Removed gallbladder YUDI COLEMAN MD May 30, 2023 15:00
--- NOTE | 2023-05-30 15:07 | Anesthesia-General Post-Op ---
General Patient Condition Mental Status/LOC: Same as Preop Cardiovascular: Satisfactory Nausea/Vomiting: Absent Respiratory: Satisfactory Pain: Controlled Complications: Absent Post Op Complications Complications None Follow Up Care/Instructions Patient Instructions None needed. Anesthesia/Patient Condition Patient Condition Patient is doing well, no complaints, stable vital signs, no apparent adverse anesthesia problems. No complications reported per nursing. MASON DUBOSE CRNA May 30, 2023 15:07
[2023-05-30] MEDS ORDERED: HYDROmorphone INJECTION 2 MG/ML VIAL IV ONE (15:15)
[2023-05-30] MEDS ORDERED: HYDROmorphone INJECTION 2 MG/ML VIAL ONE (15:16)
[2023-05-30] MEDS: ONDANSETRON INJECTION 4 MG/2 ML (SDV) IVP PRN ×2 (15:23→15:43)
[2023-05-30] MEDS ORDERED: HYDROcodone/ACETAMINOPHEN 5 MG/325 MG TABLET ONE (16:25)
--- NOTE | 2023-05-30 20:39 | OPERATIVE REPORT ---
DATE OF SERVICE: 05/30/2023 ATTENDING PRIMARY CARE PHYSICIAN: Dr. Mateusz Caldera. PREOPERATIVE DIAGNOSIS: Symptomatic chronic calculous cholecystitis. POSTOPERATIVE DIAGNOSIS: Symptomatic chronic calculous cholecystitis. PROCEDURE: Laparoscopic cholecystectomy. SURGEON: Yudi Coleman MD ANESTHESIA: General endotracheal. ESTIMATED BLOOD LOSS: Minimal. FINDINGS: Small gallstones. DISPOSITION: The patient tolerated the procedure well. INDICATIONS: The patient is a 43-year-old female who has had a history of abdominal distention, bloating, nausea as well as vomiting after eating meals. She states that this has been going on for a significant amount of time. Upon further questioning, she had also had reported dysphagia and when she would eat some form of food bolus usually being a lean meat or dry bread or crackers, she would feel epigastric pressure sensation, which would reduce on its own over time versus regurgitation. She initially underwent an EGD approximately 1 month ago and was found to have a mild distal esophageal stricture, which was balloon dilated. She also did have gastritis and biopsies of the stomach did come back positive for H. pylori. She did have this treated with a 2 week regimen of antibiotics with clarithromycin and Flagyl as well as PPI acid joint maker machine on a b.i.d. basis. She states that she has improved some, but she continues to have pain more in the right upper abdominal quadrant after eating meals. She did have an ultrasound performed, which did show gallstones as well as mild gallbladder wall thickening. DESCRIPTION OF PROCEDURE: The patient was brought to the operating room, laid supine on the table. After adequate IV pain and sedative medications and general endotracheal intubation, the abdomen was prepped and draped in standard surgical fashion. 0.5% Marcaine with epinephrine was then used to anesthetize the overlying skin in the left upper abdominal quadrant and a transverse skin incision made using #15 blade. An 0 silk suture was applied to the medial aspect of the incision for retraction and a Veress needle inserted with a low opening pressure of 0 mmHg. The Veress needle removed and a 5 mm trocar placed followed by a 5 mm 45-degree angle laparoscope visualized the peritoneal cavity. A 4-quadrant abdominal exploration was performed. There was a slightly distended gallbladder, no gallbladder wall thickening. Under direct visualization, we then proceeded to place a supraumbilical 10 mm port after the skin and peritoneal lining were anesthetized using 0.5% Marcaine with epinephrine and a transverse skin incision made using a #15 blade. In a similar manner, a right upper abdominal quadrant 5 mm port was placed. The patient was then placed in reverse Trendelenburg position as well as plane right side up, left side down. The fundus of the gallbladder was then retracted anteriorly and superiorly. The hepatoduodenal ligament was then dissected bluntly as well as using electrocautery on the hook instrument as well as a [place] dissector. The entire critical view of safety was identified including the triangle Calot as well as the cystic duct and artery as the only 2 structures going into the gallbladder as well as the cystic plate behind the proximal gallbladder. A timeout was then taken and the cystic duct and artery were then clipped proximally and distally and cut with EndoShears. The gallbladder was then dissected off of the liver bed using cautery on the hook instrument with visualization of good hemostasis as well as no leaking ducts of Luschka. The gallbladder was removed through the 10 mm port site using an EndoCatch bag. The 10 mm port site fascia and peritoneum were then closed under direct visualization using a Kota-Greg device and 0 Vicryl suture. The abdomen was then desufflated and the remaining ports removed. All skin incisions were closed using 4-0 Monocryl running subcuticular sutures. Wounds were then cleaned and covered with Dermabond. The patient tolerated the procedure well. We will start IV normal pain medication as well as a clear liquid diet. Once tolerating clears, has good pain control with oral pain medications, ambulating well, we will discharge her home where she will be instructed to do no heavy lifting or exertion for the next 2 weeks. Job ID: [id number] DocumentID: [id number] Dictated Date: 05/30/2023 15:06:40 Replacer Date: 05/30/2023 20:37:00 Dictated By: YUDI COLEMAN MD
== END 2023-05-30 17:05 | disposition home or self-care (01) ==
LOC: SDC 12:20
PROVIDERS: ATTEND Surgery
DX: K80.10 Calculus of gallbladder with chronic cholecystitis without obstruction (principal); Z89.512 Acquired absence of left leg below knee; F17.290 Nicotine dependence, other tobacco product, uncomplicated; K21.00 Gastro-esophageal reflux disease with esophagitis, without bleeding; K22.2 Esophageal obstruction; B96.81 Helicobacter pylori [H. pylori] as the cause of diseases classified elsewhere
CPT/HCPCS: 87081; 94664

== ENCOUNTER 2023-06-14 13:37 | Outpatient (CLI) | payer MEDICARE ==
[~2023-06-14] VITALS: Ht 162.6 cm; Wt 95.5 kg
[2023-06-14] MEDS ORDERED: RIFA150C25 PO (14:12)
[2023-06-14] MEDS ORDERED: OMEP40CA6 PO (14:12)
== END 2023-06-14 14:19 | disposition home or self-care (01) ==
LOC: PREOP 13:37
PROVIDERS: ATTEND Surgery
DX: Z01.818 Encounter for other preprocedural examination (principal)

== ENCOUNTER 2023-06-19 11:49 | Day surgery (SDC) | payer MEDICARE ==
--- NOTE | 2023-06-15 18:28 | HISTORY AND PHYSICAL ---
DATE OF SERVICE: 06/19/2023 This is for date of service 06/19/2023. ATTENDING PRIMARY CARE PHYSICIAN: Dr. Mateusz Caldera. The patient is a 43-year-old female who is known to us. She was initially seen in 2010 for persistent open wound and osteomyelitis of the left foot. At that time, she did have a history of IV drug abuse and ultimately underwent a below the knee amputation in August 2013. Since then, she has done really well and does have a left lower extremity prosthesis, which works well. She reported a history of heartburn, reflux with epigastric burning sensation as well as crampy abdominal pain as well as episodes of nausea and vomiting. She reports that the pain would radiate towards her right side as well as towards her back. She also reports some dysphagia at times and feels like some foods would get stuck in the substernal region and then will eventually reduce on its own. She has been taking a PPI acid belt tender daily. On 05/08/2023, she underwent an EGD with biopsy and balloon dilatation. Findings were reflux esophagitis, [place] grade C with a mild distal esophageal stricture. There was a small to moderate size hiatal hernia of 2.5 cm in size as well as a mild gastritis with no distal obstructions. Biopsies were positive for H. pylori, however, negative for Colon's esophagus. She did followup in the office and was unable to take Flagyl or clarithromycin due to interactions with her mental health medications. Due to this, she was started on amoxicillin as well as rifabutin regimen for 2 weeks. She also reported continued episodes of right upper quadrant pain with radiation towards her back as well as episodes of nausea and vomiting. She did undergo a gallbladder ultrasound, which did show a chronic calculous cholecystitis and on 05/30/2023, she underwent a laparoscopic cholecystectomy where she was found to have small gallstones. She is now needing a followup EGD for her recent H. pylori to confirm eradication with biopsies. MEDICAL HISTORY: Hepatitis C, previous IV drug abuse, previous left lower extremity infected open wound and necrosis requiring operation, depression, neuropathy, gastroesophageal reflux disease, insomnia, H. pylori. SURGICAL HISTORY: Left below the knee amputation 08/2013, multiple debridements of the left lower extremity, excision of neuroma and granuloma of left [id number] amputation stump 07/2018. [ ] of the left lower extremity, BKA in 2019, laparoscopic cholecystectomy on 05/30/2023. ALLERGIES: Betadine. SOCIAL HISTORY: Previous for tobacco smoke. Positive for vaping. Negative for alcohol. Previous for IV drug abuse. FAMILY HISTORY: Paternal uncle, throat cancer. Mother, hypertension, DVT, myocardial infarction. Maternal aunt, breast cancer. VITAL SIGNS: Blood pressure is 123/88. Current weight is 212.9 pounds at 5 feet 4 inches. REVIEW OF SYSTEMS: This is well-nourished female in no acute distress. She is not experiencing any shortness of breath or difficulty breathing. No chest pain, palpitations or diaphoresis. No nausea, vomiting or abdominal pain. No diarrhea or constipation. No red blood per rectum. No dark tarry stools. No fever or chills. No recent inadvertent weight loss. All other review of systems negative. PHYSICAL EXAMINATION: CHEST: Physical exam shows clear, good breath sounds bilaterally. HEART: Regular, no murmurs. EXTREMITIES: No lower extremity edema. Negative Homans sign. HEENT: No scleral icterus. No cervical lymphadenopathy. ABDOMEN: Soft, nontender, nondistended. SKIN: Warm, dry and pink. NEUROLOGIC: Awake, alert and oriented x3. ASSESSMENT AND PLAN: A 43-year-old female with a history of gastroesophageal reflux disease, who recently underwent an EGD and was found to have H. pylori on her biopsy. She was treated and is now needing to undergo a followup EGD to confirm eradication of H. pylori. At this time, we will proceed with scheduling her for an EGD with biopsies as appropriate. Job ID: [id number] DocumentID: [id number] Dictated Date: 06/12/2023 16:51:44 Us Marketing Director Date: 06/12/2023 23:27:00 Dictated By: ANDREW BOBBY APRN
[~2023-06-19] VITALS: Ht 162.6 cm; Wt 95.5 kg
[~2023-06-19 11:49] MED LIST changes: +OMEP40CA6 PO; +RIFA150C25 PO
[2023-06-19] MEDS ORDERED: LACTATED RINGERS 1,000 ML 1,000 ML IV STA (11:53)
[2023-06-19] MEDS ORDERED: LIDOCAINE JELLY 2% 6 ML SYRINGE MM PRN (12:00)
[2023-06-19] MEDS ORDERED: HURRICAINE EXT TUBE (BENZOCAINE) XX PRN (12:00)
--- NOTE | 2023-06-19 12:47 | Progress Note-Pre Operative ---
Pre-Operative Progress Note Date of Available H&P: Jun 19, 2023 Date H&P Reviewed: Jun 19, 2023 Time H&P Reviewed: 12:30 History & Physical: No changes noted Pre-Operative Diagnosis: hx h. pylori gastitis YUDI COLEMAN MD Jun 19, 2023 12:47
--- NOTE | 2023-06-19 12:48 | Discharge Inst-Surgical ---
D/C Lap Instructions-JARED Follow Up Appt Activity as tolerated High Fiber Diet 25g or more per day Avoid Alcohol, Caffeine, Spicy Spade and Acid foods. Drink 64 fluid oz or more of fluids per day. Symptoms to Report: Fever over 101 degree F, Nausea/Vomiting If any problems/questions: Contact your physician or go to Emergency Room YUDI COLEMAN MD Jun 19, 2023 12:48
[2023-06-19] MEDS ORDERED: ONDANSETRON 4 MG ORAL DISSOLVE TABLET PO PRN (13:00)
[2023-06-19] MEDS ORDERED: ONDANSETRON INJECTION 4 MG/2 ML (SDV) IVP PRN (13:00)
[2023-06-19 13:11] VITALS: BP 119/78
[2023-06-19] MEDS ORDERED: LIDOCAINE JELLY 2% 6 ML SYRINGE ONE (13:46)
[2023-06-19] MEDS ORDERED: MIDAZOLAM INJ 2 MG/2 ML VIAL ONE (14:02)
[2023-06-19] MEDS ORDERED: proPOfol INJECTION 200 MG/20 ML VIAL IV ONE ×2 (14:02→14:41)
[2023-06-19 14:32] VITALS: BP 93/55
[2023-06-19 14:40] VITALS: BP 93/55
--- NOTE | 2023-06-19 14:51 | Anesthesia-General Post-Op ---
MAC Patient Condition Mental Status/LOC: Same as Preop Cardiovascular: Satisfactory Nausea/Vomiting: Absent Respiratory: Satisfactory Pain: Controlled Complications: Absent Post Op Complications Complications None Follow Up Care/Instructions Patient Instructions None needed. Anesthesiology Discharge Order Discharge Order Patient is doing well, no complaints, stable vital signs, no apparent adverse anesthesia problems. No complications reported per nursing. LASHELL POPE DO Jun 19, 2023 14:50
--- NOTE | 2023-06-19 14:56 | Progress Note-Post Operative ---
Post-Operative Progess Note Surgeon (s)/Senior Project Manager Engineering (s) Surgeon YUDI COLEMAN MD Senior Project Manager Engineering: none Pre-Operative Diagnosis hx h. pylori gastitis Post-Operative Diagnosis reflux esophagitis(B), small-mod HH(2.5cm), mild gastritis. Procedure & Operative Findings Date of Procedure 06/19/23 Procedure Performed/Findings EGD with bx. Anesthesia Type mac Estimated Blood Loss Estimated blood loss (mL): minimal Specimens/Packing Specimens Removed ge jxn, antrum YUDI COLEMAN MD Jun 19, 2023 14:56
[2023-06-19 15:05] VITALS: BP 103/68
[2023-06-19 15:17] VITALS: BP 103/68
--- NOTE | 2023-06-19 22:19 | OPERATIVE REPORT ---
DATE OF SERVICE: 06/19/2023 ATTENDING PRIMARY CARE PHYSICIAN: Dr. Mateusz Caldera. PREOPERATIVE DIAGNOSIS: History of H. pylori gastritis. POSTOPERATIVE DIAGNOSES: Reflux esophagitis, [place] grade B, small to moderate size hiatal hernia approximately 2.5 cm in size, mild to moderate gastritis. No ulcerations. PROCEDURE: EGD with biopsy. SURGEON: Yudi Coleman MD ANESTHESIA: Monitored anesthesia care. ESTIMATED BLOOD LOSS: Minimal. FINDINGS: Reflux esophagitis, [place] grade B, small to moderate size hiatal hernia approximately 2.5 cm in size, mild to moderate gastritis. No ulcerations. DISPOSITION: The patient tolerated the procedure well. INDICATIONS: The patient is a 43-year-old female known to us. We had initially seen her in 2010 for a persistent open wound and osteomyelitis of the left foot. At that time, she had a history of IV drug abuse and ultimately underwent a [id number]-[id number] amputation in 08/2013. Since that time, she has done really well and has refrained from any illicit drugs and smoking, and does have a left lower extremity prosthesis and is fully ambulatory. She developed reflux and regurgitation as well as nausea and vomiting and she did undergo an EGD on 05/08/2023 and was found to have reflux esophagitis, [place] grade C, mild distal esophageal stricture, small to moderate size hiatal hernia, 2.5 cm in size as well as gastritis. Biopsies were positive for Helicobacter pylori. She was started on the proper antibiotic regimen with clarithromycin and metronidazole, both on a b.i.d. basis as well as PPI acid reducers on a b.i.d. basis. She states that her peptic ulcer disease and reflux type of symptoms did improve over time. She is now here for followup EGD and biopsies to confirm eradication of the H. pylori bacteria. DESCRIPTION OF PROCEDURE: The patient was brought to the operating room, laid supine on the table. After adequate IV pain and sedative medications and monitored anesthesia care, the mouthpiece was applied. The endoscope was placed in the mouth visualizing pharynx and hypopharyngeal region. Vocal cords, epiglottis and vallecula identified and appeared to be normal. Endoscope was then gently intubated into the esophageal opening and esophagus insufflated. The endoscope was then advanced through the first, second, third portions of esophagus at the level of GE junction, reflux esophagitis, [place] grade B identified with no ulcers or strictures identified. A biopsy was taken with forceps with visualization of good hemostasis. The endoscope was then advanced into the stomach and endoscope retroflexed visualizing a small to moderate size hiatal hernia approximately 2.5 cm in size. There was a [id number] gastritis more towards the stomach antrum. There were no ulcerations, polyps or any neoplasms identified and a biopsy was taken of the antrum to rule out H. pylori. The endoscope was then advanced through the pylorus and the first and second portion of the duodenum, which appeared normal with no distal obstructions. The endoscope was then slowly withdrawn while taking second look and suctioning of residual air with no additional findings. The patient tolerated the procedure well. We will have her continue with the necessary lifestyle and dietary accommodation including small and more frequent meals, avoidance of eating at night as well as head elevation while lying supine. She also needs to take in small and more frequent meals and avoid eating at night. We will also have her continue with her current PPI acid rig operator regimen. Job ID: [id number] DocumentID: [id number] Dictated Date: 06/19/2023 14:46:06 Top Spotter Date: 06/19/2023 22:17:00 Dictated By: YUDI COLEMAN MD
== END 2023-06-19 15:17 | disposition home or self-care (01) ==
LOC: ENDO 11:49
PROVIDERS: ATTEND Surgery
DX: K21.00 Gastro-esophageal reflux disease with esophagitis, without bleeding (principal); K44.9 Diaphragmatic hernia without obstruction or gangrene; K29.50 Unspecified chronic gastritis without bleeding; Z89.512 Acquired absence of left leg below knee; E66.9 Obesity, unspecified; F17.290 Nicotine dependence, other tobacco product, uncomplicated; Z68.36 Body mass index [BMI] 36.0-36.9, adult